=== PATIENT | male | born 1955 | race Caucasian/White ===

== ENCOUNTER 2018-06-27 21:48 | Inpatient (IN) | payer MEDICARE, OTHER ==
[~2018-06-27] VITALS: Ht 167.6 cm; Wt 92.9 kg
[2018-06-27] VITALS (8 sets, daily range): BP systolic 63–84; BP diastolic 43–68; PULSE 59–91; RESP 32–33; BMI 26.4
[2018-06-27] MEDS ORDERED: NORepinephrine 8MG/250 ML (PMX 250 ML IV SCH (23:00)
[2018-06-27] MEDS ORDERED: SOD CHLORIDE 0.9% 250 ML IV ONE (23:00)
[2018-06-28] VITALS (88 sets, daily range): BP systolic 38–173; BP diastolic 17–128; PULSE 59–130; RESP 16–36
[2018-06-28] MEDS ORDERED: ACETAMINOPHEN 650MG/20.3ML CUP GTB PRN
[2018-06-28] MEDS ORDERED: DEXTROSE 5%-0.9% NACL 1,000 ML IV SCH
[2018-06-28] MEDS ORDERED: VANCOMYCIN 750 MG (PMX) 250 ML IVPB SCH
[2018-06-28] MEDS: INSULIN ASPART [NOVOLOG] 3 ML PEN SC SCH ×6 (00:45→21:00)
[2018-06-28] MEDS: METOCLOPRAMIDE 10 MG INJ IV SCH ×5 (00:55→23:19)
[2018-06-28] MEDS: GENTAMICIN 0.3% 5 ML OPH BOTH EYES SCH ×7 (00:56→23:19)
[2018-06-28] MEDS ORDERED: GLUCAGON 1 MG INJ IM PRN ×2 (01:00)
[2018-06-28] MEDS ORDERED: GLUCOSE GEL 15 GRAM TUBE BUCCAL PRN (01:00)
[2018-06-28] MEDS ORDERED: DEXTROSE 50% 50 ML SYRINGE IV PRN (01:00)
[2018-06-28] MEDS ORDERED: GLUCOSE GEL 15 GRAM TUBE PO PRN ×2 (01:00)
[2018-06-28] MEDS ORDERED: MAGNESIUM SULFATE 2 GM/50 ML 50 ML IVPB ONE ×2 (01:00→11:30)
--- NOTE | 2018-06-28 01:12 | HP ---
Date/Time of Note Date/Time of Note DATE: 06/28/18 TIME: 00:55 Assessment/Plan VTE Prophylaxis SCD applied (from Ns): Yes Pharmacological prophylaxis: NA/contraindicated Pharm contraindication: other (Severe anemia) Assessment/Plan Assessment/Plan 1. Shock, likely septic(patient with severe unstageable sacral coccyx decubitus ulcer, pulmonary cocci), hypovolemic shock is also a possibility -Continue pressor support as needed. Will give IV fluid. -Urine culture, blood culture, sacrococcyx and respiratory culture -Patient has been anemic while he was in [place]. Will check hemoglobin and transfuse as needed -Continue his meropenem 2. Trach/vent dependent respiratory failure -Pulmonary to manage 3. Pulmonary cocci: Per bronchoscopy from [facility] on 05/12 -Per records, it seems like he is status post treatment with amphotericin B and Diflucan -Infectious disease to manage 4. Right middle cerebral artery CVA -Supportive care 5. Unstageable sacral coccyx decubitus ulcer -IV antibiotic, wound care consult 6. Diabetes: -Insulin 7. Reported history of seizure: On Keppra 8. Dysphagia with G-tube in place -Tube feeding CODE STATUS: Full. Patient with a poor prognosis. Will place a palliative care consult. Need to discuss goals of care with family Result Diagram: 06/28/18 0012 06/28/18 0012 Results 24hrs Laboratory Tests Test 06/28/18 00:12 06/28/18 00:35 White Blood Count 10.7 Red Blood Count 2.53 L Hemoglobin 7.4 L Hematocrit 22.8 L Mean Corpuscular Volume 90.1 Mean Corpuscular Hemoglobin 29.2 Mean Corpuscular Hemoglobin Concent 32.5 Red Cell Distribution Width 14.8 H Platelet Count 205 Mean Platelet Volume 8.7 Immature Granulocytes % 0.500 H Neutrophils % 78.7 H Lymphocytes % 10.9 L Monocytes % 5.6 Eosinophils % 4.1 Basophils % 0.2 Nucleated Red Blood Cells % 0.0 Immature Granulocytes # 0.050 H Neutrophils # 8.4 H Lymphocytes # 1.2 Monocytes # 0.6 Eosinophils # 0.4 Basophils # 0.0 Nucleated Red Blood Cells # 0.0 Sodium Level 135 Potassium Level 3.5 Chloride Level 104 Carbon Dioxide Level 20 L Anion Gap 11 Blood Urea Nitrogen 47 H Creatinine 1.02 Est Glomerular Filtrat Rate mL/min > 60 Glucose Level 76 # Lactic Acid Level 1.5 Calcium Level 9.3 Magnesium Level 1.6 L Bedside Glucose 83 HPI/ROS Admit Date/Time Admit Date/Time Jun 27, 2018 at 22:49 Hx of Present Illness This is a 62-year-old male who is trach/vent dependent, with a history of COPD, recent diagnosis of pulmonary cocci, right middle cerebral artery CVA, encephalopathy, seizure, diabetes, unstageable sacral coccyx decubitus ulcer, right ear pressure sore, G-tube. Patient was transferred from [place] for hypotension. He has been admitted to [place] after he was transferred from [facility]. He was admitted at [facility] on 05/08/2018 for respiratory failure and septic shock. Chest CT shows large cavitary mass. He underwent bronchoscopy on 05/12/18 with results showing pulmonary cocci. No malignancy. Patient was trached on 05/23/18. Patient is almost in a vegetative state and as such information is gathered from chart review. I am not fully convinced, but he seemed to attempt to close your eyes with verbal command. Patient currently has been started on pressor. PMH/Family/Social Past Medical History Medical History: other (See HPI) Medications Current Medications Norepinephrine 16 mg/Dextrose 500 ml @ 1.88 mls/hr TITRATE IV Last administered on 06/27/18at 23:42; Admin Dose 1.88 MLS/HR; Start 06/27/18 at 23:00 Acetaminophen (Tylenol Liquid) 650 mg Q6H PRN GTB FEVER; Start 06/28/18 at 00:00 Aspirin (Aspirin) 81 mg DAILY GTB ; Start 06/28/18 at 09:00 Atenolol (Tenormin) 12.5 mg BID GTB ; Start 06/28/18 at 09:00 Atorvastatin Calcium (Lipitor) 20 mg HS GTB ; Start 06/28/18 at 21:00 Dextrose/Sodium Chloride 1,000 ml @ 80 mls/hr [id number] IV ; Start 06/28/18 at 00:00 Fluconazole (Diflucan) 800 mg DAILY GTB ; Start 06/28/18 at 09:00 Gentamicin Sulfate (Gentamicin 0.3% Oph Drop) 2 drop Q4H BOTH EYES ; Start 06/28/18 at 00:00 Glucagon (Glucagen) 1 mg PRN PRN IM HYPOGLYCEMIA (BS<70); Start 06/28/18 at 00:00 Insulin Glargine (Lantus) 10 units DAILY SC ; Start 06/28/18 at 08:00 Lansoprazole (Prevacid) 30 mg BID@06,18 GTB ; Start 06/28/18 at 06:00 Levetiracetam (Keppra Liquid) 1,000 mg BID GTB ; Start 06/28/18 at 09:00 Memantine (Namenda) 10 mg DAILY GTB ; Start 06/28/18 at 09:00 Meropenem/Sodium Chloride 50 ml @ 100 mls/hr Q8 IVPB ; Start 06/28/18 at 06:00 Metoclopramide HCl (Reglan) 10 mg Q6 IV ; Start 06/28/18 at 00:00 Midodrine (Proamatine) 5 mg Q8 GTB ; Start 06/28/18 at 06:00 Nystatin (Nystatin Powder) 1 applic BID TOP ; Start 06/28/18 at 09:00 Scopolamine (Transderm-Scop) 1 patch Q72H TRANSDERM ; Start 06/28/18 at 09:00 Silver Sulfadiazine (Thermazene 1% 25 Gm) 1 applic BID TOP ; Start 06/28/18 at 09:00 Vancomycin/Sodium Chloride 250 ml @ 125 mls/hr Q12H IVPB ; Start 06/28/18 at 00: 00 Insulin Aspart (Novolog Insulin Pen) NOVOLOG *MILD* ALGORI... Q4 SC ; Start 06/28/18 at 01:00 Miscellaneous Information 1 ea NOTE XX ; Start 06/28/18 at 01:00 Glucose (Glutose) 15 gm Q15M PRN PO DECREASED GLUCOSE; Start 06/28/18 at 01:00 Glucose (Glutose) 22.5 gm Q15M PRN PO DECREASED GLUCOSE; Start 06/28/18 at 01:00 Dextrose (D50w Syringe) 25 ml Q15M PRN IV DECREASED GLUCOSE; Start 06/28/18 at 0 1:00 Dextrose (D50w Syringe) 50 ml Q15M PRN IV DECREASED GLUCOSE; Start 06/28/18 at 01:00 Glucagon (Glucagen) 1 mg Q15M PRN IM DECREASED GLUCOSE; Start 06/28/18 at 01:00 Glucose (Glutose) 15 gm Q15M PRN BUCCAL DECREASED GLUCOSE; Start 06/28/18 at 01:00 Magnesium Sulfate 50 ml @ 25 mls/hr ONCE ONCE IVPB ; Start 06/28/18 at 01:00; Stop 06/28/18 at 02:59 Coded Allergies: No Known Allergy (Unverified , 06/08/18) Past Surgical History Past Surgical Hx: other (See HPI) Family History Significant Family History: other (Unknown) Social History Alcohol Use: other (Unknown) Smoking Status: Former smoker Drug Use: other (Unknown) Exam/Review of Systems Vital Signs Vitals Vital Signs Date Temp Pulse Resp B/P (MAP) Pulse Ox O2 O2 Flow FiO2 Time Delivery Rate 06/28/18 61 00:00 06/27/18 32 100 30 20:22 Exam Constitutional: other (Trach to vent. And almost vegetative state. No acute distress noted) Head: other (Temporal wasting noted) Eyes: other (Pupils reactive to light) Neck: other (Trach to vent) Respiratory: diminished breath sounds Cardiovascular: regular rate and rhythm Gastrointestinal: soft, other (G-tube in place) Extremities: normal pulses RAFI SCRUGGS MD Jun 28, 2018 01:09
[2018-06-28] MEDS ORDERED: LIDOCAINE 1% (MPF) 5 ML VIAL SC ONE (01:30)
[2018-06-28] MEDS: POTASSIUM CHLORIDE 30 MEQ in DEXTROSE 5%-0.9% NACL 1,000 ML IV SCH ×3 (01:35→21:25)
[2018-06-28] MEDS ORDERED: ACCU-CHEK XX SCH (02:00)
[2018-06-28] MEDS: LANSOPRAZOLE 30 MG CAP GTB SCH ×2 (05:08→17:28)
[2018-06-28] MEDS: MIDODRINE 5 MG TAB GTB SCH ×3 (05:08→21:23)
[2018-06-28] MEDS: MEROPENEM 500MG/50 ML (PMX) 50 ML IVPB SCH ×3 (05:09→21:45)
[2018-06-28] MEDS: PHENYLephrine 20MG IN 250 ML 250 ML IV SCH ×4 (08:32→15:35)
[2018-06-28] MEDS: ATENOLOL 25 MG TAB GTB SCH ×2 (09:00→21:00)
[2018-06-28] MEDS: ASPIRIN 325 MG TAB GTB SCH (09:00)
[2018-06-28] MEDS ORDERED: SCOPOLAMINE 1.5 MG PATCH TRANSDERM SCH (09:00)
[2018-06-28] MEDS: FLUCONAZOLE 200 MG TAB GTB SCH (09:20)
[2018-06-28] MEDS: LEVETIRACETAM (100 MG/ML) 5ML CUP GTB SCH ×2 (09:21→21:23)
[2018-06-28] MEDS: MEMANTINE 10 MG TAB GTB SCH (09:21)
[2018-06-28] MEDS: NYSTATIN 30 GM POWDER BTL TOP SCH ×2 (09:21→21:25)
[2018-06-28] MEDS: SILVER SULFADIAZINE 1% 25 GM CR TOP SCH ×2 (09:22→21:25)
--- NOTE | 2018-06-28 09:26 | CONS ---
Date/Time of Note Date/Time of Note DATE: 06/28/18 TIME: 09:22 Assessment/Plan Assessment/Plan Assessment/Plan Chest x-ray is pending. Patient is currently on Levophed 29 mics per minute, phenylephrine drip 100 mics per minute. Ventilator setting; AC of 16, tidal volume 500, PEEP of 5, 30% FiO2. Assessment recommendations; 1. Patient with history of VD RF and chronic encephalopathy and history of coccidiomycosis pneumonia admitted for sepsis and hypotension requiring high- dose pressor support. Status post adequate fluid resuscitation. Sources are possible pneumonia versus sacral ulcer. 2. Advanced encephalopathy. 3. Stable seizure disorder. 4. Chronic anemia. 5. History of diabetes. Continue current supportive care. Wean down pressor support as tolerated. Prognosis remains poor. 40 minutes of critical care time was spent evaluating the patient. Result Diagram: 06/28/18 0012 06/28/18 0012 Results 24hrs Laboratory Tests Test 06/28/18 00:12 06/28/18 00:35 06/28/18 04:44 06/28/18 07:00 White Blood Count 10.7 Red Blood Count 2.53 L Hemoglobin 7.4 L Hematocrit 22.8 L Mean Corpuscular 90.1 Volume Mean Corpuscular 29.2 Hemoglobin Mean Corpuscular 32.5 Hemoglobin Concent Red Cell 14.8 H Distribution Width Platelet Count 205 Mean Platelet 8.7 Volume Immature 0.500 H Granulocytes % Neutrophils % 78.7 H Lymphocytes % 10.9 L Monocytes % 5.6 Eosinophils % 4.1 Basophils % 0.2 Nucleated Red 0.0 Blood Cells % Immature 0.050 H Granulocytes # Neutrophils # 8.4 H Lymphocytes # 1.2 Monocytes # 0.6 Eosinophils # 0.4 Basophils # 0.0 Nucleated Red 0.0 Blood Cells # Sodium Level 135 Potassium Level 3.5 Chloride Level 104 Carbon Dioxide 20 L Level Anion Gap 11 Blood Urea 47 H Nitrogen Creatinine 1.02 Est Glomerular > 60 Filtrat Rate mL/min Glucose Level 76 # Lactic Acid Level 1.5 Calcium Level 9.3 Magnesium Level 1.6 L Bedside Glucose 83 90 Blood Gas Specimen Blood arterial Source Arterial Blood 06/28/2018 7:29:00 Date Drawn AM Arterial Blood pH 7.306 L (Temp corrected) Arterial Blood 36.0 pCO2 (Temp correct) Arterial Blood pO2 76.4 L (Temp corrected) Arterial Blood 17.6 L HCO3 Arterial Blood -8.0 L Base Excess Arterial Blood 94.4 L Oxygen Saturation Mathieu Test ACCEPTAB Arterial Blood Gas Right Radial Puncture Site Arterial 0.4 Blood Carboxyhemog lobin Arterial Blood 0.3 Methemoglobin Blood Gas A-a O2 95.2 H Differential Oxyhemoglobin 93.7 Percent Blood Gas 37.0 Temperature Blood Gas 16.0 Respiration Rate Blood Gas Actual 25 Respiration Rate Blood Gas Modality VENT - AC FiO2 30.0 Blood Gas Tidal 500.0 Volume Blood Gas Low PEEP 5.0 Setting Blood Gas Notified TM Whom Blood Gas Notified 06/28/2018 7:51:49 Time AM Consultation Date/Type/Reason Admit Date/Time Jun 27, 2018 at 22:49 Date of Consultation: Jun 28, 2018 Type of Consult Pulmonary/critical care History of presenting illness; Patient is a 62-year-old male who was transferred over from [facility] because of hypotension. Patient has history of advanced encephalopathy and was unable to give any history by himself whatsoever. History has been obtained from medical records. Patient currently is requiring high-dose pressor support. Past medical history; 1. History of chronic encephalopathy. 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 4. History of tracheostomy and G-tube placement. 5. History of seizure disorder. 6. Sacral ulcer. 7. Diabetes. 8. Chronic anemia. Medications; reviewed. Allergies; none. Family history, social history, occupational history is or not available. Review of system; unable to be obtained. General exam; elderly male, on ventilator via tracheostomy, opens eyes on name calling but remains noncommunicative. Currently in no distress. Past Medical History Medical History: other (See HPI) Medications Current Medications Norepinephrine 16 mg/Dextrose 500 ml @ 1.88 mls/hr TITRATE IV Last administered on 06/27/18at 23:42; Admin Dose 1.88 MLS/HR; Start 06/27/18 at 23:00 Acetaminophen (Tylenol Liquid) 650 mg Q6H PRN GTB FEVER; Start 06/28/18 at 00:00 Aspirin (Aspirin) 81 mg DAILY GTB ; Start 06/28/18 at 09:00 Atenolol (Tenormin) 12.5 mg BID GTB ; Start 06/28/18 at 09:00 Atorvastatin Calcium (Lipitor) 20 mg HS GTB ; Start 06/28/18 at 21:00 Fluconazole (Diflucan) 800 mg DAILY GTB ; Start 06/28/18 at 09:00 Gentamicin Sulfate (Gentamicin 0.3% Oph Drop) 2 drop Q4H BOTH EYES Last administered on 06/28/18at 03:30; Admin Dose 2 DROP; Start 06/28/18 at 00:00 Glucagon (Glucagen) 1 mg PRN PRN IM HYPOGLYCEMIA (BS<70); Start 06/28/18 at 00:00 Insulin Glargine (Lantus) 10 units DAILY SC ; Start 06/28/18 at 08:00 Lansoprazole (Prevacid) 30 mg BID@06,18 GTB Last administered on 06/28/18at 05:08; Admin Dose 30 MG; Start 06/28/18 at 06:00 Levetiracetam (Keppra Liquid) 1,000 mg BID GTB ; Start 06/28/18 at 09:00 Memantine (Namenda) 10 mg DAILY GTB ; Start 06/28/18 at 09:00 Meropenem/Sodium Chloride 50 ml @ 100 mls/hr Q8 IVPB Last administered on 06/28/18at 05:09; Admin Dose 100 MLS/HR; Start 06/28/18 at 06:00 Metoclopramide HCl (Reglan) 10 mg Q6 IV Last administered on 06/28/18at 05:08; Admin Dose 10 MG; Start 06/28/18 at 00:00 Midodrine (Proamatine) 5 mg Q8 GTB ; Start 06/28/18 at 06:00 Nystatin (Nystatin Powder) 1 applic BID TOP ; Start 06/28/18 at 09:00 Scopolamine (Transderm-Scop) 1 patch Q72H TRANSDERM ; Start 06/28/18 at 09:00 Silver Sulfadiazine (Thermazene 1% 25 Gm) 1 applic BID TOP ; Start 06/28/18 at 09:00 Vancomycin/Sodium Chloride 250 ml @ 125 mls/hr Q12H IVPB Last administered on 06/28/18at 00:55; Admin Dose 125 MLS/HR; Start 06/28/18 at 00:00 Insulin Aspart (Novolog Insulin Pen) NOVOLOG *MILD* ALGORI... Q4 SC ; Start 06/28/18 at 01:00 Miscellaneous Information 1 ea NOTE XX ; Start 06/28/18 at 01:00 Glucose (Glutose) 15 gm Q15M PRN PO DECREASED GLUCOSE; Start 06/28/18 at 01:00 Glucose (Glutose) 22.5 gm Q15M PRN PO DECREASED GLUCOSE; Start 06/28/18 at 01:00 Dextrose (D50w Syringe) 25 ml Q15M PRN IV DECREASED GLUCOSE; Start 06/28/18 at 0 1:00 Dextrose (D50w Syringe) 50 ml Q15M PRN IV DECREASED GLUCOSE; Start 06/28/18 at 01:00 Glucagon (Glucagen) 1 mg Q15M PRN IM DECREASED GLUCOSE; Start 06/28/18 at 01:00 Glucose (Glutose) 15 gm Q15M PRN BUCCAL DECREASED GLUCOSE; Start 06/28/18 at 01:00 Potassium Chloride 30 meq/ Dextrose/Sodium Chloride 1,015 ml @ 80 mls/hr [id number] IV Last administered on 06/28/18at 01:35; Admin Dose 80 MLS/HR; Start 06/28/18 at 01:30 Phenylephrine HCl 250 ml @ 75 mls/hr TITRATE IV Last administered on 06/28/18at 08:32; Admin Dose 75 MLS/HR; Start 06/28/18 at 08:00 Allergies: Coded Allergies: No Known Allergy (Unverified , 06/08/18) Past Surgical History Past Surgical Hx: other (See HPI) Social History Alcohol Use: other (Unknown) Smoking Status: Former smoker Drug Use: other (Unknown) Exam/Review of Systems Vital Signs Vitals Vital Signs Date Temp Pulse Resp B/P (MAP) Pulse Ox O2 O2 Flow FiO2 Time Delivery Rate 06/28/18 75 30 92/53 (66) 100 06:15 06/28/18 31 05:52 06/28/18 96.8 Mechanical 00:00 Ventilator Intake and Output 06/27/18 06/27/18 06/28/18 1515:00 23:00 07:00 IntakeIntake Total 1658.77 ml OutputOutput Total 40 ml 310 ml BalanceBalance -40 ml 1348.77 ml Exam H EENT exam; supple neck, no JVD. No lymphadenopathy. Midline trachea. No thyromegaly. Tracheostomy in place. Insertion site is clean. Patient is e dentulous. No neck masses. Chest exam; diminished breath sounds bilaterally. S1-S2 audible, no murmurs. Regular rhythm. Abdomen exam; soft, no organomegaly. G-tube in place. Bowel sounds audible. Back examination; dressing applied over sacrum. Extremity exam; no peripheral edema. [employer] exam; she opens eyes on sternal rubbing but remains noncommunicative. Medications Medications Current Medications Norepinephrine 16 mg/Dextrose 500 ml @ 1.88 mls/hr TITRATE IV Last administered on 06/27/18at 23:42; Admin Dose 1.88 MLS/HR; Start 06/27/18 at 23:00 Acetaminophen (Tylenol Liquid) 650 mg Q6H PRN GTB FEVER; Start 06/28/18 at 00:00 Aspirin (Aspirin) 81 mg DAILY GTB ; Start 06/28/18 at 09:00 Atenolol (Tenormin) 12.5 mg BID GTB ; Start 06/28/18 at 09:00 Atorvastatin Calcium (Lipitor) 20 mg HS GTB ; Start 06/28/18 at 21:00 Fluconazole (Diflucan) 800 mg DAILY GTB ; Start 06/28/18 at 09:00 Gentamicin Sulfate (Gentamicin 0.3% Oph Drop) 2 drop Q4H BOTH EYES Last administered on 06/28/18at 03:30; Admin Dose 2 DROP; Start 06/28/18 at 00:00 Glucagon (Glucagen) 1 mg PRN PRN IM HYPOGLYCEMIA (BS<70); Start 06/28/18 at 00:00 Insulin Glargine (Lantus) 10 units DAILY SC ; Start 06/28/18 at 08:00 Lansoprazole (Prevacid) 30 mg BID@06,18 GTB Last administered on 06/28/18at 05:08; Admin Dose 30 MG; Start 06/28/18 at 06:00 Levetiracetam (Keppra Liquid) 1,000 mg BID GTB ; Start 06/28/18 at 09:00 Memantine (Namenda) 10 mg DAILY GTB ; Start 06/28/18 at 09:00 Meropenem/Sodium Chloride 50 ml @ 100 mls/hr Q8 IVPB Last administered on 06/28/18at 05:09; Admin Dose 100 MLS/HR; Start 06/28/18 at 06:00 Metoclopramide HCl (Reglan) 10 mg Q6 IV Last administered on 06/28/18at 05:08; Admin Dose 10 MG; Start 06/28/18 at 00:00 Midodrine (Proamatine) 5 mg Q8 GTB ; Start 06/28/18 at 06:00 Nystatin (Nystatin Powder) 1 applic BID TOP ; Start 06/28/18 at 09:00 Scopolamine (Transderm-Scop) 1 patch Q72H TRANSDERM ; Start 06/28/18 at 09:00 Silver Sulfadiazine (Thermazene 1% 25 Gm) 1 applic BID TOP ; Start 06/28/18 at 09:00 Vancomycin/Sodium Chloride 250 ml @ 125 mls/hr Q12H IVPB Last administered on 06/28/18at 00:55; Admin Dose 125 MLS/HR; Start 06/28/18 at 00:00 Insulin Aspart (Novolog Insulin Pen) NOVOLOG *MILD* ALGORI... Q4 SC ; Start 06/28/18 at 01:00 Miscellaneous Information 1 ea NOTE XX ; Start 06/28/18 at 01:00 Glucose (Glutose) 15 gm Q15M PRN PO DECREASED GLUCOSE; Start 06/28/18 at 01:00 Glucose (Glutose) 22.5 gm Q15M PRN PO DECREASED GLUCOSE; Start 06/28/18 at 01:00 Dextrose (D50w Syringe) 25 ml Q15M PRN IV DECREASED GLUCOSE; Start 06/28/18 at 01:00 Dextrose (D50w Syringe) 50 ml Q15M PRN IV DECREASED GLUCOSE; Start 06/28/18 at 01:00 Glucagon (Glucagen) 1 mg Q15M PRN IM DECREASED GLUCOSE; Start 06/28/18 at 01:00 Glucose (Glutose) 15 gm Q15M PRN BUCCAL DECREASED GLUCOSE; Start 06/28/18 at 01:00 Potassium Chloride 30 meq/ Dextrose/Sodium Chloride 1,015 ml @ 80 mls/hr [id number] IV Last administered on 06/28/18at 01:35; Admin Dose 80 MLS/HR; Start 06/28/18 at 01:30 Phenylephrine HCl 250 ml @ 75 mls/hr TITRATE IV Last administered on 06/28/18at 08:32; Admin Dose 75 MLS/HR; Start 06/28/18 at 08:00 RDONEY MASCORRO Jun 28, 2018 09:26
[2018-06-28] MEDS: INSULIN GLARGINE [LANTus] (100 UNITS/ML) SYG SC SCH (09:33)
[2018-06-28] MEDS ORDERED: DOPamine-D5W 1.6 MG/ML 250 ML IV SCH (12:30)
[2018-06-28] MEDS ORDERED: DOPamine 800 MG in DEXTROSE 5% 230 ML IV SCH (13:30)
[2018-06-28] MEDS: POTASSIUM CHLORIDE 50 ML IVPB SCH ×2 (13:41→15:34)
[2018-06-28] MEDS: VANCOMYCIN 750 MG (PMX) 250 ML IVPB SCH (15:06)
[2018-06-28] MEDS ORDERED: PHENYLephrine 20MG IN 250 ML 250 ML ONE (17:04)
[2018-06-28] MEDS ORDERED: PHENYLephrine 20MG IN 250 ML 250 ML IV STA (17:04)
--- NOTE | 2018-06-28 17:37 | PN ---
Date/Time of Note Date/Time of Note DATE: 06/28/18 TIME: 17:34 Assessment/Plan VTE Prophylaxis Risk score (from [facility] [place])>0 risk: 7 SCD applied (from [facility] [place]): Yes Pharmacological prophylaxis: NA/contraindicated Pharm contraindication: surgical contra Assessment/Plan Hospital Course 1. Shock, likely septic from severe unstageable sacral coccyx decubitus ulcer and pulmonary cocci -Patient now on 2 pressors -Urine culture, blood culture, sacrococcyx and respiratory culture -Continue meropenem and vancomycin 2. Trach/vent dependent respiratory failure -Pulmonary to manage 3. Pulmonary cocci: Per bronchoscopy from [facility] on 05/12 -Per records, it seems like he is status post treatment with amphotericin B and Diflucan -Infectious disease to manage 4. Right middle cerebral artery CVA -Supportive care 5. Unstageable sacral coccyx decubitus ulcer -IV antibiotic, wound care consult 6. Diabetes: -Insulin 7. Reported history of seizure: On Keppra 8. Dysphagia with G-tube in place -Tube feeding Prophylaxis: SCDs DC planning: Spoke to patient's daughter today and they would like to continue aggressive care continue CODE STATUS of full code Result Diagram: 06/28/18 0012 06/28/18 0012 Results 24hrs Laboratory Tests Test 06/28/18 00:12 06/28/18 00:35 06/28/18 03:00 06/28/18 04:44 White Blood 10.7 Count Red Blood Count 2.53 L Hemoglobin 7.4 L Hematocrit 22.8 L Mean Corpuscular 90.1 Volume Mean Corpuscular 29.2 Hemoglobin Mean Corpuscular 32.5 Hemoglobin [place] nt Red Cell 14.8 H Distribution Width Platelet Count 205 Mean Platelet 8.7 Volume Immature 0.500 H Granulocytes % Neutrophils % 78.7 H Lymphocytes % 10.9 L Monocytes % 5.6 Eosinophils % 4.1 Basophils % 0.2 Nucleated Red 0.0 Blood Cells % Immature 0.050 H Granulocytes # Neutrophils # 8.4 H Lymphocytes # 1.2 Monocytes # 0.6 Eosinophils # 0.4 Basophils # 0.0 Nucleated Red 0.0 Blood Cells # Sodium Level 135 Potassium Level 3.5 Chloride Level 104 Carbon Dioxide 20 L Level Anion Gap 11 Blood Urea 47 H Nitrogen Creatinine 1.02 Est Glomerular > 60 Filtrat Rate mL/min Glucose Level 76 # Lactic Acid 1.5 Level Calcium Level 9.3 Magnesium Level 1.6 L Bedside Glucose 83 90 Urine Color YELLOW Urine Clarity SLIGHTLY CLOUDY A Urine pH 5.0 Urine Specific 1.010 [place] Urine Ketones NEGATIVE Urine Nitrite NEGATIVE Urine Bilirubin NEGATIVE Urine NEGATIVE Urobilinogen Urine Leukocyte NEGATIVE Esterase Urine 1 Microscopic RBC Urine 2 Microscopic WBC Urine Bacteria FEW A Urine Hemoglobin NEGATIVE Urine Glucose NEGATIVE Urine Total 1+ H Protein Test 06/28/18 07:00 06/28/18 09:31 06/28/18 11:54 06/28/18 14:21 Blood Gas Blood arterial Specimen Source Arterial Blood 06/28/2018 7:29:00 Date Drawn AM Arterial Blood 7.306 L pH (Temp corrected) Arterial Blood 36.0 pCO2 (Temp correct) Arterial Blood 76.4 L pO2 (Temp corrected) Arterial Blood 17.6 L HCO3 Arterial Blood -8.0 L Base Excess Arterial Blood 94.4 L Oxygen Saturatio n Mathieu Test ACCEPTAB Arterial Blood Right Radial Gas Puncture Site Arterial 0.4 Blood Carboxyhem oglobin Arterial Blood 0.3 Methemoglobin Blood Gas A-a O2 95.2 H Differential Oxyhemoglobin 93.7 Percent Blood Gas 37.0 Temperature Blood Gas 16.0 Respiration Rate Blood Gas Actual 25 Respiration Rate Blood Gas VENT - AC Modality FiO2 30.0 Blood Gas Tidal 500.0 Volume Blood Gas Low 5.0 PEEP Setting Blood Gas TM Notified Whom Blood Gas 06/28/2018 7:51:49 Notified Time AM Bedside Glucose 103 110 Creatine Kinase < 20 L Creatine Kinase Index Creatinine 1.20 Kinase MB (Mass) Troponin I < 0.012 Test 06/28/18 17:27 Bedside Glucose 81 Subjective 24 Hr Interval Summary Subjective hx not possible: pt non-verbal Exam/Review of Systems Vital Signs Vitals Vital Signs Date Temp Pulse Resp B/P (MAP) Pulse Ox O2 O2 Flow FiO2 Time Delivery Rate 06/28/18 91 12:00 06/28/18 27 114/55 97 Mechanical 11:45 (74) Ventilator 06/28/18 30 11:40 06/28/18 97.5 09:45 Intake and Output 06/27/18 06/27/18 06/28/18 1515:00 23:00 07:00 IntakeIntake Total 1658.77 ml OutputOutput Total 40 ml 310 ml BalanceBalance -40 ml 1348.77 ml Exam Constitutional: non-verbal Respiratory: clear to auscultation Cardiovascular: regular rate and rhythm Gastrointestinal: soft; No distended Musculoskeletal: nl extremities to inspection Medications Medications Current Medications Norepinephrine 16 mg/Dextrose 500 ml @ 1.88 mls/hr TITRATE IV Last administered on 06/28/18 13:57; Admin Dose 56.25 MLS/HR; Start 06/27/18 at 23:00 Acetaminophen (Tylenol Liquid) 650 mg Q6H PRN GTB FEVER; Start 06/28/18 at 00:00 Aspirin (Aspirin) 81 mg DAILY GTB ; Start 06/28/18 at 09:00 Atenolol (Tenormin) 12.5 mg BID GTB ; Start 06/28/18 at 09:00 Atorvastatin Calcium (Lipitor) 20 mg HS GTB ; Start 06/28/18 at 21:00 Fluconazole (Diflucan) 800 mg DAILY GTB Last administered on 06/28/18 09:20; Admin Dose 800 MG; Start 06/28/18 at 09:00 Gentamicin Sulfate (Gentamicin 0.3% Oph Drop) 2 drop Q4H BOTH EYES Last administered on 06/28/18 17:20; Admin Dose 2 DROP; Start 06/28/18 at 00:00 Glucagon (Glucagen) 1 mg PRN PRN IM HYPOGLYCEMIA (BS<70); Start 06/28/18 at 00:00 Insulin Glargine (Lantus) 10 units DAILY SC Last administered on 06/28/18 09:33; Admin Dose 10 UNITS; Start 06/28/18 at 08:00 Lansoprazole (Prevacid) 30 mg BID@06,18 GTB Last administered on 06/28/18 17:28; Admin Dose 30 MG; Start 06/28/18 at 06:00 Levetiracetam (Keppra Liquid) 1,000 mg BID GTB Last administered on 06/28/18 09:21; Admin Dose 1,000 MG; Start 06/28/18 at 09:00 Memantine (Namenda) 10 mg DAILY GTB Last administered on 06/28/18 09:21; Admin Dose 10 MG; Start 06/28/18 at 09:00 Meropenem/Sodium Chloride 50 ml @ 100 mls/hr Q8 IVPB Last administered on 1/3/19at 14:17; Admin Dose 100 MLS/HR; Start 06/28/18 at 06:00 Metoclopramide HCl (Reglan) 10 mg Q6 IV Last administered on 06/28/18at 17:28; Admin Dose 10 MG; Start 06/28/18 at 00:00 Midodrine (Proamatine) 5 mg Q8 GTB Last administered on 06/28/18at 14:11; Admin Dose 5 MG; Start 06/28/18 at 06:00 Nystatin (Nystatin Powder) 1 applic BID TOP Last administered on 06/28/18at 09:21; Admin Dose 1 APPLIC; Start 06/28/18 at 09:00 Scopolamine (Transderm-Scop) 1 patch Q72H TRANSDERM Last administered on 06/28/18 09:22; Admin Dose 1 PATCH; Start 06/28/18 at 09:00 Silver Sulfadiazine (Thermazene 1% 25 Gm) 1 applic BID TOP Last administered on 06/28/18 09:22; Admin Dose 1 APPLIC; Start 06/28/18 at 09:00 Insulin Aspart (Novolog Insulin Pen) NOVOLOG *MILD* ALGORI... Q4 SC ; Start 06/28/18 at 01:00 Miscellaneous Information 1 ea NOTE XX ; Start 06/28/18 at 01:00 Glucose (Glutose) 15 gm Q15M PRN PO DECREASED GLUCOSE; Start 06/28/18 at 01:00 Glucose (Glutose) 22.5 gm Q15M PRN PO DECREASED GLUCOSE; Start 06/28/18 at 01:00 Dextrose (D50w Syringe) 25 ml Q15M PRN IV DECREASED GLUCOSE; Start 06/28/18 at 01:00 Dextrose (D50w Syringe) 50 ml Q15M PRN IV DECREASED GLUCOSE; Start 06/28/18 at 01:00 Glucagon (Glucagen) 1 mg Q15M PRN IM DECREASED GLUCOSE; Start 06/28/18 at 01:00 Glucose (Glutose) 15 gm Q15M PRN BUCCAL DECREASED GLUCOSE; Start 06/28/18 at 01:00 Potassium Chloride 30 meq/ Dextrose/Sodium Chloride 1,015 ml @ 80 mls/hr [id number] IV Last administered on 06/28/18at 01:35; Admin Dose 80 MLS/HR; Start 06/28/18 at 01:30 IV Flush (NS 10 ml) 10 ml PRN PRN IV IV PROTOCOL; Start 06/28/18 at 12:00 Dopamine HCl/ Dextrose 250 ml @ 5.565 mls/ hr TITRATE IV ; Start 06/28/18 at 12:30 Miscellaneous Information (*Rx Drug Level Order Reminder*) VANCO TROUGH 06/28 @ 2,300 ONCE ONCE XX ; Start 06/29/18 at 01:00; Stop 06/29/18 at 01:01 Vancomycin/Sodium Chloride 250 ml @ 125 mls/hr Q12H IVPB Last administered on 06/28/18at 15:06; Admin Dose 125 MLS/HR; Start 06/28/18 at 14:00 Phenylephrine HCl 80 mg/Dextrose 250 ml @ 18.75 mls/ hr TITRATE IV ; Start 06/28/18 at 17:00 ENID SINGH Jun 28, 2018 17:37
[2018-06-28] MEDS: PHENYLephrine 80 MG in DEXTROSE 5% 242 ML IV SCH ×2 (18:44→23:59)
--- NOTE | 2018-06-28 18:53 | CONS ---
DATE OF ADMISSION: 06/27/2018 DATE OF CONSULTATION: 06/28/2018 REASON FOR CONSULTATION: Hypotension. REQUESTING PHYSICIAN: Dr. Patel from the hospitalist service. HISTORY OF PRESENT ILLNESS: Mr. Ponce is a 62-year-old male who has chronic respiratory failure, vent dependent, COPD, pulmonary cocci infection, right middle cerebral artery CVA, encephalopathy, seizure, diabetes mellitus, decubitus ulcers, dysphagia status G-tube who was transferred from [facility] at the onset of hypotension requiring initiation of pressor support. The patient since that time has been admitted to the ICU and remains on Levophed and Owen-Synephrine at this time with Levophed being maximized. The patient does not clearly respond to questioning pertaining to chest pain or shortness of breath at this time. PAST MEDICAL HISTORY: As above in HPI. MEDICATIONS CURRENTLY IN HOSPITAL: 1. Lipitor 20 mg at bedtime. 2. Aspirin 81 mg daily. 3. Atenolol 12.5 mg p.o. b.i.d. 4. Fluconazole 80 mg daily. 5. Keppra 1000 mg b.i.d. 6. Namenda 10 mg daily. 7. Nystatin. 8. Scopolamine patch. 9. Silver sulfadiazine. 10. Prevacid. 11. Midodrine 5 mg p.o. q.8 hours. 12. Insulin sliding scale. 13. Reglan. 14. Vancomycin. 15. Levophed. 16. Tylenol. ALLERGIES: NO KNOWN DRUG ALLERGIES. SOCIAL HISTORY: No current tobacco, ETOH, or illicit drug use. FAMILY HISTORY: No sudden cardiac or early CAD. REVIEW OF SYSTEMS: As above in HPI. CONSTITUTIONAL: No fevers, chills. PULMONARY: Respiratory failure status post trach. GASTROINTESTINAL: Dysphagia status post G-tube. GENITOURINARY: No hematuria. MUSCULOSKELETAL: Degenerative joint disease, status post left lower extremity amputation. PSYCHIATRIC: No documented psych history. NEUROLOGIC: Encephalopathy. PHYSICAL EXAMINATION: VITAL SIGNS: Temperature of 96.8, blood pressure most recently 92/53, pulse 75, respiratory rate 30, satting 100%. GENERAL: The patient is sleeping trach on the vent. NECK: Tracheostomy in place. CHEST: Upper extremities are rhonchorous sounds. HEART: Regular rate and rhythm. Normal S1, S2, I/ systolic murmur. Nondisplaced PMI. ABDOMEN: Positive bowel sounds, soft. EXTREMITIES: Left lower extremity, status amputation. Right lower extremity, no significant pitting edema. Difficult to palpate distal pulses posterior tibial. LABORATORY DATA: Most recent from today, sodium 135, potassium 3.5, creatinine 1.0, BUN of 47. Magnesium 1.6. White blood cell count 10.7, hemoglobin 7.4, platelet count 205. UA negative. IMAGING STUDIES: As above in HPI. No further imaging studies for my review at this time. ELECTROCARDIOGRAM: Reveals from today sinus bradycardia at 57, normal axis and intervals, nonspecific ST abnormalities, frequent PVCs, anterior T-wave inversion. IMPRESSION: 1. Hypotension/shock state, likely septic. 2. Premature ventricular contractions in a pattern of bigeminy. Assess for coronary ischemia, acute coronary syndrome. 3. Dyslipidemia. 4. Peripheral arterial disease, status post lower extremity amputation. 5. Seizure disorder. 6. Anemia. 7. Encephalopathy. 8. History of pulmonary coccidioidomycosis. 9. Chronic respiratory failure, status post tracheostomy. 10. Dysphagia, status post G-tube. RECOMMENDATIONS: 1. At this time, would maintain patient in ICU on close monitoring. 2. The patient receiving a PICC line at this time. He will continue to receive pressor support. 3. Will complete a rule out for myocardial infarction to be sure the patient's symptoms are not the result of an acute coronary syndrome such as acute myocardial infarction. 4. Replete the patient's magnesium and potassium in the setting of PVCs greater than 2 and 4 respectively. 5. Patient is status post echo 06/11/2018, at that time revealing an EF of 50% to 55%. Could consider reassessment as necessary. 6. Additionally, would continue the patient's antibiotics and follow up all culture data. Thank you for allowing me to take part in the care of this patient. I will continue to follow along very closely with you, with recommendations to be made as the patient progresses through his inpatient hospital clinical course. Dictated By: ALINE ORONA/RAYNA Conf#: [id number] DID#: [id number] CC: RAFIQ LEGGETT MD; YUNIER PATEL MD;*EndCC* MTDD
--- NOTE | 2018-06-28 19:38 | RADRPT ---
Vent Rate: 57 bpm RR Interval: 0 msec [place] Interval: 188 msec QRS Duration: 94 msec QT Interval: 488 msec QTC Interval: 474 msec P-R-T [place]: 30 - 46 - 68 degrees Sinus bradycardia with frequent premature ventricular complexes T wave abnormality, consider anterior ischemia Prolonged QT Abnormal ECG Electronically Signed By: Rodriguez Clark [id number]
[2018-06-28] MEDS ORDERED: ATORVASTATIN 20 MG TAB ONE (19:57)
--- NOTE | 2018-06-28 20:27 | CONS ---
DATE OF ADMISSION: 06/27/2018 DATE OF CONSULTATION: 06/28/2018 INFECTIOUS DISEASE CONSULTATION REASON FOR CONSULTATION: Antibiotic management. HISTORY OF PRESENT ILLNESS: Rajeev Ponce is a 62-year-old male who was transferred from [place] to [facility] ICU with what appears to be septic shock. The patient has a history of pulmonary c occi per bronchoscopy from [facility] on 05/12. He is status post treatment with ampho tericin B and currently is on fluconazole. The patient also had history of right middle cerebral art quang CVA, unstageable sacral coccyx decubitus ulcer which he is on IV antibiotics and wound care, has a history of diabetes and history of seizures, on Keppra. He has dysphagia with G-tube in place. On admission, his white count is 10.7, H and H of 7.4 and 22.8, platelet count 205,000. BUN and creati nine 47/1.02. Random glucose of 76. The patient was seen in consultation by pulmonary, Dr. Curtis. Of note, he is ventilator dependent respiratory failure, chronic encephalopathy and history of cocci pneumonia, admitted for sepsis and hypotension requiring high dose pressor support. He has advanced encephalopathy, stable; seizure disorder, anemia as noted and diabetes. PAST MEDICAL HISTORY: Operations as outlined. FAMILY HISTORY: Noncontributory. SOCIAL HISTORY: He does not smoke, drink or abuse drugs. ALLERGIES: NONE TO PENICILLIN, SULFA OR FOODS. MEDICATIONS: Per chart. REVIEW OF SYSTEMS: As per HPI. PHYSICAL EXAMINATION: GENERAL: He is a chronically ill-appearing male, was hypotensive, on a respirator. He has a tracheo stomy and a G-tube. SKIN: Without generalized rash. HEENT: Within normal limits. NECK: Supple. LYMPH NODES: None palpable. CHEST: Decreased breath sounds at the bases. HEART: Without murmur or gallop. ABDOMEN: Soft, nontender, without organosplenomegaly or masses. EXTREMITIES: Without cyanosis, clubbing, or edema. RECTAL AND GENITAL: Deferred. NEUROLOGIC: No focal neurological abnormality. The patient was placed on fluconazole ____ mg a day. He is also on meropenem 1 gram q.8 and on vanco mycin. I concur with this regimen. He was also on norepinephrine to maintain his blood pressure and also phenylephrine. I will dictate my findings to the hospitalist and to Dr. Curtis. Dictated By: BUNNY OJEDA MD, JD/RAYNA Conf#: [id number] DID#: [id number] CC: RAFIQ LEGGETT MD;*EndCC*
[2018-06-28] MEDS: ATORVASTATIN 20 MG TAB GTB SCH (21:23)
[2018-06-28] MEDS ORDERED: LORAZEPAM 4 MG/ML VIAL IV ONE (23:00)
[2018-06-29] VITALS (99 sets, daily range): BP systolic 97–133; BP diastolic 33–58; PULSE 73–105; RESP 14–34
[2018-06-29] MEDS: INSULIN ASPART [NOVOLOG] 3 ML PEN SC SCH ×6 (00:39→20:19)
[2018-06-29] MEDS ORDERED: HYDROmorphONE 1 MG/ML SYG IV ONE (01:00)
[2018-06-29] MEDS ORDERED: SOD CHLORIDE 0.9% 250 ML IV ONE (01:00)
[2018-06-29] MEDS: VANCOMYCIN 750 MG (PMX) 250 ML IVPB SCH (02:58)
[2018-06-29] MEDS: GENTAMICIN 0.3% 5 ML OPH BOTH EYES SCH ×5 (04:57→20:13)
[2018-06-29] MEDS: MIDODRINE 5 MG TAB GTB SCH ×3 (05:35→21:55)
[2018-06-29] MEDS: LANSOPRAZOLE 30 MG CAP GTB SCH ×2 (05:35→18:07)
[2018-06-29] MEDS: METOCLOPRAMIDE 10 MG INJ IV SCH ×3 (05:35→18:07)
[2018-06-29] MEDS: PHENYLephrine 80 MG in DEXTROSE 5% 242 ML IV SCH ×3 (05:41→18:11)
[2018-06-29] MEDS: MEROPENEM 500MG/50 ML (PMX) 50 ML IVPB SCH ×3 (05:58→21:55)
[2018-06-29] MEDS: FLUCONAZOLE 200 MG TAB GTB SCH (08:25)
[2018-06-29] MEDS: LEVETIRACETAM (100 MG/ML) 5ML CUP GTB SCH ×2 (08:25→20:14)
[2018-06-29] MEDS: ATENOLOL 25 MG TAB GTB SCH ×2 (08:26→21:00)
[2018-06-29] MEDS: SILVER SULFADIAZINE 1% 25 GM CR TOP SCH ×2 (08:27→20:14)
[2018-06-29] MEDS: NYSTATIN 30 GM POWDER BTL TOP SCH ×2 (08:27→20:14)
[2018-06-29] MEDS: INSULIN GLARGINE [LANTus] (100 UNITS/ML) SYG SC SCH ×2 (09:00→09:21)
[2018-06-29] MEDS: POTASSIUM CHLORIDE 30 MEQ in DEXTROSE 5%-0.9% NACL 1,000 ML IV SCH (11:07)
--- NOTE | 2018-06-29 12:28 | CONS ---
Date/Time of Note Date/Time of Note DATE: 06/29/18 TIME: 12:25 Consult Date/Type/Reason Admit Date/Time Jun 27, 2018 at 22:49 Initial Consult Date 06/28/18 Type of Consultation: Pulm Subjective Continues multiple pressors. Remains somnolent on vent. Objective Vital Signs Date Temp Pulse Resp B/P (MAP) Pulse Ox O2 O2 Flow FiO2 Time Delivery Rate 06/29/18 98.8 85 26 107/47 98 Mechanical 11:30 (67) Ventilator 06/29/18 40 09:58 Intake and Output 06/28/18 06/28/18 06/29/18 1515:00 23:00 07:00 IntakeIntake Total 1661.23 ml 1980.00 ml 1750.008 ml OutputOutput Total 350 ml 245 ml 300 ml BalanceBalance 1311.23 ml 1735.00 ml 1450.008 ml Exam GENERAL: Remains somnolent on mechanical ventilation. Chronically ill-appearing gentleman VITAL SIGNS: per chart NECK: Supple. No JVD or lymphadenopathy. CARDIAC EXAM: S1, S2. No added sounds or murmurs. CHEST: Diminished air entry bilaterally ABDOMEN: Soft, nontender. No guarding or rebound. EXTREMITIES: No cyanosis, clubbing or edema. NEUROLOGIC: Generalized weakness. Results/Medications Result Diagram: 06/29/18 0449 06/29/18 0453 Results 24 hrs Laboratory Tests Test 06/28/18 14:21 06/28/18 17:27 06/28/18 18:01 06/28/18 21:48 Bedside Glucose 110 81 92 Hemoglobin 9.8 #L Hematocrit 29.8 #L Creatine Kinase < 20 L Creatine Kinase Index Creatinine Kinase 0.77 MB (Mass) Troponin I 0.013 Test 06/29/18 00:29 06/29/18 00:30 06/29/18 03:00 06/29/18 04:49 Creatine Kinase < 20 L Creatine Kinase Index Creatinine Kinase 0.92 MB (Mass) Troponin I 0.047 Vancomycin Level 14.6 Trough Bedside Glucose 119 Stool Occult Blood POSITIVE White Blood Count 18.2 #H Red Blood Count 3.23 #L Hemoglobin 9.5 L Hematocrit 29.2 L Mean Corpuscular 90.4 Volume Mean Corpuscular 29.4 Hemoglobin Mean Corpuscular 32.5 Hemoglobin Concent Red Cell 15.0 H Distribution Width Platelet Count 186 Mean Platelet 8.7 Volume Immature 0.900 H Granulocytes % Neutrophils % 81.9 H Lymphocytes % 8.8 L Monocytes % 6.7 Eosinophils % 1.4 Basophils % 0.3 Nucleated Red Blood 0.0 Cells % Immature 0.160 H Granulocytes # Neutrophils # 14.9 H Lymphocytes # 1.6 Monocytes # 1.2 H Eosinophils # 0.3 Basophils # 0.1 Nucleated Red Blood 0.0 Cells # Test 06/29/18 04:53 06/29/18 05:19 06/29/18 05:33 06/29/18 08:30 Sodium Level 133 L Potassium Level 4.8 Chloride Level 107 Carbon Dioxide 15 L Level Anion Gap 11 Blood Urea Nitrogen 44 H Creatinine 1.38 H Est Glomerular 52 L Filtrat Rate mL/min Glucose Level 136 # Calcium Level 9.6 Total Bilirubin 0.7 Direct Bilirubin 0.70 H Indirect Bilirubin 0.0 Aspartate Amino 28 Transf (AST/SGOT) Alanine < 6 L Aminotransferase (A LT/SGPT) Alkaline 328 H Phosphatase Total Protein 6.8 Albumin 2.0 L Globulin 4.80 H Albumin/Globulin 0.41 Ratio Lab Scanned Report BLOOD TRANSFUSION Bedside Glucose 145 201 Medications Current Medications Norepinephrine 16 mg/Dextrose 500 ml @ 1.88 mls/hr TITRATE IV Last administered on 06/29/18at 06:47; Admin Dose 56.25 MLS/HR; Start 06/27/18 at 23:00 Acetaminophen (Tylenol Liquid) 650 mg Q6H PRN GTB FEVER; Start 06/28/18 at 00:00 Aspirin (Aspirin) 81 mg DAILY GTB ; Start 06/28/18 at 09:00 Atenolol (Tenormin) 12.5 mg BID GTB ; Start 06/28/18 at 09:00 Atorvastatin Calcium (Lipitor) 20 mg HS GTB Last administered on 06/28/18at 21:23; Admin Dose 20 MG; Start 06/28/18 at 21:00 Fluconazole (Diflucan) 800 mg DAILY GTB Last administered on 06/29/18at 08:25; Admin Dose 800 MG; Start 06/28/18 at 09:00 Gentamicin Sulfate (Gentamicin 0.3% Oph Drop) 2 drop Q4H BOTH EYES Last administered on 06/29/18at 11:37; Admin Dose 2 DROP; Start 06/28/18 at 00:00 Glucagon (Glucagen) 1 mg PRN PRN IM HYPOGLYCEMIA (BS<70); Start 06/28/18 at 00:00 Insulin Glargine (Lantus) 10 units DAILY SC Last administered on 06/29/18 09:21; Admin Dose 10 UNITS; Start 06/28/18 at 08:00 Lansoprazole (Prevacid) 30 mg BID@06,18 GTB Last administered on 06/29/18 05:35; Admin Dose 30 MG; Start 06/28/18 at 06:00 Levetiracetam (Keppra Liquid) 1,000 mg BID GTB Last administered on 06/29/18 08:25; Admin Dose 1,000 MG; Start 06/28/18 at 09:00 Memantine (Namenda) 10 mg DAILY GTB Last administered on 06/28/18 09:21; Admin Dose 10 MG; Start 06/28/18 at 09:00 Meropenem/Sodium Chloride 50 ml @ 100 mls/hr Q8 IVPB Last administered on 06/29/18 05:58; Admin Dose 100 MLS/HR; Start 06/28/18 at 06:00 Metoclopramide HCl (Reglan) 10 mg Q6 IV Last administered on 06/29/18 05:35; Admin Dose 10 MG; Start 06/28/18 at 00:00 Midodrine (Proamatine) 5 mg Q8 GTB Last administered on 06/29/18 05:35; Admin Dose 5 MG; Start 06/28/18 at 06:00 Nystatin (Nystatin Powder) 1 applic BID TOP Last administered on 06/29/18 08:27; Admin Dose 1 APPLIC; Start 06/28/18 at 09:00 Scopolamine (Transderm-Scop) 1 patch Q72H TRANSDERM Last administered on 06/28 09:22; Admin Dose 1 PATCH; Start 06/28/18 at 09:00 Silver Sulfadiazine (Thermazene 1% 25 Gm) 1 applic BID TOP Last administered on 06/29/18 08:27; Admin Dose 1 APPLIC; Start 06/28/18 at 09:00 Insulin Aspart (Novolog Insulin Pen) NOVOLOG *MILD* ALGORI... Q4 SC Last administered on 1/4/19at 08:37; Admin Dose 2 UNIT; Start 06/28/18 at 01:00 Miscellaneous Information 1 ea NOTE XX ; Start 06/28/18 at 01:00 Glucose (Glutose) 15 gm Q15M PRN PO DECREASED GLUCOSE; Start 06/28/18 at 01:00 Glucose (Glutose) 22.5 gm Q15M PRN PO DECREASED GLUCOSE; Start 06/28/18 at 01:00 Dextrose (D50w Syringe) 25 ml Q15M PRN IV DECREASED GLUCOSE; Start 06/28/18 at 01:00 Dextrose (D50w Syringe) 50 ml Q15M PRN IV DECREASED GLUCOSE; Start 06/28/18 at 01:00 Glucagon (Glucagen) 1 mg Q15M PRN IM DECREASED GLUCOSE; Start 06/28/18 at 01:00 Glucose (Glutose) 15 gm Q15M PRN BUCCAL DECREASED GLUCOSE; Start 06/28/18 at 01:00 Potassium Chloride 30 meq/ Dextrose/Sodium Chloride 1,015 ml @ 80 mls/hr [id number] IV Last administered on 06/29/18at 11:07; Admin Dose 80 MLS/HR; Start 06/28/18 at 01:30 IV Flush (NS 10 ml) 10 ml PRN PRN IV IV PROTOCOL; Start 06/28/18 at 12:00 Dopamine HCl/ Dextrose 250 ml @ 5.565 mls/ hr TITRATE IV ; Start 06/28/18 at 12:30 Vancomycin/Sodium Chloride 250 ml @ 125 mls/hr Q12H IVPB Last administered on 06/29/18at 02:58; Admin Dose 125 MLS/HR; Start 06/28/18 at 14:00 Phenylephrine HCl 80 mg/Dextrose 250 ml @ 18.75 mls/ hr TITRATE IV Last administered on 06/29/18at 11:39; Admin Dose 41.25 MLS/HR; Start 06/28/18 at 17:00 Assessment/Plan Chief Complaint/Hosp Course Assessment 1. Refractory septic shock 2. Chronic encephalopathy 3. Vent dependent respiratory failure 4. Dysphagia with G-tube 5. Renal insufficiency Plan 1. Continue mechanical ventilation 2. Continue vasopressor support 3. Continue broad-spectrum antibiotics 4. Consider palliative care consult Family declined comfort care wish to continue all aggressive measures including CPR cc40 mins RAFIQ LEGGETT MD, [facility] Jun 29, 2018 12:28
[2018-06-29] MEDS: ASPIRIN 325 MG TAB GTB SCH (12:40)
[2018-06-29] MEDS: MEMANTINE 10 MG TAB GTB SCH (12:41)
--- NOTE | 2018-06-29 12:44 | CONS ---
Date/Time of Note Date/Time of Note DATE: 06/29/18 TIME: 12:43 Assessment/Plan Assessment/Plan Hospital Course No acute changes overnight patient is noncommunicative on multiple pressors in no distress. Temperature 98.8 pulse 85 respirations 26 blood pressure 107/47 saturation 98 on vent WBC 18.2 H&H 9.5 and 29.2 platelets 186 neutrophils 81.9 BUN 44 creatinine 1.38 Microbiology: Blood culture negative urine culture negative, sacral wound culture and endotracheal aspirate growing gram-negative rods Indwelling: Trach, PEG, left upper extremity PICC line, right upper extremity midline, right upper abdomen pigtail Antimicrobials: Vancomycin, fluconazole, meropenem Physical examination: This is a chronically ill-appearing elderly - [place] man who is noncommunicative in no distress. Head atraumatic n ormocephalic, sclera nonicteric. Neck is supple, tracheostomy present. Lungs: Breath sounds diminished at bases. Heart S1-S2. Abdomen soft bowel sounds present. Extremities without cyanosis, trace edema Assessment: 1. Severe sepsis with shock 2. Necrotizing pneumonia 3. 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 History of left upper back abscess with repeat CT on June 22 revealed large subcutaneous fluid collection and edema in the lower posterior left neck/upper chest with questionable osteomyelitis of the scapula. 5. History of acute cholecystitis status post cholecystostomy tube 6. Chronic encephalopathy with a history of CVA 7. Diabetes 8. History of hypertension 9. Acute renal insufficiency Plan: Patient remains hemodynamically unstable and overall doing poorly, he is on broad-spectrum antibiotics, blood and urine cultures that were sent on June 27 are negative. Continue present care. Prognosis guarded. Patient is full code Result Diagram: 06/29/18 0449 06/29/18 0453 Results 24hrs Laboratory Tests Test 06/28/18 14:21 06/28/18 17:27 06/28/18 18:01 06/28/18 21:48 Bedside Glucose 110 81 92 Hemoglobin 9.8 #L Hematocrit 29.8 #L Creatine Kinase < 20 L Creatine Kinase Index Creatinine Kinase 0.77 MB (Mass) Troponin I 0.013 Test 06/29/18 00:29 06/29/18 00:30 06/29/18 03:00 06/29/18 04:49 Creatine Kinase < 20 L Creatine Kinase Index Creatinine Kinase 0.92 MB (Mass) Troponin I 0.047 Vancomycin Level 14.6 Trough Bedside Glucose 119 Stool Occult Blood POSITIVE White Blood Count 18.2 #H Red Blood Count 3.23 #L Hemoglobin 9.5 L Hematocrit 29.2 L Mean Corpuscular 90.4 Volume Mean Corpuscular 29.4 Hemoglobin Mean Corpuscular 32.5 Hemoglobin Concent Red Cell 15.0 H Distribution Width Platelet Count 186 Mean Platelet 8.7 Volume Immature 0.900 H Granulocytes % Neutrophils % 81.9 H Lymphocytes % 8.8 L Monocytes % 6.7 Eosinophils % 1.4 Basophils % 0.3 Nucleated Red Blood 0.0 Cells % Immature 0.160 H Granulocytes # Neutrophils # 14.9 H Lymphocytes # 1.6 Monocytes # 1.2 H Eosinophils # 0.3 Basophils # 0.1 Nucleated Red Blood 0.0 Cells # Test 06/29/18 04:53 06/29/18 05:19 06/29/18 05:33 06/29/18 08:30 Sodium Level 133 L Potassium Level 4.8 Chloride Level 107 Carbon Dioxide 15 L Level Anion Gap 11 Blood Urea Nitrogen 44 H Creatinine 1.38 H Est Glomerular 52 L Filtrat Rate mL/min Glucose Level 136 # Calcium Level 9.6 Total Bilirubin 0.7 Direct Bilirubin 0.70 H Indirect Bilirubin 0.0 Aspartate Amino 28 Transf (AST/SGOT) Alanine < 6 L Aminotransferase (A LT/SGPT) Alkaline 328 H Phosphatase Total Protein 6.8 Albumin 2.0 L Globulin 4.80 H Albumin/Globulin 0.41 Ratio Lab Scanned Report BLOOD TRANSFUSION Bedside Glucose 145 201 Consultation Date/Type/Reason Admit Date/Time Jun 27, 2018 at 22:49 Initial Consult Date 06/28/18 Type of Consult id Exam/Review of Systems Vital Signs Vitals Vital Signs Date Temp Pulse Resp B/P (MAP) Pulse Ox O2 O2 Flow FiO2 Time Delivery Rate 06/29/18 98.8 85 26 107/47 98 Mechanical 11:30 (67) Ventilator 06/29/18 40 09:58 Intake and Output 06/28/18 06/28/18 06/29/18 1515:00 23:00 07:00 IntakeIntake Total 1661.23 ml 1980.00 ml 1750.008 ml OutputOutput Total 350 ml 245 ml 300 ml BalanceBalance 1311.23 ml 1735.00 ml 1450.008 ml Medications Medications Current Medications Norepinephrine 16 mg/Dextrose 500 ml @ 1.88 mls/hr TITRATE IV Last administered on 06/29/18 06:47; Admin Dose 56.25 MLS/HR; Start 06/27/18 at 23:00 Acetaminophen (Tylenol Liquid) 650 mg Q6H PRN GTB FEVER; Start 06/28/18 at 00:00 Aspirin (Aspirin) 81 mg DAILY GTB Last administered on 06/29/18 12:40; Admin Dose 81 MG; Start 06/28/18 at 09:00 Atenolol (Tenormin) 12.5 mg BID GTB ; Start 06/28/18 at 09:00 Atorvastatin Calcium (Lipitor) 20 mg HS GTB Last administered on 06/28/18 21:23; Admin Dose 20 MG; Start 06/28/18 at 21:00 Fluconazole (Diflucan) 800 mg DAILY GTB Last administered on 06/29/18 08:25; Admin Dose 800 MG; Start 06/28/18 at 09:00 Gentamicin Sulfate (Gentamicin 0.3% Oph Drop) 2 drop Q4H BOTH EYES Last administered on 06/29/18 11:37; Admin Dose 2 DROP; Start 06/28/18 at 00:00 Glucagon (Glucagen) 1 mg PRN PRN IM HYPOGLYCEMIA (BS<70); Start 06/28/18 at 00:00 Insulin Glargine (Lantus) 10 units DAILY SC Last administered on 06/29/18 09:21; Admin Dose 10 UNITS; Start 06/28/18 at 08:00 Lansoprazole (Prevacid) 30 mg BID@06,18 GTB Last administered on 06/29/18 05:35; Admin Dose 30 MG; Start 06/28/18 at 06:00 Levetiracetam (Keppra Liquid) 1,000 mg BID GTB Last administered on 06/29/18 08:25; Admin Dose 1,000 MG; Start 06/28/18 at 09:00 Memantine (Namenda) 10 mg DAILY GTB Last administered on 06/29/18 12:41; Admin Dose 10 MG; Start 06/28/18 at 09:00 Meropenem/Sodium Chloride 50 ml @ 100 mls/hr Q8 IVPB Last administered on 06/29/18 05:58; Admin Dose 100 MLS/HR; Start 06/28/18 at 06:00 Metoclopramide HCl (Reglan) 10 mg Q6 IV Last administered on 06/29/18 12:40; Admin Dose 10 MG; Start 06/28/18 at 00:00 Midodrine (Proamatine) 5 mg Q8 GTB Last administered on 06/29/18 05:35; Admin Dose 5 MG; Start 06/28/18 at 06:00 Nystatin (Nystatin Powder) 1 applic BID TOP Last administered on 06/29/18 08:27; Admin Dose 1 APPLIC; Start 06/28/18 at 09:00 Scopolamine (Transderm-Scop) 1 patch Q72H TRANSDERM Last administered on 09:22; Admin Dose 1 PATCH; Start 06/28/18 at 09:00 Silver Sulfadiazine (Thermazene 1% 25 Gm) 1 applic BID TOP Last administered on 06/29/18 08:27; Admin Dose 1 APPLIC; Start 06/28/18 at 09:00 Insulin Aspart (Novolog Insulin Pen) NOVOLOG *MILD* ALGORI... Q4 SC Last administered on 06/29/18 08:37; Admin Dose 2 UNIT; Start 06/28/18 at 01:00 Miscellaneous Information 1 ea NOTE XX ; Start 06/28/18 at 01:00 Glucose (Glutose) 15 gm Q15M PRN PO DECREASED GLUCOSE; Start 06/28/18 at 01:00 Glucose (Glutose) 22.5 gm Q15M PRN PO DECREASED GLUCOSE; Start 06/28/18 at 01:00 Dextrose (D50w Syringe) 25 ml Q15M PRN IV DECREASED GLUCOSE; Start 06/28/18 at 01:00 Dextrose (D50w Syringe) 50 ml Q15M PRN IV DECREASED GLUCOSE; Start 06/28/18 at 01:00 Glucagon (Glucagen) 1 mg Q15M PRN IM DECREASED GLUCOSE; Start 06/28/18 at 01:00 Glucose (Glutose) 15 gm Q15M PRN BUCCAL DECREASED GLUCOSE; Start 06/28/18 at 01: 00 Potassium Chloride 30 meq/ Dextrose/Sodium Chloride 1,015 ml @ 80 mls/hr [id number] IV Last administered on 1/4/19at 11:07; Admin Dose 80 MLS/HR; Start 06/28/18 at 01:30 IV Flush (NS 10 ml) 10 ml PRN PRN IV IV PROTOCOL; Start 06/28/18 at 12:00 Dopamine HCl/ Dextrose 250 ml @ 5.565 mls/ hr TITRATE IV ; Start 06/28/18 at 12:30 Vancomycin/Sodium Chloride 250 ml @ 125 mls/hr Q12H IVPB Last administered on 06/29/18at 02:58; Admin Dose 125 MLS/HR; Start 06/28/18 at 14:00 Phenylephrine HCl 80 mg/Dextrose 250 ml @ 18.75 mls/ hr TITRATE IV Last administered on 06/29/18at 11:39; Admin Dose 41.25 MLS/HR; Start 06/28/18 at 17:00 SUSY WOLFE NP Jun 29, 2018 12:44
--- NOTE | 2018-06-29 14:13 | CONS ---
Date/Time of Note Date/Time of Note DATE: 06/29/18 TIME: 14:09 Assessment/Plan Assessment/Plan Hospital Course IMPRESSION: 1. Hypotension/shock state, likely septic on 2 pressors 2. Premature ventricular contractions in a pattern of bigeminy. Assess for coronary ischemia, acute coronary syndrome. 3. Dyslipidemia. 4. Peripheral arterial disease, status post lower extremity amputation. 5. Seizure disorder. 6. Anemia. 7. Encephalopathy. 8. History of pulmonary coccidioidomycosis. 9. Chronic respiratory failure, status post tracheostomy. 10. Dysphagia, status post G-tube. REcc: -ICU -WEan pressors as tolerated -Continue abx's and f/u cx data -Continue statin -Continue asa -Hold antihypertensives -ongoing family discussion Result Diagram: 06/29/18 0449 06/29/18 0453 Results 24hrs Laboratory Tests Test 06/28/18 14:21 06/28/18 17:27 06/28/18 18:01 06/28/18 21:48 Bedside Glucose 110 81 92 Hemoglobin 9.8 #L Hematocrit 29.8 #L Creatine Kinase < 20 L Creatine Kinase Index Creatinine Kinase 0.77 MB (Mass) Troponin I 0.013 Test 06/29/18 00:29 06/29/18 00:30 06/29/18 03:00 06/29/18 04:49 Creatine Kinase < 20 L Creatine Kinase Index Creatinine Kinase 0.92 MB (Mass) Troponin I 0.047 Vancomycin Level 14.6 Trough Bedside Glucose 119 Stool Occult Blood POSITIVE White Blood Count 18.2 #H Red Blood Count 3.23 #L Hemoglobin 9.5 L Hematocrit 29.2 L Mean Corpuscular 90.4 Volume Mean Corpuscular 29.4 Hemoglobin Mean Corpuscular 32.5 Hemoglobin Concent Red Cell 15.0 H Distribution Width Platelet Count 186 Mean Platelet 8.7 Volume Immature 0.900 H Granulocytes % Neutrophils % 81.9 H Lymphocytes % 8.8 L Monocytes % 6.7 Eosinophils % 1.4 Basophils % 0.3 Nucleated Red Blood 0.0 Cells % Immature 0.160 H Granulocytes # Neutrophils # 14.9 H Lymphocytes # 1.6 Monocytes # 1.2 H Eosinophils # 0.3 Basophils # 0.1 Nucleated Red Blood 0.0 Cells # Test 06/29/18 04:53 06/29/18 05:19 06/29/18 05:33 1/4/19 08:30 Sodium Level 133 L Potassium Level 4.8 Chloride Level 107 Carbon Dioxide 15 L Level Anion Gap 11 Blood Urea Nitrogen 44 H Creatinine 1.38 H Est Glomerular 52 L Filtrat Rate mL/min Glucose Level 136 # Calcium Level 9.6 Total Bilirubin 0.7 Direct Bilirubin 0.70 H Indirect Bilirubin 0.0 Aspartate Amino 28 Transf (AST/SGOT) Alanine < 6 L Aminotransferase (A LT/SGPT) Alkaline 328 H Phosphatase Total Protein 6.8 Albumin 2.0 L Globulin 4.80 H Albumin/Globulin 0.41 Ratio Lab Scanned Report BLOOD TRANSFUSION Bedside Glucose 145 201 Test 06/29/18 12:42 Bedside Glucose 169 Consultation Date/Type/Reason Admit Date/Time Jun 27, 2018 at 22:49 Initial Consult Date 06/28/18 Type of Consult cardiology Reason for Consultation hypotension Requesting Provider: ENID SINGH Exam/Review of Systems Vital Signs Vitals Vital Signs Date Temp Pulse Resp B/P (MAP) Pulse Ox O2 O2 Flow FiO2 Time Delivery Rate 06/29/18 85 29 99 40 12:52 06/29/18 98.8 107/47 Mechanical 11:30 (67) Ventilator Intake and Output 06/28/18 06/28/18 06/29/18 1515:00 23:00 07:00 IntakeIntake Total 1661.23 ml 1980.00 ml 1750.008 ml OutputOutput Total 350 ml 245 ml 300 ml BalanceBalance 1311.23 ml 1735.00 ml 1450.008 ml Exam Review of Systems: CONSTITUTIONAL: No fevers, chills. PULMONARY: No sob CARDIOVASCULAR: No chest pain/palpitations GASTROINTESTINAL: No nausea/vomiting. GENITOURINARY: No hematuria/dysuria. MUSCULOSKELETAL: No myagias/arthalgias. PSYCHIATRIC: The patient denies depression. NEUROLOGIC:encephalopathic Constitutional: other (encephlaopthic) Head: normocephalic ENMT: mucosa pink and moist Neck: supple, jvd (9 cm water) Respiratory: diminished breath sounds (at basdes/B) Cardiovascular: regular rate and rhythm Gastrointestinal: soft, non-tender Musculoskeletal: muscle weakness (generalized) Extremities: other (LE amputation) Neurological: other (Nofocal deficits) Medications Medications Current Medications Norepinephrine 16 mg/Dextrose 500 ml @ 1.88 mls/hr TITRATE IV Last administered on 06/29/18 06:47; Admin Dose 56.25 MLS/HR; Start 06/27/18 at 23:00 Acetaminophen (Tylenol Liquid) 650 mg Q6H PRN GTB FEVER; Start 06/28/18 at 00:00 Aspirin (Aspirin) 81 mg DAILY GTB Last administered on 06/29/18 12:40; Admin Dose 81 MG; Start 06/28/18 at 09:00 Atenolol (Tenormin) 12.5 mg BID GTB ; Start 06/28/18 at 09:00 Atorvastatin Calcium (Lipitor) 20 mg HS GTB Last administered on 06/28/18 21:23; Admin Dose 20 MG; Start 06/28/18 at 21:00 Fluconazole (Diflucan) 800 mg DAILY GTB Last administered on 06/29/18 08:25; Admin Dose 800 MG; Start 06/28/18 at 09:00 Gentamicin Sulfate (Gentamicin 0.3% Oph Drop) 2 drop Q4H BOTH EYES Last admini stered on 06/29/18 11:37; Admin Dose 2 DROP; Start 06/28/18 at 00:00 Glucagon (Glucagen) 1 mg PRN PRN IM HYPOGLYCEMIA (BS<70); Start 06/28/18 at 00:00 Insulin Glargine (Lantus) 10 units DAILY SC Last administered on 06/29/18 09:21; Admin Dose 10 UNITS; Start 06/28/18 at 08:00 Lansoprazole (Prevacid) 30 mg BID@06,18 GTB Last administered on 06/29/18 05:35; Admin Dose 30 MG; Start 06/28/18 at 06:00 Levetiracetam (Keppra Liquid) 1,000 mg BID GTB Last administered on 06/29/18 08:25; Admin Dose 1,000 MG; Start 06/28/18 at 09:00 Memantine (Namenda) 10 mg DAILY GTB Last administered on 06/29/18 12:41; Admin Dose 10 MG; Start 06/28/18 at 09:00 Meropenem/Sodium Chloride 50 ml @ 100 mls/hr Q8 IVPB Last administered on 06/29/18 05:58; Admin Dose 100 MLS/HR; Start 06/28/18 at 06:00 Metoclopramide HCl (Reglan) 10 mg Q6 IV Last administered on 06/29/18 12:40; Admin Dose 10 MG; Start 06/28/18 at 00:00 Midodrine (Proamatine) 5 mg Q8 GTB Last administered on 06/29/18 05:35; Admin Dose 5 MG; Start 06/28/18 at 06:00 Nystatin (Nystatin Powder) 1 applic BID TOP Last administered on 06/29/18 08:27; Admin Dose 1 APPLIC; Start 06/28/18 at 09:00 Scopolamine (Transderm-Scop) 1 patch Q72H TRANSDERM Last administered on 06/28/18 09:22; Admin Dose 1 PATCH; Start 06/28/18 at 09:00 Silver Sulfadiazine (Thermazene 1% 25 Gm) 1 applic BID TOP Last administered on 06/29/18 08:27; Admin Dose 1 APPLIC; Start 06/28/18 at 09:00 Insulin Aspart (Novolog Insulin Pen) NOVOLOG *MILD* ALGORI... Q4 SC Last administered on 06/29/18at 12:57; Admin Dose 1 UNIT; Start 06/28/18 at 01:00 Miscellaneous Information 1 ea NOTE XX ; Start 06/28/18 at 01:00 Glucose (Glutose) 15 gm Q15M PRN PO DECREASED GLUCOSE; Start 06/28/18 at 01:00 Glucose (Glutose) 22.5 gm Q15M PRN PO DECREASED GLUCOSE; Start 06/28/18 at 01:00 Dextrose (D50w Syringe) 25 ml Q15M PRN IV DECREASED GLUCOSE; Start 06/28/18 at 01:00 Dextrose (D50w Syringe) 50 ml Q15M PRN IV DECREASED GLUCOSE; Start 06/28/18 at 01:00 Glucagon (Glucagen) 1 mg Q15M PRN IM DECREASED GLUCOSE; Start 06/28/18 at 01:00 Glucose (Glutose) 15 gm Q15M PRN BUCCAL DECREASED GLUCOSE; Start 06/28/18 at 01:00 Potassium Chloride 30 meq/ Dextrose/Sodium Chloride 1,015 ml @ 80 mls/hr [id number] IV Last administered on 06/29/18at 11:07; Admin Dose 80 MLS/HR; Start 06/28/18 at 01:30 IV Flush (NS 10 ml) 10 ml PRN PRN IV IV PROTOCOL; Start 06/28/18 at 12:00 Dopamine HCl/ Dextrose 250 ml @ 5.565 mls/ hr TITRATE IV ; Start 06/28/18 at 12:30 Vancomycin/Sodium Chloride 250 ml @ 125 mls/hr Q12H IVPB Last administered on 06/29/18at 02:58; Admin Dose 125 MLS/HR; Start 06/28/18 at 14:00 Phenylephrine HCl 80 mg/Dextrose 250 ml @ 18.75 mls/ hr TITRATE IV Last administered on 06/29/18at 11:39; Admin Dose 41.25 MLS/HR; Start 06/28/18 at 17:00 ALINE VIDAL Jun 29, 2018 14:13
--- NOTE | 2018-06-29 15:13 | PN ---
Date/Time of Note Date/Time of Note DATE: 06/29/18 TIME: 15:12 Assessment/Plan VTE Prophylaxis Risk score [place]from [facility] [place] risk: 11 SCD applied (from [facility] [place] Yes Pharmacological prophylaxis: NA/contraindicated Pharm contraindication: other Assessment/Plan Hospital Course 1. Shock, likely septic from severe unstageable sacral coccyx decubitus ulcer and pulmonary cocci -Patient now on 2 pressors -Urine culture, blood culture, sacrococcyx and respiratory culture -Continue meropenem and vancomycin 2. Trach/vent dependent respiratory failure -Pulmonary to manage 3. Pulmonary cocci: Per bronchoscopy from [facility] on 05/12 -Per records, it seems like he is status post treatment with amphotericin B and Diflucan -Infectious disease to manage 4. Right middle cerebral artery CVA -Supportive care 5. Unstageable sacral coccyx decubitus ulcer -IV antibiotic, wound care consult 6. Diabetes: -Insulin 7. Reported history of seizure: On Keppra 8. Dysphagia with G-tube in place -Tube feeding Prophylaxis: SCDs DC planning: Spoke to patient's daughter and they would like to continue aggressive care continue CODE STATUS of full code Result Diagram: 06/29/18 0449 06/29/18 0453 Results 24hrs Laboratory Tests Test 06/28/18 17:27 06/28/18 18:01 06/28/18 21:48 06/29/18 00:29 Bedside Glucose 81 92 Hemoglobin 9.8 #L Hematocrit 29.8 #L Creatine Kinase < 20 L < 20 L Creatine Kinase Index Creatinine Kinase 0.77 0.92 MB (Mass) Troponin I 0.013 0.047 Vancomycin Level 14.6 Trough Test 06/29/18 00:30 06/29/18 03:00 06/29/18 04:49 06/29/18 04:53 Bedside Glucose 119 Stool Occult Blood POSITIVE White Blood Count 18.2 #H Red Blood Count 3.23 #L Hemoglobin 9.5 L Hematocrit 29.2 L Mean Corpuscular 90.4 Volume Mean Corpuscular 29.4 Hemoglobin Mean Corpuscular 32.5 Hemoglobin Concent Red Cell 15.0 H Distribution Width Platelet Count 186 Mean Platelet 8.7 Volume Immature 0.900 H Granulocytes % Neutrophils % 81.9 H Lymphocytes % 8.8 L Monocytes % 6.7 Eosinophils % 1.4 Basophils % 0.3 Nucleated Red Blood 0.0 Cells % Immature 0.160 H Granulocytes # Neutrophils # 14.9 H Lymphocytes # 1.6 Monocytes # 1.2 H Eosinophils # 0.3 Basophils # 0.1 Nucleated Red Blood 0.0 Cells # Sodium Level 133 L Potassium Level 4.8 Chloride Level 107 Carbon Dioxide 15 L Level Anion Gap 11 Blood Urea Nitrogen 44 H Creatinine 1.38 H Est Glomerular 52 L Filtrat Rate mL/min Glucose Level 136 # Calcium Level 9.6 Total Bilirubin 0.7 Direct Bilirubin 0.70 H Indirect Bilirubin 0.0 Aspartate Amino 28 Transf (AST/SGOT) Alanine < 6 L Aminotransferase (A LT/SGPT) Alkaline 328 H Phosphatase Total Protein 6.8 Albumin 2.0 L Globulin 4.80 H Albumin/Globulin 0.41 Ratio Test 06/29/18 05:19 06/29/18 05:33 06/29/18 08:30 06/29/18 12:42 Lab Scanned Report BLOOD TRANSFUSION Bedside Glucose 145 201 169 Subjective 24 Hr Interval Summary Subjective hx not possible: pt non-verbal Exam/Review of Systems Vital Signs Vitals Vital Signs Date Temp Pulse Resp B/P (MAP) Pulse Ox O2 O2 Flow FiO2 Time Delivery Rate 06/29/18 100 26 100 40 14:13 06/29/18 98.8 107/47 Mechanical 11:30 (67) Ventilator Intake and Output 06/28/18 06/28/18 06/29/18 1515:00 23:00 07:00 IntakeIntake Total 1661.23 ml 1980.00 ml 1750.008 ml OutputOutput Total 350 ml 245 ml 300 ml BalanceBalance 1311.23 ml 1735.00 ml 1450.008 ml Exam Constitutional: non-verbal Respiratory: clear to auscultation Cardiovascular: regular rate and rhythm Gastrointestinal: soft; No distended Musculoskeletal: nl extremities to inspection Medications Medications Current Medications Norepinephrine 16 mg/Dextrose 500 ml @ 1.88 mls/hr TITRATE IV Last administered on 06/29/18at 06:47; Admin Dose 56.25 MLS/HR; Start 06/27/18 at 23:00 Acetaminophen (Tylenol Liquid) 650 mg Q6H PRN GTB FEVER; Start 06/28/18 at 00:00 Aspirin (Aspirin) 81 mg DAILY GTB Last administered on 06/29/18at 12:40; Admin Dose 81 MG; Start 06/28/18 at 09:00 Atenolol (Tenormin) 12.5 mg BID GTB ; Start 06/28/18 at 09:00 Atorvastatin Calcium (Lipitor) 20 mg HS GTB Last administered on 06/28/18 21:23; Admin Dose 20 MG; Start 06/28/18 at 21:00 Fluconazole (Diflucan) 800 mg DAILY GTB Last administered on 06/29/18 08:25; Admin Dose 800 MG; Start 06/28/18 at 09:00 Gentamicin Sulfate (Gentamicin 0.3% Oph Drop) 2 drop Q4H BOTH EYES Last administered on 06/29/18 11:37; Admin Dose 2 DROP; Start 06/28/18 at 00:00 Glucagon (Glucagen) 1 mg PRN PRN IM HYPOGLYCEMIA (BS<70); Start 06/28/18 at 00:00 Insulin Glargine (Lantus) 10 units DAILY SC Last administered on 06/29/18 09:21; Admin Dose 10 UNITS; Start 06/28/18 at 08:00 Lansoprazole (Prevacid) 30 mg BID@06,18 GTB Last administered on 06/29/18 05:35; Admin Dose 30 MG; Start 06/28/18 at 06:00 Levetiracetam (Keppra Liquid) 1,000 mg BID GTB Last administered on 06/29/18 08:25; Admin Dose 1,000 MG; Start 06/28/18 at 09:00 Memantine (Namenda) 10 mg DAILY GTB Last administered on 06/29/18 12:41; Admin Dose 10 MG; Start 06/28/18 at 09:00 Meropenem/Sodium Chloride 50 ml @ 100 mls/hr Q8 IVPB Last administered on 06/29/18 05:58; Admin Dose 100 MLS/HR; Start 06/28/18 at 06:00 Metoclopramide HCl (Reglan) 10 mg Q6 IV Last administered on 06/29/18 12:40; Admin Dose 10 MG; Start 06/28/18 at 00:00 Midodrine (Proamatine) 5 mg Q8 GTB Last administered on 06/29/18 05:35; Admin Dose 5 MG; Start 06/28/18 at 06:00 Nystatin (Nystatin Powder) 1 applic BID TOP Last administered on 06/29/18at 08:27; Admin Dose 1 APPLIC; Start 06/28/18 at 09:00 Scopolamine (Transderm-Scop) 1 patch Q72H TRANSDERM Last administered on 06/28/18at 09:22; Admin Dose 1 PATCH; Start 06/28/18 at 09:00 Silver Sulfadiazine (Thermazene 1% 25 Gm) 1 applic BID TOP Last administered on 06/29/18at 08:27; Admin Dose 1 APPLIC; Start 06/28/18 at 09:00 Insulin Aspart (Novolog Insulin Pen) NOVOLOG *MILD* ALGORI... Q4 SC Last administered on 06/29/18at 12:57; Admin Dose 1 UNIT; Start 06/28/18 at 01:00 Miscellaneous Information 1 ea NOTE XX ; Start 06/28/18 at 01:00 Glucose (Glutose) 15 gm Q15M PRN PO DECREASED GLUCOSE; Start 06/28/18 at 01:00 Glucose (Glutose) 22.5 gm Q15M PRN PO DECREASED GLUCOSE; Start 06/28/18 at 01:00 Dextrose (D50w Syringe) 25 ml Q15M PRN IV DECREASED GLUCOSE; Start 06/28/18 at 01:00 Dextrose (D50w Syringe) 50 ml Q15M PRN IV DECREASED GLUCOSE; Start 06/28/18 at 01:00 Glucagon (Glucagen) 1 mg Q15M PRN IM DECREASED GLUCOSE; Start 06/28/18 at 01:00 Glucose (Glutose) 15 gm Q15M PRN BUCCAL DECREASED GLUCOSE; Start 06/28/18 at 01:00 Potassium Chloride 30 meq/ Dextrose/Sodium Chloride 1,015 ml @ 80 mls/hr [id number] IV Last administered on 06/29/18at 11:07; Admin Dose 80 MLS/HR; Start 06/28/18 at 01:30 IV Flush (NS 10 ml) 10 ml PRN PRN IV IV PROTOCOL; Start 06/28/18 at 12:00 Dopamine HCl/ Dextrose 250 ml @ 5.565 mls/ hr TITRATE IV ; Start 06/28/18 at 12:30 Vancomycin/Sodium Chloride 250 ml @ 125 mls/hr Q12H IVPB Last administered on 06/29/18at 02:58; Admin Dose 125 MLS/HR; Start 06/28/18 at 14:00 Phenylephrine HCl 80 mg/Dextrose 250 ml @ 18.75 mls/ hr TITRATE IV Last administered on 06/29/18at 11:39; Admin Dose 41.25 MLS/HR; Start 06/28/18 at 17:00 ENID SINGH Jun 29, 2018 15:13
[2018-06-29] MEDS: ATORVASTATIN 20 MG TAB GTB SCH (20:14)
[2018-06-29] MEDS ORDERED: SOD CHLORIDE 0.9% 100 ML ONE (21:09)
[2018-06-29] MEDS ORDERED: IODIXANOL LOCM 100 ML BTL ONE (21:09)
[2018-06-30] VITALS (100 sets, daily range): BP systolic 90–128; BP diastolic 41–77; PULSE 66–88; RESP 14–42
[2018-06-30] MEDS: METOCLOPRAMIDE 10 MG INJ IV SCH ×4 (00:30→17:28)
[2018-06-30] MEDS: GENTAMICIN 0.3% 5 ML OPH BOTH EYES SCH ×6 (00:31→20:48)
[2018-06-30] MEDS: INSULIN ASPART [NOVOLOG] 3 ML PEN SC SCH ×6 (00:34→20:50)
[2018-06-30] MEDS: VANCOMYCIN 750 MG (PMX) 250 ML IVPB SCH ×2 (01:19→13:36)
[2018-06-30] MEDS: PHENYLephrine 80 MG in DEXTROSE 5% 242 ML IV SCH (01:35)
[2018-06-30] MEDS: MIDODRINE 5 MG TAB GTB SCH ×3 (05:38→21:49)
[2018-06-30] MEDS: LANSOPRAZOLE 30 MG CAP GTB SCH ×2 (05:38→17:28)
[2018-06-30] MEDS: MEROPENEM 500MG/50 ML (PMX) 50 ML IVPB SCH ×3 (05:38→21:49)
[2018-06-30] MEDS: ATENOLOL 25 MG TAB GTB SCH ×2 (09:00→20:49)
[2018-06-30] MEDS: SILVER SULFADIAZINE 1% 25 GM CR TOP SCH (09:02)
[2018-06-30] MEDS: NYSTATIN 30 GM POWDER BTL TOP SCH ×2 (09:02→20:51)
[2018-06-30] MEDS: FLUCONAZOLE 200 MG TAB GTB SCH (09:03)
[2018-06-30] MEDS: MEMANTINE 10 MG TAB GTB SCH (09:03)
[2018-06-30] MEDS: ASPIRIN 325 MG TAB GTB SCH (09:03)
[2018-06-30] MEDS: LEVETIRACETAM (100 MG/ML) 5ML CUP GTB SCH ×2 (09:03→20:49)
[2018-06-30] MEDS: INSULIN GLARGINE [LANTus] (100 UNITS/ML) SYG SC SCH (09:09)
[2018-06-30] MEDS ORDERED: NORepinephrine 8MG/250 ML (PMX 250 ML ONE (10:51)
--- NOTE | 2018-06-30 11:26 | PN ---
Date/Time of Note Date/Time of Note DATE: 06/30/18 TIME: 11:22 Assessment/Plan VTE Prophylaxis Risk score (from [facility] [place])>0 risk: 10 SCD applied (from [facility] [place]): Yes Pharmacological prophylaxis: NA/contraindicated Pharm contraindication: renal impairment Assessment/Plan Hospital Course 1. Shock, likely septic from severe unstageable sacral coccyx decubitus ulcer and pulmonary cocci -Patient still on 2 pressors -Tracheal aspirate culture growing Pseudomonas, sacral wound culture shows gram- negative rods -Continue meropenem and vancomycin -ID following 2. Trach/vent dependent respiratory failure -Pulmonary to manage 3. Pulmonary cocci: Per bronchoscopy from [facility] on 05/12 -Per records, it seems like he is status post treatment with amphotericin B and Diflucan -Infectious disease to manage -Tracheal aspirate culture growing Pseudomonas 4. Right middle cerebral artery CVA -Supportive care 5. Unstageable sacral coccyx decubitus ulcer -IV antibiotic, wound care consult 6. Diabetes: -Insulin 7. Acute kidney injury likely secondary to sepsis -IV fluids -Monitor 8. Dysphagia with G-tube in place -Tube feeding 9. Reported history of seizure: On Keppra Prophylaxis: SCDs DC planning: Spoke to patient's daughter and they would like to continue aggressive care continue CODE STATUS of full code Result Diagram: 06/30/18 0435 06/30/18 0435 Results 24hrs Laboratory Tests Test 06/29/18 12:42 06/29/18 18:13 06/29/18 20:11 06/30/18 00:34 Bedside Glucose 169 207 159 116 Test 06/30/18 04:32 06/30/18 04:35 06/30/18 07:00 06/30/18 09:06 Bedside Glucose 105 112 White Blood Count 13.2 #H Red Blood Count 3.08 L Hemoglobin 8.9 L Hematocrit 27.3 L Mean Corpuscular 88.6 Volume Mean Corpuscular 28.9 L Hemoglobin Mean Corpuscular 32.6 Hemoglobin Concent Red Cell 15.1 H Distribution Width Platelet Count 104 #L Mean Platelet 8.2 Volume Immature 0.700 H Granulocytes % Neutrophils % 83.8 H Lymphocytes % 7.3 L Monocytes % 5.5 Eosinophils % 2.5 Basophils % 0.2 Nucleated Red 0.0 Blood Cells % Immature 0.090 H Granulocytes # Neutrophils # 11.1 H Lymphocytes # 1.0 Monocytes # 0.7 Eosinophils # 0.3 Basophils # 0.0 Nucleated Red 0.0 Blood Cells # Sodium Level 132 L Potassium Level 4.8 Chloride Level 105 Carbon Dioxide 13 L Level Anion Gap 14 H Blood Urea 43 H Nitrogen Creatinine 1.44 H Est Glomerular 49 L Filtrat Rate mL/min Glucose Level 105 Calcium Level 10.0 Phosphorus Level 9.4 H Magnesium Level 2.1 Blood Gas Specimen Blood arterial Source Arterial Blood 06/30/2018 8:10:41 Date Drawn AM Arterial Blood pH 7.292 *L (Temp corrected) Arterial Blood 27.5 L pCO2 (Temp correct) Arterial Blood pO2 74.9 L (Temp corrected) Arterial Blood 13.0 L HCO3 Arterial Blood -12.0 L Base Excess Arterial Blood 93.7 L Oxygen Saturation Mathieu Test ACCEPTAB Arterial Blood Gas Right Radial Puncture Site Arterial 0.9 Blood Carboxyhemog lobin Arterial Blood 0.4 Methemoglobin Blood Gas A-a O2 106.7 H Differential Oxyhemoglobin 92.5 L Percent Blood Gas 37.0 Temperature Blood Gas 16.0 Respiration Rate Blood Gas Actual 30 Respiration Rate Blood Gas Modality VENT - AC FiO2 30.0 Blood Gas Tidal 500.0 Volume Blood Gas Low PEEP 5.0 Setting Blood Gas Critical FLAVIO VILLASENOR Value Read Back Blood Gas Notified AT Whom Blood Gas Notified 06/30/2018 8:30:47 Time AM Subjective 24 Hr Interval Summary Subjective hx not possible: pt non-verbal Exam/Review of Systems Vital Signs Vitals Vital Signs Date Temp Pulse Resp B/P (MAP) Pulse Ox O2 O2 Flow FiO2 Time Delivery Rate 06/30/18 72 30 106/52 100 Mechanical 10:00 (70) Ventilator 06/30/18 98.8 08:00 06/30/18 30 08:00 Intake and Output 06/29/18 06/29/18 06/30/18 1515:00 23:00 07:00 IntakeIntake Total 1736.286 ml 880.03 ml 899.40 ml OutputOutput Total 900 ml 300 ml 360 ml BalanceBalance 836.286 ml 580.03 ml 539.40 ml Exam Constitutional: non-verbal Respiratory: clear to auscultation Cardiovascular: regular rate and rhythm Gastrointestinal: soft; No distended Musculoskeletal: nl extremities to inspection Medications Medications Current Medications Norepinephrine 16 mg/Dextrose 500 ml @ 1.88 mls/hr TITRATE IV Last administered on 06/29/18 15:46; Admin Dose 37.5 MLS/HR; Start 06/27/18 at 23:00 Acetaminophen (Tylenol Liquid) 650 mg Q6H PRN GTB FEVER; Start 06/28/18 at 00:00 Aspirin (Aspirin) 81 mg DAILY GTB Last administered on 06/30/18 09:03; Admin Dose 81 MG; Start 06/28/18 at 09:00 Atenolol (Tenormin) 12.5 mg BID GTB ; Start 06/28/18 at 09:00 Atorvastatin Calcium (Lipitor) 20 mg HS GTB Last administered on 06/29/18 20:14; Admin Dose 20 MG; Start 06/28/18 at 21:00 Fluconazole (Diflucan) 800 mg DAILY GTB Last administered on 06/30/18 09:03; Admin Dose 800 MG; Start 06/28/18 at 09:00 Gentamicin Sulfate (Gentamicin 0.3% Oph Drop) 2 drop Q4H BOTH EYES Last administered on 06/30/18 08:53; Admin Dose 2 DROP; Start 06/28/18 at 00:00 Glucagon (Glucagen) 1 mg PRN PRN IM HYPOGLYCEMIA (BS<70); Start 06/28/18 at 00:00 Insulin Glargine (Lantus) 10 units DAILY SC Last administered on 06/30/18 09:09; Admin Dose 10 UNITS; Start 06/28/18 at 08:00 Lansoprazole (Prevacid) 30 mg BID@06,18 GTB Last administered on 06/30/18 05:38; Admin Dose 30 MG; Start 06/28/18 at 06:00 Levetiracetam (Keppra Liquid) 1,000 mg BID GTB Last administered on 06/30/18 09:03; Admin Dose 1,000 MG; Start 06/28/18 at 09:00 Memantine (Namenda) 10 mg DAILY GTB Last administered on 06/30/18 09:03; Admin Dose 10 MG; Start 06/28/18 at 09:00 Meropenem/Sodium Chloride 50 ml @ 100 mls/hr Q8 IVPB Last administered on 06/30/18 05:38; Admin Dose 100 MLS/HR; Start 06/28/18 at 06:00 Metoclopramide HCl (Reglan) 10 mg Q6 IV Last administered on 06/30/18at 05:38; Admin Dose 10 MG; Start 06/28/18 at 00:00 Midodrine (Proamatine) 5 mg Q8 GTB Last administered on 06/30/18at 05:38; Admin Dose 5 MG; Start 06/28/18 at 06:00 Nystatin (Nystatin Powder) 1 applic BID TOP Last administered on 06/30/18at 09:02; Admin Dose 1 APPLIC; Start 06/28/18 at 09:00 Silver Sulfadiazine (Thermazene 1% 25 Gm) 1 applic BID TOP Last administered on 06/30/18at 09:02; Admin Dose 1 APPLIC; Start 06/28/18 at 09:00 Insulin Aspart (Novolog Insulin Pen) NOVOLOG *MILD* ALGORI... Q4 SC Last administered on 06/29/18at 20:19; Admin Dose 1 UNIT; Start 06/28/18 at 01:00 Miscellaneous Information 1 ea NOTE XX ; Start 06/28/18 at 01:00 Glucose (Glutose) 15 gm Q15M PRN PO DECREASED GLUCOSE; Start 06/28/18 at 01:00 Glucose (Glutose) 22.5 gm Q15M PRN PO DECREASED GLUCOSE; Start 06/28/18 at 01:00 Dextrose (D50w Syringe) 25 ml Q15M PRN IV DECREASED GLUCOSE; Start 06/28/18 at 01:00 Dextrose (D50w Syringe) 50 ml Q15M PRN IV DECREASED GLUCOSE; Start 06/28/18 at 01:00 Glucagon (Glucagen) 1 mg Q15M PRN IM DECREASED GLUCOSE; Start 06/28/18 at 01:00 Glucose (Glutose) 15 gm Q15M PRN BUCCAL DECREASED GLUCOSE; Start 06/28/18 at 01:00 IV Flush (NS 10 ml) 10 ml PRN PRN IV IV PROTOCOL; Start 06/28/18 at 12:00 Dopamine HCl/ Dextrose 250 ml @ 5.565 mls/ hr TITRATE IV ; Start 06/28/18 at 12:30 Vancomycin/Sodium Chloride 250 ml @ 125 mls/hr Q12H IVPB Last administered on 06/30/18at 01:19; Admin Dose 125 MLS/HR; Start 06/28/18 at 14:00 Phenylephrine HCl 80 mg/Dextrose 250 ml @ 18.75 mls/ hr TITRATE IV Last administered on 06/30/18at 01:35; Admin Dose 31.88 MLS/HR; Start 06/28/18 at 17:00 ENID SINGH Jun 30, 2018 11:26
[2018-06-30] MEDS ORDERED: SOD CHLORIDE 0.9% 1,000 ML IV SCH (11:30)
[2018-06-30] MEDS ORDERED: NORepinephrine 8MG/250 ML (PMX 250 ML IV ONE (12:00)
--- NOTE | 2018-06-30 12:38 | CONS ---
Date/Time of Note Date/Time of Note DATE: 06/30/18 TIME: 12:36 Assessment/Plan Assessment/Plan Assessment/Plan 1. Hypotension/shock state, likely septic on 2 pressors - till with high support requirement - con't anti-botics. 2. Premature ventricular contractions in a pattern of bigeminy. Assess for coronary ischemia, acute coronary syndrome. NO obvious cardiac dysfunction now. 3. Dyslipidemia. 4. Peripheral arterial disease, status post lower extremity amputation- con't wound care. 5. Seizure disorder. 6. Anemia. 7. Encephalopathy- chronic. 8. History of pulmonary coccidioidomycosis. 9. Chronic respiratory failure, status post tracheostomy- con't resp care. 10. Dysphagia, status post G-tube. Result Diagram: 06/30/18 0435 06/30/18 0435 Results 24hrs Laboratory Tests Test 06/29/18 12:42 06/29/18 18:13 06/29/18 20:11 06/30/18 00:34 Bedside Glucose 169 207 159 116 Test 06/30/18 04:32 06/30/18 04:35 06/30/18 07:00 06/30/18 09:06 Bedside Glucose 105 112 White Blood Count 13.2 #H Red Blood Count 3.08 L Hemoglobin 8.9 L Hematocrit 27.3 L Mean Corpuscular 88.6 Volume Mean Corpuscular 28.9 L Hemoglobin Mean Corpuscular 32.6 Hemoglobin Concent Red Cell 15.1 H Distribution Width Platelet Count 104 #L Mean Platelet 8.2 Volume Immature 0.700 H Granulocytes % Neutrophils % 83.8 H Lymphocytes % 7.3 L Monocytes % 5.5 Eosinophils % 2.5 Basophils % 0.2 Nucleated Red 0.0 Blood Cells % Immature 0.090 H Granulocytes # Neutrophils # 11.1 H Lymphocytes # 1.0 Monocytes # 0.7 Eosinophils # 0.3 Basophils # 0.0 Nucleated Red 0.0 Blood Cells # Sodium Level 132 L Potassium Level 4.8 Chloride Level 105 Carbon Dioxide 13 L Level Anion Gap 14 H Blood Urea 43 H Nitrogen Creatinine 1.44 H Est Glomerular 49 L Filtrat Rate mL/min Glucose Level 105 Calcium Level 10.0 Phosphorus Level 9.4 H Magnesium Level 2.1 Blood Gas Specimen Blood arterial Source Arterial Blood 06/30/2018 8:10:41 Date Drawn AM Arterial Blood pH 7.292 *L (Temp corrected) Arterial Blood 27.5 L pCO2 (Temp correct) Arterial Blood pO2 74.9 L (Temp corrected) Arterial Blood 13.0 L HCO3 Arterial Blood -12.0 L Base Excess Arterial Blood 93.7 L Oxygen Saturation Mathieu Test ACCEPTAB Arterial Blood Gas Right Radial Puncture Site Arterial 0.9 Blood Carboxyhemog lobin Arterial Blood 0.4 Methemoglobin Blood Gas A-a O2 106.7 H Differential Oxyhemoglobin 92.5 L Percent Blood Gas 37.0 Temperature Blood Gas 16.0 Respiration Rate Blood Gas Actual 30 Respiration Rate Blood Gas Modality VENT - AC FiO2 30.0 Blood Gas Tidal 500.0 Volume Blood Gas Low PEEP 5.0 Setting Blood Gas Critical RN Macy VILLASENOR Value Read Back Blood Gas Notified AT Whom Blood Gas Notified 06/30/2018 8:30:47 Time AM Consultation Date/Type/Reason Admit Date/Time Jun 27, 2018 at 22:49 Initial Consult Date 06/28/18 Requesting Provider: ENID SINGH 24 HR Interval Summary Free Text/Dictation NO acute events - con't sepsis RX. Per nurse: no Fevers, + SOB, no obvious SOB Exam/Review of Systems Vital Signs Vitals Vital Signs Date Temp Pulse Resp B/P (MAP) Pulse Ox O2 O2 Flow FiO2 Time Delivery Rate 06/30/18 68 28 97/54 (68) 100 12:15 06/30/18 98.7 Mechanical 12:00 Ventilator 06/30/18 30 11:15 Intake and Output 06/29/18 06/29/18 06/30/18 1515:00 23:00 07:00 IntakeIntake Total 1736.286 ml 880.03 ml 899.40 ml OutputOutput Total 900 ml 300 ml 360 ml BalanceBalance 836.286 ml 580.03 ml 539.40 ml Exam General: WN/WD/NAD, AOx 0 HEENT: Unicetric/atraumatic/EOMI (does not follow commands) NECK: trach Lymph: no lymphadenopathy HEART: regular with no S3, II/ systolic murmur at apex LUNGS: Coarse sounds ABD: soft, NT, ND, +BS : Intact Neuro: non focal SKIN: chronic changes - wounds EXT: trace edema Medications Medications Current Medications Norepinephrine 16 mg/Dextrose 500 ml @ 1.88 mls/hr TITRATE IV Last administered on 06/29/18 15:46; Admin Dose 37.5 MLS/HR; Start 06/27/18 at 23:00; Status Hold Acetaminophen (Tylenol Liquid) 650 mg Q6H PRN GTB FEVER; Start 06/28/18 at 00:00 Aspirin (Aspirin) 81 mg DAILY GTB Last administered on 06/30/18 09:03; Admin Dose 81 MG; Start 06/28/18 at 09:00 Atenolol (Tenormin) 12.5 mg BID GTB ; Start 06/28/18 at 09:00 Atorvastatin Calcium (Lipitor) 20 mg HS GTB Last administered on 06/29/18 20:14; Admin Dose 20 MG; Start 06/28/18 at 21:00 Fluconazole (Diflucan) 800 mg DAILY GTB Last administered on 06/30/18 09:03; Admin Dose 800 MG; Start 06/28/18 at 09:00 Gentamicin Sulfate (Gentamicin 0.3% Oph Drop) 2 drop Q4H BOTH EYES Last administered on 06/30/18 11:51; Admin Dose 2 DROP; Start 06/28/18 at 00:00 Glucagon (Glucagen) 1 mg PRN PRN IM HYPOGLYCEMIA (BS<70); Start 06/28/18 at 00:00 Insulin Glargine (Lantus) 10 units DAILY SC Last administered on 06/30/18 09:09; Admin Dose 10 UNITS; Start 06/28/18 at 08:00 Lansoprazole (Prevacid) 30 mg BID@,18 GTB Last administered on 06/30/18 05:38; Admin Dose 30 MG; Start 06/28/18 at 06:00 Levetiracetam (Keppra Liquid) 1,000 mg BID GTB Last administered on 06/30/18 09:03; Admin Dose 1,000 MG; Start 06/28/18 at 09:00 Memantine (Namenda) 10 mg DAILY GTB Last administered on 06/30/18 09:03; Admin Dose 10 MG; Start 06/28/18 at 09:00 Meropenem/Sodium Chloride 50 ml @ 100 mls/hr Q8 IVPB Last administered on 06/30/18 05:38; Admin Dose 100 MLS/HR; Start 06/28/18 at 06:00 Metoclopramide HCl (Reglan) 10 mg Q6 IV Last administered on 06/30/18at 11:48; Admin Dose 10 MG; Start 06/28/18 at 00:00 Midodrine (Proamatine) 5 mg Q8 GTB Last administered on 06/30/18at 05:38; Admin Dose 5 MG; Start 06/28/18 at 06:00 Nystatin (Nystatin Powder) 1 applic BID TOP Last administered on 06/30/18at 09:02; Admin Dose 1 APPLIC; Start 06/28/18 at 09:00 Silver Sulfadiazine (Thermazene 1% 25 Gm) 1 applic BID TOP Last administered on 06/30/18at 09:02; Admin Dose 1 APPLIC; Start 06/28/18 at 09:00 Insulin Aspart (Novolog Insulin Pen) NOVOLOG *MILD* ALGORI... Q4 SC Last administered on 06/29/18at 20:19; Admin Dose 1 UNIT; Start 06/28/18 at 01:00 Miscellaneous Information 1 ea NOTE XX ; Start 06/28/18 at 01:00 Glucose (Glutose) 15 gm Q15M PRN PO DECREASED GLUCOSE; Start 06/28/18 at 01:00 Glucose (Glutose) 22.5 gm Q15M PRN PO DECREASED GLUCOSE; Start 06/28/18 at 01:00 Dextrose (D50w Syringe) 25 ml Q15M PRN IV DECREASED GLUCOSE; Start 06/28/18 at 01:00 Dextrose (D50w Syringe) 50 ml Q15M PRN IV DECREASED GLUCOSE; Start 06/28/18 at 01:00 Glucagon (Glucagen) 1 mg Q15M PRN IM DECREASED GLUCOSE; Start 06/28/18 at 01:00 Glucose (Glutose) 15 gm Q15M PRN BUCCAL DECREASED GLUCOSE; Start 06/28/18 at 01:00 IV Flush (NS 10 ml) 10 ml PRN PRN IV IV PROTOCOL; Start 06/28/18 at 12:00 Dopamine HCl/ Dextrose 250 ml @ 5.565 mls/ hr TITRATE IV ; Start 06/28/18 at 12:30 Vancomycin/Sodium Chloride 250 ml @ 125 mls/hr Q12H IVPB Last administered on 06/30/18at 01:19; Admin Dose 125 MLS/HR; Start 06/28/18 at 14:00 Phenylephrine HCl 80 mg/Dextrose 250 ml @ 18.75 mls/ hr TITRATE IV Last administered on 06/30/18at 01:35; Admin Dose 31.88 MLS/HR; Start 06/28/18 at 17:00 Sodium Chloride 1,000 ml @ 75 mls/hr [id number] IV Last administered on 06/30/18at 11:50; Admin Dose 75 MLS/HR; Start 06/30/18 at 11:30 Norepinephrine 250 ml @ 1.875 mls/ hr TITRATE ONCE IV Last administered on 06/30/18at 12:02; Admin Dose 26.25 MLS/HR; Start 06/30/18 at 12:00; Stop 07/06/18 at 01:19 GABINO CEDENO MD Jun 30, 2018 12:38
--- NOTE | 2018-06-30 13:08 | CONS ---
Date/Time of Note Date/Time of Note DATE: 06/30/18 TIME: 13:06 Assessment/Plan Assessment/Plan Hospital Course Patient remains unchanged overnight still on Levophed drip noncommunicative in no distress and afebrile WBC 13.2 H&H 8.9 and 27.3 platelets 104 neutrophils 83.8 BUN 43 creatinine 1.44 Microbiology: Sacral wound culture grew Pseudomonas and enterococcus species endotracheal aspirate growing pseudomonas aeruginosa susceptible to gentamicin tobramycin amikacin, blood cultures and urine culture negative Chest x-ray this morning revealed stable prominent bilateral perihilar and diffuse interstitial opacities. CT of the brain done yesterday revealed right mastoiditis no intracranial mass enhancing lesions or hemorrhages old right MCA infarct Indwelling: Trach, PEG, left upper extremity PICC line, right upper extremity midline, right upper abdomen pigtail Antimicrobials: Vancomycin, fluconazole, meropenem Physical examination: This is a chronically ill-appearing elderly - [place] man who is noncommunicative in no distress. Head atraumatic normocephalic, sclera nonicteric. Neck is supple, tracheostomy present. Lungs: Breath sounds diminished at bases. Heart S1-S2. Abdomen soft bowel sounds present. Extremities without cyanosis, trace edema Assessment: 1. Severe sepsis with shock 2. Necrotizing pneumonia, with radiographic improvement 3. 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 History of left upper back abscess with repeat CT on June 22 revealed large subcutaneous fluid collection and edema in the lower posterior left neck/upper chest with questionable osteomyelitis of the scapula. 5. History of acute cholecystitis status post cholecystostomy tube 6. Chronic encephalopathy with a history of CVA 7. Diabetes 8. History of hypertension 9. Acute renal insufficiency 10. Right mastoiditis Plan: Patient remains hemodynamically unstable however only on one pressor. We will add tobramycin inhalation to cover Pseudomonas in his sputum, await for wound cultures, continue present care per primary team and consultants. Consider interventional radiology guided drainage of left subcutaneous fluid collection in the neck Result Diagram: 06/30/18 0435 06/30/18 0435 Results 24hrs Laboratory Tests Test 06/29/18 18:13 06/29/18 20:11 06/30/18 00:34 06/30/18 04:32 Bedside Glucose 207 159 116 105 Test 06/30/18 04:35 06/30/18 07:00 1/5/19 09:06 White Blood Count 13.2 #H Red Blood Count 3.08 L Hemoglobin 8.9 L Hematocrit 27.3 L Mean Corpuscular 88.6 Volume Mean Corpuscular 28.9 L Hemoglobin Mean Corpuscular 32.6 Hemoglobin Concent Red Cell 15.1 H Distribution Width Platelet Count 104 #L Mean Platelet 8.2 Volume Immature 0.700 H Granulocytes % Neutrophils % 83.8 H Lymphocytes % 7.3 L Monocytes % 5.5 Eosinophils % 2.5 Basophils % 0.2 Nucleated Red 0.0 Blood Cells % Immature 0.090 H Granulocytes # Neutrophils # 11.1 H Lymphocytes # 1.0 Monocytes # 0.7 Eosinophils # 0.3 Basophils # 0.0 Nucleated Red 0.0 Blood Cells # Sodium Level 132 L Potassium Level 4.8 Chloride Level 105 Carbon Dioxide 13 L Level Anion Gap 14 H Blood Urea 43 H Nitrogen Creatinine 1.44 H Est Glomerular 49 L Filtrat Rate mL/min Glucose Level 105 Calcium Level 10.0 Phosphorus Level 9.4 H Magnesium Level 2.1 Blood Gas Specimen Blood arterial Source Arterial Blood 06/30/2018 8:10:41 Date Drawn AM Arterial Blood pH 7.292 *L (Temp corrected) Arterial Blood 27.5 L pCO2 (Temp correct) Arterial Blood pO2 74.9 L (Temp corrected) Arterial Blood 13.0 L HCO3 Arterial Blood -12.0 L Base Excess Arterial Blood 93.7 L Oxygen Saturation Mathieu Test ACCEPTAB Arterial Blood Gas Right Radial Puncture Site Arterial 0.9 Blood Carboxyhemog lobin Arterial Blood 0.4 Methemoglobin Blood Gas A-a O2 106.7 H Differential Oxyhemoglobin 92.5 L Percent Blood Gas 37.0 Temperature Blood Gas 16.0 Respiration Rate Blood Gas Actual 30 Respiration Rate Blood Gas Modality VENT - AC FiO2 30.0 Blood Gas Tidal 500.0 Volume Blood Gas Low PEEP 5.0 Setting Blood Gas Critical FLAVIO VILLASENOR Value Read Back Blood Gas Notified AT [facility]om Blood Gas Notified 06/30/2018 8:30:47 Time AM Bedside Glucose 112 Consultation Date/Type/Reason Admit Date/Time Jun 27, 2018 at 22:49 Initial Consult Date 06/28/18 Type of Consult id Requesting Provider: ENID SINGH Exam/Review of Systems Vital Signs Vitals Vital Signs Date Temp Pulse Resp B/P (MAP) Pulse Ox O2 O2 Flow FiO2 Time Delivery Rate 06/30/18 68 28 97/54 (68) 100 12:15 06/30/18 98.7 Mechanical 12:00 Ventilator 06/30/18 30 11:15 Intake and Output 06/29/18 06/29/18 06/30/18 1515:00 23:00 07:00 IntakeIntake Total 1736.286 ml 880.03 ml 899.40 ml OutputOutput Total 900 ml 300 ml 360 ml BalanceBalance 836.286 ml 580.03 ml 539.40 ml Medications Medications Current Medications Norepinephrine 16 mg/Dextrose 500 ml @ 1.88 mls/hr TITRATE IV Last administered on 06/29/18 15:46; Admin Dose 37.5 MLS/HR; Start 06/27/18 at 23:00; Status Hold Acetaminophen (Tylenol Liquid) 650 mg Q6H PRN GTB FEVER; Start 06/28/18 at 00:00 Aspirin (Aspirin) 81 mg DAILY GTB Last administered on 06/30/18 09:03; Admin Dose 81 MG; Start 06/28/18 at 09:00 Atenolol (Tenormin) 12.5 mg BID GTB ; Start 06/28/18 at 09:00 Atorvastatin Calcium (Lipitor) 20 mg HS GTB Last administered on 06/29/18at 20:14; Admin Dose 20 MG; Start 06/28/18 at 21:00 Fluconazole (Diflucan) 800 mg DAILY GTB Last administered on 06/30/18 09:03; Admin Dose 800 MG; Start 06/28/18 at 09:00 Gentamicin Sulfate (Gentamicin 0.3% Oph Drop) 2 drop Q4H BOTH EYES Last administered on 06/30/18 11:51; Admin Dose 2 DROP; Start 06/28/18 at 00:00 Glucagon (Glucagen) 1 mg PRN PRN IM HYPOGLYCEMIA (BS<70); Start 06/28/18 at 00:00 Insulin Glargine (Lantus) 10 units DAILY SC Last administered on 06/30/18 09:09; Admin Dose 10 UNITS; Start 06/28/18 at 08:00 Lansoprazole (Prevacid) 30 mg BID@06,18 GTB Last administered on 06/30/18 05:38; Admin Dose 30 MG; Start 06/28/18 at 06:00 Levetiracetam (Keppra Liquid) 1,000 mg BID GTB Last administered on 06/30/18 09:03; Admin Dose 1,000 MG; Start 06/28/18 at 09:00 Memantine (Namenda) 10 mg DAILY GTB Last administered on 06/30/18 09:03; Admin Dose 10 MG; Start 06/28/18 at 09:00 Meropenem/Sodium Chloride 50 ml @ 100 mls/hr Q8 IVPB Last administered on 06/30/18 05:38; Admin Dose 100 MLS/HR; Start 06/28/18 at 06:00 Metoclopramide HCl (Reglan) 10 mg Q6 IV Last administered on 06/30/18 11:48; Admin Dose 10 MG; Start 06/28/18 at 00:00 Midodrine (Proamatine) 5 mg Q8 GTB Last administered on 06/30/18 05:38; Admin Dose 5 MG; Start 06/28/18 at 06:00 Nystatin (Nystatin Powder) 1 applic BID TOP Last administered on 06/30/18 09:02; Admin Dose 1 APPLIC; Start 06/28/18 at 09:00 Silver Sulfadiazine (Thermazene 1% 25 Gm) 1 applic BID TOP Last administered on 06/30/18 09:02; Admin Dose 1 APPLIC; Start 06/28/18 at 09:00 Insulin Aspart (Novolog Insulin Pen) NOVOLOG *MILD* ALGORI... Q4 SC Last administered on 06/29/18 20:19; Admin Dose 1 UNIT; Start 06/28/18 at 01:00 Miscellaneous Information 1 ea NOTE XX ; Start 06/28/18 at 01:00 Glucose (Glutose) 15 gm Q15M PRN PO DECREASED GLUCOSE; Start 06/28/18 at 01:00 Glucose (Glutose) 22.5 gm Q15M PRN PO DECREASED GLUCOSE; Start 06/28/18 at 01:00 Dextrose (D50w Syringe) 25 ml Q15M PRN IV DECREASED GLUCOSE; Start 06/28/18 at 01:00 Dextrose (D50w Syringe) 50 ml Q15M PRN IV DECREASED GLUCOSE; Start 06/28/18 at 01:00 Glucagon (Glucagen) 1 mg Q15M PRN IM DECREASED GLUCOSE; Start 06/28/18 at 01:00 Glucose (Glutose) 15 gm Q15M PRN BUCCAL DECREASED GLUCOSE; Start 06/28/18 at 01:00 IV Flush (NS 10 ml) 10 ml PRN PRN IV IV PROTOCOL; Start 06/28/18 at 12:00 Dopamine HCl/ Dextrose 250 ml @ 5.565 mls/ hr TITRATE IV ; Start 06/28/18 at 12:30 Vancomycin/Sodium Chloride 250 ml @ 125 mls/hr Q12H IVPB Last administered on 06/30/18at 01:19; Admin Dose 125 MLS/HR; Start 06/28/18 at 14:00 Phenylephrine HCl 80 mg/Dextrose 250 ml @ 18.75 mls/ hr TITRATE IV Last administered on 06/30/18at 01:35; Admin Dose 31.88 MLS/HR; Start 06/28/18 at 17:00 Sodium Chloride 1,000 ml @ 75 mls/hr [id number] IV Last administered on 06/30/18at 11:50; Admin Dose 75 MLS/HR; Start 06/30/18 at 11:30 Norepinephrine 250 ml @ 1.875 mls/ hr TITRATE ONCE IV Last administered on 06/30/18at 12:02; Admin Dose 26.25 MLS/HR; Start 06/30/18 at 12:00; Stop 07/06/18 at 01:19 SUSY WOLFE NP Jun 30, 2018 13:08
--- NOTE | 2018-06-30 13:55 | CONS ---
Date/Time of Note Date/Time of Note DATE: 06/30/18 TIME: 13:52 Consult Date/Type/Reason Admit Date/Time Jun 27, 2018 at 22:49 Initial Consult Date 06/28/18 Type of Consultation: Pulm/CCM Requesting Provider: ENID SINGH Subjective Unresponsive on the vent. On levophed gtt. Objective Vital Signs Date Temp Pulse Resp B/P (MAP) Pulse Ox O2 O2 Flow FiO2 Time Delivery Rate 06/30/18 68 28 97/54 (68) 100 12:15 06/30/18 98.7 Mechanical 12:00 Ventilator 06/30/18 30 11:15 Intake and Output 06/29/18 06/29/18 06/30/18 1414:59 22:59 06:59 IntakeIntake Total 1750.664 ml 942.53 ml 966.28 ml OutputOutput Total 975 ml 325 ml 410 ml BalanceBalance 775.664 ml 617.53 ml 556.28 ml Exam HEENT: Neck supple; no JVD; no LAD: +trach CVS: RRR, S1 and S2 CHEST: ++ rales b/l ABD: Distended, NT, + BS EXT: No c/c: + edema Results/Medications Result Diagram: 06/30/18 0435 06/30/18 0435 Results 24 hrs Laboratory Tests Test 06/29/18 18:13 06/29/18 20:11 06/30/18 00:34 06/30/18 04:32 Bedside Glucose 207 159 116 105 Test 06/30/18 04:35 06/30/18 07:00 06/30/18 09:06 06/30/18 13:01 White Blood Count 13.2 #H Red Blood Count 3.08 L Hemoglobin 8.9 L Hematocrit 27.3 L Mean Corpuscular 88.6 Volume Mean Corpuscular 28.9 L Hemoglobin Mean Corpuscular 32.6 Hemoglobin Concent Red Cell 15.1 H Distribution Width Platelet Count 104 #L Mean Platelet 8.2 Volume Immature 0.700 H Granulocytes % Neutrophils % 83.8 H Lymphocytes % 7.3 L Monocytes % 5.5 Eosinophils % 2.5 Basophils % 0.2 Nucleated Red 0.0 Blood Cells % Immature 0.090 H Granulocytes # Neutrophils # 11.1 H Lymphocytes # 1.0 Monocytes # 0.7 Eosinophils # 0.3 Basophils # 0.0 Nucleated Red 0.0 Blood Cells # Sodium Level 132 L Potassium Level 4.8 Chloride Level 105 Carbon Dioxide 13 L Level Anion Gap 14 H Blood Urea 43 H Nitrogen Creatinine 1.44 H Est Glomerular 49 L Filtrat Rate mL/min Glucose Level 105 Calcium Level 10.0 Phosphorus Level 9.4 H Magnesium Level 2.1 Blood Gas Specimen Blood arterial Source Arterial Blood 06/30/2018 8:10:41 Date Drawn AM Arterial Blood pH 7.292 *L (Temp corrected) Arterial Blood 27.5 L pCO2 (Temp correct) Arterial Blood pO2 74.9 L (Temp corrected) Arterial Blood 13.0 L HCO3 Arterial Blood -12.0 L Base Excess Arterial Blood 93.7 L Oxygen Saturation Mathieu Test ACCEPTAB Arterial Blood Gas Right Radial Puncture Site Arterial 0.9 Blood Carboxyhemog lobin Arterial Blood 0.4 Methemoglobin Blood Gas A-a O2 106.7 H Differential Oxyhemoglobin 92.5 L Percent Blood Gas 37.0 Temperature Blood Gas 16.0 Respiration Rate Blood Gas Actual 30 Respiration Rate Blood Gas Modality VENT - AC FiO2 30.0 Blood Gas Tidal 500.0 Volume Blood Gas Low PEEP 5.0 Setting Blood Gas Critical FLAVIO VILLASENOR Value Read Back Blood Gas Notified AT Whom Blood Gas Notified 06/30/2018 8:30:47 Time AM Bedside Glucose 112 106 Medications Current Medications Norepinephrine 16 mg/Dextrose 500 ml @ 1.88 mls/hr TITRATE IV Last administered on 06/29/18at 15:46; Admin Dose 37.5 MLS/HR; Start 06/27/18 at 23:00; Status Hold Acetaminophen (Tylenol Liquid) 650 mg Q6H PRN GTB FEVER; Start 06/28/18 at 00:00 Aspirin (Aspirin) 81 mg DAILY GTB Last administered on 06/30/18at 09:03; Admin Dose 81 MG; Start 06/28/18 at 09:00 Atenolol (Tenormin) 12.5 mg BID GTB ; Start 06/28/18 at 09:00 Atorvastatin Calcium (Lipitor) 20 mg HS GTB Last administered on 06/29/18at 20:14 ; Admin Dose 20 MG; Start 06/28/18 at 21:00 Fluconazole (Diflucan) 800 mg DAILY GTB Last administered on 06/30/18at 09:03; Admin Dose 800 MG; Start 06/28/18 at 09:00 Gentamicin Sulfate (Gentamicin 0.3% Oph Drop) 2 drop Q4H BOTH EYES Last administered on 06/30/18 11:51; Admin Dose 2 DROP; Start 06/28/18 at 00:00 Glucagon (Glucagen) 1 mg PRN PRN IM HYPOGLYCEMIA (BS<70); Start 06/28/18 at 00:00 Insulin Glargine (Lantus) 10 units DAILY SC Last administered on 06/30/18 09:09; Admin Dose 10 UNITS; Start 06/28/18 at 08:00 Lansoprazole (Prevacid) 30 mg BID@06,18 GTB Last administered on 06/30/18 05:38; Admin Dose 30 MG; Start 06/28/18 at 06:00 Levetiracetam (Keppra Liquid) 1,000 mg BID GTB Last administered on 06/30/18 09:03; Admin Dose 1,000 MG; Start 06/28/18 at 09:00 Memantine (Namenda) 10 mg DAILY GTB Last administered on 06/30/18 09:03; Admin Dose 10 MG; Start 06/28/18 at 09:00 Meropenem/Sodium Chloride 50 ml @ 100 mls/hr Q8 IVPB Last administered on 06/30/18 13:36; Admin Dose 100 MLS/HR; Start 06/28/18 at 06:00 Metoclopramide HCl (Reglan) 10 mg Q6 IV Last administered on 06/30/18 11:48; Admin Dose 10 MG; Start 06/28/18 at 00:00 Midodrine (Proamatine) 5 mg Q8 GTB Last administered on 06/30/18 13:35; Admin Dose 5 MG; Start 06/28/18 at 06:00 Nystatin (Nystatin Powder) 1 applic BID TOP Last administered on 06/30/18 09:02; Admin Dose 1 APPLIC; Start 06/28/18 at 09:00 Silver Sulfadiazine (Thermazene 1% 25 Gm) 1 applic BID TOP Last administered on 06/30/18 09:02; Admin Dose 1 APPLIC; Start 06/28/18 at 09:00 Insulin Aspart (Novolog Insulin Pen) NOVOLOG *MILD* ALGORI... Q4 SC Last admi nistered on 06/29/18at 20:19; Admin Dose 1 UNIT; Start 06/28/18 at 01:00 Miscellaneous Information 1 ea NOTE XX ; Start 06/28/18 at 01:00 Glucose (Glutose) 15 gm Q15M PRN PO DECREASED GLUCOSE; Start 06/28/18 at 01:00 Glucose (Glutose) 22.5 gm Q15M PRN PO DECREASED GLUCOSE; Start 06/28/18 at 01:00 Dextrose (D50w Syringe) 25 ml Q15M PRN IV DECREASED GLUCOSE; Start 06/28/18 at 01:00 Dextrose (D50w Syringe) 50 ml Q15M PRN IV DECREASED GLUCOSE; Start 06/28/18 at 01:00 Glucagon (Glucagen) 1 mg Q15M PRN IM DECREASED GLUCOSE; Start 06/28/18 at 01:00 Glucose (Glutose) 15 gm Q15M PRN BUCCAL DECREASED GLUCOSE; Start 06/28/18 at 01:00 IV Flush (NS 10 ml) 10 ml PRN PRN IV IV PROTOCOL; Start 06/28/18 at 12:00 Dopamine HCl/ Dextrose 250 ml @ 5.565 mls/ hr TITRATE IV ; Start 06/28/18 at 12:30 Vancomycin/Sodium Chloride 250 ml @ 125 mls/hr Q12H IVPB Last administered on 06/30/18at 13:36; Admin Dose 125 MLS/HR; Start 06/28/18 at 14:00 Phenylephrine HCl 80 mg/Dextrose 250 ml @ 18.75 mls/ hr TITRATE IV Last administered on 06/30/18at 01:35; Admin Dose 31.88 MLS/HR; Start 06/28/18 at 17:00 Norepinephrine 250 ml @ 1.875 mls/ hr TITRATE ONCE IV Last administered on 06/30/18at 12:02; Admin Dose 26.25 MLS/HR; Start 06/30/18 at 12:00; Stop 07/06/18 at 01:19 Tobramycin Sulfate/Sodium Chloride (Kristopher Inhal) 300 mg BID RESP THERAPY NEB ; Start 06/30/18 at 20:00 Assessment/Plan Additional Assessment/Plan IMP: 1. Septic Shock 2. Multifocal Pneumonia 3. 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 Encephalopathy 7. MICHELLE 8. Metabolic Acidosis 9. HypoNa+ RECS: 1. Vent support 2. Abx per ID 3. Change IVFs to D5W with 3 amps NaHCO3 4. Urine lytes 5. Follow renal function 6. Prognosis poor 35 min cc time CHARLOTTE REY MD Jun 30, 2018 13:55
[2018-06-30] MEDS ORDERED: DEXTROSE 5% 1,000 ML IV SCH (14:00)
[2018-06-30] MEDS: COLLAGENASE 5 GM (UD JAR) TOP SCH ×2 (15:28→22:53)
[2018-06-30] MEDS: SODIUM BICARBONATE (IV ADD) 150 MEQ in DEXTROSE 5% 1,000 ML IV SCH (16:05)
[2018-06-30] MEDS: TOBRAMYCIN/0.25NS 300 MG/5 ML INHAL NEB SCH (20:00)
[2018-06-30] MEDS: ATORVASTATIN 20 MG TAB GTB SCH (20:49)
[2018-07-01] VITALS (106 sets, daily range): BP systolic 88–132; BP diastolic 41–74; PULSE 71–99; RESP 15–36
[2018-07-01] MEDS: GENTAMICIN 0.3% 5 ML OPH BOTH EYES SCH ×6 (00:30→21:52)
[2018-07-01] MEDS: METOCLOPRAMIDE 10 MG INJ IV SCH ×3 (00:30→11:45)
[2018-07-01] MEDS: INSULIN ASPART [NOVOLOG] 3 ML PEN SC SCH ×4 (00:34→11:45)
[2018-07-01] MEDS: VANCOMYCIN 750 MG (PMX) 250 ML IVPB SCH ×2 (02:01→13:46)
[2018-07-01] MEDS: MIDODRINE 5 MG TAB GTB SCH ×3 (05:44→21:39)
[2018-07-01] MEDS: LANSOPRAZOLE 30 MG CAP GTB SCH ×2 (05:44→18:06)
[2018-07-01] MEDS: MEROPENEM 500MG/50 ML (PMX) 50 ML IVPB SCH ×2 (05:44→13:46)
[2018-07-01] MEDS: ASPIRIN 325 MG TAB GTB SCH (08:21)
[2018-07-01] MEDS: FLUCONAZOLE 200 MG TAB GTB SCH (08:21)
[2018-07-01] MEDS: COLLAGENASE 5 GM (UD JAR) TOP SCH ×2 (08:21→21:40)
[2018-07-01] MEDS: MEMANTINE 10 MG TAB GTB SCH (08:21)
[2018-07-01] MEDS: LEVETIRACETAM (100 MG/ML) 5ML CUP GTB SCH ×2 (08:21→21:45)
[2018-07-01] MEDS: ATENOLOL 25 MG TAB GTB SCH ×2 (08:21→21:00)
[2018-07-01] MEDS: NYSTATIN 30 GM POWDER BTL TOP SCH ×2 (08:22→21:52)
[2018-07-01] MEDS: INSULIN GLARGINE [LANTus] (100 UNITS/ML) SYG SC SCH (08:30)
[2018-07-01] MEDS: TOBRAMYCIN/0.25NS 300 MG/5 ML INHAL NEB SCH (10:09)
[2018-07-01] MEDS ORDERED: VANCOMYCIN IV PER PHARMACY XX SCH (10:30)
[2018-07-01] MEDS: SODIUM BICARBONATE (IV ADD) 150 MEQ in DEXTROSE 5% 1,000 ML IV SCH (11:44)
--- NOTE | 2018-07-01 11:57 | CONS ---
Date/Time of Note Date/Time of Note DATE: 07/01/18 TIME: 11:55 Consult Date/Type/Reason Admit Date/Time Jun 27, 2018 at 22:49 Initial Consult Date 06/28/18 Type of Consultation: Pulm/CCM Requesting Provider: ENID SINGH Subjective No events. UO improved now. Remains on NaHCO3 gtt. Unresponsive on the vent. Objective Vital Signs Date Temp Pulse Resp B/P (MAP) Pulse Ox O2 O2 Flow FiO2 Time Delivery Rate 07/01/18 82 34 97 30 11:04 07/01/18 105/41 10:30 (62) 07/01/18 Mechanical 10:00 Ventilator 07/01/18 97.9 04:00 Intake and Output 06/30/18 06/30/18 07/01/18 1515:00 23:00 07:00 IntakeIntake Total 691.25 ml 1277.50 ml 1513.75 ml OutputOutput Total 730 ml 740 ml 560 ml BalanceBalance -38.75 ml 537.50 ml 953.75 ml Exam HEENT: Neck supple; no JVD; no LAD: +trach CVS: RRR, S1 and S2 CHEST: ++ rales b/l ABD: Distended, NT, + BS EXT: No c/c: + edema Results/Medications Result Diagram: 07/01/18 0320 07/01/18 0320 Results 24 hrs Laboratory Tests Test 06/30/18 13:01 06/30/18 17:24 06/30/18 20:42 07/01/18 00:33 Bedside Glucose 106 87 99 110 Test 07/01/18 03:20 07/01/18 04:31 07/01/18 05:00 07/01/18 08:19 White Blood Count 13.9 H Red Blood Count 3.05 L Hemoglobin 9.0 L Hematocrit 27.2 L Mean Corpuscular 89.2 Volume Mean Corpuscular 29.5 Hemoglobin Mean Corpuscular 33.1 Hemoglobin Concent Red Cell 15.1 H Distribution Width Platelet Count 85 L Mean Platelet 9.3 Volume Immature 0.900 H Granulocytes % Neutrophils % 86.0 H Lymphocytes % 6.2 L Monocytes % 3.8 Eosinophils % 2.9 Basophils % 0.2 Nucleated Red 0.0 Blood Cells % Immature 0.130 H Granulocytes # Neutrophils # 11.9 H Lymphocytes # 0.9 Monocytes # 0.5 Eosinophils # 0.4 Basophils # 0.0 Nucleated Red 0.0 Blood Cells # Sodium Level 132 L Potassium Level 4.2 Chloride Level 107 Carbon Dioxide 15 L Level Anion Gap 10 Blood Urea 45 H Nitrogen Creatinine 1.46 H Est Glomerular 49 L Filtrat Rate mL/min Glucose Level 100 Lactic Acid Level 2.4 *H Calcium Level 9.9 Bedside Glucose 108 129 Blood Gas Specimen Blood arterial Source Arterial Blood 07/01/2018 4:42:09 Date Drawn AM Arterial Blood pH 7.296 *L (Temp corrected) Arterial Blood 32.2 L pCO2 (Temp correct) Arterial Blood pO2 78.5 L (Temp corrected) Arterial Blood 15.3 L HCO3 Arterial Blood -10.0 L Base Excess Arterial Blood 94.4 L Oxygen Saturation Mathieu Test ACCEPTAB Arterial Blood Gas Right Radial Puncture Site Arterial 0.8 Blood Carboxyhemog lobin Arterial Blood 0.3 Methemoglobin Blood Gas A-a O2 97.6 H Differential Oxyhemoglobin 93.4 Percent Blood Gas 37.0 Temperature Blood Gas 16.0 Respiration Rate Blood Gas Actual 29 Respiration Rate Blood Gas Modality VENT - AC FiO2 30.0 Blood Gas Tidal 500.0 Volume Blood Gas Low PEEP 5.0 Setting Blood Gas 32.0 Inspiratory Pressure Blood Gas Critical Ayesha BLANKENSHIP RN Value Read Back Blood Gas Notified KM Whom Blood Gas Notified 07/01/2018 4:56:45 Time AM Test 07/01/18 11:37 07/01/18 11:41 07/01/18 11:43 Bedside Glucose 158 156 139 Medications Current Medications Acetaminophen (Tylenol Liquid) 650 mg Q6H PRN GTB FEVER; Start 06/28/18 at 00:00 Aspirin (Aspirin) 81 mg DAILY GTB Last administered on 07/01/18at 08:21; Admin Dose 81 MG; Start 06/28/18 at 09:00 Atenolol (Tenormin) 12.5 mg BID GTB ; Start 06/28/18 at 09:00 Atorvastatin Calcium (Lipitor) 20 mg HS GTB Last administered on 06/30/18at 20:49; Admin Dose 20 MG; Start 06/28/18 at 21:00 Fluconazole (Diflucan) 800 mg DAILY GTB Last administered on 07/01/18at 08:21; Admin Dose 800 MG; Start 06/28/18 at 09:00 Gentamicin Sulfate (Gentamicin 0.3% Oph Drop) 2 drop Q4H BOTH EYES Last administered on 07/01/18 11:44; Admin Dose 2 DROP; Start 06/28/18 at 00:00 Glucagon (Glucagen) 1 mg PRN PRN IM HYPOGLYCEMIA (BS<70); Start 06/28/18 at 00:00 Insulin Glargine (Lantus) 10 units DAILY SC Last administered on 07/01/18 08:30; Admin Dose 10 UNITS; Start 06/28/18 at 08:00 Lansoprazole (Prevacid) 30 mg BID@06,18 GTB Last administered on 07/01/18 05:44; Admin Dose 30 MG; Start 06/28/18 at 06:00 Levetiracetam (Keppra Liquid) 1,000 mg BID GTB Last administered on 07/01/18 08:21; Admin Dose 1,000 MG; Start 06/28/18 at 09:00 Memantine (Namenda) 10 mg DAILY GTB Last administered on 07/01/18 08:21; Admin Dose 10 MG; Start 06/28/18 at 09:00 Meropenem/Sodium Chloride 50 ml @ 100 mls/hr Q8 IVPB Last administered on 07/01/18 05:44; Admin Dose 100 MLS/HR; Start 06/28/18 at 06:00 Metoclopramide HCl (Reglan) 10 mg Q6 IV Last administered on 07/01/18 11:45; Admin Dose 10 MG; Start 06/28/18 at 00:00 Midodrine (Proamatine) 5 mg Q8 GTB Last administered on 07/01/18 05:44; Admin Dose 5 MG; Start 06/28/18 at 06:00 Nystatin (Nystatin Powder) 1 applic BID TOP Last administered on 07/01/18 08:22; Admin Dose 1 APPLIC; Start 06/28/18 at 09:00 Insulin Aspart (Novolog Insulin Pen) NOVOLOG *MILD* ALGORI... Q4 SC Last administered on 06/29/18 20:19; Admin Dose 1 UNIT; Start 06/28/18 at 01:00 Miscellaneous Information 1 ea NOTE XX ; Start 06/28/18 at 01:00 Glucose (Glutose) 15 gm Q15M PRN PO DECREASED GLUCOSE; Start 06/28/18 at 01:00 Glucose (Glutose) 22.5 gm Q15M PRN PO DECREASED GLUCOSE; Start 06/28/18 at 01:00 Dextrose (D50w Syringe) 25 ml Q15M PRN IV DECREASED GLUCOSE; Start 06/28/18 at 01:00 Dextrose (D50w Syringe) 50 ml Q15M PRN IV DECREASED GLUCOSE; Start 06/28/18 at 01:00 Glucagon (Glucagen) 1 mg Q15M PRN IM DECREASED GLUCOSE; Start 06/28/18 at 01:00 Glucose (Glutose) 15 gm Q15M PRN BUCCAL DECREASED GLUCOSE; Start 06/28/18 at 01:00 IV Flush (NS 10 ml) 10 ml PRN PRN IV IV PROTOCOL; Start 06/28/18 at 12:00 Dopamine HCl/ Dextrose 250 ml @ 5.565 mls/ hr TITRATE IV ; Start 06/28/18 at 12:30 Vancomycin/Sodium Chloride 250 ml @ 125 mls/hr Q12H IVPB Last administered on 07/01/18at 02:01; Admin Dose 125 MLS/HR; Start 06/28/18 at 14:00 Phenylephrine HCl 80 mg/Dextrose 250 ml @ 18.75 mls/ hr TITRATE IV Last administered on 06/30/18at 01:35; Admin Dose 31.88 MLS/HR; Start 06/28/18 at 17:00 Tobramycin Sulfate/Sodium Chloride (Kristopher Inhal) 300 mg BID RESP THERAPY NEB Last administered on 07/01/18at 10:09; Admin Dose 300 MG; Start 06/30/18 at 20:00 Norepinephrine 16 mg/Dextrose 500 ml @ 1.88 mls/hr TITRATE IV Last administered on 06/30/18at 21:51; Admin Dose 26.25 MLS/HR; Start 06/30/18 at 14:00 Sodium Bicarbonate 150 meq/Dextrose 1,000 ml @ 50 mls/hr Q20H IV Last administered on 07/01/18at 11:44; Admin Dose 50 MLS/HR; Start 06/30/18 at 15:30 Collagenase (Santyl) 1 applic BID TOP Last administered on 07/01/18at 08:21; Admin Dose 1 APPLIC; Start 06/30/18 at 15:00 Miscellaneous Information (*Rx Drug Level Order Reminder*) VANC TR 07/02 AT 1300 ONCE ONCE XX ; Start 07/02/18 at 13:00; Stop 07/02/18 at 13:01 Vancomycin HCl (Vanco Iv Per Pharmacy) PER PHARMACY DOSING NOTE XX ; Start 07/01/18 at 10:30 Assessment/Plan Additional Assessment/Plan IMP: 1. Septic Shock 2. Multifocal Pneumonia 3. 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 Encephalopathy 7. MICHELLE 8. Metabolic Acidosis 9. HypoNa+ RECS: 1. Vent support 2. Abx per ID 3. D5W with 3 amps NaHCO3 4. F/U Urine lytes 5. Follow renal function 6. Am labs/CXR 35 min cc time CHARLOTTE REY MD Jul 01, 2018 11:57
--- NOTE | 2018-07-01 13:07 | CONS ---
Date/Time of Note Date/Time of Note DATE: 07/01/18 TIME: 13:02 Assessment/Plan Assessment/Plan Assessment/Plan 1. Hypotension/shock state, likely septic on 2 pressors - till with high support requirement - con't anti-botics - still acidotic - con't levo gtt Rx 2. Premature ventricular contractions in a pattern of bigeminy. Assess for coronary ischemia, acute coronary syndrome. NO obvious cardiac dysfunction now. 3. Dyslipidemia. 4. Peripheral arterial disease, status post lower extremity amputation- con't wound care - con't wound care. 5. Seizure disorder. 6. Anemia. 7. Encephalopathy- chronic. 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 9. Chronic respiratory failure, status post tracheostomy- con't resp care. Con't resp Care - still acidotic. 10. Dysphagia, status post G-tube. Result Diagram: 07/01/18 0320 07/01/18 0320 Results 24hrs Laboratory Tests Test 06/30/18 17:24 06/30/18 20:42 07/01/18 00:33 07/01/18 03:20 Bedside Glucose 87 99 110 White Blood Count 13.9 H Red Blood Count 3.05 L Hemoglobin 9.0 L Hematocrit 27.2 L Mean Corpuscular 89.2 Volume Mean Corpuscular 29.5 Hemoglobin Mean Corpuscular 33.1 Hemoglobin Concent Red Cell 15.1 H Distribution Width Platelet Count 85 L Mean Platelet 9.3 Volume Immature 0.900 H Granulocytes % Neutrophils % 86.0 H Lymphocytes % 6.2 L Monocytes % 3.8 Eosinophils % 2.9 Basophils % 0.2 Nucleated Red 0.0 Blood Cells % Immature 0.130 H Granulocytes # Neutrophils # 11.9 H Lymphocytes # 0.9 Monocytes # 0.5 Eosinophils # 0.4 Basophils # 0.0 Nucleated Red 0.0 Blood Cells # Sodium Level 132 L Potassium Level 4.2 Chloride Level 107 Carbon Dioxide 15 L Level Anion Gap 10 Blood Urea 45 H Nitrogen Creatinine 1.46 H Est Glomerular 49 L Filtrat Rate mL/min Glucose Level 100 Lactic Acid Level 2.4 *H Calcium Level 9.9 Test 07/01/18 04:31 07/01/18 05:00 07/01/18 08:19 07/01/18 11:37 Bedside Glucose 108 129 158 Blood Gas Specimen Blood arterial Source Arterial Blood 07/01/2018 4:42:09 Date Drawn AM Arterial Blood pH 7.296 *L (Temp corrected) Arterial Blood 32.2 L pCO2 (Temp correct) Arterial Blood pO2 78.5 L (Temp corrected) Arterial Blood 15.3 L HCO3 Arterial Blood -10.0 L Base Excess Arterial Blood 94.4 L Oxygen Saturation Mathieu Test ACCEPTAB Arterial Blood Gas Right Radial Puncture Site Arterial 0.8 Blood Carboxyhemog lobin Arterial Blood 0.3 Methemoglobin Blood Gas A-a O2 97.6 H Differential Oxyhemoglobin 93.4 Percent Blood Gas 37.0 Temperature Blood Gas 16.0 Respiration Rate Blood Gas Actual 29 Respiration Rate Blood Gas Modality VENT - AC FiO2 30.0 Blood Gas Tidal 500.0 Volume Blood Gas Low PEEP 5.0 Setting Blood Gas 32.0 Inspiratory Pressure Blood Gas Critical Ayesha BLANKENSHIP RN Value Read Back Blood Gas Notified KM Whom Blood Gas Notified 07/01/2018 4:56:45 Time AM Test 07/01/18 11:41 07/01/18 11:43 Bedside Glucose 156 139 Consultation Date/Type/Reason Admit Date/Time Jun 27, 2018 at 22:49 Initial Consult Date 06/28/18 Requesting Provider: ENID SINGH 24 HR Interval Summary Free Text/Dictation NO acute events - con't supportive care - chronically ill patient. Per nurse: No F/C/N/ V + SOB No obvious CP Exam/Review of Systems Vital Signs Vitals Vital Signs Date Temp Pulse Resp B/P (MAP) Pulse Ox O2 O2 Flow FiO2 Time Delivery Rate 07/01/18 82 34 97 30 11:04 07/01/18 105/41 10:30 (62) 07/01/18 Mechanical 10:00 Ventilator 07/01/18 97.9 04:00 Intake and Output 06/30/18 06/30/18 07/01/18 1515:00 23:00 07:00 IntakeIntake Total 691.25 ml 1277.50 ml 1513.75 ml OutputOutput Total 730 ml 740 ml 560 ml BalanceBalance -38.75 ml 537.50 ml 953.75 ml Exam General: WN/WD/NAD, AOx 0 HEENT: Unicetric/atraumatic/EOMI (does not follow commands) NECK: JVD elevated, no thyromegaly - intubated Lymph: no lymphadenopathy HEART: regular with no S3, II/ systolic murmur at apex LUNGS: Coarse sounds ABD: soft, NT, ND, +BS : Intact Neuro: non focal SKIN: chronic changes EXT: trace edema Medications Medications Current Medications Acetaminophen (Tylenol Liquid) 650 mg Q6H PRN GTB FEVER; Start 06/28/18 at 00:00 Aspirin (Aspirin) 81 mg DAILY GTB Last administered on 07/01/18 08:21; Admin Dose 81 MG; Start 06/28/18 at 09:00 Atenolol (Tenormin) 12.5 mg BID GTB ; Start 06/28/18 at 09:00 Atorvastatin Calcium (Lipitor) 20 mg HS GTB Last administered on 06/30/18 20:49; Admin Dose 20 MG; Start 06/28/18 at 21:00 Fluconazole (Diflucan) 800 mg DAILY GTB Last administered on 07/01/18 08:21; Admin Dose 800 MG; Start 06/28/18 at 09:00 Gentamicin Sulfate (Gentamicin 0.3% Oph Drop) 2 drop Q4H BOTH EYES Last administered on 07/01/18 11:44; Admin Dose 2 DROP; Start 06/28/18 at 00:00 Glucagon (Glucagen) 1 mg PRN PRN IM HYPOGLYCEMIA (BS<70); Start 06/28/18 at 00:00 Insulin Glargine (Lantus) 10 units DAILY SC Last administered on 07/01/18 08:30; Admin Dose 10 UNITS; Start 06/28/18 at 08:00 Lansoprazole (Prevacid) 30 mg BID@06,18 GTB Last administered on 07/01/18 05:44; Admin Dose 30 MG; Start 06/28/18 at 06:00 Levetiracetam (Keppra Liquid) 1,000 mg BID GTB Last administered on 07/01/18 08:21; Admin Dose 1,000 MG; Start 06/28/18 at 09:00 Memantine (Namenda) 10 mg DAILY GTB Last administered on 07/01/18 08:21; Admin Dose 10 MG; Start 06/28/18 at 09:00 Meropenem/Sodium Chloride 50 ml @ 100 mls/hr Q8 IVPB Last administered on 07/01/18at 05:44; Admin Dose 100 MLS/HR; Start 06/28/18 at 06:00 Midodrine (Proamatine) 5 mg Q8 GTB Last administered on 07/01/18at 05:44; Admin Dose 5 MG; Start 06/28/18 at 06:00 Nystatin (Nystatin Powder) 1 applic BID TOP Last administered on 07/01/18at 08:22; Admin Dose 1 APPLIC; Start 06/28/18 at 09:00 Miscellaneous Information 1 ea NOTE XX ; Start 06/28/18 at 01:00 Glucose (Glutose) 15 gm Q15M PRN PO DECREASED GLUCOSE; Start 06/28/18 at 01:00 Glucose (Glutose) 22.5 gm Q15M PRN PO DECREASED GLUCOSE; Start 06/28/18 at 01:00 Dextrose (D50w Syringe) 25 ml Q15M PRN IV DECREASED GLUCOSE; Start 06/28/18 at 01:00 Dextrose (D50w Syringe) 50 ml Q15M PRN IV DECREASED GLUCOSE; Start 06/28/18 at 01:00 Glucagon (Glucagen) 1 mg Q15M PRN IM DECREASED GLUCOSE; Start 06/28/18 at 01:00 Glucose (Glutose) 15 gm Q15M PRN BUCCAL DECREASED GLUCOSE; Start 06/28/18 at 01:00 IV Flush (NS 10 ml) 10 ml PRN PRN IV IV PROTOCOL; Start 06/28/18 at 12:00 Vancomycin/Sodium Chloride 250 ml @ 125 mls/hr Q12H IVPB Last administered on 07/01/18at 02:01; Admin Dose 125 MLS/HR; Start 06/28/18 at 14:00 Tobramycin Sulfate/Sodium Chloride (Kristopher Inhal) 300 mg BID RESP THERAPY NEB Last administered on 07/01/18at 10:09; Admin Dose 300 MG; Start 06/30/18 at 20:00 Norepinephrine 16 mg/Dextrose 500 ml @ 1.88 mls/hr TITRATE IV Last administered on 06/30/18at 21:51; Admin Dose 26.25 MLS/HR; Start 06/30/18 at 14:00 Sodium Bicarbonate 150 meq/Dextrose 1,000 ml @ 50 mls/hr Q20H IV Last administered on 07/01/18at 11:44; Admin Dose 50 MLS/HR; Start 06/30/18 at 15:30 Collagenase (Santyl) 1 applic BID TOP Last administered on 07/01/18at 08:21; Admin Dose 1 APPLIC; Start 06/30/18 at 15:00 Miscellaneous Information (*Rx Drug Level Order Reminder*) VANC TR 07/02 AT 1300 ONCE ONCE XX ; Start 07/02/18 at 13:00; Stop 07/02/18 at 13:01 Vancomycin HCl (Vanco Iv Per Pharmacy) PER PHARMACY DOSING NOTE XX ; Start 07/01/18 at 10:30 GABINO CEDENO MD Jul 01, 2018 13:07
--- NOTE | 2018-07-01 14:28 | CONS ---
Date/Time of Note Date/Time of Note DATE: 07/01/18 TIME: 14:23 Assessment/Plan Assessment/Plan Hospital Course Patient remains unchanged he is on levo fed drip noncommunicative and in no distress afebrile pulse 82 respirations 24 blood pressure 112/58 saturation 100 on vent WBC 13.9 H&H 9 and 27.2 platelets 85 neutrophils 86 BUN 45 creatinine 1.46 lactic acid 2.4 Microbiology: Blood and urine culture remain negative sacral wound culture growing pseudomonas aeruginosa and enterococcus species sputum culture also grew pseudomonas aeruginosa Diagnostics chest x-ray this morning revealed diffuse bilateral nodular i nfiltrates question bronchopneumonia Indwelling: Trach, PEG, left upper extremity PICC line, right upper extremity midline, right upper abdomen pigtail Antimicrobials: Vancomycin, fluconazole, meropenem, Tobramycin INH Physical examination: This is a chronically ill-appearing elderly -Amer ican man who is noncommunicative in no distress. Head atraumatic normocephalic, sclera nonicteric. Neck is supple, tracheostomy present. Lungs: Breath sounds diminished at bases. Heart S1-S2. Abdomen soft bowel sounds present. Extremities without cyanosis, trace edema Assessment: 1. Severe sepsis with shock 2. Bilateral multifocal pneumonia 3. 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 History of left upper back abscess with repeat CT on June 22 revealed large subcutaneous fluid collection and edema in the lower posterior left neck/upper chest with questionable osteomyelitis of the scapula. 5. History of acute cholecystitis status post cholecystostomy tube 6. Chronic encephalopathy with a history of CVA 7. Diabetes 8. History of hypertension 9. Acute renal insufficiency 10. Right mastoiditis Plan: Patient remains hemodynamically unstable, he is growing multidrug- resistant pseudomonas aeruginosa from his sputum and his wounds susceptible only to aminoglycosides, he is also thrombocytopenic and in acute renal failure likely secondary to acute tubular necrosis. We will will start him on amikacin and Zyvox, continue fluconazole, discontinue other antibiotics, monitor renal function closely, monitor platelet count, consider nephrology evaluation to monitor his kidney function. Patient needs drainage of left subcutaneous fluid collection in the neck when he is more stable. Overall prognosis guarded as patient is developing multisystem organ failure Result Diagram: 07/01/18 0320 07/01/18 0320 Results 24hrs Laboratory Tests Test 06/30/18 17:24 06/30/18 20:42 07/01/18 00:33 07/01/18 03:20 Bedside Glucose 87 99 110 White Blood Count 13.9 H Red Blood Count 3.05 L Hemoglobin 9.0 L Hematocrit 27.2 L Mean Corpuscular 89.2 Volume Mean Corpuscular 29.5 Hemoglobin Mean Corpuscular 33.1 Hemoglobin Concent Red Cell 15.1 H Distribution Width Platelet Count 85 L Mean Platelet 9.3 Volume Immature 0.900 H Granulocytes % Neutrophils % 86.0 H Lymphocytes % 6.2 L Monocytes % 3.8 Eosinophils % 2.9 Basophils % 0.2 Nucleated Red 0.0 Blood Cells % Immature 0.130 H Granulocytes # Neutrophils # 11.9 H Lymphocytes # 0.9 Monocytes # 0.5 Eosinophils # 0.4 Basophils # 0.0 Nucleated Red 0.0 Blood Cells # Sodium Level 132 L Potassium Level 4.2 Chloride Level 107 Carbon Dioxide 15 L Level Anion Gap 10 Blood Urea 45 H Nitrogen Creatinine 1.46 H Est Glomerular 49 L Filtrat Rate mL/min Glucose Level 100 Lactic Acid Level 2.4 *H Calcium Level 9.9 Test 07/01/18 04:31 07/01/18 05:00 07/01/18 08:19 07/01/18 11:37 Bedside Glucose 108 129 158 Blood Gas Specimen Blood arterial Source Arterial Blood 07/01/2018 4:42:09 Date Drawn AM Arterial Blood pH 7.296 *L (Temp corrected) Arterial Blood 32.2 L pCO2 (Temp correct) Arterial Blood pO2 78.5 L (Temp corrected) Arterial Blood 15.3 L HCO3 Arterial Blood -10.0 L Base Excess Arterial Blood 94.4 L Oxygen Saturation Mathieu Test ACCEPTAB Arterial Blood Gas Right Radial Puncture Site Arterial 0.8 Blood Carboxyhemog lobin Arterial Blood 0.3 Methemoglobin Blood Gas A-a O2 97.6 H Differential Oxyhemoglobin 93.4 Percent Blood Gas 37.0 Temperature Blood Gas 16.0 Respiration Rate Blood Gas Actual 29 Respiration Rate Blood Gas Modality VENT - AC FiO2 30.0 Blood Gas Tidal 500.0 Volume Blood Gas Low PEEP 5.0 Setting Blood Gas 32.0 Inspiratory Pressure Blood Gas Critical Ayesha BLANKENSHIP RN Value Read Back Blood Gas Notified KM Whom Blood Gas Notified 07/01/2018 4:56:45 Time AM Test 07/01/18 11:41 07/01/18 11:43 Bedside Glucose 156 139 Consultation Date/Type/Reason Admit Date/Time Jun 27, 2018 at 22:49 Initial Consult Date 06/28/18 Type of Consult id Requesting Provider: ENID SINGH Exam/Review of Systems Vital Signs Vitals Vital Signs Date Temp Pulse Resp B/P (MAP) Pulse Ox O2 O2 Flow FiO2 Time Delivery Rate 07/01/18 81 12:00 07/01/18 34 97 30 11:04 07/01/18 105/41 10:30 (62) 07/01/18 Mechanical 10:00 Ventilator 07/01/18 97.9 04:00 Intake and Output 06/30/18 06/30/18 07/01/18 1515:00 23:00 07:00 IntakeIntake Total 691.25 ml 1277.50 ml 1513.75 ml OutputOutput Total 730 ml 740 ml 560 ml BalanceBalance -38.75 ml 537.50 ml 953.75 ml Medications Medications Current Medications Acetaminophen (Tylenol Liquid) 650 mg Q6H PRN GTB FEVER; Start 06/28/18 at 00:00 Aspirin (Aspirin) 81 mg DAILY GTB Last administered on 07/01/18at 08:21; Admin Dose 81 MG; Start 06/28/18 at 09:00 Atenolol (Tenormin) 12.5 mg BID GTB ; Start 06/28/18 at 09:00 Atorvastatin Calcium (Lipitor) 20 mg HS GTB Last administered on 06/30/18at 20:49; Admin Dose 20 MG; Start 06/28/18 at 21:00 Fluconazole (Diflucan) 800 mg DAILY GTB Last administered on 07/01/18at 08:21; Admin Dose 800 MG; Start 06/28/18 at 09:00 Gentamicin Sulfate (Gentamicin 0.3% Oph Drop) 2 drop Q4H BOTH EYES Last administered on 07/01/18at 11:44; Admin Dose 2 DROP; Start 06/28/18 at 00:00 Glucagon (Glucagen) 1 mg PRN PRN IM HYPOGLYCEMIA (BS<70); Start 06/28/18 at 00:00 Insulin Glargine (Lantus) 10 units DAILY SC Last administered on 07/01/18at 08:30; Admin Dose 10 UNITS; Start 06/28/18 at 08:00 Lansoprazole (Prevacid) 30 mg BID@06,18 GTB Last administered on 07/01/18at 05:44; Admin Dose 30 MG; Start 06/28/18 at 06:00 Levetiracetam (Keppra Liquid) 1,000 mg BID GTB Last administered on 07/01/18at 08:21; Admin Dose 1,000 MG; Start 06/28/18 at 09:00 Memantine (Namenda) 10 mg DAILY GTB Last administered on 07/01/18at 08:21; Admin Dose 10 MG; Start 06/28/18 at 09:00 Meropenem/Sodium Chloride 50 ml @ 100 mls/hr Q8 IVPB Last administered on 07/01/18at 13:46; Admin Dose 100 MLS/HR; Start 06/28/18 at 06:00 Midodrine (Proamatine) 5 mg Q8 GTB Last administered on 07/01/18at 13:46; Admin Dose 5 MG; Start 06/28/18 at 06:00 Nystatin (Nystatin Powder) 1 applic BID TOP Last administered on 07/01/18at 08:22; Admin Dose 1 APPLIC; Start 06/28/18 at 09:00 Miscellaneous Information 1 ea NOTE XX ; Start 06/28/18 at 01:00 Glucose (Glutose) 15 gm Q15M PRN PO DECREASED GLUCOSE; Start 06/28/18 at 01:00 Glucose (Glutose) 22.5 gm Q15M PRN PO DECREASED GLUCOSE; Start 06/28/18 at 01:00 Dextrose (D50w Syringe) 25 ml Q15M PRN IV DECREASED GLUCOSE; Start 06/28/18 at 01:00 Dextrose (D50w Syringe) 50 ml Q15M PRN IV DECREASED GLUCOSE; Start 06/28/18 at 01:00 Glucagon (Glucagen) 1 mg Q15M PRN IM DECREASED GLUCOSE; Start 06/28/18 at 01:00 Glucose (Glutose) 15 gm Q15M PRN BUCCAL DECREASED GLUCOSE; Start 06/28/18 at 01:00 IV Flush (NS 10 ml) 10 ml PRN PRN IV IV PROTOCOL; Start 06/28/18 at 12:00 Vancomycin/Sodium Chloride 250 ml @ 125 mls/hr Q12H IVPB Last administered on 07/01/18at 13:46; Admin Dose 125 MLS/HR; Start 06/28/18 at 14:00 Tobramycin Sulfate/Sodium Chloride (Kristopher Inhal) 300 mg BID RESP THERAPY NEB Last administered on 07/01/18at 10:09; Admin Dose 300 MG; Start 06/30/18 at 20:00 Norepinephrine 16 mg/Dextrose 500 ml @ 1.88 mls/hr TITRATE IV Last administered on 07/01/18 13:37; Admin Dose 26.25 MLS/HR; Start 06/30/18 at 14:00 Sodium Bicarbonate 150 meq/Dextrose 1,000 ml @ 50 mls/hr Q20H IV Last administered on 07/01/18 11:44; Admin Dose 50 MLS/HR; Start 06/30/18 at 15:30 Collagenase (Santyl) 1 applic BID TOP Last administered on 07/01/18at 08:21; Admin Dose 1 APPLIC; Start 06/30/18 at 15:00 Miscellaneous Information (*Rx Drug Level Order Reminder*) VANC TR 07/02 AT 1300 ONCE ONCE XX ; Start 07/02/18 at 13:00; Stop 07/02/18 at 13:01 Vancomycin HCl (Vanco Iv Per Pharmacy) PER PHARMACY DOSING NOTE XX ; Start 07/01/18 at 10:30 SUSY WOLFE NP Jul 01, 2018 14:28
[2018-07-01] MEDS ORDERED: AMIKACIN IV PER PHARMACY XX SCH (14:30)
[2018-07-01] MEDS ORDERED: AMIKACIN 950 MG in SOD CHLORIDE 0.9% 100 ML IVPB SCH (16:00)
[2018-07-01] MEDS ORDERED: SOD CHLORIDE 0.9% IVPB SCH (16:00)
[2018-07-01] MEDS ORDERED: AMIKACIN IVPB SCH (16:00)
--- NOTE | 2018-07-01 17:22 | PN ---
Date/Time of Note Date/Time of Note DATE: 07/01/18 TIME: 16:46 Assessment/Plan VTE Prophylaxis Risk score (from [facility])>0 risk: 9 SCD applied (from [facility]): Yes Pharmacological prophylaxis: NA/contraindicated Pharm contraindication: renal impairment Assessment/Plan Hospital Course 1. Shock, likely septic from severe unstageable sacral coccyx decubitus ulcer and pulmonary cocci -Continue to wean off pressors, patient now only on 1 pressor -Tracheal aspirate culture growing Pseudomonas, sacral wound culture shows gram-negative rods -Continue meropenem and vancomycin -ID following 2. Trach/vent dependent respiratory failure -Pulmonary to manage 3. Pulmonary cocci: Per bronchoscopy from [facility] on 05/12 -Per records, it seems like he is status post treatment with amphotericin B and Diflucan -Infectious disease to manage -Tracheal aspirate culture growing Pseudomonas 4. Right middle cerebral artery CVA -Supportive care 5. Unstageable sacral coccyx decubitus ulcer -IV antibiotic, wound care consult 6. Diabetes: -Insulin 7. Acute kidney injury likely secondary to sepsis -IV fluids -Monitor 8. Dysphagia with G-tube in place -Tube feeding 9. Reported history of seizure: On Keppra Prophylaxis: SCDs DC planning: Spoke to patient's daughter and they would like to continue aggressive care continue CODE STATUS of full code Result Diagram: 07/01/18 0320 07/01/18 0320 Results 24hrs Laboratory Tests Test 06/30/18 17:24 06/30/18 20:42 07/01/18 00:33 07/01/18 03:20 Bedside Glucose 87 99 110 White Blood Count 13.9 H Red Blood Count 3.05 L Hemoglobin 9.0 L Hematocrit 27.2 L Mean Corpuscular 89.2 Volume Mean Corpuscular 29.5 Hemoglobin Mean Corpuscular 33.1 Hemoglobin Concent Red Cell 15.1 H Distribution Width Platelet Count 85 L Mean Platelet 9.3 Volume Immature 0.900 H Granulocytes % Neutrophils % 86.0 H Lymphocytes % 6.2 L Monocytes % 3.8 Eosinophils % 2.9 Basophils % 0.2 Nucleated Red 0.0 Blood Cells % Immature 0.130 H Granulocytes # Neutrophils # 11.9 H Lymphocytes # 0.9 Monocytes # 0.5 Eosinophils # 0.4 Basophils # 0.0 Nucleated Red 0.0 Blood Cells # Sodium Level 132 L Potassium Level 4.2 Chloride Level 107 Carbon Dioxide 15 L Level Anion Gap 10 Blood Urea 45 H Nitrogen Creatinine 1.46 H Est Glomerular 49 L Filtrat Rate mL/min Glucose Level 100 Lactic Acid Level 2.4 *H Calcium Level 9.9 Test 07/01/18 04:31 07/01/18 05:00 07/01/18 08:19 07/01/18 11:37 Bedside Glucose 108 129 158 Blood Gas Specimen Blood arterial Source Arterial Blood 07/01/2018 4:42:09 Date Drawn AM Arterial Blood pH 7.296 *L (Temp corrected) Arterial Blood 32.2 L pCO2 (Temp correct) Arterial Blood pO2 78.5 L (Temp corrected) Arterial Blood 15.3 L HCO3 Arterial Blood -10.0 L Base Excess Arterial Blood 94.4 L Oxygen Saturation Mathieu Test ACCEPTAB Arterial Blood Gas Right Radial Puncture Site Arterial 0.8 Blood Carboxyhemog lobin Arterial Blood 0.3 Methemoglobin Blood Gas A-a O2 97.6 H Differential Oxyhemoglobin 93.4 Percent Blood Gas 37.0 Temperature Blood Gas 16.0 Respiration Rate Blood Gas Actual 29 Respiration Rate Blood Gas Modality VENT - AC FiO2 30.0 Blood Gas Tidal 500.0 Volume Blood Gas Low PEEP 5.0 Setting Blood Gas 32.0 Inspiratory Pressure Blood Gas Critical Ayesha BLANKENSHIP RN Value Read Back Blood Gas Notified KM Whom Blood Gas Notified 07/01/2018 4:56:45 Time AM Test 07/01/18 11:41 07/01/18 11:43 Bedside Glucose 156 139 Subjective 24 Hr Interval Summary Subjective hx not possible: pt non-verbal Exam/Review of Systems Vital Signs Vitals Vital Signs Date Temp Pulse Resp B/P (MAP) Pulse Ox O2 O2 Flow FiO2 Time Delivery Rate 07/01/18 86 25 119/59 100 Mechanical 15:00 (79) Ventilator 07/01/18 98.7 12:00 07/01/18 30 11:04 Intake and Output 06/30/18 06/30/18 07/01/18 1515:00 23:00 07:00 IntakeIntake Total 691.25 ml 1277.50 ml 1513.75 ml OutputOutput Total 730 ml 740 ml 560 ml BalanceBalance -38.75 ml 537.50 ml 953.75 ml Exam Constitutional: non-verbal Respiratory: clear to auscultation Cardiovascular: regular rate and rhythm Gastrointestinal: soft; No distended Musculoskeletal: nl extremities to inspection Medications Medications Current Medications Acetaminophen (Tylenol Liquid) 650 mg Q6H PRN GTB FEVER; Start 06/28/18 at 00:00 Aspirin (Aspirin) 81 mg DAILY GTB Last administered on 07/01/18 08:21; Admin Dose 81 MG; Start 06/28/18 at 09:00 Atenolol (Tenormin) 12.5 mg BID GTB ; Start 06/28/18 at 09:00 Atorvastatin Calcium (Lipitor) 20 mg HS GTB Last administered on 06/30/18 20:49; Admin Dose 20 MG; Start 06/28/18 at 21:00 Fluconazole (Diflucan) 800 mg DAILY GTB Last administered on 07/01/18 08:21; Admin Dose 800 MG; Start 06/28/18 at 09:00 Gentamicin Sulfate (Gentamicin 0.3% Oph Drop) 2 drop Q4H BOTH EYES Last administered on 07/01/18 16:10; Admin Dose 2 DROP; Start 06/28/18 at 00:00 Glucagon (Glucagen) 1 mg PRN PRN IM HYPOGLYCEMIA (BS<70); Start 06/28/18 at 00:00 Insulin Glargine (Lantus) 10 units DAILY SC Last administered on 07/01/18 08:30; Admin Dose 10 UNITS; Start 06/28/18 at 08:00 Lansoprazole (Prevacid) 30 mg BID@06,18 GTB Last administered on 07/01/18 05:44; Admin Dose 30 MG; Start 06/28/18 at 06:00 Levetiracetam (Keppra Liquid) 1,000 mg BID GTB Last administered on 07/01/18 08:21; Admin Dose 1,000 MG; Start 06/28/18 at 09:00 Memantine (Namenda) 10 mg DAILY GTB Last administered on 07/01/18 08:21; Admin Dose 10 MG; Start 06/28/18 at 09:00 Midodrine (Proamatine) 5 mg Q8 GTB Last administered on 07/01/18 13:46; Admin Dose 5 MG; Start 06/28/18 at 06:00 Nystatin (Nystatin Powder) 1 applic BID TOP Last administered on 07/01/18at 08:22; Admin Dose 1 APPLIC; Start 06/28/18 at 09:00 Miscellaneous Information 1 ea NOTE XX ; Start 06/28/18 at 01:00 Glucose (Glutose) 15 gm Q15M PRN PO DECREASED GLUCOSE; Start 06/28/18 at 01:00 Glucose (Glutose) 22.5 gm Q15M PRN PO DECREASED GLUCOSE; Start 06/28/18 at 01:00 Dextrose (D50w Syringe) 25 ml Q15M PRN IV DECREASED GLUCOSE; Start 06/28/18 at 01:00 Dextrose (D50w Syringe) 50 ml Q15M PRN IV DECREASED GLUCOSE; Start 06/28/18 at 01:00 Glucagon (Glucagen) 1 mg Q15M PRN IM DECREASED GLUCOSE; Start 06/28/18 at 01:00 Glucose (Glutose) 15 gm Q15M PRN BUCCAL DECREASED GLUCOSE; Start 06/28/18 at 01:00 IV Flush (NS 10 ml) 10 ml PRN PRN IV IV PROTOCOL; Start 06/28/18 at 12:00 Norepinephrine 16 mg/Dextrose 500 ml @ 1.88 mls/hr TITRATE IV Last administered on 07/01/18at 13:37; Admin Dose 26.25 MLS/HR; Start 06/30/18 at 14:00 Sodium Bicarbonate 150 meq/Dextrose 1,000 ml @ 50 mls/hr Q20H IV Last administered on 07/01/18at 11:44; Admin Dose 50 MLS/HR; Start 06/30/18 at 15:30 Collagenase (Santyl) 1 applic BID TOP Last administered on 07/01/18at 08:21; Admin Dose 1 APPLIC; Start 06/30/18 at 15:00 Amikacin Sulfate (Amikacin Iv Per Pharmacy) AMIKACIN PER PHARMACY NOTE XX ; Start 07/01/18 at 14:30 Linezolid 300 ml @ 300 mls/hr Q12 IVPB ; Start 07/01/18 at 21:00 Amikacin Sulfate 950 mg/Sodium Chloride 253.8 ml @ 103.8 mls/ hr Q48H IVPB ; Start 07/01/18 at 16:00 Miscellaneous Information (*Rx Drug Level Order Reminder*) RANDOM AMIKACIN LEVEL ... ONCE ONCE XX ; Start 07/02/18 at 02:00; Stop 07/02/18 at 02:01 ENID SINGH Jul 01, 2018 16:58
--- NOTE | 2018-07-01 21:19 | RADRPT ---
Vent Rate: 89 bpm RR Interval: 0 msec PA Interval: 124 msec QRS Duration: 86 msec QT Interval: 360 msec QTC Interval: 438 msec P-R-T [place]: 13 - 5 - 51 degrees Normal sinus rhythm T wave abnormality, consider anterior ischemia Abnormal ECG Electronically Signed By: Rodriguez Clark [id number]
[2018-07-01] MEDS: ATORVASTATIN 20 MG TAB GTB SCH (21:39)
[2018-07-01] MEDS: LINEZOLID 600 MG/D5W (PMX) 300 ML IVPB SCH (21:40)
[2018-07-02] VITALS (102 sets, daily range): BP systolic 82–122; BP diastolic 42–77; PULSE 67–92; RESP 16–35
[2018-07-02] MEDS: GENTAMICIN 0.3% 5 ML OPH BOTH EYES SCH ×6 (00:01→20:16)
[2018-07-02] MEDS: MIDODRINE 5 MG TAB GTB SCH ×3 (05:00→21:32)
[2018-07-02] MEDS: LANSOPRAZOLE 30 MG CAP GTB SCH ×2 (05:00→18:43)
[2018-07-02] MEDS ORDERED: SOD CHLORIDE 0.9% 250 ML IV ONE (06:00)
[2018-07-02] MEDS: SODIUM BICARBONATE (IV ADD) 150 MEQ in DEXTROSE 5% 1,000 ML IV SCH (06:13)
[2018-07-02] MEDS ORDERED: PENDING SANTYL ORDER FOR WOUND CARE XX PRN (07:00)
[2018-07-02] MEDS: NYSTATIN 30 GM POWDER BTL TOP SCH ×2 (08:00→20:17)
[2018-07-02] MEDS: COLLAGENASE 5 GM (UD JAR) TOP SCH ×2 (08:00→20:16)
[2018-07-02] MEDS: FLUCONAZOLE 200 MG TAB GTB SCH (08:31)
[2018-07-02] MEDS: MEMANTINE 10 MG TAB GTB SCH (08:31)
[2018-07-02] MEDS: ASPIRIN 325 MG TAB GTB SCH (08:31)
[2018-07-02] MEDS: LEVETIRACETAM (100 MG/ML) 5ML CUP GTB SCH ×2 (08:31→20:16)
[2018-07-02] MEDS: ATENOLOL 25 MG TAB GTB SCH ×2 (08:32→20:19)
[2018-07-02] MEDS: LINEZOLID 600 MG/D5W (PMX) 300 ML IVPB SCH (08:34)
[2018-07-02] MEDS: INSULIN GLARGINE [LANTus] (100 UNITS/ML) SYG SC SCH (08:45)
--- NOTE | 2018-07-02 10:47 | CONS ---
Date/Time of Note Date/Time of Note DATE: 07/02/18 TIME: 10:02 Consult Date/Type/Reason Admit Date/Time Jun 27, 2018 at 22:49 Initial Consult Date 06/28/18 Type of Consultation: Pulm/CCM Requesting Provider: ENID SINGH Subjective No events Remains on pressors Objective Vital Signs Date Temp Pulse Resp B/P (MAP) Pulse Ox O2 O2 Flow FiO2 Time Delivery Rate 07/02/18 75 22 94/52 (66) 98 Mechanical 09:00 Ventilator 07/02/18 97.5 08:00 07/02/18 30 08:00 Intake and Output 07/01/18 07/01/18 07/02/18 1515:00 23:00 07:00 IntakeIntake Total 1490.00 ml 1602.55 ml 1235.00 ml OutputOutput Total 735 ml 675 ml 460 ml BalanceBalance 755.00 ml 927.55 ml 775.00 ml Exam GENERAL: Critically ill-appearing gentleman on mechanical ventilation via trac heostomy VITAL SIGNS: per chart NECK: Supple. No JVD or lymphadenopathy. CARDIAC EXAM: S1, S2. No added sounds or murmurs. CHEST: clear bilaterally, No added sounds, rales or wheezes ABDOMEN: Soft, nontender. No guarding or rebound. EXTREMITIES: No cyanosis, clubbing or edema. NEUROLOGIC: Generalized weakness. No focal deficits. Results/Medications Result Diagram: 07/02/18 0422 07/02/18 0422 Results 24 hrs Laboratory Tests Test 07/01/18 11:37 07/01/18 11:41 07/01/18 11:43 07/02/18 02:01 Bedside Glucose 158 156 139 Random Amikacin Level Test 07/02/18 04:22 07/02/18 04:45 07/02/18 05:00 07/02/18 05:44 White Blood Count 12.4 H Red Blood Count 3.05 L Hemoglobin 8.9 L Hematocrit 26.9 L Mean Corpuscular 88.2 Volume Mean Corpuscular 29.2 Hemoglobin Mean Corpuscular 33.1 Hemoglobin Concen t Red Cell 15.1 H Distribution Width Platelet Count 62 #L Mean Platelet 9.1 Volume Immature 0.700 H Granulocytes % Neutrophils % 84.8 H Lymphocytes % 6.7 L Monocytes % 3.8 Eosinophils % 3.8 Basophils % 0.2 Nucleated Red 0.0 Blood Cells % Immature 0.090 H Granulocytes # Neutrophils # 10.5 H Lymphocytes # 0.8 Monocytes # 0.5 Eosinophils # 0.5 Basophils # 0.0 Nucleated Red 0.0 Blood Cells # Sodium Level 131 L Potassium Level 3.7 Chloride Level 104 Carbon Dioxide 16 L Level Anion Gap 11 Blood Urea 47 H Nitrogen Creatinine 1.25 H Est Glomerular 58 L Filtrat Rate mL/min Glucose Level 171 Calcium Level 9.2 Lactic Acid Level 3.3 *H Blood Gas Blood arterial Specimen Source Arterial Blood 07/02/2018 4:55:55 Date Drawn AM Arterial Blood pH 7.338 L (Temp corrected) Arterial Blood 31.4 L pCO2 (Temp correct) Arterial Blood 72.0 L pO2 (Temp corrected) Arterial Blood 16.5 L HCO3 Arterial Blood -8.2 L Base Excess Arterial Blood 93.8 L Oxygen Saturation Mathieu Test N/A Arterial Blood Right Radial Gas Puncture Site Arterial 1.0 Blood Carboxyhemo globin Arterial Blood 0.3 Methemoglobin Blood Gas A-a O2 105.0 H Differential Oxyhemoglobin 92.6 L Percent Blood Gas 37.0 Temperature Blood Gas 16.0 Respiration Rate Blood Gas Actual 16 Respiration Rate Blood Gas VENT - AC Modality FiO2 30.0 Blood Gas Tidal 500.0 Volume Blood Gas Low 5.0 PEEP Setting Blood Gas 31.0 Inspiratory Pressure Blood Gas S.H. Notified Whom Blood Gas 07/02/2018 5:15:25 Notified Time AM Bedside Glucose 165 Test 07/02/18 07:28 07/02/18 08:38 Lab Scanned REFERENCE LAB Report Bedside Glucose 182 Medications Current Medications Acetaminophen (Tylenol Liquid) 650 mg Q6H PRN GTB FEVER; Start 06/28/18 at 00:00 Aspirin (Aspirin) 81 mg DAILY GTB Last administered on 07/02/18at 08:31; Admin Dose 81 MG; Start 06/28/18 at 09:00 Atenolol (Tenormin) 12.5 mg BID GTB ; Start 06/28/18 at 09:00 Atorvastatin Calcium (Lipitor) 20 mg HS GTB Last administered on 07/01/18at 21:39; Admin Dose 20 MG; Start 06/28/18 at 21:00 Fluconazole (Diflucan) 800 mg DAILY GTB Last administered on 1/7/19at 08:31; Admin Dose 800 MG; Start 06/28/18 at 09:00 Gentamicin Sulfate (Gentamicin 0.3% Oph Drop) 2 drop Q4H BOTH EYES Last administered on 07/02/18at 07:57; Admin Dose 2 DROP; Start 06/28/18 at 00:00 Glucagon (Glucagen) 1 mg PRN PRN IM HYPOGLYCEMIA (BS<70); Start 06/28/18 at 00:00 Insulin Glargine (Lantus) 10 units DAILY SC Last administered on 07/02/18at 08:45; Admin Dose 10 UNITS; Start 06/28/18 at 08:00 Lansoprazole (Prevacid) 30 mg BID@,18 GTB Last administered on 07/02/18 05:00; Admin Dose 30 MG; Start 06/28/18 at 06:00 Levetiracetam (Keppra Liquid) 1,000 mg BID GTB Last administered on 07/02/18 08:31; Admin Dose 1,000 MG; Start 06/28/18 at 09:00 Memantine (Namenda) 10 mg DAILY GTB Last administered on 07/02/18 08:31; Admin Dose 10 MG; Start 06/28/18 at 09:00 Midodrine (Proamatine) 5 mg Q8 GTB Last administered on 07/02/18at 05:00; Admin Dose 5 MG; Start 06/28/18 at 06:00 Nystatin (Nystatin Powder) 1 applic BID TOP Last administered on 07/02/18at 08:00; Admin Dose 1 APPLIC; Start 06/28/18 at 09:00 Miscellaneous Information 1 ea NOTE XX ; Start 06/28/18 at 01:00 Glucose (Glutose) 15 gm Q15M PRN PO DECREASED GLUCOSE; Start 06/28/18 at 01:00 Glucose (Glutose) 22.5 gm Q15M PRN PO DECREASED GLUCOSE; Start 06/28/18 at 01:00 Dextrose (D50w Syringe) 25 ml Q15M PRN IV DECREASED GLUCOSE; Start 06/28/18 at 01:00 Dextrose (D50w Syringe) 50 ml Q15M PRN IV DECREASED GLUCOSE; Start 06/28/18 at 0 1:00 Glucagon (Glucagen) 1 mg Q15M PRN IM DECREASED GLUCOSE; Start 06/28/18 at 01:00 Glucose (Glutose) 15 gm Q15M PRN BUCCAL DECREASED GLUCOSE; Start 06/28/18 at 01:00 IV Flush (NS 10 ml) 10 ml PRN PRN IV IV PROTOCOL; Start 06/28/18 at 12:00 Norepinephrine 16 mg/Dextrose 500 ml @ 1.88 mls/hr TITRATE IV Last administered on 07/02/18at 06:13; Admin Dose 15 MLS/HR; Start 06/30/18 at 14:00 Sodium Bicarbonate 150 meq/Dextrose 1,000 ml @ 50 mls/hr Q20H IV Last administered on 07/02/18at 06:13; Admin Dose 50 MLS/HR; Start 06/30/18 at 15:30 Collagenase (Santyl) 1 applic BID TOP Last administered on 07/02/18at 08:00; Admin Dose 1 APPLIC; Start 06/30/18 at 15:00 Amikacin Sulfate (Amikacin Iv Per Pharmacy) AMIKACIN PER PHARMACY NOTE XX ; Start 07/01/18 at 14:30 Linezolid 300 ml @ 300 mls/hr Q12 IVPB Last administered on 07/02/18at 08:34; Admin Dose 300 MLS/HR; Start 07/01/18 at 21:00 Amikacin Sulfate 950 mg/Sodium Chloride 253.8 ml @ 103.8 mls/ hr Q48H IVPB Last administered on 07/01/18at 18:06; Admin Dose 103.8 MLS/HR; Start 07/01/18 at 16:00 Miscellaneous Information (Pending Santyl Order For Wound Care) This patient mccloud... PRN PRN XX unstageable sacrococcyx; Start 07/02/18 at 07:00 Assessment/Plan Chief Complaint/Hosp Course IMP: 1. Septic Shock 2. Multifocal Pneumonia 3. 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 Encephalopathy 7. MICHELLE 8. Metabolic Acidosis 9. HypoNa+ RECS: 1. Vent support 2. Abx per ID 3. D5W with 3 amps NaHCO3 4. F/U Urine lytes 5. Follow renal function 6. Am labs/CXR 35 min cc time Overall prognosis very poor. RAFIQ LEGGETT MD, [facility] Jul 02, 2018 10:12
--- NOTE | 2018-07-02 11:09 | CONS ---
Date/Time of Note Date/Time of Note DATE: 07/02/18 TIME: 11:03 Assessment/Plan Assessment/Plan Hospital Course IMPRESSION: 1. Hypotension/shock state, likely septic on 2 pressors 2. Premature ventricular contractions in a pattern of bigeminy. Assess for coronary ischemia, acute coronary syndrome. 3. Dyslipidemia. 4. Peripheral arterial disease, status post lower extremity amputation. 5. Seizure disorder. 6. Anemia. 7. Encephalopathy. 8. History of pulmonary coccidioidomycosis. 9. Chronic respiratory failure, status post tracheostomy. 10. Dysphagia, status post G-tube. REcc: -ICU -WEan pressors as tolerated and will increase midodrine -Continue abx's and f/u cx data -Continue statin -Continue asa -Hold antihypertensives while on pressors -ongoing family discussion Result Diagram: 07/02/182 07/02/182 Results 24hrs Laboratory Tests Test 07/01/18 11:37 07/01/18 11:41 07/01/18 11:43 07/02/18 02:01 Bedside Glucose 158 156 139 Random Amikacin Level Test 07/02/18 04:22 07/02/18 04:45 07/02/18 05:00 07/02/18 05:44 White Blood Count 12.4 H Red Blood Count 3.05 L Hemoglobin 8.9 L Hematocrit 26.9 L Mean Corpuscular 88.2 Volume Mean Corpuscular 29.2 Hemoglobin Mean Corpuscular 33.1 Hemoglobin Concen t Red Cell 15.1 H Distribution Width Platelet Count 62 #L Mean Platelet 9.1 Volume Immature 0.700 H Granulocytes % Neutrophils % 84.8 H Lymphocytes % 6.7 L Monocytes % 3.8 Eosinophils % 3.8 Basophils % 0.2 Nucleated Red 0.0 Blood Cells % Immature 0.090 H Granulocytes # Neutrophils # 10.5 H Lymphocytes # 0.8 Monocytes # 0.5 Eosinophils # 0.5 Basophils # 0.0 Nucleated Red 0.0 Blood Cells # Sodium Level 131 L Potassium Level 3.7 Chloride Level 104 Carbon Dioxide 16 L Level Anion Gap 11 Blood Urea 47 H Nitrogen Creatinine 1.25 H Est Glomerular 58 L Filtrat Rate mL/min Glucose Level 171 Calcium Level 9.2 Lactic Acid Level 3.3 *H Blood Gas Blood arterial Specimen Source Arterial Blood 07/02/2018 4:55:55 Date Drawn AM Arterial Blood pH 7.338 L (Temp corrected) Arterial Blood 31.4 L pCO2 (Temp correct) Arterial Blood 72.0 L pO2 (Temp corrected) Arterial Blood 16.5 L HCO3 Arterial Blood -8.2 L Base Excess Arterial Blood 93.8 L Oxygen Saturation Mathieu Test N/A Arterial Blood Right Radial Gas Puncture Site Arterial 1.0 Blood Carboxyhemo globin Arterial Blood 0.3 Methemoglobin Blood Gas A-a O2 105.0 H Differential Oxyhemoglobin 92.6 L Percent Blood Gas 37.0 Temperature Blood Gas 16.0 Respiration Rate Blood Gas Actual 16 Respiration Rate Blood Gas VENT - AC Modality FiO2 30.0 Blood Gas Tidal 500.0 Volume Blood Gas Low 5.0 PEEP Setting Blood Gas 31.0 Inspiratory Pressure Blood Gas S.H. Notified Whom Blood Gas 07/02/2018 5:15:25 Notified Time AM Bedside Glucose 165 Test 07/02/18 07:28 07/02/18 08:38 07/02/18 09:48 Lab Scanned REFERENCE LAB Report Bedside Glucose 182 Lactic Acid Level 2.9 *H Consultation Date/Type/Reason Admit Date/Time Jun 27, 2018 at 22:49 Initial Consult Date 06/28/18 Type of Consult cardiology Reason for Consultation hypotension Requesting Provider: ENID SINGH Exam/Review of Systems Vital Signs Vitals Vital Signs Date Temp Pulse Resp B/P (MAP) Pulse Ox O2 O2 Flow FiO2 Time Delivery Rate 07/02/18 72 20 102/56 98 Mechanical 10:00 (71) Ventilator 07/02/18 97.5 08:00 07/02/18 30 08:00 Intake and Output 07/01/18 07/01/18 07/02/18 1515:00 23:00 07:00 IntakeIntake Total 1490.00 ml 1602.55 ml 1235.00 ml OutputOutput Total 735 ml 675 ml 460 ml BalanceBalance 755.00 ml 927.55 ml 775.00 ml Exam Review of Systems: CONSTITUTIONAL: No fevers, chills. PULMONARY: trached CARDIOVASCULAR: No chest pain/palpitations GASTROINTESTINAL: No nausea/vomiting. GENITOURINARY: No hematuria/dysuria. MUSCULOSKELETAL: No myagias/arthalgias. PSYCHIATRIC: The patient denies depression. NEUROLOGIC: No weakness Constitutional: other (encephalopathic) Psych: no complaints Head: normocephalic ENMT: mucosa pink and moist Neck: supple, jvd (9 cm water) Respiratory: diminished breath sounds (at bases/B) Cardiovascular: regular rate and rhythm Gastrointestinal: soft, non-tender Musculoskeletal: other (LE amputation) Extremities: edema (trace/B) Neurological: confused, other Medications Medications Current Medications Acetaminophen (Tylenol Liquid) 650 mg Q6H PRN GTB FEVER; Start 06/28/18 at 00:00 Aspirin (Aspirin) 81 mg DAILY GTB Last administered on 07/02/18 08:31; Admin Dose 81 MG; Start 06/28/18 at 09:00 Atenolol (Tenormin) 12.5 mg BID GTB ; Start 06/28/18 at 09:00 Atorvastatin Calcium (Lipitor) 20 mg HS GTB Last administered on 07/01/18 21:39; Admin Dose 20 MG; Start 06/28/18 at 21:00 Fluconazole (Diflucan) 800 mg DAILY GTB Last administered on 07/02/18 08:31; Admin Dose 800 MG; Start 06/28/18 at 09:00 Gentamicin Sulfate (Gentamicin 0.3% Oph Drop) 2 drop Q4H BOTH EYES Last administered on 07/02/18 07:57; Admin Dose 2 DROP; Start 06/28/18 at 00:00 Glucagon (Glucagen) 1 mg PRN PRN IM HYPOGLYCEMIA (BS<70); Start 06/28/18 at 00:00 Insulin Glargine (Lantus) 10 units DAILY SC Last administered on 07/02/18 08:45; Admin Dose 10 UNITS; Start 06/28/18 at 08:00 Lansoprazole (Prevacid) 30 mg BID@,18 GTB Last administered on 07/02/18 05:00; Admin Dose 30 MG; Start 06/28/18 at 06:00 Levetiracetam (Keppra Liquid) 1,000 mg BID GTB Last administered on 07/02/18 08:31; Admin Dose 1,000 MG; Start 06/28/18 at 09:00 Memantine (Namenda) 10 mg DAILY GTB Last administered on 07/02/18 08:31; Admin Dose 10 MG; Start 06/28/18 at 09:00 Midodrine (Proamatine) 5 mg Q8 GTB Last administered on 07/02/18at 05:00; Admin Dose 5 MG; Start 06/28/18 at 06:00 Nystatin (Nystatin Powder) 1 applic BID TOP Last administered on 07/02/18at 08:00; Admin Dose 1 APPLIC; Start 06/28/18 at 09:00 Miscellaneous Information 1 ea NOTE XX ; Start 06/28/18 at 01:00 Glucose (Glutose) 15 gm Q15M PRN PO DECREASED GLUCOSE; Start 06/28/18 at 01:00 Glucose (Glutose) 22.5 gm Q15M PRN PO DECREASED GLUCOSE; Start 06/28/18 at 01:00 Dextrose (D50w Syringe) 25 ml Q15M PRN IV DECREASED GLUCOSE; Start 06/28/18 at 01:00 Dextrose (D50w Syringe) 50 ml Q15M PRN IV DECREASED GLUCOSE; Start 06/28/18 at 01:00 Glucagon (Glucagen) 1 mg Q15M PRN IM DECREASED GLUCOSE; Start 06/28/18 at 01:00 Glucose (Glutose) 15 gm Q15M PRN BUCCAL DECREASED GLUCOSE; Start 06/28/18 at 01:00 IV Flush (NS 10 ml) 10 ml PRN PRN IV IV PROTOCOL; Start 06/28/18 at 12:00 Norepinephrine 16 mg/Dextrose 500 ml @ 1.88 mls/hr TITRATE IV Last administered on 07/02/18at 06:13; Admin Dose 15 MLS/HR; Start 06/30/18 at 14:00 Sodium Bicarbonate 150 meq/Dextrose 1,000 ml @ 50 mls/hr Q20H IV Last administered on 07/02/18at 06:13; Admin Dose 50 MLS/HR; Start 06/30/18 at 15:30 Collagenase (Santyl) 1 applic BID TOP Last administered on 07/02/18at 08:00; Admin Dose 1 APPLIC; Start 06/30/18 at 15:00 Amikacin Sulfate (Amikacin Iv Per Pharmacy) AMIKACIN PER PHARMACY NOTE XX ; Start 07/01/18 at 14:30 Linezolid 300 ml @ 300 mls/hr Q12 IVPB Last administered on 07/02/18at 08:34; Admin Dose 300 MLS/HR; Start 1/6/19 at 21:00 Amikacin Sulfate 950 mg/Sodium Chloride 253.8 ml @ 103.8 mls/ hr Q48H IVPB Last administered on 07/01/18at 18:06; Admin Dose 103.8 MLS/HR; Start 07/01/18 at 16:00 Miscellaneous Information (Pending Santyl Order For Wound Care) This patient mccloud... PRN PRN XX unstageable sacrococcyx; Start 07/02/18 at 07:00 ALINE VIDAL Jul 02, 2018 11:09
--- NOTE | 2018-07-02 13:59 | PN ---
Date/Time of Note Date/Time of Note DATE: 07/02/18 TIME: 13:57 Assessment/Plan VTE Prophylaxis Risk score (from Ns)>0 risk: 8 SCD applied (from Ns): Yes Pharmacological prophylaxis: heparin Lines/Catheters IV [facility] PICC Line Central line still needed: Yes Urinary Cath still in place: Yes Reason Cath still needed: urinary retention Assessment/Plan Hospital Course 62 yo male with chornic encephelopahty and chorinc respiratory failure with septic shock - Abx per ID - Wean vasopressors as able - MV per pulm Dismal prognosis, continue discussions with family Result Diagram: 07/02/18 0422 07/02/18 0422 Results 24hrs Laboratory Tests Test 07/02/18 02:01 07/02/18 04:22 07/02/18 04:45 07/02/18 05:00 Random Amikacin Level White Blood Count 12.4 H Red Blood Count 3.05 L Hemoglobin 8.9 L Hematocrit 26.9 L Mean Corpuscular 88.2 Volume Mean Corpuscular 29.2 Hemoglobin Mean Corpuscular 33.1 Hemoglobin Concen t Red Cell 15.1 H Distribution Width Platelet Count 62 #L Mean Platelet 9.1 Volume Immature 0.700 H Granulocytes % Neutrophils % 84.8 H Lymphocytes % 6.7 L Monocytes % 3.8 Eosinophils % 3.8 Basophils % 0.2 Nucleated Red 0.0 Blood Cells % Immature 0.090 H Granulocytes # Neutrophils # 10.5 H Lymphocytes # 0.8 Monocytes # 0.5 Eosinophils # 0.5 Basophils # 0.0 Nucleated Red 0.0 Blood Cells # Sodium Level 131 L Potassium Level 3.7 Chloride Level 104 Carbon Dioxide 16 L Level Anion Gap 11 Blood Urea 47 H Nitrogen Creatinine 1.25 H Est Glomerular 58 L Filtrat Rate mL/min Glucose Level 171 Calcium Level 9.2 Lactic Acid Level 3.3 *H Blood Gas Blood arterial Specimen Source Arterial Blood 07/02/2018 4:55:55 Date Drawn AM Arterial Blood pH 7.338 L (Temp corrected) Arterial Blood 31.4 L pCO2 (Temp correct) Arterial Blood 72.0 L pO2 (Temp corrected) Arterial Blood 16.5 L HCO3 Arterial Blood -8.2 L Base Excess Arterial Blood 93.8 L Oxygen Saturation Mathieu Test N/A Arterial Blood Right Radial Gas Puncture Site Arterial 1.0 Blood Carboxyhemo globin Arterial Blood 0.3 Methemoglobin Blood Gas A-a O2 105.0 H Differential Oxyhemoglobin 92.6 L Percent Blood Gas 37.0 Temperature Blood Gas 16.0 Respiration Rate Blood Gas Actual 16 Respiration Rate Blood Gas VENT - AC Modality FiO2 30.0 Blood Gas Tidal 500.0 Volume Blood Gas Low 5.0 PEEP Setting Blood Gas 31.0 Inspiratory Pressure Blood Gas S.H. Notified Whom Blood Gas 07/02/2018 5:15:25 Notified Time AM Test 07/02/18 05:44 07/02/18 07:28 07/02/18 08:38 07/02/18 09:48 Bedside Glucose 165 182 Lab Scanned REFERENCE LAB Report Lactic Acid Level 2.9 *H Subjective 24 Hr Interval Summary Free Text/Dictation Remains on vasopressors Nonresponsive Exam/Review of Systems Vital Signs Vitals Vital Signs Date Temp Pulse Resp B/P (MAP) Pulse Ox O2 O2 Flow FiO2 Time Delivery Rate 07/02/18 83 26 101/61 100 Mechanical 13:00 (74) Ventilator 07/02/18 98.5 12:00 07/02/18 30 08:00 Intake and Output 07/01/18 07/01/18 07/02/18 1515:00 23:00 07:00 IntakeIntake Total 1490.00 ml 1602.55 ml 1235.00 ml OutputOutput Total 735 ml 675 ml 460 ml BalanceBalance 755.00 ml 927.55 ml 775.00 ml Exam Nonresponsive MV via trach Anasarcic Medications Medications Current Medications Acetaminophen (Tylenol Liquid) 650 mg Q6H PRN GTB FEVER; Start 06/28/18 at 00:00 Aspirin (Aspirin) 81 mg DAILY GTB Last administered on 07/02/18at 08:31; Admin Dose 81 MG; Start 06/28/18 at 09:00 Atenolol (Tenormin) 12.5 mg BID GTB ; Start 06/28/18 at 09:00 Atorvastatin Calcium (Lipitor) 20 mg HS GTB Last administered on 07/01/18at 21:39; Admin Dose 20 MG; Start 06/28/18 at 21:00 Fluconazole (Diflucan) 800 mg DAILY GTB Last administered on 07/02/18at 08:31; Admin Dose 800 MG; Start 06/28/18 at 09:00 Gentamicin Sulfate (Gentamicin 0.3% Oph Drop) 2 drop Q4H BOTH EYES Last administered on 07/02/18at 12:35; Admin Dose 2 DROP; Start 06/28/18 at 00:00 Glucagon (Glucagen) 1 mg PRN PRN IM HYPOGLYCEMIA (BS<70); Start 06/28/18 at 00:00 Insulin Glargine (Lantus) 10 units DAILY SC Last administered on 07/02/18at 08:45; Admin Dose 10 UNITS; Start 06/28/18 at 08:00 Lansoprazole (Prevacid) 30 mg BID@,18 GTB Last administered on 07/02/18at 05:00; Admin Dose 30 MG; Start 06/28/18 at 06:00 Levetiracetam (Keppra Liquid) 1,000 mg BID GTB Last administered on 07/02/18at 08:31; Admin Dose 1,000 MG; Start 06/28/18 at 09:00 Memantine (Namenda) 10 mg DAILY GTB Last administered on 07/02/18at 08:31; Admin Dose 10 MG; Start 06/28/18 at 09:00 Nystatin (Nystatin Powder) 1 applic BID TOP Last administered on 07/02/18at 08:00; Admin Dose 1 APPLIC; Start 06/28/18 at 09:00 Miscellaneous Information 1 ea NOTE XX ; Start 06/28/18 at 01:00 Glucose (Glutose) 15 gm Q15M PRN PO DECREASED GLUCOSE; Start 06/28/18 at 01:00 Glucose (Glutose) 22.5 gm Q15M PRN PO DECREASED GLUCOSE; Start 06/28/18 at 01:00 Dextrose (D50w Syringe) 25 ml Q15M PRN IV DECREASED GLUCOSE; Start 06/28/18 at 01:00 Dextrose (D50w Syringe) 50 ml Q15M PRN IV DECREASED GLUCOSE; Start 06/28/18 at 01:00 Glucagon (Glucagen) 1 mg Q15M PRN IM DECREASED GLUCOSE; Start 06/28/18 at 01:00 Glucose (Glutose) 15 gm Q15M PRN BUCCAL DECREASED GLUCOSE; Start 06/28/18 at 01:00 IV Flush (NS 10 ml) 10 ml PRN PRN IV IV PROTOCOL; Start 06/28/18 at 12:00 Norepinephrine 16 mg/Dextrose 500 ml @ 1.88 mls/hr TITRATE IV Last administered on 07/02/18at 06:13; Admin Dose 15 MLS/HR; Start 06/30/18 at 14:00 Sodium Bicarbonate 150 meq/Dextrose 1,000 ml @ 50 mls/hr Q20H IV Last administered on 07/02/18at 06:13; Admin Dose 50 MLS/HR; Start 06/30/18 at 15:30 Collagenase (Santyl) 1 applic BID TOP Last administered on 07/02/18at 08:00; Admin Dose 1 APPLIC; Start 06/30/18 at 15:00 Amikacin Sulfate (Amikacin Iv Per Pharmacy) AMIKACIN PER PHARMACY NOTE XX ; Start 07/01/18 at 14:30 Linezolid 300 ml @ 300 mls/hr Q12 IVPB Last administered on 07/02/18at 08:34; Admin Dose 300 MLS/HR; Start 07/01/18 at 21:00 Amikacin Sulfate 950 mg/Sodium Chloride 253.8 ml @ 103.8 mls/ hr Q48H IVPB Last administered on 07/01/18at 18:06; Admin Dose 103.8 MLS/HR; Start 07/01/18 at 16:00 Miscellaneous Information (Pending Santyl Order For Wound Care) This patient mccloud... PRN PRN XX unstageable sacrococcyx; Start 07/02/18 at 07:00 Midodrine (Proamatine) 7.5 mg Q8 GTB ; Start 07/02/18 at 14:00 WESLEY ARAYA MD Jul 02, 2018 13:59
--- NOTE | 2018-07-02 15:42 | CONS ---
Date/Time of Note Date/Time of Note DATE: 07/02/18 TIME: 15:40 Assessment/Plan Assessment/Plan Hospital Course No acute changes overnight patient remains on Levophed drip he is afebrile in no distress Microbiology: Blood and urine culture remain negative sacral wound culture growing pseudomonas aeruginosa and enterococcus species sputum culture also grew pseudomonas aeruginosa Diagnostics chest x-ray this morning revealed diffuse bilateral nodular infiltrates question bronchopneumonia Indwelling: Trach, PEG, left upper extremity PICC line, right upper extremity midline, right upper abdomen pigtail Antimicrobials: Zyvox, fluconazole, amikacin Physical examination: This is a chronically ill-appearing elderly - [place] man who is noncommunicative in no distress. Head atraumatic normocephalic, sclera nonicteric. Neck is supple, tracheostomy present. Lungs: Breath sounds diminished at bases. Heart S1-S2. Abdomen soft bowel sounds present. Extremities without cyanosis, trace edema Assessment: 1. Severe sepsis with shock 2. Bilateral multifocal pneumonia 3. 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 History of left upper back abscess with repeat CT on June 22 revealed large subcutaneous fluid collection and edema in the lower posterior left neck/upper chest with questionable osteomyelitis of the scapula. 5. History of acute cholecystitis status post cholecystostomy tube 6. Chronic encephalopathy with a history of CVA 7. Diabetes 8. History of hypertension 9. Acute renal insufficiency 10. Right mastoiditis Plan: Patient remains hemodynamically unstable, will change Zyvox to ampicillin 2 to progressive thrombocytopenia and add Flagyl for anaerobic coverage. Patient needs IR guided drainage of left upper back abscess, prognosis poor Result Diagram: 07/02/18 0422 07/02/18 0422 Results 24hrs Laboratory Tests Test 07/02/18 02:01 07/02/18 04:22 07/02/18 04:45 07/02/18 05:00 Random Amikacin Level White Blood Count 12.4 H Red Blood Count 3.05 L Hemoglobin 8.9 L Hematocrit 26.9 L Mean Corpuscular 88.2 Volume Mean Corpuscular 29.2 Hemoglobin Mean Corpuscular 33.1 Hemoglobin Concen t Red Cell 15.1 H Distribution Width Platelet Count 62 #L Mean Platelet 9.1 Volume Immature 0.700 H Granulocytes % Neutrophils % 84.8 H Lymphocytes % 6.7 L Monocytes % 3.8 Eosinophils % 3.8 Basophils % 0.2 Nucleated Red 0.0 Blood Cells % Immature 0.090 H Granulocytes # Neutrophils # 10.5 H Lymphocytes # 0.8 Monocytes # 0.5 Eosinophils # 0.5 Basophils # 0.0 Nucleated Red 0.0 Blood Cells # Sodium Level 131 L Potassium Level 3.7 Chloride Level 104 Carbon Dioxide 16 L Level Anion Gap 11 Blood Urea 47 H Nitrogen Creatinine 1.25 H Est Glomerular 58 L Filtrat Rate mL/min Glucose Level 171 Calcium Level 9.2 Lactic Acid Level 3.3 *H Blood Gas Blood arterial Specimen Source Arterial Blood 07/02/2018 4:55:55 Date Drawn AM Arterial Blood pH 7.338 L (Temp corrected) Arterial Blood 31.4 L pCO2 (Temp correct) Arterial Blood 72.0 L pO2 (Temp corrected) Arterial Blood 16.5 L HCO3 Arterial Blood -8.2 L Base Excess Arterial Blood 93.8 L Oxygen Saturation Mathieu Test N/A Arterial Blood Right Radial Gas Puncture Site Arterial 1.0 Blood Carboxyhemo globin Arterial Blood 0.3 Methemoglobin Blood Gas A-a O2 105.0 H Differential Oxyhemoglobin 92.6 L Percent Blood Gas 37.0 Temperature Blood Gas 16.0 Respiration Rate Blood Gas Actual 16 Respiration Rate Blood Gas VENT - AC Modality FiO2 30.0 Blood Gas Tidal 500.0 Volume Blood Gas Low 5.0 PEEP Setting Blood Gas 31.0 Inspiratory Pressure Blood Gas S.H. Notified Whom Blood Gas 07/02/2018 5:15:25 Notified Time AM Test 07/02/18 05:44 07/02/18 07:28 07/02/18 08:38 07/02/18 09:48 Bedside Glucose 165 182 Lab Scanned REFERENCE LAB Report Lactic Acid Level 2.9 *H Consultation Date/Type/Reason Admit Date/Time Jun 27, 2018 at 22:49 Initial Consult Date 06/28/18 Type of Consult id Requesting Provider: ENID SINGH Exam/Review of Systems Vital Signs Vitals Vital Signs Date Temp Pulse Resp B/P (MAP) Pulse Ox O2 O2 Flow FiO2 Time Delivery Rate 07/02/18 73 28 94/51 (65) 98 14:45 07/02/18 Mechanical 14:00 Ventilator 07/02/18 98.5 12:00 07/02/18 30 08:00 Intake and Output 1/12/1207/01/18 07/02/18 1515:00 23:00 07:00 IntakeIntake Total 1490.00 ml 1602.55 ml 1235.00 ml OutputOutput Total 735 ml 675 ml 460 ml BalanceBalance 755.00 ml 927.55 ml 775.00 ml Medications Medications Current Medications Acetaminophen (Tylenol Liquid) 650 mg Q6H PRN GTB FEVER; Start 06/28/18 at 00:00 Aspirin (Aspirin) 81 mg DAILY GTB Last administered on 07/02/18 08:31; Admin D ose 81 MG; Start 06/28/18 at 09:00 Atenolol (Tenormin) 12.5 mg BID GTB ; Start 06/28/18 at 09:00 Atorvastatin Calcium (Lipitor) 20 mg HS GTB Last administered on 07/01/18 21:39; Admin Dose 20 MG; Start 06/28/18 at 21:00 Fluconazole (Diflucan) 800 mg DAILY GTB Last administered on 07/02/18 08:31; Admin Dose 800 MG; Start 06/28/18 at 09:00 Gentamicin Sulfate (Gentamicin 0.3% Oph Drop) 2 drop Q4H BOTH EYES Last administered on 07/02/18 12:35; Admin Dose 2 DROP; Start 06/28/18 at 00:00 Glucagon (Glucagen) 1 mg PRN PRN IM HYPOGLYCEMIA (BS<70); Start 06/28/18 at 00:00 Insulin Glargine (Lantus) 10 units DAILY SC Last administered on 07/02/18at 08:45; Admin Dose 10 UNITS; Start 06/28/18 at 08:00 Lansoprazole (Prevacid) 30 mg BID@,18 GTB Last administered on 07/02/18 05:00; Admin Dose 30 MG; Start 06/28/18 at 06:00 Levetiracetam (Keppra Liquid) 1,000 mg BID GTB Last administered on 07/02/18 08:31; Admin Dose 1,000 MG; Start 06/28/18 at 09:00 Memantine (Namenda) 10 mg DAILY GTB Last administered on 07/02/18 08:31; Admin Dose 10 MG; Start 06/28/18 at 09:00 Nystatin (Nystatin Powder) 1 applic BID TOP Last administered on 07/02/18at 08:00; Admin Dose 1 APPLIC; Start 06/28/18 at 09:00 Miscellaneous Information 1 ea NOTE XX ; Start 06/28/18 at 01:00 Glucose (Glutose) 15 gm Q15M PRN PO DECREASED GLUCOSE; Start 06/28/18 at 01:00 Glucose (Glutose) 22.5 gm Q15M PRN PO DECREASED GLUCOSE; Start 06/28/18 at 01:00 Dextrose (D50w Syringe) 25 ml Q15M PRN IV DECREASED GLUCOSE; Start 06/28/18 at 01:00 Dextrose (D50w Syringe) 50 ml Q15M PRN IV DECREASED GLUCOSE; Start 06/28/18 at 01:00 Glucagon (Glucagen) 1 mg Q15M PRN IM DECREASED GLUCOSE; Start 06/28/18 at 01:00 Glucose (Glutose) 15 gm Q15M PRN BUCCAL DECREASED GLUCOSE; Start 06/28/18 at 01:00 IV Flush (NS 10 ml) 10 ml PRN PRN IV IV PROTOCOL; Start 06/28/18 at 12:00 Norepinephrine 16 mg/Dextrose 500 ml @ 1.88 mls/hr TITRATE IV Last administered on 07/02/18at 06:13; Admin Dose 15 MLS/HR; Start 06/30/18 at 14:00 Sodium Bicarbonate 150 meq/Dextrose 1,000 ml @ 50 mls/hr Q20H IV Last administered on 07/02/18at 06:13; Admin Dose 50 MLS/HR; Start 06/30/18 at 15:30 Collagenase (Santyl) 1 applic BID TOP Last administered on 07/02/18at 08:00; Admin Dose 1 APPLIC; Start 06/30/18 at 15:00 Amikacin Sulfate (Amikacin Iv Per Pharmacy) AMIKACIN PER PHARMACY NOTE XX ; Start 07/01/18 at 14:30 Amikacin Sulfate 950 mg/Sodium Chloride 253.8 ml @ 103.8 mls/ hr Q48H IVPB Last administered on 07/01/18at 18:06; Admin Dose 103.8 MLS/HR; Start 07/01/18 at 16:00 Miscellaneous Information (Pending Santyl Order For Wound Care) This patient mccloud... PRN PRN XX unstageable sacrococcyx; Start 07/02/18 at 07:00 Midodrine (Proamatine) 7.5 mg Q8 GTB Last administered on 07/02/18at 14:05; Admin Dose 7.5 MG; Start 07/02/18 at 14:00 Ampicillin 50 ml @ 100 mls/hr Q8 IVPB ; Start 07/02/18 at 22:00; Status UNV Metronidazole 100 ml @ 100 mls/hr Q8 IVPB ; Start 07/02/18 at 22:00; Status UNV SUSY [employer]PER Jul 02, 2018 15:42
[2018-07-02] MEDS: AMPICILLIN 1 GM/NS (PMX) 50 ML IVPB SCH ×2 (17:43→23:13)
[2018-07-02] MEDS: metroNIDAZOLE 500 MG/NS (PMX) 100 ML IVPB SCH ×2 (18:43→21:31)
[2018-07-02] MEDS: ATORVASTATIN 20 MG TAB GTB SCH (20:16)
[2018-07-03] VITALS (101 sets, daily range): BP systolic 86–121; BP diastolic 45–71; PULSE 73–97; RESP 16–33
[2018-07-03] MEDS: GENTAMICIN 0.3% 5 ML OPH BOTH EYES SCH ×6 (00:45→19:58)
[2018-07-03] MEDS: SODIUM BICARBONATE (IV ADD) 150 MEQ in DEXTROSE 5% 1,000 ML IV SCH (04:09)
[2018-07-03] MEDS: MIDODRINE 5 MG TAB GTB SCH ×3 (06:00→22:10)
[2018-07-03] MEDS: AMIKACIN IVPB SCH (06:16)
[2018-07-03] MEDS: SOD CHLORIDE 0.9% IVPB SCH (06:16)
[2018-07-03] MEDS: LANSOPRAZOLE 30 MG CAP GTB SCH ×2 (06:24→18:19)
[2018-07-03] MEDS: metroNIDAZOLE 500 MG/NS (PMX) 100 ML IVPB SCH ×3 (06:24→22:10)
[2018-07-03] MEDS: AMPICILLIN 1 GM/NS (PMX) 50 ML IVPB SCH ×3 (06:25→22:10)
--- NOTE | 2018-07-03 06:43 | CONS ---
Date/Time of Note Date/Time of Note DATE: 07/03/18 TIME: 06:42 Assessment/Plan Assessment/Plan Assessment/Plan Vent dependent respiratory failure intubated and trached. Shock Currently on 1 pressor broad-spectrum IV antibiotic coverage Pulmonary coccidiomycosis Review medical records workup being done by pulmonary medicine Right MCA CVA Will review medical records but assuming patient has been noncommunicative for p rolonged period of time will speak to family members in more detail Unstageable sacral coccyx decubiti This is an unfortunate 62-year-old male who is in a vegetative condition and shock respiratory failure. Patient is also full code my understanding is a family members want to continue with this level of care. Further continue with a full code. I will last case management set up a family conference if at all possible today. If not I will contact family members by phone. Result Diagram: 07/02/18 0422 07/02/18 0422 Results 24hrs Laboratory Tests Test 07/02/18 07:28 07/02/18 08:38 07/02/18 09:48 07/03/18 02:54 Lab Scanned Report REFERENCE LAB Bedside Glucose 182 168 Lactic Acid Level 2.9 *H Consultation Date/Type/Reason Admit Date/Time Jun 27, 2018 at 22:49 Hx of Present Illness This is a 62-year-old male who was transferred from [facility] secondary to septic shock. 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 Patient was hypotensive when transferred. Patient also has a history of pulmonary coccidiomycosis. Information obtained from medical records patient is considered to be vegetative this is to be determined for sure. No family members at the bedside however in reviewing medical records my understanding is that family wants patient to remain a full code. Past Medical History Medical History: diabetes, other (See HPI) Medications Current Medications Acetaminophen (Tylenol Liquid) 650 mg Q6H PRN GTB FEVER; Start 06/28/18 at 00:00 Aspirin (Aspirin) 81 mg DAILY GTB Last administered on 07/02/18at 08:31; Admin Dose 81 MG; Start 06/28/18 at 09:00 Atenolol (Tenormin) 12.5 mg BID GTB ; Start 06/28/18 at 09:00 Atorvastatin Calcium (Lipitor) 20 mg HS GTB Last administered on 07/02/18 20:16; Admin Dose 20 MG; Start 06/28/18 at 21:00 Fluconazole (Diflucan) 800 mg DAILY GTB Last administered on 07/02/18 08:31; Admin Dose 800 MG; Start 06/28/18 at 09:00 Gentamicin Sulfate (Gentamicin 0.3% Oph Drop) 2 drop Q4H BOTH EYES Last administered on 07/03/18at 04:00; Admin Dose 2 DROP; Start 06/28/18 at 00:00 Glucagon (Glucagen) 1 mg PRN PRN IM HYPOGLYCEMIA (BS<70); Start 06/28/18 at 00:00 Insulin Glargine (Lantus) 10 units DAILY SC Last administered on 07/02/18 08:45; Admin Dose 10 UNITS; Start 06/28/18 at 08:00 Lansoprazole (Prevacid) 30 mg BID@,18 GTB Last administered on 07/03/18 06:24; Admin Dose 30 MG; Start 06/28/18 at 06:00 Levetiracetam (Keppra Liquid) 1,000 mg BID GTB Last administered on 07/02/18 20:16; Admin Dose 1,000 MG; Start 06/28/18 at 09:00 Memantine (Namenda) 10 mg DAILY GTB Last administered on 07/02/18 08:31; Admin Dose 10 MG; Start 06/28/18 at 09:00 Nystatin (Nystatin Powder) 1 applic BID TOP Last administered on 07/02/18 20:17; Admin Dose 1 APPLIC; Start 06/28/18 at 09:00 Miscellaneous Information 1 ea NOTE XX ; Start 06/28/18 at 01:00 Glucose (Glutose) 15 gm Q15M PRN PO DECREASED GLUCOSE; Start 06/28/18 at 01:00 Glucose (Glutose) 22.5 gm Q15M PRN PO DECREASED GLUCOSE; Start 06/28/18 at 01:00 Dextrose (D50w Syringe) 25 ml Q15M PRN IV DECREASED GLUCOSE; Start 06/28/18 at 01:00 Dextrose (D50w Syringe) 50 ml Q15M PRN IV DECREASED GLUCOSE; Start 06/28/18 at 01:00 Glucagon (Glucagen) 1 mg Q15M PRN IM DECREASED GLUCOSE; Start 06/28/18 at 01:00 Glucose (Glutose) 15 gm Q15M PRN BUCCAL DECREASED GLUCOSE; Start 06/28/18 at 01:00 IV Flush (NS 10 ml) 10 ml PRN PRN IV IV PROTOCOL; Start 06/28/18 at 12:00 Norepinephrine 16 mg/Dextrose 500 ml @ 1.88 mls/hr TITRATE IV Last administered on 07/02/18at 06:13; Admin Dose 15 MLS/HR; Start 06/30/18 at 14:00 Sodium Bicarbonate 150 meq/Dextrose 1,000 ml @ 50 mls/hr Q20H IV Last administered on 07/03/18 04:09; Admin Dose 50 MLS/HR; Start 06/30/18 at 15:30 Collagenase (Santyl) 1 applic BID TOP Last administered on 07/02/18at 20:16; Admin Dose 1 APPLIC; Start 06/30/18 at 15:00 Amikacin Sulfate (Amikacin Iv Per Pharmacy) AMIKACIN PER PHARMACY NOTE XX ; Start 07/01/18 at 14:30 Miscellaneous Information (Pending Santyl Order For Wound Care) This patient mccloud... PRN PRN XX unstageable sacrococcyx; Start 07/02/18 at 07:00 Midodrine (Proamatine) 7.5 mg Q8 GTB Last administered on 07/02/18at 21:32; Admin Dose 7.5 MG; Start 07/02/18 at 14:00 Ampicillin 50 ml @ 100 mls/hr Q8 IVPB Last administered on 07/03/18 06:25; Admin Dose 100 MLS/HR; Start 07/02/18 at 16:00 Metronidazole 100 ml @ 100 mls/hr Q8 IVPB Last administered on 07/03/18 06:24; Admin Dose 100 MLS/HR; Start 07/02/18 at 16:00 Amikacin Sulfate 950 mg/Sodium Chloride 253.8 ml @ 103.8 mls/ hr Q36H IVPB Last administered on 07/03/18 06:16; Admin Dose 103.8 MLS/HR; Start 07/03/18 at 06:00 Allergies: Coded Allergies: No Known Allergy (Unverified , 06/08/18) Past Surgical History Past Surgical Hx: other (See HPI) Family History Significant Family History: COPD, lung disease, seizures Social History Alcohol Use: other (Unknown) Smoking Status: Former smoker Drug Use: other (Unknown) Exam/Review of Systems Vital Signs Vitals Vital Signs Date Temp Pulse Resp B/P (MAP) Pulse Ox O2 O2 Flow FiO2 Time Delivery Rate 07/03/18 88 16 98 30 03:05 07/02/18 101/57 21:45 (72) 07/02/18 97.1 Mechanical 19:00 Ventilator Intake and Output 07/02/18 07/02/18 07/03/18 1515:00 23:00 07:00 IntakeIntake Total 1365 ml 1055 ml 935 ml OutputOutput Total 535 ml 485 ml 945 ml BalanceBalance 830 ml 570 ml -10 ml Exam Constitutional: non-verbal, frail Psych: other (Unable to assess) Head: normocephalic, atraumatic; No lacerations, No hematomas, No other Eyes: No nl conjunctiva, No EOMI, No nl lids, No nl sclera, No PERRL, No icteric, No fundi, disc, No other ENMT: No nl external ears & nose, No nl lips & teeth, No nl nasal mucosa & septum, No mucosa pink and moist, No intubated, No tympanic membranes, No other Neck: No supple, No non-tender, No jvd, No bruits, No masses, No thyromegaly, No nuchal rigidity, No other Respiratory: congested cough, crackles/rales, diminished breath sounds, labored breathing Cardiovascular: regular rate and rhythm, nl pulses; No bruits, No diastolic murmur, No edema, No gallop, No irregular rhythm, No jugular venous distention (JVD), No murmurs/extra sounds, No rub, No systolic murmur, No S3, No S4, No other Neurological: other (Unresponsive to any verbal or tactile stimulation eyes left upper gaze, no spontaneous movements cannot assess cranial nerves patient is overbreathing the ventilator) Medications Medications Current Medications Acetaminophen (Tylenol Liquid) 650 mg Q6H PRN GTB FEVER; Start 06/28/18 at 00:00 Aspirin (Aspirin) 81 mg DAILY GTB Last administered on 07/02/18at 08:31; Admin Dose 81 MG; Start 06/28/18 at 09:00 Atenolol (Tenormin) 12.5 mg BID GTB ; Start 06/28/18 at 09:00 Atorvastatin Calcium (Lipitor) 20 mg HS GTB Last administered on 07/02/18 20:16; Admin Dose 20 MG; Start 06/28/18 at 21:00 Fluconazole (Diflucan) 800 mg DAILY GTB Last administered on 07/02/18 08:31; Admin Dose 800 MG; Start 06/28/18 at 09:00 Gentamicin Sulfate (Gentamicin 0.3% Oph Drop) 2 drop Q4H BOTH EYES Last administered on 07/03/18 04:00; Admin Dose 2 DROP; Start 06/28/18 at 00:00 Glucagon (Glucagen) 1 mg PRN PRN IM HYPOGLYCEMIA (BS<70); Start 06/28/18 at 00:00 Insulin Glargine (Lantus) 10 units DAILY SC Last administered on 07/02/18 08:45; Admin Dose 10 UNITS; Start 06/28/18 at 08:00 Lansoprazole (Prevacid) 30 mg BID@06,18 GTB Last administered on 07/03/18 06:24; Admin Dose 30 MG; Start 06/28/18 at 06:00 Levetiracetam (Keppra Liquid) 1,000 mg BID GTB Last administered on 07/02/18 20:16; Admin Dose 1,000 MG; Start 06/28/18 at 09:00 Memantine (Namenda) 10 mg DAILY GTB Last administered on 07/02/18 08:31; Admin Dose 10 MG; Start 06/28/18 at 09:00 Nystatin (Nystatin Powder) 1 applic BID TOP Last administered on 07/02/18 20 :17; Admin Dose 1 APPLIC; Start 06/28/18 at 09:00 Miscellaneous Information 1 ea NOTE XX ; Start 06/28/18 at 01:00 Glucose (Glutose) 15 gm Q15M PRN PO DECREASED GLUCOSE; Start 06/28/18 at 01:00 Glucose (Glutose) 22.5 gm Q15M PRN PO DECREASED GLUCOSE; Start 06/28/18 at 01:00 Dextrose (D50w Syringe) 25 ml Q15M PRN IV DECREASED GLUCOSE; Start 06/28/18 at 01:00 Dextrose (D50w Syringe) 50 ml Q15M PRN IV DECREASED GLUCOSE; Start 06/28/18 at 01:00 Glucagon (Glucagen) 1 mg Q15M PRN IM DECREASED GLUCOSE; Start 06/28/18 at 01:00 Glucose (Glutose) 15 gm Q15M PRN BUCCAL DECREASED GLUCOSE; Start 06/28/18 at 01:00 IV Flush (NS 10 ml) 10 ml PRN PRN IV IV PROTOCOL; Start 06/28/18 at 12:00 Norepinephrine 16 mg/Dextrose 500 ml @ 1.88 mls/hr TITRATE IV Last administered on 07/02/18at 06:13; Admin Dose 15 MLS/HR; Start 06/30/18 at 14:00 Sodium Bicarbonate 150 meq/Dextrose 1,000 ml @ 50 mls/hr Q20H IV Last ad ministered on 07/03/18at 04:09; Admin Dose 50 MLS/HR; Start 06/30/18 at 15:30 Collagenase (Santyl) 1 applic BID TOP Last administered on 07/02/18at 20:16; Admin Dose 1 APPLIC; Start 06/30/18 at 15:00 Amikacin Sulfate (Amikacin Iv Per Pharmacy) AMIKACIN PER PHARMACY NOTE XX ; Start 07/01/18 at 14:30 Miscellaneous Information (Pending Santyl Order For Wound Care) This patient mccloud... PRN PRN XX unstageable sacrococcyx; Start 07/02/18 at 07:00 Midodrine (Proamatine) 7.5 mg Q8 GTB Last administered on 07/02/18at 21:32; Admin Dose 7.5 MG; Start 07/02/18 at 14:00 Ampicillin 50 ml @ 100 mls/hr Q8 IVPB Last administered on 07/03/18at 06:25; Admin Dose 100 MLS/HR; Start 07/02/18 at 16:00 Metronidazole 100 ml @ 100 mls/hr Q8 IVPB Last administered on 07/03/18at 06:24; Admin Dose 100 MLS/HR; Start 07/02/18 at 16:00 Amikacin Sulfate 950 mg/Sodium Chloride 253.8 ml @ 103.8 mls/ hr Q36H IVPB Last administered on 07/03/18at 06:16; Admin Dose 103.8 MLS/HR; Start 07/03/18 at 06:00 SARANYA BENNETT Jul 03, 2018 06:43
--- NOTE | 2018-07-03 08:50 | CONS ---
Date/Time of Note Date/Time of Note DATE: 07/03/18 TIME: 08:48 Assessment/Plan Assessment/Plan Assessment/Plan 1. Hypotension/shock state, likely septic on 2 pressors - till with high support requirement - con't anti-botics - still acidotic - con't levo gtt Rx - still acidotic 2. Premature ventricular contractions in a pattern of bigeminy. Assess for coronary ischemia, acute coronary syndrome. NO obvious cardiac dysfunction now. 3. Dyslipidemia. 4. Peripheral arterial disease, status post lower extremity amputation- con't wound care - con't wound care. 5. Seizure disorder- no new episodes. 6. Anemia- Rx as needed. 7. Encephalopathy- chronic. 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 9. Chronic respiratory failure, status post tracheostomy- con't resp care. Con't resp Care - still acidotic. 10. Dysphagia, status post G-tube. POOR overall prognosis Result Diagram: 07/02/18 0422 07/02/18 0422 Results 24hrs Laboratory Tests Test 07/02/18 09:48 07/03/18 02:54 Lactic Acid Level 2.9 *H Bedside Glucose 168 Consultation Date/Type/Reason Admit Date/Time Jun 27, 2018 at 22:49 Initial Consult Date 06/28/18 Requesting Provider: ENID SINGH 24 HR Interval Summary Free Text/Dictation NO acute change - minimally response - acidotic - con't Levo gtt - VERY POOR OVERALL PROGNOSIS ROS: per nurse - NO obvious CP, NO F/C/ N/V/D Exam/Review of Systems Vital Signs Vitals Vital Signs Date Temp Pulse Resp B/P (MAP) Pulse Ox O2 O2 Flow FiO2 Time Delivery Rate 07/03/18 88 27 100/55 97 06:45 (70) 07/03/18 98.5 Mechanical 06:00 Ventilator 07/03/18 30 03:05 Intake and Output 07/02/18 07/02/18 07/03/18 1515:00 23:00 07:00 IntakeIntake Total 1365 ml 1055 ml 935 ml OutputOutput Total 535 ml 485 ml 945 ml BalanceBalance 830 ml 570 ml -10 ml Exam General: WN/WD/NAD, AOx 0 HEENT: Unicetric/atraumatic/EOMI (does not follow commands) NECK: JVD elevated, no thyromegaly - intubated Lymph: no lymphadenopathy HEART: regular with no S3, II/ systolic murmur at apex LUNGS: Coarse sounds ABD: soft, NT, ND, +BS : Intact Neuro: non focal SKIN: chronic changes EXT: trace edema, wounds Medications Medications Current Medications Acetaminophen (Tylenol Liquid) 650 mg Q6H PRN GTB FEVER; Start 06/28/18 at 00:00 Aspirin (Aspirin) 81 mg DAILY GTB Last administered on 07/02/18 08:31; Admin Dose 81 MG; Start 06/28/18 at 09:00 Atenolol (Tenormin) 12.5 mg BID GTB ; Start 06/28/18 at 09:00 Atorvastatin Calcium (Lipitor) 20 mg HS GTB Last administered on 07/02/18 20:16; Admin Dose 20 MG; Start 06/28/18 at 21:00 Fluconazole (Diflucan) 800 mg DAILY GTB Last administered on 07/02/18 08:31; Admin Dose 800 MG; Start 06/28/18 at 09:00 Gentamicin Sulfate (Gentamicin 0.3% Oph Drop) 2 drop Q4H BOTH EYES Last administered on 07/03/18 04:00; Admin Dose 2 DROP; Start 06/28/18 at 00:00 Glucagon (Glucagen) 1 mg PRN PRN IM HYPOGLYCEMIA (BS<70); Start 06/28/18 at 00:00 Insulin Glargine (Lantus) 10 units DAILY SC Last administered on 07/02/18 08:45; Admin Dose 10 UNITS; Start 06/28/18 at 08:00 Lansoprazole (Prevacid) 30 mg BID@06,18 GTB Last administered on 07/03/18 06:24; Admin Dose 30 MG; Start 06/28/18 at 06:00 Levetiracetam (Keppra Liquid) 1,000 mg BID GTB Last administered on 07/02/18 20:16; Admin Dose 1,000 MG; Start 06/28/18 at 09:00 Memantine (Namenda) 10 mg DAILY GTB Last administered on 07/02/18 08:31; Admin Dose 10 MG; Start 06/28/18 at 09:00 Nystatin (Nystatin Powder) 1 applic BID TOP Last administered on 07/02/18at 20:17; Admin Dose 1 APPLIC; Start 06/28/18 at 09:00 Miscellaneous Information 1 ea NOTE XX ; Start 06/28/18 at 01:00 Glucose (Glutose) 15 gm Q15M PRN PO DECREASED GLUCOSE; Start 06/28/18 at 01:00 Glucose (Glutose) 22.5 gm Q15M PRN PO DECREASED GLUCOSE; Start 06/28/18 at 01:00 Dextrose (D50w Syringe) 25 ml Q15M PRN IV DECREASED GLUCOSE; Start 06/28/18 at 01:00 Dextrose (D50w Syringe) 50 ml Q15M PRN IV DECREASED GLUCOSE; Start 06/28/18 at 01:00 Glucagon (Glucagen) 1 mg Q15M PRN IM DECREASED GLUCOSE; Start 06/28/18 at 01:00 Glucose (Glutose) 15 gm Q15M PRN BUCCAL DECREASED GLUCOSE; Start 06/28/18 at 01:00 IV Flush (NS 10 ml) 10 ml PRN PRN IV IV PROTOCOL; Start 06/28/18 at 12:00 Norepinephrine 16 mg/Dextrose 500 ml @ 1.88 mls/hr TITRATE IV Last administered on 07/02/18at 06:13; Admin Dose 15 MLS/HR; Start 06/30/18 at 14:00 Sodium Bicarbonate 150 meq/Dextrose 1,000 ml @ 50 mls/hr Q20H IV Last administered on 07/03/18at 04:09; Admin Dose 50 MLS/HR; Start 06/30/18 at 15:30 Collagenase (Santyl) 1 applic BID TOP Last administered on 07/02/18at 20:16; Admin Dose 1 APPLIC; Start 06/30/18 at 15:00 Amikacin Sulfate (Amikacin Iv Per Pharmacy) AMIKACIN PER PHARMACY NOTE XX ; Start 07/01/18 at 14:30 Miscellaneous Information (Pending Santyl Order For Wound Care) This patient mccloud... PRN PRN XX unstageable sacrococcyx; Start 07/02/18 at 07:00 Midodrine (Proamatine) 7.5 mg Q8 GTB Last administered on 07/02/18at 21:32; Admin Dose 7.5 MG; Start 07/02/18 at 14:00 Ampicillin 50 ml @ 100 mls/hr Q8 IVPB Last administered on 07/03/18at 06:25; Admin Dose 100 MLS/HR; Start 07/02/18 at 16:00 Metronidazole 100 ml @ 100 mls/hr Q8 IVPB Last administered on 07/03/18at 06:24; Admin Dose 100 MLS/HR; Start 07/02/18 at 16:00 Amikacin Sulfate 950 mg/Sodium Chloride 253.8 ml @ 103.8 mls/ hr Q36H IVPB Last administered on 07/03/18at 06:16; Admin Dose 103.8 MLS/HR; Start 07/03/18 at 06:00 GABINO CEDENO MD Jul 03, 2018 08:50
[2018-07-03] MEDS: ATENOLOL 25 MG TAB GTB SCH ×2 (09:00→20:46)
[2018-07-03] MEDS: LEVETIRACETAM (100 MG/ML) 5ML CUP GTB SCH ×2 (09:08→20:41)
[2018-07-03] MEDS: ASPIRIN 325 MG TAB GTB SCH (09:08)
[2018-07-03] MEDS: FLUCONAZOLE 200 MG TAB GTB SCH (09:08)
[2018-07-03] MEDS: NYSTATIN 30 GM POWDER BTL TOP SCH ×2 (09:09→20:00)
[2018-07-03] MEDS: MEMANTINE 10 MG TAB GTB SCH (09:09)
[2018-07-03] MEDS: COLLAGENASE 5 GM (UD JAR) TOP SCH ×2 (09:09→20:00)
[2018-07-03] MEDS: INSULIN GLARGINE [LANTus] (100 UNITS/ML) SYG SC SCH (09:20)
--- NOTE | 2018-07-03 10:15 | CONS ---
Date/Time of Note Date/Time of Note DATE: 07/03/18 TIME: 10:06 Consult Date/Type/Reason Admit Date/Time Jun 27, 2018 at 22:49 Initial Consult Date 06/28/18 Type of Consultation: Pulm/CCM Requesting Provider: ENID SINGH Subjective Remains unresponsive on pressors. Objective Vital Signs Date Temp Pulse Resp B/P (MAP) Pulse Ox O2 O2 Flow FiO2 Time Delivery Rate 07/03/18 87 08:00 07/03/18 27 100/55 97 06:45 (70) 07/03/18 98.5 Mechanical 06:00 Ventilator 07/03/18 30 03:05 Intake and Output 07/02/18 07/02/18 07/03/18 1515:00 23:00 07:00 IntakeIntake Total 1365 ml 1055 ml 935 ml OutputOutput Total 535 ml 485 ml 945 ml BalanceBalance 830 ml 570 ml -10 ml Exam GENERAL: Critically ill-appearing gentleman on mechanical ventilation via tracheostomy VITAL SIGNS: per chart NECK: Supple. No JVD or lymphadenopathy. CARDIAC EXAM: S1, S2. No added sounds or murmurs. CHEST: clear bilaterally, No added sounds, rales or wheezes ABDOMEN: Soft, nontender. No guarding or rebound. EXTREMITIES: No cyanosis, clubbing or edema. NEUROLOGIC: Generalized weakness. No focal deficits. Results/Medications Result Diagram: 07/02/18 0422 07/02/18 0422 Results 24 hrs Laboratory Tests Test 07/03/18 02:54 07/03/18 09:13 Bedside Glucose 168 195 Medications Current Medications Acetaminophen (Tylenol Liquid) 650 mg Q6H PRN GTB FEVER; Start 06/28/18 at 00:00 Aspirin (Aspirin) 81 mg DAILY GTB Last administered on 07/03/18at 09:08; Admin Dose 81 MG; Start 06/28/18 at 09:00 Atenolol (Tenormin) 12.5 mg BID GTB ; Start 06/28/18 at 09:00 Atorvastatin Calcium (Lipitor) 20 mg HS GTB Last administered on 07/02/18at 20:16; Admin Dose 20 MG; Start 06/28/18 at 21:00 Fluconazole (Diflucan) 800 mg DAILY GTB Last administered on 07/03/18at 09:08; Admin Dose 800 MG; Start 06/28/18 at 09:00 Gentamicin Sulfate (Gentamicin 0.3% Oph Drop) 2 drop Q4H BOTH EYES Last administered on 07/03/18at 09:07; Admin Dose 2 DROP; Start 06/28/18 at 00:00 Glucagon (Glucagen) 1 mg PRN PRN IM HYPOGLYCEMIA (BS<70); Start 06/28/18 at 00:00 Insulin Glargine (Lantus) 10 units DAILY SC Last administered on 07/03/18at 09:20; Admin Dose 10 UNITS; Start 06/28/18 at 08:00 Lansoprazole (Prevacid) 30 mg BID@,18 GTB Last administered on 07/03/18at 06:24; Admin Dose 30 MG; Start 06/28/18 at 06:00 Levetiracetam (Keppra Liquid) 1,000 mg BID GTB Last administered on 07/03/18 09:08; Admin Dose 1,000 MG; Start 06/28/18 at 09:00 Memantine (Namenda) 10 mg DAILY GTB Last administered on 07/03/18at 09:09; Admin Dose 10 MG; Start 06/28/18 at 09:00 Nystatin (Nystatin Powder) 1 applic BID TOP Last administered on 07/03/18at 09:09; Admin Dose 1 APPLIC; Start 06/28/18 at 09:00 Miscellaneous Information 1 ea NOTE XX ; Start 06/28/18 at 01:00 Glucose (Glutose) 15 gm Q15M PRN PO DECREASED GLUCOSE; Start 06/28/18 at 01:00 Glucose (Glutose) 22.5 gm Q15M PRN PO DECREASED GLUCOSE; Start 06/28/18 at 01:00 Dextrose (D50w Syringe) 25 ml Q15M PRN IV DECREASED GLUCOSE; Start 06/28/18 at 01:00 Dextrose (D50w Syringe) 50 ml Q15M PRN IV DECREASED GLUCOSE; Start 06/28/18 at 01:00 Glucagon (Glucagen) 1 mg Q15M PRN IM DECREASED GLUCOSE; Start 06/28/18 at 01:00 Glucose (Glutose) 15 gm Q15M PRN BUCCAL DECREASED GLUCOSE; Start 06/28/18 at 01:00 IV Flush (NS 10 ml) 10 ml PRN PRN IV IV PROTOCOL; Start 06/28/18 at 12:00 Norepinephrine 16 mg/Dextrose 500 ml @ 1.88 mls/hr TITRATE IV Last administered on 07/02/18at 06:13; Admin Dose 15 MLS/HR; Start 06/30/18 at 14:00 Sodium Bicarbonate 150 meq/Dextrose 1,000 ml @ 50 mls/hr Q20H IV Last administered on 07/03/18at 04:09; Admin Dose 50 MLS/HR; Start 06/30/18 at 15:30 Collagenase (Santyl) 1 applic BID TOP Last administered on 07/03/18at 09:09; Admin Dose 1 APPLIC; Start 06/30/18 at 15:00 Amikacin Sulfate (Amikacin Iv Per Pharmacy) AMIKACIN PER PHARMACY NOTE XX ; Start 07/01/18 at 14:30 Miscellaneous Information (Pending Santyl Order For Wound Care) This patient mccloud... PRN PRN XX unstageable sacrococcyx; Start 07/02/18 at 07:00 Midodrine (Proamatine) 7.5 mg Q8 GTB Last administered on 07/02/18at 21:32; Admin Dose 7.5 MG; Start 07/02/18 at 14:00 Ampicillin 50 ml @ 100 mls/hr Q8 IVPB Last administered on 07/03/18at 06:25; Admin Dose 100 MLS/HR; Start 07/02/18 at 16:00 Metronidazole 100 ml @ 100 mls/hr Q8 IVPB Last administered on 07/03/18at 06:24; Admin Dose 100 MLS/HR; Start 07/02/18 at 16:00 Amikacin Sulfate 950 mg/Sodium Chloride 253.8 ml @ 103.8 mls/ hr Q36H IVPB Last administered on 07/03/18 06:16; Admin Dose 103.8 MLS/HR; Start 07/03/18 at 06:00 Assessment/Plan Chief Complaint/Hosp Course IMP: 1. Septic Shock 2. Multifocal Pneumonia 3. 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 Encephalopathy 7. MICHELLE 8. Metabolic Acidosis 9. HypoNa+ improved. RECS: 1. Vent support 2. Abx per ID 3. IV fluids 4. TF as tolerated. 6. Am labs 35 min cc time Overall prognosis very poor. RAFIQ LEGGETT MD, [facility] Jul 03, 2018 10:15
--- NOTE | 2018-07-03 12:15 | CONS ---
Date/Time of Note Date/Time of Note DATE: 07/03/18 TIME: 12:14 Assessment/Plan Assessment/Plan Hospital Course No acute changes overnight patient remains on Levophed drip is noncommunicative in no distress. Temperature 98.5 pulse 90 respirations 20 blood pressure 116/60 saturation 98% on vent WBC 13.2 H&H 8.9 and 26.8 platelets 64 neutrophils 84.6 BUN 47 creatinine 1.25 Antimicrobials: Amikacin, ampicillin IV, Flagyl, fluconazole Indwelling: Trach, PEG, left upper extremity PICC line, right upper extremity midline, right upper abdomen pigtail Physical examination: This is a chronically ill-appearing elderly - [place] man who is noncommunicative in no distress. Head atraumatic normocephalic, sclera nonicteric. Neck is supple, tracheostomy present. Lungs: Breath sounds diminished at bases. Heart S1-S2. Abdomen soft bowel sounds present. Extremities without cyanosis, trace edema Assessment: 1. Severe sepsis with shock 2. Bilateral multifocal pneumonia 3. 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 History of left upper back abscess with repeat CT on June 22 revealed large subcutaneous fluid collection and edema in the lower posterior left neck/upper chest with questionable osteomyelitis of the scapula. 5. History of acute cholecystitis status post cholecystostomy tube 6. Chronic encephalopathy with a history of CVA 7. Diabetes 8. History of hypertension 9. Acute renal insufficiency 10. Right mastoiditis Plan: Patient remains hemodynamically unstable, prognosis poor, continue antibiotics, patient needs IR guided drainage of left upper back abscess Result Diagram: 07/03/18 1155 07/02/18 0422 Results 24hrs Laboratory Tests Test 07/03/18 02:54 07/03/18 09:13 07/03/18 11:55 Bedside Glucose 168 195 White Blood Count 13.2 H Red Blood Count 3.06 L Hemoglobin 8.9 L Hematocrit 26.8 L Mean Corpuscular Volume 87.6 Mean Corpuscular Hemoglobin 29.1 Mean Corpuscular Hemoglobin Concent 33.2 Red Cell Distribution Width 15.3 H Platelet Count 64 L Mean Platelet Volume 9.8 Immature Granulocytes % 0.700 H Neutrophils % 84.6 H Lymphocytes % 7.0 L Monocytes % 3.5 Eosinophils % 4.0 Basophils % 0.2 Nucleated Red Blood Cells % 0.0 Immature Granulocytes # 0.090 H Neutrophils # 11.2 H Lymphocytes # 0.9 Monocytes # 0.5 Eosinophils # 0.5 Basophils # 0.0 Nucleated Red Blood Cells # 0.0 Consultation Date/Type/Reason Admit Date/Time Jun 27, 2018 at 22:49 Initial Consult Date 06/28/18 Type of Consult id Requesting Provider: ENID SINGH Exam/Review of Systems Vital Signs Vitals Vital Signs Date Temp Pulse Resp B/P (MAP) Pulse Ox O2 O2 Flow FiO2 Time Delivery Rate 07/03/18 87 08:00 07/03/18 27 100/55 97 06:45 (70) 07/03/18 98.5 Mechanical 06:00 Ventilator 07/03/18 30 03:05 Intake and Output 07/02/18 07/02/18 07/03/18 1515:00 23:00 07:00 IntakeIntake Total 1365 ml 1055 ml 935 ml OutputOutput Total 535 ml 485 ml 945 ml BalanceBalance 830 ml 570 ml -10 ml Medications Medications Current Medications Acetaminophen (Tylenol Liquid) 650 mg Q6H PRN GTB FEVER; Start 06/28/18 at 00:00 Aspirin (Aspirin) 81 mg DAILY GTB Last administered on 07/03/18at 09:08; Admin Dose 81 MG; Start 06/28/18 at 09:00 Atenolol (Tenormin) 12.5 mg BID GTB ; Start 06/28/18 at 09:00 Atorvastatin Calcium (Lipitor) 20 mg HS GTB Last administered on 07/02/18at 20:16; Admin Dose 20 MG; Start 06/28/18 at 21:00 Fluconazole (Diflucan) 800 mg DAILY GTB Last administered on 07/03/18at 09:08; Admin Dose 800 MG; Start 06/28/18 at 09:00 Gentamicin Sulfate (Gentamicin 0.3% Oph Drop) 2 drop Q4H BOTH EYES Last administered on 07/03/18at 09:07; Admin Dose 2 DROP; Start 06/28/18 at 00:00 Glucagon (Glucagen) 1 mg PRN PRN IM HYPOGLYCEMIA (BS<70); Start 06/28/18 at 00:00 Insulin Glargine (Lantus) 10 units DAILY SC Last administered on 07/03/18at 09:20; Admin Dose 10 UNITS; Start 06/28/18 at 08:00 Lansoprazole (Prevacid) 30 mg BID@06,18 GTB Last administered on 07/03/18at 06:24; Admin Dose 30 MG; Start 06/28/18 at 06:00 Levetiracetam (Keppra Liquid) 1,000 mg BID GTB Last administered on 07/03/18at 09:08; Admin Dose 1,000 MG; Start 06/28/18 at 09:00 Memantine (Namenda) 10 mg DAILY GTB Last administered on 07/03/18at 09:09; Admin Dose 10 MG; Start 06/28/18 at 09:00 Nystatin (Nystatin Powder) 1 applic BID TOP Last administered on 07/03/18at 09:09; Admin Dose 1 APPLIC; Start 06/28/18 at 09:00 Miscellaneous Information 1 ea NOTE XX ; Start 06/28/18 at 01:00 Glucose (Glutose) 15 gm Q15M PRN PO DECREASED GLUCOSE; Start 06/28/18 at 01:00 Glucose (Glutose) 22.5 gm Q15M PRN PO DECREASED GLUCOSE; Start 06/28/18 at 01:00 Dextrose (D50w Syringe) 25 ml Q15M PRN IV DECREASED GLUCOSE; Start 06/28/18 at 01:00 Dextrose (D50w Syringe) 50 ml Q15M PRN IV DECREASED GLUCOSE; Start 06/28/18 at 01:00 Glucagon (Glucagen) 1 mg Q15M PRN IM DECREASED GLUCOSE; Start 06/28/18 at 01:00 Glucose (Glutose) 15 gm Q15M PRN BUCCAL DECREASED GLUCOSE; Start 06/28/18 at 01:00 IV Flush (NS 10 ml) 10 ml PRN PRN IV IV PROTOCOL; Start 06/28/18 at 12:00 Norepinephrine 16 mg/Dextrose 500 ml @ 1.88 mls/hr TITRATE IV Last administered on 07/02/18at 06:13; Admin Dose 15 MLS/HR; Start 06/30/18 at 14:00 Sodium Bicarbonate 150 meq/Dextrose 1,000 ml @ 50 mls/hr Q20H IV Last administered on 07/03/18at 04:09; Admin Dose 50 MLS/HR; Start 06/30/18 at 15:30 Collagenase (Santyl) 1 applic BID TOP Last administered on 07/03/18at 09:09; Admin Dose 1 APPLIC; Start 06/30/18 at 15:00 Amikacin Sulfate (Amikacin Iv Per Pharmacy) AMIKACIN PER PHARMACY NOTE XX ; Start 07/01/18 at 14:30 Miscellaneous Information (Pending Santyl Order For Wound Care) This patient mccloud... PRN PRN XX unstageable sacrococcyx; Start 07/02/18 at 07:00 Midodrine (Proamatine) 7.5 mg Q8 GTB Last administered on 07/02/18at 21:32; Admin Dose 7.5 MG; Start 07/02/18 at 14:00 Ampicillin 50 ml @ 100 mls/hr Q8 IVPB Last administered on 07/03/18at 06:25; Admin Dose 100 MLS/HR; Start 07/02/18 at 16:00 Metronidazole 100 ml @ 100 mls/hr Q8 IVPB Last administered on 07/03/18at 06:24; Admin Dose 100 MLS/HR; Start 07/02/18 at 16:00 Amikacin Sulfate 950 mg/Sodium Chloride 253.8 ml @ 103.8 mls/ hr Q36H IVPB Last administered on 07/03/18at 06:16; Admin Dose 103.8 MLS/HR; Start 07/03/18 at 06:00 SUSY WOLFE NP Jul 03, 2018 12:15
--- NOTE | 2018-07-03 14:30 | PN ---
Date/Time of Note Date/Time of Note DATE: 07/03/18 TIME: 14:28 Assessment/Plan VTE Prophylaxis Risk score (from Ns)>0 risk: 9 SCD applied (from Ns): Yes Pharmacological prophylaxis: heparin Lines/Catheters IV C[facility]ter Type [facility]from [facility] PICC Line Central line still needed: Yes Urinary Cath still in place: Yes Reason Cath still needed: urinary retention Assessment/Plan Hospital Course 62 yo male with chornic encephelopahty and chorinc respiratory failure with septic shock Pneumonia: - Abx per ID Septic shock: - Wean vasopressors as able Chronic respiratory failure: - MV per pulm Osteomyelitis of scapula: - Abx per ID Dismal prognosis, continue discussions with family Result Diagram: 07/03/18 1155 07/03/18 1155 Results 24hrs Laboratory Tests Test 07/03/18 02:54 07/03/18 09:13 07/03/18 11:55 Bedside Glucose 168 195 White Blood Count 13.2 H Red Blood Count 3.06 L Hemoglobin 8.9 L Hematocrit 26.8 L Mean Corpuscular Volume 87.6 Mean Corpuscular Hemoglobin 29.1 Mean Corpuscular Hemoglobin Concent 33.2 Red Cell Distribution Width 15.3 H Platelet Count 64 L Mean Platelet Volume 9.8 Immature Granulocytes % 0.700 H Neutrophils % 84.6 H Lymphocytes % 7.0 L Monocytes % 3.5 Eosinophils % 4.0 Basophils % 0.2 Nucleated Red Blood Cells % 0.0 Immature Granulocytes # 0.090 H Neutrophils # 11.2 H Lymphocytes # 0.9 Monocytes # 0.5 Eosinophils # 0.5 Basophils # 0.0 Nucleated Red Blood Cells # 0.0 Sodium Level 134 L Potassium Level 3.4 L Chloride Level 100 Carbon Dioxide Level 21 Anion Gap 13 Blood Urea Nitrogen 47 H Creatinine 1.26 H Est Glomerular Filtrat Rate mL/min 58 L Glucose Level 172 Lactic Acid Level 2.8 *H Calcium Level 8.8 Subjective 24 Hr Interval Summary Free Text/Dictation No change to clinical status I spoke to patient's daughter Lior by phone. Discussed dismal prognosis and terminal illness. Despite this wants full aggressive care Exam/Review of Systems Vital Signs Vitals Vital Signs Date Temp Pulse Resp B/P (MAP) Pulse Ox O2 O2 Flow FiO2 Time Delivery Rate 07/03/18 85 12:00 07/03/18 21 98 26 11:40 07/03/18 90/49 (63) 11:15 07/03/18 Mechanical 11:00 Ventilator 07/03/18 97.9 08:00 Intake and Output 07/02/18 07/02/18 07/03/18 1515:00 23:00 07:00 IntakeIntake Total 1365 ml 1055 ml 1088.8 ml OutputOutput Total 535 ml 485 ml 945 ml BalanceBalance 830 ml 570 ml 143.8 ml Medications Medications Current Medications Acetaminophen (Tylenol Liquid) 650 mg Q6H PRN GTB FEVER; Start 06/28/18 at 00:00 Aspirin (Aspirin) 81 mg DAILY GTB Last administered on 07/03/18 09:08; Admin Dose 81 MG; Start 06/28/18 at 09:00 Atenolol (Tenormin) 12.5 mg BID GTB ; Start 06/28/18 at 09:00 Atorvastatin Calcium (Lipitor) 20 mg HS GTB Last administered on 07/02/18 20:16; Admin Dose 20 MG; Start 06/28/18 at 21:00 Fluconazole (Diflucan) 800 mg DAILY GTB Last administered on 07/03/18 09:08; Admin Dose 800 MG; Start 06/28/18 at 09:00 Gentamicin Sulfate (Gentamicin 0.3% Oph Drop) 2 drop Q4H BOTH EYES Last administered on 07/03/18 09:07; Admin Dose 2 DROP; Start 06/28/18 at 00:00 Glucagon (Glucagen) 1 mg PRN PRN IM HYPOGLYCEMIA (BS<70); Start 06/28/18 at 00:00 Insulin Glargine (Lantus) 10 units DAILY SC Last administered on 07/03/18 09:20; Admin Dose 10 UNITS; Start 06/28/18 at 08:00 Lansoprazole (Prevacid) 30 mg BID@,18 GTB Last administered on 07/03/18 06:24; Admin Dose 30 MG; Start 06/28/18 at 06:00 Levetiracetam (Keppra Liquid) 1,000 mg BID GTB Last administered on 07/03/18 09:08; Admin Dose 1,000 MG; Start 06/28/18 at 09:00 Memantine (Namenda) 10 mg DAILY GTB Last administered on 07/03/18at 09:09; Admin Dose 10 MG; Start 06/28/18 at 09:00 Nystatin (Nystatin Powder) 1 applic BID TOP Last administered on 07/03/18at 09:09; Admin Dose 1 APPLIC; Start 06/28/18 at 09:00 Miscellaneous Information 1 ea NOTE XX ; Start 06/28/18 at 01:00 Glucose (Glutose) 15 gm Q15M PRN PO DECREASED GLUCOSE; Start 06/28/18 at 01:00 Glucose (Glutose) 22.5 gm Q15M PRN PO DECREASED GLUCOSE; Start 06/28/18 at 01:00 Dextrose (D50w Syringe) 25 ml Q15M PRN IV DECREASED GLUCOSE; Start 06/28/18 at 01:00 Dextrose (D50w Syringe) 50 ml Q15M PRN IV DECREASED GLUCOSE; Start 06/28/18 at 01:00 Glucagon (Glucagen) 1 mg Q15M PRN IM DECREASED GLUCOSE; Start 06/28/18 at 01:00 Glucose (Glutose) 15 gm Q15M PRN BUCCAL DECREASED GLUCOSE; Start 06/28/18 at 01:00 IV Flush (NS 10 ml) 10 ml PRN PRN IV IV PROTOCOL; Start 06/28/18 at 12:00 Norepinephrine 16 mg/Dextrose 500 ml @ 1.88 mls/hr TITRATE IV Last administered on 07/02/18at 06:13; Admin Dose 15 MLS/HR; Start 06/30/18 at 14:00 Sodium Bicarbonate 150 meq/Dextrose 1,000 ml @ 50 mls/hr Q20H IV Last administered on 07/03/18at 04:09; Admin Dose 50 MLS/HR; Start 06/30/18 at 15:30 Collagenase (Santyl) 1 applic BID TOP Last administered on 07/03/18at 09:09; Admin Dose 1 APPLIC; Start 06/30/18 at 15:00 Amikacin Sulfate (Amikacin Iv Per Pharmacy) AMIKACIN PER PHARMACY NOTE XX ; Start 07/01/18 at 14:30 Miscellaneous Information (Pending Santyl Order For Wound Care) This patient mccloud... PRN PRN XX unstageable sacrococcyx; Start 07/02/18 at 07:00 Midodrine (Proamatine) 7.5 mg Q8 GTB Last administered on 07/02/18at 21:32; Admin Dose 7.5 MG; Start 07/02/18 at 14:00 Ampicillin 50 ml @ 100 mls/hr Q8 IVPB Last administered on 07/03/18at 06:25; Admin Dose 100 MLS/HR; Start 07/02/18 at 16:00 Metronidazole 100 ml @ 100 mls/hr Q8 IVPB Last administered on 07/03/18at 06:24; Admin Dose 100 MLS/HR; Start 07/02/18 at 16:00 Amikacin Sulfate 950 mg/Sodium Chloride 253.8 ml @ 103.8 mls/ hr Q36H IVPB Last administered on 07/03/18at 06:16; Admin Dose 103.8 MLS/HR; Start 07/03/18 at 06:00 WESLEY ARAYA MD Jul 03, 2018 14:30
[2018-07-03] MEDS: ATORVASTATIN 20 MG TAB GTB SCH (20:41)
[2018-07-03] MEDS ORDERED: ACETYLCYSTEINE 20% 4 ML VIAL NEB PRN (21:00)
[2018-07-03] MEDS ORDERED: ALBUTEROL/IPRATROPIUM (NEB) 3 ML AMP HHN PRN (21:00)
[2018-07-03] MEDS ORDERED: SOD CHLORIDE 0.9% 1,000 ML IV ONE (23:30)
[2018-07-04] VITALS (89 sets, daily range): BP systolic 78–119; BP diastolic 40–68; PULSE 80–111; RESP 0–38
[2018-07-04] MEDS: GENTAMICIN 0.3% 5 ML OPH BOTH EYES SCH ×6 (00:25→20:37)
[2018-07-04] MEDS ORDERED: POTASSIUM CHLORIDE 20 MEQ POWDER FOR ORAL SOLN GTB ONE (06:00)
[2018-07-04] MEDS: LANSOPRAZOLE 30 MG CAP GTB SCH ×2 (06:12→17:57)
[2018-07-04] MEDS: AMPICILLIN 1 GM/NS (PMX) 50 ML IVPB SCH ×3 (06:12→22:52)
[2018-07-04] MEDS: MIDODRINE 5 MG TAB GTB SCH ×3 (06:12→21:16)
[2018-07-04] MEDS: metroNIDAZOLE 500 MG/NS (PMX) 100 ML IVPB SCH ×3 (06:13→21:16)
[2018-07-04] MEDS ORDERED: MAGNESIUM SULFATE 3 GM in DEXTROSE 5% 100 ML IVPB ONE (07:00)
--- NOTE | 2018-07-04 07:57 | CONS ---
Date/Time of Note Date/Time of Note DATE: 07/04/18 TIME: 07:53 Assessment/Plan Assessment/Plan Assessment/Plan Vent dependent respiratory failure intubated and trached. Shock Currently on 1 pressor broad-spectrum IV antibiotic coverage Pulmonary coccidiomycosis Review medical records workup being done by pulmonary medicine Right [facility] Will review medical records but assuming patient has been noncommunicative for p rolonged period of time will speak to family members in more detail Unstageable sacral coccyx decubiti Been no change in patient's overall clinical condition since last time seen him 07/03/2018. I have spoken to Dr. Martinez and have placed a phone call out to family members this morning at 0730. Left my cell phone number and hoping to have a [id number] conference with family. Patient on 1 pressor 40% FiO2. Result Diagram: 07/04/18 0430 07/04/18 0430 Results 24hrs Laboratory Tests Test 07/03/18 09:13 07/03/18 11:55 07/04/18 04:30 07/04/18 05:00 Bedside Glucose 195 White Blood 13.2 H 14.6 H Count Red Blood Count 3.06 L 3.17 L Hemoglobin 8.9 L 9.1 L Hematocrit 26.8 L 28.1 L Mean Corpuscular 87.6 88.6 Volume Mean Corpuscular 29.1 28.7 L Hemoglobin Mean Corpuscular 33.2 32.4 Hemoglobin [place] nt Red Cell 15.3 H 15.2 H Distribution Width Platelet Count 64 L 76 L Mean Platelet 9.8 10.6 H Volume Immature 0.700 H 0.800 H Granulocytes % Neutrophils % 84.6 H 82.7 H Lymphocytes % 7.0 L 9.1 L Monocytes % 3.5 3.4 Eosinophils % 4.0 3.9 Basophils % 0.2 0.1 Nucleated Red 0.0 0.0 Blood Cells % Immature 0.090 H 0.110 H Granulocytes # Neutrophils # 11.2 H 12.0 H Lymphocytes # 0.9 1.3 Monocytes # 0.5 0.5 Eosinophils # 0.5 0.6 H Basophils # 0.0 0.0 Nucleated Red 0.0 0.0 Blood Cells # Sodium Level 134 L 132 L Potassium Level 3.4 L 3.4 L Chloride Level 100 101 Carbon Dioxide 21 21 Level Anion Gap 13 10 Blood Urea 47 H 49 H Nitrogen Creatinine 1.26 H 1.30 H Est Glomerular 58 L 56 L Filtrat Rate mL/min Glucose Level 172 119 # Lactic Acid 2.8 *H 3.0 *H Level Calcium Level 8.8 8.8 Phosphorus Level 7.2 H Magnesium Level 1.5 L Total Bilirubin 0.8 Direct Bilirubin 0.80 H Indirect 0.0 Bilirubin Aspartate Amino 31 Transf (AST/SGOT ) Alanine 18 Aminotransferase (ALT/SGPT) Alkaline 357 H Phosphatase Total Protein 5.7 L Albumin 1.8 L Globulin 3.90 H Albumin/Globulin 0.46 Ratio Blood Gas Blood arterial Specimen Source Arterial Blood 07/04/2018 4:50:53 Date Drawn AM Arterial Blood 7.327 L pH (Temp corrected) Arterial Blood 39.9 pCO2 (Temp correct) Arterial Blood 53.6 *L pO2 (Temp corrected) Arterial Blood 20.4 L HCO3 Arterial Blood -5.1 L Base Excess Arterial Blood 88.3 L Oxygen Saturatio n Mathieu Test ACCEPTAB Arterial Blood Right Radial Gas Puncture Site Arterial 0.3 Blood Carboxyhem oglobin Arterial Blood 0.4 Methemoglobin Blood Gas A-a O2 113.4 H Differential Oxyhemoglobin 87.7 L Percent Blood Gas 37.0 Temperature Blood Gas 16.0 Respiration Rate Blood Gas Actual 23 Respiration Rate Blood Gas VENT - AC Modality FiO2 30.0 Blood Gas Tidal 500.0 Volume Blood Gas Low 5.0 PEEP Setting Blood Gas J PACOL RN Critical Value Read Back Blood Gas UP Notified Whom Blood Gas 07/04/2018 5:07:34 Notified Time AM Test 07/04/18 05:04 Lab Scanned BLOOD TRANSFUSIO Report N Consultation Date/Type/Reason Admit Date/Time Jun 27, 2018 at 22:49 Hx of Present Illness This is a 62-year-old male who was transferred from [facility] secondary to septic shock. 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 Patient was hypotensive when transferred. Patient also has a history of pulmonary coccidiomycosis. Information obtained from medical records patient is considered to be vegetative this is to be determined for sure. No family members at the bedside however in reviewing medical records my understanding is that family wants patient to remain a full code. Past Medical History Medical History: diabetes, other (See HPI) Medications Current Medications Acetaminophen (Tylenol Liquid) 650 mg Q6H PRN GTB FEVER; Start 06/28/18 at 00:00 Aspirin (Aspirin) 81 mg DAILY GTB Last administered on 07/03/18 09:08; Admin Dose 81 MG; Start 06/28/18 at 09:00 Atenolol (Tenormin) 12.5 mg BID GTB ; Start 06/28/18 at 09:00 Atorvastatin Calcium (Lipitor) 20 mg HS GTB Last administered on 07/03/18 20:41; Admin Dose 20 MG; Start 06/28/18 at 21:00 Fluconazole (Diflucan) 800 mg DAILY GTB Last administered on 07/03/18 09:08; Admin Dose 800 MG; Start 06/28/18 at 09:00 Gentamicin Sulfate (Gentamicin 0.3% Oph Drop) 2 drop Q4H BOTH EYES Last administered on 07/04/18 05:42; Admin Dose 2 DROP; Start 06/28/18 at 00:00 Glucagon (Glucagen) 1 mg PRN PRN IM HYPOGLYCEMIA (BS<70); Start 06/28/18 at 00:00 Insulin Glargine (Lantus) 10 units DAILY SC Last administered on 07/03/18 09:20; Admin Dose 10 UNITS; Start 06/28/18 at 08:00 Lansoprazole (Prevacid) 30 mg BID@06,18 GTB Last administered on 07/04/18 06:12; Admin Dose 30 MG; Start 06/28/18 at 06:00 Levetiracetam (Keppra Liquid) 1,000 mg BID GTB Last administered on 07/03/18 20:41; Admin Dose 1,000 MG; Start 06/28/18 at 09:00 Memantine (Namenda) 10 mg DAILY GTB Last administered on 07/03/18 09:09; Admin Dose 10 MG; Start 06/28/18 at 09:00 Nystatin (Nystatin Powder) 1 applic BID TOP Last administered on 07/03/18 20:00; Admin Dose 1 APPLIC; Start 06/28/18 at 09:00 Miscellaneous Information 1 ea NOTE XX ; Start 06/28/18 at 01:00 Glucose (Glutose) 15 gm Q15M PRN PO DECREASED GLUCOSE; Start 06/28/18 at 01:00 Glucose (Glutose) 22.5 gm Q15M PRN PO DECREASED GLUCOSE; Start 06/28/18 at 01:00 Dextrose (D50w Syringe) 25 ml Q15M PRN IV DECREASED GLUCOSE; Start 06/28/18 at 01:00 Dextrose (D50w Syringe) 50 ml Q15M PRN IV DECREASED GLUCOSE; Start 06/28/18 at 01:00 Glucagon (Glucagen) 1 mg Q15M PRN IM DECREASED GLUCOSE; Start 06/28/18 at 01:00 Glucose (Glutose) 15 gm Q15M PRN BUCCAL DECREASED GLUCOSE; Start 06/28/18 at 01:00 IV Flush (NS 10 ml) 10 ml PRN PRN IV IV PROTOCOL; Start 06/28/18 at 12:00 Norepinephrine 16 mg/Dextrose 500 ml @ 1.88 mls/hr TITRATE IV Last administered on 07/03/18at 16:15; Admin Dose 16.88 MLS/HR; Start 06/30/18 at 14:00 Collagenase (Santyl) 1 applic BID TOP Last administered on 07/03/18at 20:00; Admin Dose 1 APPLIC; Start 06/30/18 at 15:00 Amikacin Sulfate (Amikacin Iv Per Pharmacy) AMIKACIN PER PHARMACY NOTE XX ; Start 07/01/18 at 14:30 Miscellaneous Information (Pending Santyl Order For Wound Care) This patient mccloud... PRN PRN XX unstageable sacrococcyx; Start 07/02/18 at 07:00 Midodrine (Proamatine) 7.5 mg Q8 GTB Last administered on 07/04/18at 06:12; Admin Dose 7.5 MG; Start 07/02/18 at 14:00 Ampicillin 50 ml @ 100 mls/hr Q8 IVPB Last administered on 07/04/18at 06:12; Admin Dose 100 MLS/HR; Start 07/02/18 at 16:00 Metronidazole 100 ml @ 100 mls/hr Q8 IVPB Last administered on 07/04/18at 06:13; Admin Dose 100 MLS/HR; Start 07/02/18 at 16:00 Amikacin Sulfate 950 mg/Sodium Chloride 253.8 ml @ 103.8 mls/ hr Q36H IVPB Last administered on 07/03/18at 06:16; Admin Dose 103.8 MLS/HR; Start 07/03/18 at 06:00 Miscellaneous Information (*Rx Drug Level Order Reminder*) AMIKACIN TROUGH 07/04 @ 1,700 ONCE ONCE XX ; Start 07/04/18 at 17:00; Stop 07/04/18 at 17:01 Acetylcysteine (Mucomyst) 3 ml Q6H RESP THERAPY PRN NEB when pt has congestion Last administered on 07/04/18at 03:22; Admin Dose 3 ML; Start 07/03/18 at 21:00 Albuterol/ Ipratropium (Duoneb) 3 ml Q2H RESP THERAPY PRN HHN for congestion Last administered on 07/04/18at 03:22; Admin Dose 3 ML; Start 07/03/18 at 21:00 Magnesium Sulfate 3 gm/Dextrose 106 ml @ 35.333 mls/ hr ONCE ONCE IVPB Last administered on 07/04/18at 06:29; Admin Dose 35.333 MLS/HR; Start 07/04/18 at 07:00; Stop 07/04/18 at 09:59 Allergies: Coded Allergies: No Known Allergy (Unverified , 06/08/18) Past Surgical History Past Surgical Hx: other (See HPI) Social History Alcohol Use: other (Unknown) Smoking Status: Former smoker Drug Use: other (Unknown) Exam/Review of Systems Vital Signs Vitals Vital Signs Date Temp Pulse Resp B/P (MAP) Pulse Ox O2 O2 Flow FiO2 Time Delivery Rate 07/04/18 81 29 102/56 100 06:45 (71) 07/04/18 Mechanical 06:00 Ventilator Trach Collar 07/04/18 40 05:15 07/04/18 98.4 04:00 Intake and Output 07/03/18 07/03/18 07/04/18 1414:59 22:59 06:59 IntakeIntake Total 1158.8 ml 1096.52 ml 1802.53 ml OutputOutput Total 440 ml 500 ml 345 ml BalanceBalance 718.8 ml 596.52 ml 1457.53 ml Exam Constitutional: non-verbal Respiratory: crackles/rales (Unresponsive to any verbal or tactile stimulation sluggish bilateral oculocephalics left upper gaze preference, cannot assess cranial nerves, overbreathing the ventilator), diminished breath sounds Medications Medications Current Medications Acetaminophen (Tylenol Liquid) 650 mg Q6H PRN GTB FEVER; Start 06/28/18 at 00:00 Aspirin (Aspirin) 81 mg DAILY GTB Last administered on 07/03/18 09:08; Admin Dose 81 MG; Start 06/28/18 at 09:00 Atenolol (Tenormin) 12.5 mg BID GTB ; Start 06/28/18 at 09:00 Atorvastatin Calcium (Lipitor) 20 mg HS GTB Last administered on 07/03/18 20:41; Admin Dose 20 MG; Start 06/28/18 at 21:00 Fluconazole (Diflucan) 800 mg DAILY GTB Last administered on 07/03/18 09:08; Admin Dose 800 MG; Start 06/28/18 at 09:00 Gentamicin Sulfate (Gentamicin 0.3% Oph Drop) 2 drop Q4H BOTH EYES Last administered on 07/04/18 05:42; Admin Dose 2 DROP; Start 06/28/18 at 00:00 Glucagon (Glucagen) 1 mg PRN PRN IM HYPOGLYCEMIA (BS<70); Start 06/28/18 at 00:00 Insulin Glargine (Lantus) 10 units DAILY SC Last administered on 07/03/18 09:20; Admin Dose 10 UNITS; Start 06/28/18 at 08:00 Lansoprazole (Prevacid) 30 mg BID@06,18 GTB Last administered on 07/04/18 06:12; Admin Dose 30 MG; Start 06/28/18 at 06:00 Levetiracetam (Keppra Liquid) 1,000 mg BID GTB Last administered on 07/03/18 20:41; Admin Dose 1,000 MG; Start 06/28/18 at 09:00 Memantine (Namenda) 10 mg DAILY GTB Last administered on 07/03/18 09:09; Admin Dose 10 MG; Start 06/28/18 at 09:00 Nystatin (Nystatin Powder) 1 applic BID TOP Last administered on 07/03/18 20:00; Admin Dose 1 APPLIC; Start 06/28/18 at 09:00 Miscellaneous Information 1 ea NOTE XX ; Start 06/28/18 at 01:00 Glucose (Glutose) 15 gm Q15M PRN PO DECREASED GLUCOSE; Start 06/28/18 at 01:00 Glucose (Glutose) 22.5 gm Q15M PRN PO DECREASED GLUCOSE; Start 06/28/18 at 01:00 Dextrose (D50w Syringe) 25 ml Q15M PRN IV DECREASED GLUCOSE; Start 06/28/18 at 01:00 Dextrose (D50w Syringe) 50 ml Q15M PRN IV DECREASED GLUCOSE; Start 06/28/18 at 01:00 Glucagon (Glucagen) 1 mg Q15M PRN IM DECREASED GLUCOSE; Start 06/28/18 at 01:00 Glucose (Glutose) 15 gm Q15M PRN BUCCAL DECREASED GLUCOSE; Start 06/28/18 at 01:00 IV Flush (NS 10 ml) 10 ml PRN PRN IV IV PROTOCOL; Start 06/28/18 at 12:00 Norepinephrine 16 mg/Dextrose 500 ml @ 1.88 mls/hr TITRATE IV Last administered on 07/03/18at 16:15; Admin Dose 16.88 MLS/HR; Start 06/30/18 at 14:00 Collagenase (Santyl) 1 applic BID TOP Last administered on 07/03/18at 20:00; Admin Dose 1 APPLIC; Start 06/30/18 at 15:00 Amikacin Sulfate (Amikacin Iv Per Pharmacy) AMIKACIN PER PHARMACY NOTE XX ; Start 07/01/18 at 14:30 Miscellaneous Information (Pending Santyl Order For Wound Care) This patient mccloud... PRN PRN XX unstageable sacrococcyx; Start 07/02/18 at 07:00 Midodrine (Proamatine) 7.5 mg Q8 GTB Last administered on 07/04/18at 06:12; Admin Dose 7.5 MG; Start 07/02/18 at 14:00 Ampicillin 50 ml @ 100 mls/hr Q8 IVPB Last administered on 07/04/18at 06:12; Admin Dose 100 MLS/HR; Start 07/02/18 at 16:00 Metronidazole 100 ml @ 100 mls/hr Q8 IVPB Last administered on 07/04/18at 06:13; Admin Dose 100 MLS/HR; Start 07/02/18 at 16:00 Amikacin Sulfate 950 mg/Sodium Chloride 253.8 ml @ 103.8 mls/ hr Q36H IVPB Last administered on 07/03/18at 06:16; Admin Dose 103.8 MLS/HR; Start 07/03/18 at 06:00 Miscellaneous Information (*Rx Drug Level Order Reminder*) AMIKACIN TROUGH 07/04 @ 1,700 ONCE ONCE XX ; Start 07/04/18 at 17:00; Stop 07/04/18 at 17:01 Acetylcysteine (Mucomyst) 3 ml Q6H RESP THERAPY PRN NEB when pt has congestion Last administered on 07/04/18at 03:22; Admin Dose 3 ML; Start 07/03/18 at 21:00 Albuterol/ Ipratropium (Duoneb) 3 ml Q2H RESP THERAPY PRN HHN for congestion Last administered on 07/04/18at 03:22; Admin Dose 3 ML; Start 07/03/18 at 21:00 Magnesium Sulfate 3 gm/Dextrose 106 ml @ 35.333 mls/ hr ONCE ONCE IVPB Last administered on 07/04/18at 06:29; Admin Dose 35.333 MLS/HR; Start 07/04/18 at 07:00; Stop 07/04/18 at 09:59 SARANYA BENNETT Jul 04, 2018 07:57
[2018-07-04] MEDS: FLUCONAZOLE 200 MG TAB GTB SCH (08:47)
[2018-07-04] MEDS: ASPIRIN 325 MG TAB GTB SCH (08:47)
[2018-07-04] MEDS: ATENOLOL 25 MG TAB GTB SCH ×2 (08:48→20:38)
[2018-07-04] MEDS: NYSTATIN 30 GM POWDER BTL TOP SCH ×2 (08:48→20:38)
[2018-07-04] MEDS: COLLAGENASE 5 GM (UD JAR) TOP SCH ×2 (08:48→21:16)
[2018-07-04] MEDS: MEMANTINE 10 MG TAB GTB SCH (08:48)
[2018-07-04] MEDS: LEVETIRACETAM (100 MG/ML) 5ML CUP GTB SCH ×2 (08:48→20:37)
[2018-07-04] MEDS: INSULIN GLARGINE [LANTus] (100 UNITS/ML) SYG SC SCH (08:50)
--- NOTE | 2018-07-04 13:45 | CONS ---
Date/Time of Note Date/Time of Note DATE: 07/04/18 TIME: 13:43 Assessment/Plan Assessment/Plan Hospital Course IMPRESSION: 1. Hypotension/shock state, likely septic on 2 pressors 2. Premature ventricular contractions in a pattern of bigeminy. Assess for coronary ischemia, acute coronary syndrome. 3. Dyslipidemia. 4. Peripheral arterial disease, status post lower extremity amputation. 5. Seizure disorder. 6. Anemia. 7. Encephalopathy. 8. History of pulmonary coccidioidomycosis. 9. Chronic respiratory failure, status post tracheostomy. 10. Dysphagia, status post G-tube. REcc: -ICU -WEan pressors as tolerated and will increase midodrine further -Continue abx's and f/u cx data -Continue statin -Continue asa -Hold antihypertensives while on pressors -ongoing family discussion Result Diagram: 07/04/18 0430 07/04/18 0430 Results 24hrs Laboratory Tests Test 07/04/18 04:30 07/04/18 05:00 07/04/18 05:04 07/04/18 08:45 White Blood 14.6 H Count Red Blood Count 3.17 L Hemoglobin 9.1 L Hematocrit 28.1 L Mean Corpuscular 88.6 Volume Mean Corpuscular 28.7 L Hemoglobin Mean Corpuscular 32.4 Hemoglobin [place] nt Red Cell 15.2 H Distribution Width Platelet Count 76 L Mean Platelet 10.6 H Volume Immature 0.800 H Granulocytes % Neutrophils % 82.7 H Lymphocytes % 9.1 L Monocytes % 3.4 Eosinophils % 3.9 Basophils % 0.1 Nucleated Red 0.0 Blood Cells % Immature 0.110 H Granulocytes # Neutrophils # 12.0 H Lymphocytes # 1.3 Monocytes # 0.5 Eosinophils # 0.6 H Basophils # 0.0 Nucleated Red 0.0 Blood Cells # Sodium Level 132 L Potassium Level 3.4 L Chloride Level 101 Carbon Dioxide 21 Level Anion Gap 10 Blood Urea 49 H Nitrogen Creatinine 1.30 H Est Glomerular 56 L Filtrat Rate mL/min Glucose Level 119 # Lactic Acid 3.0 *H Level Calcium Level 8.8 Phosphorus Level 7.2 H Magnesium Level 1.5 L Total Bilirubin 0.8 Direct Bilirubin 0.80 H Indirect 0.0 Bilirubin Aspartate Amino 31 Transf (AST/SGOT ) Alanine 18 Aminotransferase (ALT/SGPT) Alkaline 357 H Phosphatase Total Protein 5.7 L Albumin 1.8 L Globulin 3.90 H Albumin/Globulin 0.46 Ratio Blood Gas Blood arterial Specimen Source Arterial Blood 07/04/2018 4:50:53 Date Drawn AM Arterial Blood 7.327 L pH (Temp corrected) Arterial Blood 39.9 pCO2 (Temp correct) Arterial Blood 53.6 *L pO2 (Temp corrected) Arterial Blood 20.4 L HCO3 Arterial Blood -5.1 L Base Excess Arterial Blood 88.3 L Oxygen Saturatio n Mathieu Test ACCEPTAB Arterial Blood Right Radial Gas Puncture Site Arterial 0.3 Blood Carboxyhem oglobin Arterial Blood 0.4 Methemoglobin Blood Gas A-a O2 113.4 H Differential Oxyhemoglobin 87.7 L Percent Blood Gas 37.0 Temperature Blood Gas 16.0 Respiration Rate Blood Gas Actual 23 Respiration Rate Blood Gas VENT - AC Modality FiO2 30.0 Blood Gas Tidal 500.0 Volume Blood Gas Low 5.0 PEEP Setting Blood Gas J PACOL RN Critical Value Read Back Blood Gas UP Notified Whom Blood Gas 07/04/2018 5:07:34 Notified Time AM Lab Scanned BLOOD TRANSFUSIO Report N Bedside Glucose 135 Consultation Date/Type/Reason Admit Date/Time Jun 27, 2018 at 22:49 Initial Consult Date 06/28/18 Type of Consult cardiology Reason for Consultation hypotension Requesting Provider: ENID SINGH Exam/Review of Systems Vital Signs Vitals Vital Signs Date Temp Pulse Resp B/P (MAP) Pulse Ox O2 O2 Flow FiO2 Time Delivery Rate 07/04/18 85 25 98 30 13:24 07/04/18 95/51 (66) 09:45 07/04/18 Mechanical 09:30 Ventilator 07/04/18 97.7 08:00 Intake and Output 07/03/18 07/03/18 07/04/18 1414:59 22:59 06:59 IntakeIntake Total 1158.8 ml 1096.52 ml 1802.53 ml OutputOutput Total 440 ml 500 ml 345 ml BalanceBalance 718.8 ml 596.52 ml 1457.53 ml Exam Review of Systems: CONSTITUTIONAL: No fevers, chills. PULMONARY: No sob CARDIOVASCULAR: No chest pain/palpitations GASTROINTESTINAL: No nausea/vomiting. GENITOURINARY: No hematuria/dysuria. MUSCULOSKELETAL: No myagias/arthalgias. PSYCHIATRIC: The patient denies depression. NEUROLOGIC: No weakness Constitutional: alert Psych: no complaints Head: normocephalic ENMT: mucosa pink and moist Neck: supple, jvd (9 cm water) Respiratory: diminished breath sounds Cardiovascular: regular rate and rhythm Gastrointestinal: soft, non-tender Musculoskeletal: muscle tone (noormal) Extremities: edema, other (s/p LE amputtaion) Medications Medications Current Medications Acetaminophen (Tylenol Liquid) 650 mg Q6H PRN GTB FEVER; Start 06/28/18 at 00:00 Aspirin (Aspirin) 81 mg DAILY GTB Last administered on 07/04/18 08:47; Admin Dose 81 MG; Start 06/28/18 at 09:00 Atenolol (Tenormin) 12.5 mg BID GTB ; Start 06/28/18 at 09:00 Atorvastatin Calcium (Lipitor) 20 mg HS GTB Last administered on 07/03/18 20:41; Admin Dose 20 MG; Start 06/28/18 at 21:00 Fluconazole (Diflucan) 800 mg DAILY GTB Last administered on 07/04/18 08:47; Admin Dose 800 MG; Start 06/28/18 at 09:00 Gentamicin Sulfate (Gentamicin 0.3% Oph Drop) 2 drop Q4H BOTH EYES Last administered on 07/04/18 12:44; Admin Dose 2 DROP; Start 06/28/18 at 00:00 Glucagon (Glucagen) 1 mg PRN PRN IM HYPOGLYCEMIA (BS<70); Start 06/28/18 at 00:00 Insulin Glargine (Lantus) 10 units DAILY SC Last administered on 07/04/18 08:50; Admin Dose 10 UNITS; Start 06/28/18 at 08:00 Lansoprazole (Prevacid) 30 mg BID@18 GTB Last administered on 07/04/18 06:12; Admin Dose 30 MG; Start 06/28/18 at 06:00 Levetiracetam (Keppra Liquid) 1,000 mg BID GTB Last administered on 07/04/18 08:48; Admin Dose 1,000 MG; Start 06/28/18 at 09:00 Memantine (Namenda) 10 mg DAILY GTB Last administered on 07/04/18 08:48; Admin Dose 10 MG; Start 06/28/18 at 09:00 Nystatin (Nystatin Powder) 1 applic BID TOP Last administered on 07/04/18at 08:48; Admin Dose 1 APPLIC; Start 06/28/18 at 09:00 Miscellaneous Information 1 ea NOTE XX ; Start 06/28/18 at 01:00 Glucose (Glutose) 15 gm Q15M PRN PO DECREASED GLUCOSE; Start 06/28/18 at 01:00 Glucose (Glutose) 22.5 gm Q15M PRN PO DECREASED GLUCOSE; Start 06/28/18 at 01:00 Dextrose (D50w Syringe) 25 ml Q15M PRN IV DECREASED GLUCOSE; Start 06/28/18 at 01:00 Dextrose (D50w Syringe) 50 ml Q15M PRN IV DECREASED GLUCOSE; Start 06/28/18 at 01:00 Glucagon (Glucagen) 1 mg Q15M PRN IM DECREASED GLUCOSE; Start 06/28/18 at 01:00 Glucose (Glutose) 15 gm Q15M PRN BUCCAL DECREASED GLUCOSE; Start 06/28/18 at 01:00 IV Flush (NS 10 ml) 10 ml PRN PRN IV IV PROTOCOL; Start 06/28/18 at 12:00 Norepinephrine 16 mg/Dextrose 500 ml @ 1.88 mls/hr TITRATE IV Last administered on 07/04/18at 13:22; Admin Dose 26.25 MLS/HR; Start 06/30/18 at 14:00 Collagenase (Santyl) 1 applic BID TOP Last administered on 07/04/18at 08:48; Admin Dose 1 APPLIC; Start 06/30/18 at 15:00 Amikacin Sulfate (Amikacin Iv Per Pharmacy) AMIKACIN PER PHARMACY NOTE XX ; Start 07/01/18 at 14:30 Miscellaneous Information (Pending Santyl Order For Wound Care) This patient mccloud... PRN PRN XX unstageable sacrococcyx; Start 07/02/18 at 07:00 Midodrine (Proamatine) 7.5 mg Q8 GTB Last administered on 07/04/18at 06:12; Admin Dose 7.5 MG; Start 07/02/18 at 14:00 Ampicillin 50 ml @ 100 mls/hr Q8 IVPB Last administered on 07/04/18at 06:12; Admin Dose 100 MLS/HR; Start 07/02/18 at 16:00 Metronidazole 100 ml @ 100 mls/hr Q8 IVPB Last administered on 07/04/18at 06:13; Admin Dose 100 MLS/HR; Start 07/02/18 at 16:00 Amikacin Sulfate 950 mg/Sodium Chloride 253.8 ml @ 103.8 mls/ hr Q36H IVPB Last administered on 07/03/18at 06:16; Admin Dose 103.8 MLS/HR; Start 07/03/18 at 06:00 Miscellaneous Information (*Rx Drug Level Order Reminder*) AMIKACIN TROUGH 07/04 @ 1,700 ONCE ONCE XX ; Start 07/04/18 at 17:00; Stop 07/04/18 at 17:01 Acetylcysteine (Mucomyst) 3 ml Q6H RESP THERAPY PRN NEB when pt has congestion Last administered on 07/04/18at 03:22; Admin Dose 3 ML; Start 07/03/18 at 21:00 Albuterol/ Ipratropium (Duoneb) 3 ml Q2H RESP THERAPY PRN HHN for congestion Last administered on 07/04/18at 03:22; Admin Dose 3 ML; Start 07/03/18 at 21:00 ALINE VIDAL Jul 04, 2018 13:45
--- NOTE | 2018-07-04 15:11 | CONS ---
Date/Time of Note Date/Time of Note DATE: 07/04/18 TIME: 15:11 Consult Date/Type/Reason Admit Date/Time Jun 27, 2018 at 22:49 Initial Consult Date 06/28/18 Type of Consultation: Pulm/CCM Requesting Provider: ENID SINGH Subjective Patient remains somnolent on mechanical ventilation still requiring vasopressor support. Objective Vital Signs Date Temp Pulse Resp B/P (MAP) Pulse Ox O2 O2 Flow FiO2 Time Delivery Rate 07/04/18 89 27 97/50 (66) 96 14:15 07/04/18 Mechanical 14:00 Ventilator 07/04/18 30 13:24 07/04/18 97.7 12:00 Intake and Output 07/03/18 07/03/18 07/04/18 1515:00 23:00 07:00 IntakeIntake Total 1055 ml 1123.40 ml 1788.65 ml OutputOutput Total 440 ml 470 ml 320 ml BalanceBalance 615 ml 653.40 ml 1468.65 ml Exam GENERAL: Critically ill-appearing gentleman on mechanical ventilation via tracheostomy VITAL SIGNS: per chart NECK: Supple. No JVD or lymphadenopathy. CARDIAC EXAM: S1, S2. No added sounds or murmurs. CHEST: clear bilaterally, No added sounds, rales or wheezes ABDOMEN: Soft, nontender. No guarding or rebound. EXTREMITIES: No cyanosis, clubbing or edema. NEUROLOGIC: Generalized weakness. No focal deficits. Results/Medications Result Diagram: 07/04/18 0430 07/04/18 1258 Results 24 hrs Laboratory Tests Test 07/04/18 04:30 07/04/18 05:00 07/04/18 05:04 07/04/18 08:45 White Blood 14.6 H Count Red Blood Count 3.17 L Hemoglobin 9.1 L Hematocrit 28.1 L Mean Corpuscular 88.6 Volume Mean Corpuscular 28.7 L Hemoglobin Mean Corpuscular 32.4 Hemoglobin [place] nt Red Cell 15.2 H Distribution Width Platelet Count 76 L Mean Platelet 10.6 H Volume Immature 0.800 H Granulocytes % Neutrophils % 82.7 H Lymphocytes % 9.1 L Monocytes % 3.4 Eosinophils % 3.9 Basophils % 0.1 Nucleated Red 0.0 Blood Cells % Immature 0.110 H Granulocytes # Neutrophils # 12.0 H Lymphocytes # 1.3 Monocytes # 0.5 Eosinophils # 0.6 H Basophils # 0.0 Nucleated Red 0.0 Blood Cells # Sodium Level 132 L Potassium Level 3.4 L Chloride Level 101 Carbon Dioxide 21 Level Anion Gap 10 Blood Urea 49 H Nitrogen Creatinine 1.30 H Est Glomerular 56 L Filtrat Rate mL/min Glucose Level 119 # Lactic Acid 3.0 *H Level Calcium Level 8.8 Phosphorus Level 7.2 H Magnesium Level 1.5 L Total Bilirubin 0.8 Direct Bilirubin 0.80 H Indirect 0.0 Bilirubin Aspartate Amino 31 Transf (AST/SGOT ) Alanine 18 Aminotransferase (ALT/SGPT) Alkaline 357 H Phosphatase Total Protein 5.7 L Albumin 1.8 L Globulin 3.90 H Albumin/Globulin 0.46 Ratio Blood Gas Blood arterial Specimen Source Arterial Blood 07/04/2018 4:50:53 Date Drawn AM Arterial Blood 7.327 L pH (Temp corrected) Arterial Blood 39.9 pCO2 (Temp correct) Arterial Blood 53.6 *L pO2 (Temp corrected) Arterial Blood 20.4 L HCO3 Arterial Blood -5.1 L Base Excess Arterial Blood 88.3 L Oxygen Saturatio n Mathieu Test ACCEPTAB Arterial Blood Right Radial Gas Puncture Site Arterial 0.3 Blood Carboxyhem oglobin Arterial Blood 0.4 Methemoglobin Blood Gas A-a O2 113.4 H Differential Oxyhemoglobin 87.7 L Percent Blood Gas 37.0 Temperature Blood Gas 16.0 Respiration Rate Blood Gas Actual 23 Respiration Rate Blood Gas VENT - AC Modality FiO2 30.0 Blood Gas Tidal 500.0 Volume Blood Gas Low 5.0 PEEP Setting Blood Gas J PACOL RN Critical Value Read Back Blood Gas UP Notified Whom Blood Gas 07/04/2018 5:07:34 Notified Time AM Lab Scanned BLOOD TRANSFUSIO Report N Bedside Glucose 135 Test 07/04/18 12:58 Sodium Level 130 L Potassium Level 4.0 Chloride Level 102 Carbon Dioxide 19 L Level Anion Gap 9 Blood Urea 51 H Nitrogen Creatinine 1.32 H Est Glomerular 55 L Filtrat Rate mL/min Glucose Level 133 Calcium Level 8.8 Magnesium Level 2.1 Medications Current Medications Acetaminophen (Tylenol Liquid) 650 mg Q6H PRN GTB FEVER; Start 06/28/18 at 00:00 Aspirin (Aspirin) 81 mg DAILY GTB Last administered on 07/04/18at 08:47; Admin Dose 81 MG; Start 06/28/18 at 09:00 Atenolol (Tenormin) 12.5 mg BID GTB ; Start 06/28/18 at 09:00 Atorvastatin Calcium (Lipitor) 20 mg HS GTB Last administered on 07/03/18at 20:41; Admin Dose 20 MG; Start 06/28/18 at 21:00 Fluconazole (Diflucan) 800 mg DAILY GTB Last administered on 07/04/18 08:47; Admin Dose 800 MG; Start 06/28/18 at 09:00 Gentamicin Sulfate (Gentamicin 0.3% Oph Drop) 2 drop Q4H BOTH EYES Last administered on 07/04/18at 12:44; Admin Dose 2 DROP; Start 06/28/18 at 00:00 Glucagon (Glucagen) 1 mg PRN PRN IM HYPOGLYCEMIA (BS<70); Start 06/28/18 at 00:00 Insulin Glargine (Lantus) 10 units DAILY SC Last administered on 07/04/18at 08:50; Admin Dose 10 UNITS; Start 06/28/18 at 08:00 Lansoprazole (Prevacid) 30 mg BID@06,18 GTB Last administered on 07/04/18at 06:12; Admin Dose 30 MG; Start 06/28/18 at 06:00 Levetiracetam (Keppra Liquid) 1,000 mg BID GTB Last administered on 07/04/18 08:48; Admin Dose 1,000 MG; Start 06/28/18 at 09:00 Memantine (Namenda) 10 mg DAILY GTB Last administered on 07/04/18 08:48; Admin Dose 10 MG; Start 06/28/18 at 09:00 Nystatin (Nystatin Powder) 1 applic BID TOP Last administered on 07/04/18at 08:48; Admin Dose 1 APPLIC; Start 06/28/18 at 09:00 Miscellaneous Information 1 ea NOTE XX ; Start 06/28/18 at 01:00 Glucose (Glutose) 15 gm Q15M PRN PO DECREASED GLUCOSE; Start 06/28/18 at 01:00 Glucose (Glutose) 22.5 gm Q15M PRN PO DECREASED GLUCOSE; Start 06/28/18 at 01:00 Dextrose (D50w Syringe) 25 ml Q15M PRN IV DECREASED GLUCOSE; Start 06/28/18 at 01:00 Dextrose (D50w Syringe) 50 ml Q15M PRN IV DECREASED GLUCOSE; Start 06/28/18 at 01:00 Glucagon (Glucagen) 1 mg Q15M PRN IM DECREASED GLUCOSE; Start 06/28/18 at 01:00 Glucose (Glutose) 15 gm Q15M PRN BUCCAL DECREASED GLUCOSE; Start 06/28/18 at 01:00 IV Flush (NS 10 ml) 10 ml PRN PRN IV IV PROTOCOL; Start 06/28/18 at 12:00 Norepinephrine 16 mg/Dextrose 500 ml @ 1.88 mls/hr TITRATE IV Last administered on 07/04/18at 13:22; Admin Dose 26.25 MLS/HR; Start 06/30/18 at 14:00 Collagenase (Santyl) 1 applic BID TOP Last administered on 07/04/18at 08:48; Admin Dose 1 APPLIC; Start 06/30/18 at 15:00 Amikacin Sulfate (Amikacin Iv Per Pharmacy) AMIKACIN PER PHARMACY NOTE XX ; Start 07/01/18 at 14:30 Miscellaneous Information (Pending Santyl Order For Wound Care) This patient mccloud... PRN PRN XX unstageable sacrococcyx; Start 07/02/18 at 07:00 Ampicillin 50 ml @ 100 mls/hr Q8 IVPB Last administered on 07/04/18at 14:56; Admin Dose 100 MLS/HR; Start 07/02/18 at 16:00 Metronidazole 100 ml @ 100 mls/hr Q8 IVPB Last administered on 07/04/18at 14:56; Admin Dose 100 MLS/HR; Start 07/02/18 at 16:00 Amikacin Sulfate 950 mg/Sodium Chloride 253.8 ml @ 103.8 mls/ hr Q36H IVPB Last administered on 07/03/18at 06:16; Admin Dose 103.8 MLS/HR; Start 07/03/18 at 06:00 Miscellaneous Information (*Rx Drug Level Order Reminder*) AMIKACIN TROUGH 07/04 @ 1,700 ONCE ONCE XX ; Start 07/04/18 at 17:00; Stop 07/04/18 at 17:01 Acetylcysteine (Mucomyst) 3 ml Q6H RESP THERAPY PRN NEB when pt has congestion Last administered on 07/04/18at 03:22; Admin Dose 3 ML; Start 07/03/18 at 21:00 Albuterol/ Ipratropium (Duoneb) 3 ml Q2H RESP THERAPY PRN HHN for congestion Last administered on 07/04/18at 03:22; Admin Dose 3 ML; Start 07/03/18 at 21:00 Midodrine (Proamatine) 10 mg Q8 GTB Last administered on 07/04/18at 14:56; Admin Dose 10 MG; Start 07/04/18 at 14:00 Assessment/Plan Chief Complaint/Hosp Course IMP: 1. Septic Shock 2. Multifocal Pneumonia 3. 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 Encephalopathy 7. MICHELLE 8. Metabolic Acidosis 9. HypoNa+ improved. RECS: 1. Vent support 2. Abx per ID 3. IV fluids 4. TF as tolerated. 6. Am labs 35 min cc time Overall prognosis very poor. RAFIQ LEGGETT MD, [facility] Jul 04, 2018 15:11
--- NOTE | 2018-07-04 15:22 | PN ---
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 I spoke to daughter yesterday and she is adamant about continuing all aggressive measures. Result Diagram: 07/04/18 0430 07/04/18 1258 Results 24hrs Laboratory Tests Test 07/04/18 04:30 07/04/18 05:00 07/04/18 05:04 07/04/18 08:45 White Blood 14.6 H Count Red Blood Count 3.17 L Hemoglobin 9.1 L Hematocrit 28.1 L Mean Corpuscular 88.6 Volume Mean Corpuscular 28.7 L Hemoglobin Mean Corpuscular 32.4 Hemoglobin [place] nt Red Cell 15.2 H Distribution Width Platelet Count 76 L Mean Platelet 10.6 H Volume Immature 0.800 H Granulocytes % Neutrophils % 82.7 H Lymphocytes % 9.1 L Monocytes % 3.4 Eosinophils % 3.9 Basophils % 0.1 Nucleated Red 0.0 Blood Cells % Immature 0.110 H Granulocytes # Neutrophils # 12.0 H Lymphocytes # 1.3 Monocytes # 0.5 Eosinophils # 0.6 H Basophils # 0.0 Nucleated Red 0.0 Blood Cells # Sodium Level 132 L Potassium Level 3.4 L Chloride Level 101 Carbon Dioxide 21 Level Anion Gap 10 Blood Urea 49 H Nitrogen Creatinine 1.30 H Est Glomerular 56 L Filtrat Rate mL/min Glucose Level 119 # Lactic Acid 3.0 *H Level Calcium Level 8.8 Phosphorus Level 7.2 H Magnesium Level 1.5 L Total Bilirubin 0.8 Direct Bilirubin 0.80 H Indirect 0.0 Bilirubin Aspartate Amino 31 Transf (AST/SGOT ) Alanine 18 Aminotransferase (ALT/SGPT) Alkaline 357 H Phosphatase Total Protein 5.7 L Albumin 1.8 L Globulin 3.90 H Albumin/Globulin 0.46 Ratio Blood Gas Blood arterial Specimen Source Arterial Blood 07/04/2018 4:50:53 Date Drawn AM Arterial Blood 7.327 L pH (Temp corrected) Arterial Blood 39.9 pCO2 (Temp correct) Arterial Blood 53.6 *L pO2 (Temp corrected) Arterial Blood 20.4 L HCO3 Arterial Blood -5.1 L Base Excess Arterial Blood 88.3 L Oxygen Saturatio n Mathieu Test ACCEPTAB Arterial Blood Right Radial Gas Puncture Site Arterial 0.3 Blood Carboxyhem oglobin Arterial Blood 0.4 Methemoglobin Blood Gas A-a O2 113.4 H Differential Oxyhemoglobin 87.7 L Percent Blood Gas 37.0 Temperature Blood Gas 16.0 Respiration Rate Blood Gas Actual 23 Respiration Rate Blood Gas VENT - AC Modality FiO2 30.0 Blood Gas Tidal 500.0 Volume Blood Gas Low 5.0 PEEP Setting Blood Gas J PACOL RN Critical Value Read Back Blood Gas UP Notified Whom Blood Gas 07/04/2018 5:07:34 Notified Time AM Lab Scanned BLOOD TRANSFUSIO Report N Bedside Glucose 135 Test 07/04/18 12:58 Sodium Level 130 L Potassium Level 4.0 Chloride Level 102 Carbon Dioxide 19 L Level Anion Gap 9 Blood Urea 51 H Nitrogen Creatinine 1.32 H Est Glomerular 55 L Filtrat Rate mL/min Glucose Level 133 Calcium Level 8.8 Magnesium Level 2.1 Subjective 24 Hr Interval Summary Free Text/Dictation Still requires high dose vasopressors Exam/Review of Systems Vital Signs Vitals Vital Signs Date Temp Pulse Resp B/P (MAP) Pulse Ox O2 O2 Flow FiO2 Time Delivery Rate 07/04/18 89 27 97/50 (66) 96 14:15 07/04/18 Mechanical 14:00 Ventilator 07/04/18 30 13:24 07/04/18 97.7 12:00 Intake and Output 07/03/18 07/03/18 07/04/18 1515:00 23:00 07:00 IntakeIntake Total 1055 ml 1123.40 ml 1788.65 ml OutputOutput Total 440 ml 470 ml 320 ml BalanceBalance 615 ml 653.40 ml 1468.65 ml Medications Medications Current Medications Acetaminophen (Tylenol Liquid) 650 mg Q6H PRN GTB FEVER; Start 06/28/18 at 00:00 Aspirin (Aspirin) 81 mg DAILY GTB Last administered on 07/04/18 08:47; Admin Dose 81 MG; Start 06/28/18 at 09:00 Atenolol (Tenormin) 12.5 mg BID GTB ; Start 06/28/18 at 09:00 Atorvastatin Calcium (Lipitor) 20 mg HS GTB Last administered on 07/03/18 20:41; Admin Dose 20 MG; Start 06/28/18 at 21:00 Fluconazole (Diflucan) 800 mg DAILY GTB Last administered on 07/04/18 08:47; Admin Dose 800 MG; Start 06/28/18 at 09:00 Gentamicin Sulfate (Gentamicin 0.3% Oph Drop) 2 drop Q4H BOTH EYES Last administered on 07/04/18 12:44; Admin Dose 2 DROP; Start 06/28/18 at 00:00 Glucagon (Glucagen) 1 mg PRN PRN IM HYPOGLYCEMIA (BS<70); Start 06/28/18 at 00: 00 Insulin Glargine (Lantus) 10 units DAILY SC Last administered on 07/04/18 08:50; Admin Dose 10 UNITS; Start 06/28/18 at 08:00 Lansoprazole (Prevacid) 30 mg BID@06,18 GTB Last administered on 07/04/18 06:12; Admin Dose 30 MG; Start 06/28/18 at 06:00 Levetiracetam (Keppra Liquid) 1,000 mg BID GTB Last administered on 07/04/18 08:48; Admin Dose 1,000 MG; Start 06/28/18 at 09:00 Memantine (Namenda) 10 mg DAILY GTB Last administered on 07/04/18 08:48; Admin Dose 10 MG; Start 06/28/18 at 09:00 Nystatin (Nystatin Powder) 1 applic BID TOP Last administered on 07/04/18 08:48; Admin Dose 1 APPLIC; Start 06/28/18 at 09:00 Miscellaneous Information 1 ea NOTE XX ; Start 06/28/18 at 01:00 Glucose (Glutose) 15 gm Q15M PRN PO DECREASED GLUCOSE; Start 06/28/18 at 01:00 Glucose (Glutose) 22.5 gm Q15M PRN PO DECREASED GLUCOSE; Start 06/28/18 at 01:00 Dextrose (D50w Syringe) 25 ml Q15M PRN IV DECREASED GLUCOSE; Start 06/28/18 at 01:00 Dextrose (D50w Syringe) 50 ml Q15M PRN IV DECREASED GLUCOSE; Start 06/28/18 at 01:00 Glucagon (Glucagen) 1 mg Q15M PRN IM DECREASED GLUCOSE; Start 06/28/18 at 01:00 Glucose (Glutose) 15 gm Q15M PRN BUCCAL DECREASED GLUCOSE; Start 06/28/18 at 01:00 IV Flush (NS 10 ml) 10 ml PRN PRN IV IV PROTOCOL; Start 06/28/18 at 12:00 Norepinephrine 16 mg/Dextrose 500 ml @ 1.88 mls/hr TITRATE IV Last administered on 07/04/18at 13:22; Admin Dose 26.25 MLS/HR; Start 06/30/18 at 14:00 Collagenase (Santyl) 1 applic BID TOP Last administered on 07/04/18at 08:48; Admin Dose 1 APPLIC; Start 06/30/18 at 15:00 Amikacin Sulfate (Amikacin Iv Per Pharmacy) AMIKACIN PER PHARMACY NOTE XX ; S tart 07/01/18 at 14:30 Miscellaneous Information (Pending Santyl Order For Wound Care) This patient mccloud ... PRN PRN XX unstageable sacrococcyx; Start 07/02/18 at 07:00 Ampicillin 50 ml @ 100 mls/hr Q8 IVPB Last administered on 07/04/18at 14:56; Admin Dose 100 MLS/HR; Start 07/02/18 at 16:00 Metronidazole 100 ml @ 100 mls/hr Q8 IVPB Last administered on 07/04/18at 14:56; Admin Dose 100 MLS/HR; Start 07/02/18 at 16:00 Amikacin Sulfate 950 mg/Sodium Chloride 253.8 ml @ 103.8 mls/ hr Q36H IVPB Last administered on 07/03/18at 06:16; Admin Dose 103.8 MLS/HR; Start 07/03/18 at 06:00 Miscellaneous Information (*Rx Drug Level Order Reminder*) AMIKACIN TROUGH 07/04 @ 1,700 ONCE ONCE XX ; Start 07/04/18 at 17:00; Stop 07/04/18 at 17:01 Acetylcysteine (Mucomyst) 3 ml Q6H RESP THERAPY PRN NEB when pt has congestion Last administered on 07/04/18 03:22; Admin Dose 3 ML; Start 07/03/18 at 21:00 Albuterol/ Ipratropium (Duoneb) 3 ml Q2H RESP THERAPY PRN HHN for congestion Last administered on 07/04/18 03:22; Admin Dose 3 ML; Start 07/03/18 at 21:00 Midodrine (Proamatine) 10 mg Q8 GTB Last administered on 07/04/18at 14:56; Admin Dose 10 MG; Start 07/04/18 at 14:00 WESLEY ARAYA MD Jul 04, 2018 15:22
--- NOTE | 2018-07-04 15:39 | CONS ---
Date/Time of Note Date/Time of Note DATE: 07/04/18 TIME: 15:38 Assessment/Plan Assessment/Plan Hospital Course No changes patient remains on pressors, unresponsive, in no distress, no fevers overnight WBC 14.6 H&H 9.1 and 28.1 platelets 76 neutrophils 82.7 BUN 51 creatinine 1.32 Antimicrobials: Amikacin, ampicillin IV, Flagyl, fluconazole Indwelling: Trach, PEG, left upper extremity PICC line, right upper extremity midline, right upper abdomen pigtail Physical examination: This is a chronically ill-appearing elderly - [place] man who is noncommunicative in no distress. Head atraumatic normocephalic, sclera nonicteric. Neck is supple, tracheostomy present. Lungs: Breath sounds diminished at bases. Heart S1-S2. Abdomen soft bowel sounds present. Extremities without cyanosis, trace edema Assessment: 1. Severe sepsis with shock 2. Bilateral multifocal pneumonia 3. 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 History of left upper back abscess with repeat CT on June 22 revealed large subcutaneous fluid collection and edema in the lower posterior left neck/u pper chest with questionable osteomyelitis of the scapula. 5. History of acute cholecystitis status post cholecystostomy tube 6. Chronic encephalopathy with a history of CVA 7. Diabetes 8. History of hypertension 9. Acute renal insufficiency 10. Right mastoiditis Plan: Patient remains hemodynamically unstable, prognosis poor, continue antibiotics, patient needs IR guided drainage of left upper back abscess, palliative care evaluation Result Diagram: 07/04/18 0430 07/04/18 1258 Results 24hrs Laboratory Tests Test 07/04/18 04:30 07/04/18 05:00 07/04/18 05:04 07/04/18 08:45 White Blood 14.6 H Count Red Blood Count 3.17 L Hemoglobin 9.1 L Hematocrit 28.1 L Mean Corpuscular 88.6 Volume Mean Corpuscular 28.7 L Hemoglobin Mean Corpuscular 32.4 Hemoglobin [place] nt Red Cell 15.2 H Distribution Width Platelet Count 76 L Mean Platelet 10.6 H Volume Immature 0.800 H Granulocytes % Neutrophils % 82.7 H Lymphocytes % 9.1 L Monocytes % 3.4 Eosinophils % 3.9 Basophils % 0.1 Nucleated Red 0.0 Blood Cells % Immature 0.110 H Granulocytes # Neutrophils # 12.0 H Lymphocytes # 1.3 Monocytes # 0.5 Eosinophils # 0.6 H Basophils # 0.0 Nucleated Red 0.0 Blood Cells # Sodium Level 132 L Potassium Level 3.4 L Chloride Level 101 Carbon Dioxide 21 Level Anion Gap 10 Blood Urea 49 H Nitrogen Creatinine 1.30 H Est Glomerular 56 L Filtrat Rate mL/min Glucose Level 119 # Lactic Acid 3.0 *H Level Calcium Level 8.8 Phosphorus Level 7.2 H Magnesium Level 1.5 L Total Bilirubin 0.8 Direct Bilirubin 0.80 H Indirect 0.0 Bilirubin Aspartate Amino 31 Transf (AST/SGOT ) Alanine 18 Aminotransferase (ALT/SGPT) Alkaline 357 H Phosphatase Total Protein 5.7 L Albumin 1.8 L Globulin 3.90 H Albumin/Globulin 0.46 Ratio Blood Gas Blood arterial Specimen Source Arterial Blood 07/04/2018 4:50:53 Date Drawn AM Arterial Blood 7.327 L pH (Temp corrected) Arterial Blood 39.9 pCO2 (Temp correct) Arterial Blood 53.6 *L pO2 (Temp corrected) Arterial Blood 20.4 L HCO3 Arterial Blood -5.1 L Base Excess Arterial Blood 88.3 L Oxygen Saturatio n Mathieu Test ACCEPTAB Arterial Blood Right Radial Gas Puncture Site Arterial 0.3 Blood Carboxyhem oglobin Arterial Blood 0.4 Methemoglobin Blood Gas A-a O2 113.4 H Differential Oxyhemoglobin 87.7 L Percent Blood Gas 37.0 Temperature Blood Gas 16.0 Respiration Rate Blood Gas Actual 23 Respiration Rate Blood Gas VENT - AC Modality FiO2 30.0 Blood Gas Tidal 500.0 Volume Blood Gas Low 5.0 PEEP Setting Blood Gas J PACOL RN Critical Value Read Back Blood Gas UP Notified Whom Blood Gas 07/04/2018 5:07:34 Notified Time AM Lab Scanned BLOOD TRANSFUSIO Report N Bedside Glucose 135 Test 07/04/18 12:58 Sodium Level 130 L Potassium Level 4.0 Chloride Level 102 Carbon Dioxide 19 L Level Anion Gap 9 Blood Urea 51 H Nitrogen Creatinine 1.32 H Est Glomerular 55 L Filtrat Rate mL/min Glucose Level 133 Calcium Level 8.8 Magnesium Level 2.1 Consultation Date/Type/Reason Admit Date/Time Jun 27, 2018 at 22:49 Initial Consult Date 06/28/18 Type of Consult id Requesting Provider: ENID SINGH Exam/Review of Systems Vital Signs Vitals Vital Signs Date Temp Pulse Resp B/P (MAP) Pulse Ox O2 O2 Flow FiO2 Time Delivery Rate 07/04/18 81 30 94 15:21 07/04/18 97/50 (66) 14:15 07/04/18 Mechanical 14:00 Ventilator 07/04/18 30 13:24 07/04/18 97.7 12:00 Intake and Output 07/03/18 07/03/18 07/04/18 1515:00 23:00 07:00 IntakeIntake Total 1055 ml 1123.40 ml 1788.65 ml OutputOutput Total 440 ml 470 ml 320 ml BalanceBalance 615 ml 653.40 ml 1468.65 ml Medications Medications Current Medications Acetaminophen (Tylenol Liquid) 650 mg Q6H PRN GTB FEVER; Start 06/28/18 at 00:00 Aspirin (Aspirin) 81 mg DAILY GTB Last administered on 07/04/18at 08:47; Admin Dose 81 MG; Start 06/28/18 at 09:00 Atenolol (Tenormin) 12.5 mg BID GTB ; Start 06/28/18 at 09:00 Atorvastatin Calcium (Lipitor) 20 mg HS GTB Last administered on 07/03/18at 20:41; Admin Dose 20 MG; Start 06/28/18 at 21:00 Fluconazole (Diflucan) 800 mg DAILY GTB Last administered on 07/04/18at 08:47; Admin Dose 800 MG; Start 06/28/18 at 09:00 Gentamicin Sulfate (Gentamicin 0.3% Oph Drop) 2 drop Q4H BOTH EYES Last admini stered on 07/04/18at 12:44; Admin Dose 2 DROP; Start 06/28/18 at 00:00 Glucagon (Glucagen) 1 mg PRN PRN IM HYPOGLYCEMIA (BS<70); Start 06/28/18 at 00:00 Insulin Glargine (Lantus) 10 units DAILY SC Last administered on 07/04/18at 08:50; Admin Dose 10 UNITS; Start 06/28/18 at 08:00 Lansoprazole (Prevacid) 30 mg BID@18 GTB Last administered on 07/04/18at 06:12; Admin Dose 30 MG; Start 06/28/18 at 06:00 Levetiracetam (Keppra Liquid) 1,000 mg BID GTB Last administered on 07/04/18at 08:48; Admin Dose 1,000 MG; Start 06/28/18 at 09:00 Memantine (Namenda) 10 mg DAILY GTB Last administered on 07/04/18at 08:48; Admin Dose 10 MG; Start 06/28/18 at 09:00 Nystatin (Nystatin Powder) 1 applic BID TOP Last administered on 07/04/18at 08:48; Admin Dose 1 APPLIC; Start 06/28/18 at 09:00 Miscellaneous Information 1 ea NOTE XX ; Start 06/28/18 at 01:00 Glucose (Glutose) 15 gm Q15M PRN PO DECREASED GLUCOSE; Start 06/28/18 at 01:00 Glucose (Glutose) 22.5 gm Q15M PRN PO DECREASED GLUCOSE; Start 06/28/18 at 01:00 Dextrose (D50w Syringe) 25 ml Q15M PRN IV DECREASED GLUCOSE; Start 06/28/18 at 01:00 Dextrose (D50w Syringe) 50 ml Q15M PRN IV DECREASED GLUCOSE; Start 06/28/18 at 01:00 Glucagon (Glucagen) 1 mg Q15M PRN IM DECREASED GLUCOSE; Start 06/28/18 at 01:00 Glucose (Glutose) 15 gm Q15M PRN BUCCAL DECREASED GLUCOSE; Start 06/28/18 at 01:00 IV Flush (NS 10 ml) 10 ml PRN PRN IV IV PROTOCOL; Start 06/28/18 at 12:00 Norepinephrine 16 mg/Dextrose 500 ml @ 1.88 mls/hr TITRATE IV Last administered on 07/04/18at 13:22; Admin Dose 26.25 MLS/HR; Start 06/30/18 at 14:00 Collagenase (Santyl) 1 applic BID TOP Last administered on 07/04/18at 08:48; Admin Dose 1 APPLIC; Start 06/30/18 at 15:00 Amikacin Sulfate (Amikacin Iv Per Pharmacy) AMIKACIN PER PHARMACY NOTE XX ; Start 07/01/18 at 14:30 Miscellaneous Information (Pending Santyl Order For Wound Care) This patient mccloud... PRN PRN XX unstageable sacrococcyx; Start 07/02/18 at 07:00 Ampicillin 50 ml @ 100 mls/hr Q8 IVPB Last administered on 07/04/18at 14:56; Admin Dose 100 MLS/HR; Start 07/02/18 at 16:00 Metronidazole 100 ml @ 100 mls/hr Q8 IVPB Last administered on 07/04/18 14:56; Admin Dose 100 MLS/HR; Start 07/02/18 at 16:00 Amikacin Sulfate 950 mg/Sodium Chloride 253.8 ml @ 103.8 mls/ hr Q36H IVPB Last administered on 07/03/18 06:16; Admin Dose 103.8 MLS/HR; Start 07/03/18 at 06:00 Miscellaneous Information (*Rx Drug Level Order Reminder*) AMIKACIN TROUGH 07/04 @ 1,700 ONCE ONCE XX ; Start 07/04/18 at 17:00; Stop 07/04/18 at 17:01 Acetylcysteine (Mucomyst) 3 ml Q6H RESP THERAPY PRN NEB when pt has congestion Last administered on 07/04/18 03:22; Admin Dose 3 ML; Start 07/03/18 at 21:00 Albuterol/ Ipratropium (Duoneb) 3 ml Q2H RESP THERAPY PRN HHN for congestion Last administered on 07/04/18 03:22; Admin Dose 3 ML; Start 07/03/18 at 21:00 Midodrine (Proamatine) 10 mg Q8 GTB Last administered on 07/04/18 14:56; Admin Dose 10 MG; Start 07/04/18 at 14:00 SUSY WOLFE NP Jul 04, 2018 15:39
[2018-07-04] MEDS: SOD CHLORIDE 0.9% IVPB SCH (17:58)
[2018-07-04] MEDS: AMIKACIN IVPB SCH (17:58)
[2018-07-04] MEDS: ATORVASTATIN 20 MG TAB GTB SCH (20:37)
[2018-07-05] VITALS (101 sets, daily range): BP systolic 85–122; BP diastolic 28–79; PULSE 65–91; RESP 0–34
[2018-07-05] MEDS: GENTAMICIN 0.3% 5 ML OPH BOTH EYES SCH ×7 (00:46→23:08)
[2018-07-05] MEDS: LANSOPRAZOLE 30 MG CAP GTB SCH ×2 (05:55→17:07)
[2018-07-05] MEDS: AMPICILLIN 1 GM/NS (PMX) 50 ML IVPB SCH ×3 (05:55→21:03)
[2018-07-05] MEDS: metroNIDAZOLE 500 MG/NS (PMX) 100 ML IVPB SCH ×3 (05:55→21:03)
[2018-07-05] MEDS: MIDODRINE 5 MG TAB GTB SCH ×3 (05:55→21:03)
[2018-07-05] MEDS: ATENOLOL 25 MG TAB GTB SCH ×2 (09:00→20:49)
[2018-07-05] MEDS: LEVETIRACETAM (100 MG/ML) 5ML CUP GTB SCH ×2 (09:47→20:48)
[2018-07-05] MEDS: ASPIRIN 325 MG TAB GTB SCH (09:47)
[2018-07-05] MEDS: FLUCONAZOLE 200 MG TAB GTB SCH (09:47)
[2018-07-05] MEDS: MEMANTINE 10 MG TAB GTB SCH (09:48)
[2018-07-05] MEDS: NYSTATIN 30 GM POWDER BTL TOP SCH ×2 (09:49→20:48)
[2018-07-05] MEDS: INSULIN GLARGINE [LANTus] (100 UNITS/ML) SYG SC SCH (10:01)
--- NOTE | 2018-07-05 10:37 | CONS ---
Date/Time of Note Date/Time of Note DATE: 07/05/18 TIME: 10:36 Consult Date/Type/Reason Admit Date/Time Jun 27, 2018 at 22:49 Initial Consult Date 06/28/18 Type of Consultation: Pulm/CCM Requesting Provider: ENID SINGH Subjective No changes Continues pressors. Objective Vital Signs Date Temp Pulse Resp B/P (MAP) Pulse Ox O2 O2 Flow FiO2 Time Delivery Rate 07/05/18 78 08:00 07/05/18 22 99 30 06:29 07/05/18 102/61 06:15 (75) 07/05/18 Mechanical 06:00 Ventilator Trach Collar 07/05/18 97.4 04:00 Intake and Output 07/04/18 07/04/18 07/05/18 1515:00 23:00 07:00 IntakeIntake Total 896.95 ml 1565.8 ml 627.5 ml OutputOutput Total 240 ml 520 ml 375 ml BalanceBalance 656.95 ml 1045.8 ml 252.5 ml Exam GENERAL: Critically ill-appearing gentleman on mechanical ventilation via tracheostomy VITAL SIGNS: per chart NECK: Supple. No JVD or lymphadenopathy. CARDIAC EXAM: S1, S2. No added sounds or murmurs. CHEST: clear bilaterally, No added sounds, rales or wheezes ABDOMEN: Soft, nontender. No guarding or rebound. EXTREMITIES: No cyanosis, clubbing or edema. NEUROLOGIC: Generalized weakness. No focal deficits. Results/Medications Result Diagram: 07/05/18 0430 07/05/18 0430 Results 24 hrs Laboratory Tests Test 07/04/18 12:58 07/04/18 16:53 07/05/18 04:30 Sodium Level 130 L 134 L Potassium Level 4.0 3.8 Chloride Level 102 101 Carbon Dioxide Level 19 L 20 L Anion Gap 9 13 Blood Urea Nitrogen 51 H 53 H Creatinine 1.32 H 1.37 H Est Glomerular Filtrat Rate mL/min 55 L 52 L Glucose Level 133 106 Calcium Level 8.8 9.0 Magnesium Level 2.1 2.0 Amikacin Level Trough 17.1 H White Blood Count 14.2 H Red Blood Count 3.05 L Hemoglobin 8.9 L Hematocrit 26.9 L Mean Corpuscular Volume 88.2 Mean Corpuscular Hemoglobin 29.2 Mean Corpuscular Hemoglobin Concent 33.1 Red Cell Distribution Width 15.4 H Platelet Count 73 L Mean Platelet Volume 10.3 Immature Granulocytes % 1.100 H Neutrophils % 81.4 H Lymphocytes % 8.4 L Monocytes % 4.2 Eosinophils % 4.7 Basophils % 0.2 Nucleated Red Blood Cells % 0.0 Immature Granulocytes # 0.160 H Neutrophils # 11.5 H Lymphocytes # 1.2 Monocytes # 0.6 Eosinophils # 0.7 H Basophils # 0.0 Nucleated Red Blood Cells # 0.0 Medications Current Medications Acetaminophen (Tylenol Liquid) 650 mg Q6H PRN GTB FEVER; Start 06/28/18 at 00:00 Aspirin (Aspirin) 81 mg DAILY GTB Last administered on 07/05/18 09:47; Admin Dose 81 MG; Start 06/28/18 at 09:00 Atenolol (Tenormin) 12.5 mg BID GTB ; Start 06/28/18 at 09:00 Atorvastatin Calcium (Lipitor) 20 mg HS GTB Last administered on 07/04/18 20:37; Admin Dose 20 MG; Start 06/28/18 at 21:00 Fluconazole (Diflucan) 800 mg DAILY GTB Last administered on 07/05/18 09:47; Admin Dose 800 MG; Start 06/28/18 at 09:00 Gentamicin Sulfate (Gentamicin 0.3% Oph Drop) 2 drop Q4H BOTH EYES Last administered on 07/05/18 09:48; Admin Dose 2 DROP; Start 06/28/18 at 00:00 Glucagon (Glucagen) 1 mg PRN PRN IM HYPOGLYCEMIA (BS<70); Start 06/28/18 at 00:00 Insulin Glargine (Lantus) 10 units DAILY SC Last administered on 07/05/18 10 :01; Admin Dose 10 UNITS; Start 06/28/18 at 08:00 Lansoprazole (Prevacid) 30 mg BID@,18 GTB Last administered on 07/05/18 05:55; Admin Dose 30 MG; Start 06/28/18 at 06:00 Levetiracetam (Keppra Liquid) 1,000 mg BID GTB Last administered on 07/05/18 09:47; Admin Dose 1,000 MG; Start 06/28/18 at 09:00 Memantine (Namenda) 10 mg DAILY GTB Last administered on 07/05/18at 09:48; Admin Dose 10 MG; Start 06/28/18 at 09:00 Nystatin (Nystatin Powder) 1 applic BID TOP Last administered on 07/05/18at 09:49; Admin Dose 1 APPLIC; Start 06/28/18 at 09:00 Miscellaneous Information 1 ea NOTE XX ; Start 06/28/18 at 01:00 Glucose (Glutose) 15 gm Q15M PRN PO DECREASED GLUCOSE; Start 06/28/18 at 01:00 Glucose (Glutose) 22.5 gm Q15M PRN PO DECREASED GLUCOSE; Start 06/28/18 at 01:00 Dextrose (D50w Syringe) 25 ml Q15M PRN IV DECREASED GLUCOSE; Start 06/28/18 at 01:00 Dextrose (D50w Syringe) 50 ml Q15M PRN IV DECREASED GLUCOSE; Start 06/28/18 at 01:00 Glucagon (Glucagen) 1 mg Q15M PRN IM DECREASED GLUCOSE; Start 06/28/18 at 01:00 Glucose (Glutose) 15 gm Q15M PRN BUCCAL DECREASED GLUCOSE; Start 06/28/18 at 01: 00 IV Flush (NS 10 ml) 10 ml PRN PRN IV IV PROTOCOL; Start 06/28/18 at 12:00 Norepinephrine 16 mg/Dextrose 500 ml @ 1.88 mls/hr TITRATE IV Last administered on 07/04/18at 13:22; Admin Dose 26.25 MLS/HR; Start 06/30/18 at 14:00 Collagenase (Santyl) 1 applic BID TOP Last administered on 07/04/18at 21:16; Admin Dose 1 APPLIC; Start 06/30/18 at 15:00 Amikacin Sulfate (Amikacin Iv Per Pharmacy) AMIKACIN PER PHARMACY NOTE XX ; Start 07/01/18 at 14:30 Miscellaneous Information (Pending Santyl Order For Wound Care) This patient mccloud... PRN PRN XX unstageable sacrococcyx; Start 07/02/18 at 07:00 Ampicillin 50 ml @ 100 mls/hr Q8 IVPB Last administered on 07/05/18at 05:55; Admin Dose 100 MLS/HR; Start 07/02/18 at 16:00 Metronidazole 100 ml @ 100 mls/hr Q8 IVPB Last administered on 07/05/18 05:55; Admin Dose 100 MLS/HR; Start 07/02/18 at 16:00 Amikacin Sulfate 950 mg/Sodium Chloride 253.8 ml @ 103.8 mls/ hr Q36H IVPB Last administered on 07/04/18 17:58; Admin Dose 103.8 MLS/HR; Start 07/03/18 at 06:00; Status Hold Acetylcysteine (Mucomyst) 3 ml Q6H RESP THERAPY PRN NEB when pt has congestion Last administered on 07/04/18 03:22; Admin Dose 3 ML; Start 07/03/18 at 21:00 Albuterol/ Ipratropium (Duoneb) 3 ml Q2H RESP THERAPY PRN HHN for congestion Last administered on 07/04/18 03:22; Admin Dose 3 ML; Start 07/03/18 at 21:00 Midodrine (Proamatine) 10 mg Q8 GTB Last administered on 07/05/18 05:55; Admin Dose 10 MG; Start 07/04/18 at 14:00 Assessment/Plan Chief Complaint/Hosp Course IMP: 1. Septic Shock 2. Multifocal Pneumonia 3. 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 Encephalopathy 7. MICHELLE 8. Metabolic Acidosis 9. HypoNa+ improved. RECS: 1. Vent support 2. Abx per ID 3. IV fluids 4. TF as tolerated. Family wish to continue all aggressive measures. 35 min cc time Overall prognosis very poor. RAFIQ LEGGETT MD, [facility] Jul 05, 2018 10:37
[2018-07-05] MEDS: COLLAGENASE 5 GM (UD JAR) TOP SCH ×2 (11:24→20:48)
--- NOTE | 2018-07-05 12:49 | CONS ---
Date/Time of Note Date/Time of Note DATE: 07/05/18 TIME: 12:47 Assessment/Plan Assessment/Plan Hospital Course IMPRESSION: 1. Hypotension/shock state, likely septic on 2 pressors 2. Premature ventricular contractions in a pattern of bigeminy. Assess for coronary ischemia, acute coronary syndrome. 3. Dyslipidemia. 4. Peripheral arterial disease, status post lower extremity amputation. 5. Seizure disorder. 6. Anemia. 7. Encephalopathy. 8. History of pulmonary coccidioidomycosis. 9. Chronic respiratory failure, status post tracheostomy. 10. Dysphagia, status post G-tube. REcc: -ICU -WEan pressors as tolerated and continue midodrine -Continue abx's and f/u cx data -Continue statin -Continue asa -Hold antihypertensives while on pressors -ongoing family discussion Result Diagram: 07/05/18 0430 07/05/18 043 Results 24hrs Laboratory Tests Test 07/04/18 12:58 07/04/18 16:53 07/05/18 04:30 07/05/18 12:19 Sodium Level 130 L 134 L Potassium Level 4.0 3.8 Chloride Level 102 101 Carbon Dioxide Level 19 L 20 L Anion Gap 9 13 Blood Urea Nitrogen 51 H 53 H Creatinine 1.32 H 1.37 H Est Glomerular 55 L 52 L Filtrat Rate mL/min Glucose Level 133 106 Calcium Level 8.8 9.0 Magnesium Level 2.1 2.0 Amikacin Level 17.1 H Trough White Blood Count 14.2 H Red Blood Count 3.05 L Hemoglobin 8.9 L Hematocrit 26.9 L Mean Corpuscular 88.2 Volume Mean Corpuscular 29.2 Hemoglobin Mean Corpuscular 33.1 Hemoglobin Concent Red Cell 15.4 H Distribution Width Platelet Count 73 L Mean Platelet Volume 10.3 Immature 1.100 H Granulocytes % Neutrophils % 81.4 H Lymphocytes % 8.4 L Monocytes % 4.2 Eosinophils % 4.7 Basophils % 0.2 Nucleated Red Blood 0.0 Cells % Immature 0.160 H Granulocytes # Neutrophils # 11.5 H Lymphocytes # 1.2 Monocytes # 0.6 Eosinophils # 0.7 H Basophils # 0.0 Nucleated Red Blood 0.0 Cells # Lab Scanned Report REFERENCE LAB Consultation Date/Type/Reason Admit Date/Time Jun 27, 2018 at 22:49 Initial Consult Date 06/28/18 Type of Consult cardiology Reason for Consultation hypotension Requesting Provider: ENID SINGH Exam/Review of Systems Vital Signs Vitals Vital Signs Date Temp Pulse Resp B/P (MAP) Pulse Ox O2 O2 Flow FiO2 Time Delivery Rate 07/05/18 30 08:00 07/05/18 78 08:00 07/05/18 22 99 06:29 07/05/18 102/61 06:15 (75) 07/05/18 Mechanical 06:00 Ventilator Trach Collar 07/05/18 97.4 04:00 Intake and Output 07/04/18 07/04/18 07/05/18 1515:00 23:00 07:00 IntakeIntake Total 896.95 ml 1565.8 ml 710.0 ml OutputOutput Total 240 ml 520 ml 375 ml BalanceBalance 656.95 ml 1045.8 ml 335.0 ml Exam Review of Systems: CONSTITUTIONAL: No fevers, chills. PULMONARY: No sob CARDIOVASCULAR: No chest pain/palpitations GASTROINTESTINAL: No nausea/vomiting. GENITOURINARY: No hematuria/dysuria. MUSCULOSKELETAL: No myagias/arthalgias. PSYCHIATRIC: The patient denies depression. NEUROLOGIC: No weakness Constitutional: other (encephalopathic) Psych: no complaints Head: normocephalic ENMT: mucosa pink and moist Neck: supple, jvd (9 cm water) Respiratory: diminished breath sounds Cardiovascular: regular rate and rhythm Gastrointestinal: soft, non-tender Musculoskeletal: muscle tone (normal) Extremities: pitting pedal edema (trace), other (LE amputtaion) Neurological: confused Medications Medications Current Medications Acetaminophen (Tylenol Liquid) 650 mg Q6H PRN GTB FEVER; Start 06/28/18 at 00:00 Aspirin (Aspirin) 81 mg DAILY GTB Last administered on 07/05/18at 09:47; Admin Dose 81 MG; Start 06/28/18 at 09:00 Atenolol (Tenormin) 12.5 mg BID GTB ; Start 06/28/18 at 09:00 Atorvastatin Calcium (Lipitor) 20 mg HS GTB Last administered on 07/04/18at 20:37; Admin Dose 20 MG; Start 06/28/18 at 21:00 Fluconazole (Diflucan) 800 mg DAILY GTB Last administered on 07/05/18at 09:47; Admin Dose 800 MG; Start 06/28/18 at 09:00 Gentamicin Sulfate (Gentamicin 0.3% Oph Drop) 2 drop Q4H BOTH EYES Last administered on 07/05/18at 11:24; Admin Dose 2 DROP; Start 06/28/18 at 00:00 Glucagon (Glucagen) 1 mg PRN PRN IM HYPOGLYCEMIA (BS<70); Start 06/28/18 at 00:00 Insulin Glargine (Lantus) 10 units DAILY SC Last administered on 07/05/18at 10:01; Admin Dose 10 UNITS; Start 06/28/18 at 08:00 Lansoprazole (Prevacid) 30 mg BID@06,18 GTB Last administered on 07/05/18at 05:55; Admin Dose 30 MG; Start 06/28/18 at 06:00 Levetiracetam (Keppra Liquid) 1,000 mg BID GTB Last administered on 07/05/18at 09:47; Admin Dose 1,000 MG; Start 06/28/18 at 09:00 Memantine (Namenda) 10 mg DAILY GTB Last administered on 07/05/18at 09:48; Admin Dose 10 MG; Start 06/28/18 at 09:00 Nystatin (Nystatin Powder) 1 applic BID TOP Last administered on 07/05/18at 09:49; Admin Dose 1 APPLIC; Start 06/28/18 at 09:00 Miscellaneous Information 1 ea NOTE XX ; Start 06/28/18 at 01:00 Glucose (Glutose) 15 gm Q15M PRN PO DECREASED GLUCOSE; Start 06/28/18 at 01:00 Glucose (Glutose) 22.5 gm Q15M PRN PO DECREASED GLUCOSE; Start 06/28/18 at 01:00 Dextrose (D50w Syringe) 25 ml Q15M PRN IV DECREASED GLUCOSE; Start 06/28/18 at 01:00 Dextrose (D50w Syringe) 50 ml Q15M PRN IV DECREASED GLUCOSE; Start 06/28/18 at 01:00 Glucagon (Glucagen) 1 mg Q15M PRN IM DECREASED GLUCOSE; Start 06/28/18 at 01:00 Glucose (Glutose) 15 gm Q15M PRN BUCCAL DECREASED GLUCOSE; Start 06/28/18 at 01:00 IV Flush (NS 10 ml) 10 ml PRN PRN IV IV PROTOCOL; Start 06/28/18 at 12:00 Norepinephrine 16 mg/Dextrose 500 ml @ 1.88 mls/hr TITRATE IV Last administered on 07/05/18 11:36; Admin Dose 22.5 MLS/HR; Start 06/30/18 at 14:00 Collagenase (Santyl) 1 applic BID TOP Last administered on 07/05/18 11:24; Admin Dose 1 APPLIC; Start 06/30/18 at 15:00 Amikacin Sulfate (Amikacin Iv Per Pharmacy) AMIKACIN PER PHARMACY NOTE XX ; Start 07/01/18 at 14:30 Miscellaneous Information (Pending Santyl Order For Wound Care) This patient mccloud... PRN PRN XX unstageable sacrococcyx; Start 07/02/18 at 07:00 Ampicillin 50 ml @ 100 mls/hr Q8 IVPB Last administered on 07/05/18 05:55; Admin Dose 100 MLS/HR; Start 07/02/18 at 16:00 Metronidazole 100 ml @ 100 mls/hr Q8 IVPB Last administered on 07/05/18 05:55; Admin Dose 100 MLS/HR; Start 07/02/18 at 16:00 Amikacin Sulfate 950 mg/Sodium Chloride 253.8 ml @ 103.8 mls/ hr Q36H IVPB Last administered on 07/04/18 17:58; Admin Dose 103.8 MLS/HR; Start 07/03/18 at 06:00; Status Hold Acetylcysteine (Mucomyst) 3 ml Q6H RESP THERAPY PRN NEB when pt has congestion Last administered on 07/04/18 03:22; Admin Dose 3 ML; Start 07/03/18 at 21:00 Albuterol/ Ipratropium (Duoneb) 3 ml Q2H RESP THERAPY PRN HHN for congestion Last administered on 07/04/18 03:22; Admin Dose 3 ML; Start 07/03/18 at 21:00 Midodrine (Proamatine) 10 mg Q8 GTB Last administered on 07/05/18 05:55; Admin Dose 10 MG; Start 07/04/18 at 14:00 ALINE VIDAL Jul 05, 2018 12:49
--- NOTE | 2018-07-05 14:52 | CONS ---
Date/Time of Note Date/Time of Note DATE: 07/05/18 TIME: 14:51 Assessment/Plan Assessment/Plan Hospital Course No changes, patient remains on pressors, unresponsive, in no distress, no fevers overnight Antimicrobials: Amikacin, ampicillin IV, Flagyl, fluconazole Indwelling: Trach, PEG, left upper extremity PICC line, right upper extremity midline, right upper abdomen pigtail Physical examination: This is a chronically ill-appearing elderly - [place] man who is noncommunicative in no distress. Head atraumatic normocephalic, sclera nonicteric. Neck is supple, tracheostomy present. Lungs: Breath sounds diminished at bases. Heart S1-S2. Abdomen soft bowel sounds present. Extremities without cyanosis, trace edema Assessment: 1. Severe sepsis with shock 2. Bilateral multifocal pneumonia 3. 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 History of left upper back abscess with repeat CT on June 22 revealed large subcutaneous fluid collection and edema in the lower posterior left neck/upper chest with questionable osteomyelitis of the scapula. 5. History of acute cholecystitis status post cholecystostomy tube 6. Chronic encephalopathy with a history of CVA 7. Diabetes 8. History of hypertension 9. Acute renal insufficiency 10. Right mastoiditis Plan: Patient remains unchanged, hemodynamically unstable, continue antibiotics, patient needs IR guided drainage of left upper back abscess, ongoing palliative care evaluation Result Diagram: 07/05/18 0430 07/05/18 0430 Results 24hrs Laboratory Tests Test 07/04/18 16:53 07/05/18 04:30 07/05/18 12:19 07/05/18 12:51 Amikacin Level 17.1 H Trough White Blood Count 14.2 H Red Blood Count 3.05 L Hemoglobin 8.9 L Hematocrit 26.9 L Mean Corpuscular 88.2 Volume Mean Corpuscular 29.2 Hemoglobin Mean Corpuscular 33.1 Hemoglobin Concen t Red Cell 15.4 H Distribution Width Platelet Count 73 L Mean Platelet 10.3 Volume Immature 1.100 H Granulocytes % Neutrophils % 81.4 H Lymphocytes % 8.4 L Monocytes % 4.2 Eosinophils % 4.7 Basophils % 0.2 Nucleated Red 0.0 Blood Cells % Immature 0.160 H Granulocytes # Neutrophils # 11.5 H Lymphocytes # 1.2 Monocytes # 0.6 Eosinophils # 0.7 H Basophils # 0.0 Nucleated Red 0.0 Blood Cells # Sodium Level 134 L Potassium Level 3.8 Chloride Level 101 Carbon Dioxide 20 L Level Anion Gap 13 Blood Urea 53 H Nitrogen Creatinine 1.37 H Est Glomerular 52 L Filtrat Rate mL/min Glucose Level 106 Calcium Level 9.0 Magnesium Level 2.0 Lab Scanned REFERENCE LAB REFERENCE LAB Report Consultation Date/Type/Reason Admit Date/Time Jun 27, 2018 at 22:49 Initial Consult Date 06/28/18 Type of Consult id Requesting Provider: ENID SINGH Exam/Review of Systems Vital Signs Vitals Vital Signs Date Temp Pulse Resp B/P (MAP) Pulse Ox O2 O2 Flow FiO2 Time Delivery Rate 07/05/18 68 22 97 30 12:20 07/05/18 102/61 06:15 (75) 07/05/18 Mechanical 06:00 Ventilator Trach Collar 07/05/18 97.4 04:00 Intake and Output 07/04/18 07/04/18 07/05/18 1414:59 22:59 06:59 IntakeIntake Total 985.95 ml 1567.3 ml 710.0 ml OutputOutput Total 240 ml 500 ml 425 ml BalanceBalance 745.95 ml 1067.3 ml 285.0 ml Medications Medications Current Medications Acetaminophen (Tylenol Liquid) 650 mg Q6H PRN GTB FEVER; Start 06/28/18 at 00:00 Aspirin (Aspirin) 81 mg DAILY GTB Last administered on 07/05/18at 09:47; Admin Dose 81 MG; Start 06/28/18 at 09:00 Atenolol (Tenormin) 12.5 mg BID GTB ; Start 06/28/18 at 09:00 Atorvastatin Calcium (Lipitor) 20 mg HS GTB Last administered on 07/04/18at 20:37; Admin Dose 20 MG; Start 06/28/18 at 21:00 Fluconazole (Diflucan) 800 mg DAILY GTB Last administered on 07/05/18at 09:47; Admin Dose 800 MG; Start 06/28/18 at 09:00 Gentamicin Sulfate (Gentamicin 0.3% Oph Drop) 2 drop Q4H BOTH EYES Last admi nistered on 07/05/18at 11:24; Admin Dose 2 DROP; Start 06/28/18 at 00:00 Glucagon (Glucagen) 1 mg PRN PRN IM HYPOGLYCEMIA (BS<70); Start 06/28/18 at 00:00 Insulin Glargine (Lantus) 10 units DAILY SC Last administered on 07/05/18at 10:01; Admin Dose 10 UNITS; Start 06/28/18 at 08:00 Lansoprazole (Prevacid) 30 mg BID@,18 GTB Last administered on 07/05/18at 05:55; Admin Dose 30 MG; Start 06/28/18 at 06:00 Levetiracetam (Keppra Liquid) 1,000 mg BID GTB Last administered on 07/05/18at 09:47; Admin Dose 1,000 MG; Start 06/28/18 at 09:00 Memantine (Namenda) 10 mg DAILY GTB Last administered on 07/05/18at 09:48; Admin Dose 10 MG; Start 06/28/18 at 09:00 Nystatin (Nystatin Powder) 1 applic BID TOP Last administered on 07/05/18at 09:49; Admin Dose 1 APPLIC; Start 06/28/18 at 09:00 Miscellaneous Information 1 ea NOTE XX ; Start 06/28/18 at 01:00 Glucose (Glutose) 15 gm Q15M PRN PO DECREASED GLUCOSE; Start 06/28/18 at 01:00 Glucose (Glutose) 22.5 gm Q15M PRN PO DECREASED GLUCOSE; Start 06/28/18 at 01:00 Dextrose (D50w Syringe) 25 ml Q15M PRN IV DECREASED GLUCOSE; Start 06/28/18 at 01:00 Dextrose (D50w Syringe) 50 ml Q15M PRN IV DECREASED GLUCOSE; Start 06/28/18 at 01:00 Glucagon (Glucagen) 1 mg Q15M PRN IM DECREASED GLUCOSE; Start 06/28/18 at 01:00 Glucose (Glutose) 15 gm Q15M PRN BUCCAL DECREASED GLUCOSE; Start 06/28/18 at 01:00 IV Flush (NS 10 ml) 10 ml PRN PRN IV IV PROTOCOL; Start 06/28/18 at 12:00 Norepinephrine 16 mg/Dextrose 500 ml @ 1.88 mls/hr TITRATE IV Last administered on 07/05/18at 11:36; Admin Dose 22.5 MLS/HR; Start 06/30/18 at 14:00 Collagenase (Santyl) 1 applic BID TOP Last administered on 07/05/18 11:24; Admin Dose 1 APPLIC; Start 06/30/18 at 15:00 Amikacin Sulfate (Amikacin Iv Per Pharmacy) AMIKACIN PER PHARMACY NOTE XX ; Start 07/01/18 at 14:30 Miscellaneous Information (Pending Santyl Order For Wound Care) This patient mccloud... PRN PRN XX unstageable sacrococcyx; Start 07/02/18 at 07:00 Ampicillin 50 ml @ 100 mls/hr Q8 IVPB Last administered on 07/05/18 05:55; Ad min Dose 100 MLS/HR; Start 07/02/18 at 16:00 Metronidazole 100 ml @ 100 mls/hr Q8 IVPB Last administered on 07/05/18 05:55; Admin Dose 100 MLS/HR; Start 07/02/18 at 16:00 Amikacin Sulfate 950 mg/Sodium Chloride 253.8 ml @ 103.8 mls/ hr Q36H IVPB Last administered on 07/04/18at 17:58; Admin Dose 103.8 MLS/HR; Start 07/03/18 at 06:00; Status Hold Acetylcysteine (Mucomyst) 3 ml Q6H RESP THERAPY PRN NEB when pt has congestion Last administered on 07/04/18 03:22; Admin Dose 3 ML; Start 07/03/18 at 21:00 Albuterol/ Ipratropium (Duoneb) 3 ml Q2H RESP THERAPY PRN HHN for congestion Last administered on 07/04/18 03:22; Admin Dose 3 ML; Start 07/03/18 at 21:00 Midodrine (Proamatine) 10 mg Q8 GTB Last administered on 07/05/18 05:55; Admin Dose 10 MG; Start 07/04/18 at 14:00 SUSY WOLFE NP Jul 05, 2018 14:52
--- NOTE | 2018-07-05 15:47 | PN ---
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 I spoke to daughter yesterday and she is adamant about continuing all aggressive measures. Result Diagram: 07/05/1842907/05/18429 Results 24hrs Laboratory Tests Test 07/04/18 16:53 07/05/18 04:30 07/05/18 12:19 07/05/18 12:51 Amikacin Level 17.1 H Trough White Blood Count 14.2 H Red Blood Count 3.05 L Hemoglobin 8.9 L Hematocrit 26.9 L Mean Corpuscular 88.2 Volume Mean Corpuscular 29.2 Hemoglobin Mean Corpuscular 33.1 Hemoglobin Concen t Red Cell 15.4 H Distribution Width Platelet Count 73 L Mean Platelet 10.3 Volume Immature 1.100 H Granulocytes % Neutrophils % 81.4 H Lymphocytes % 8.4 L Monocytes % 4.2 Eosinophils % 4.7 Basophils % 0.2 Nucleated Red 0.0 Blood Cells % Immature 0.160 H Granulocytes # Neutrophils # 11.5 H Lymphocytes # 1.2 Monocytes # 0.6 Eosinophils # 0.7 H Basophils # 0.0 Nucleated Red 0.0 Blood Cells # Sodium Level 134 L Potassium Level 3.8 Chloride Level 101 Carbon Dioxide 20 L Level Anion Gap 13 Blood Urea 53 H Nitrogen Creatinine 1.37 H Est Glomerular 52 L Filtrat Rate mL/min Glucose Level 106 Calcium Level 9.0 Magnesium Level 2.0 Lab Scanned REFERENCE LAB REFERENCE LAB Report Subjective 24 Hr Interval Summary Free Text/Dictation No change to clincal status Remains nonverbal. On vasopressors Exam/Review of Systems Vital Signs Vitals Vital Signs Date Temp Pulse Resp B/P (MAP) Pulse Ox O2 O2 Flow FiO2 Time Delivery Rate 1/10/19 68 22 97 30 12:20 07/05/18 102/61 06:15 (75) 07/05/18 Mechanical 06:00 Ventilator Trach Collar 07/05/18 97.4 04:00 Intake and Output 07/04/18 07/04/18 07/05/18 1515:00 23:00 07:00 IntakeIntake Total 896.95 ml 1565.8 ml 710.0 ml OutputOutput Total 240 ml 520 ml 375 ml BalanceBalance 656.95 ml 1045.8 ml 335.0 ml Medications Medications Current Medications Acetaminophen (Tylenol Liquid) 650 mg Q6H PRN GTB FEVER; Start 06/28/18 at 00:00 Aspirin (Aspirin) 81 mg DAILY GTB Last administered on 07/05/18 09:47; Admin Dose 81 MG; Start 06/28/18 at 09:00 Atenolol (Tenormin) 12.5 mg BID GTB ; Start 06/28/18 at 09:00 Atorvastatin Calcium (Lipitor) 20 mg HS GTB Last administered on 07/04/18at 20:37; Admin Dose 20 MG; Start 06/28/18 at 21:00 Fluconazole (Diflucan) 800 mg DAILY GTB Last administered on 07/05/18 09:47; Admin Dose 800 MG; Start 06/28/18 at 09:00 Gentamicin Sulfate (Gentamicin 0.3% Oph Drop) 2 drop Q4H BOTH EYES Last administered on 07/05/18 11:24; Admin Dose 2 DROP; Start 06/28/18 at 00:00 Glucagon (Glucagen) 1 mg PRN PRN IM HYPOGLYCEMIA (BS<70); Start 06/28/18 at 00:00 Insulin Glargine (Lantus) 10 units DAILY SC Last administered on 07/05/18 10:01; Admin Dose 10 UNITS; Start 06/28/18 at 08:00 Lansoprazole (Prevacid) 30 mg BID@,18 GTB Last administered on 07/05/18 05:55; Admin Dose 30 MG; Start 06/28/18 at 06:00 Levetiracetam (Keppra Liquid) 1,000 mg BID GTB Last administered on 07/05/18 09:47; Admin Dose 1,000 MG; Start 06/28/18 at 09:00 Memantine (Namenda) 10 mg DAILY GTB Last administered on 07/05/18at 09:48; Admin Dose 10 MG; Start 06/28/18 at 09:00 Nystatin (Nystatin Powder) 1 applic BID TOP Last administered on 07/05/18at 09:49; Admin Dose 1 APPLIC; Start 06/28/18 at 09:00 Miscellaneous Information 1 ea NOTE XX ; Start 06/28/18 at 01:00 Glucose (Glutose) 15 gm Q15M PRN PO DECREASED GLUCOSE; Start 06/28/18 at 01:00 Glucose (Glutose) 22.5 gm Q15M PRN PO DECREASED GLUCOSE; Start 06/28/18 at 01:00 Dextrose (D50w Syringe) 25 ml Q15M PRN IV DECREASED GLUCOSE; Start 06/28/18 at 01:00 Dextrose (D50w Syringe) 50 ml Q15M PRN IV DECREASED GLUCOSE; Start 06/28/18 at 01:00 Glucagon (Glucagen) 1 mg Q15M PRN IM DECREASED GLUCOSE; Start 06/28/18 at 01:00 Glucose (Glutose) 15 gm Q15M PRN BUCCAL DECREASED GLUCOSE; Start 06/28/18 at 01:00 IV Flush (NS 10 ml) 10 ml PRN PRN IV IV PROTOCOL; Start 06/28/18 at 12:00 Norepinephrine 16 mg/Dextrose 500 ml @ 1.88 mls/hr TITRATE IV Last administered on 07/05/18at 11:36; Admin Dose 22.5 MLS/HR; Start 06/30/18 at 14:00 Collagenase (Santyl) 1 applic BID TOP Last administered on 07/05/18at 11:24; Admin Dose 1 APPLIC; Start 06/30/18 at 15:00 Amikacin Sulfate (Amikacin Iv Per Pharmacy) AMIKACIN PER PHARMACY NOTE XX ; Start 07/01/18 at 14:30 Miscellaneous Information (Pending Santyl Order For Wound Care) This patient mccloud... PRN PRN XX unstageable sacrococcyx; Start 07/02/18 at 07:00 Ampicillin 50 ml @ 100 mls/hr Q8 IVPB Last administered on 07/05/18at 14:52; Admin Dose 100 MLS/HR; Start 07/02/18 at 16:00 Metronidazole 100 ml @ 100 mls/hr Q8 IVPB Last administered on 07/05/18 14: 52; Admin Dose 100 MLS/HR; Start 07/02/18 at 16:00 Amikacin Sulfate 950 mg/Sodium Chloride 253.8 ml @ 103.8 mls/ hr Q36H IVPB Last administered on 07/04/18 17:58; Admin Dose 103.8 MLS/HR; Start 07/03/18 at 06:00; Status Hold Acetylcysteine (Mucomyst) 3 ml Q6H RESP THERAPY PRN NEB when pt has congestion Last administered on 07/04/18 03:22; Admin Dose 3 ML; Start 07/03/18 at 21:00 Albuterol/ Ipratropium (Duoneb) 3 ml Q2H RESP THERAPY PRN HHN for congestion Last administered on 07/04/18 03:22; Admin Dose 3 ML; Start 07/03/18 at 21:00 Midodrine (Proamatine) 10 mg Q8 GTB Last administered on 07/05/18 14:52; Admin Dose 10 MG; Start 07/04/18 at 14:00 WESLEY ARAYA MD Jul 05, 2018 15:47
[2018-07-05] MEDS: ATORVASTATIN 20 MG TAB GTB SCH (21:03)
[2018-07-06] VITALS (101 sets, daily range): BP systolic 67–114; BP diastolic 31–65; PULSE 60–98; RESP 13–37
[2018-07-06] MEDS ORDERED: ALTEPLASE (CATHFLO) 2 MG INJ CATHETER PRN (01:00)
[2018-07-06] MEDS: GENTAMICIN 0.3% 5 ML OPH BOTH EYES SCH ×6 (03:56→23:10)
[2018-07-06] MEDS: LANSOPRAZOLE 30 MG CAP GTB SCH ×2 (05:05→18:55)
[2018-07-06] MEDS: MIDODRINE 5 MG TAB GTB SCH ×3 (05:05→21:19)
[2018-07-06] MEDS: AMPICILLIN 1 GM/NS (PMX) 50 ML IVPB SCH ×4 (05:05→23:09)
[2018-07-06] MEDS: metroNIDAZOLE 500 MG/NS (PMX) 100 ML IVPB SCH ×3 (05:06→21:19)
[2018-07-06] MEDS: COLLAGENASE 5 GM (UD JAR) TOP SCH ×2 (08:31→21:10)
[2018-07-06] MEDS: LEVETIRACETAM (100 MG/ML) 5ML CUP GTB SCH ×2 (08:31→21:15)
[2018-07-06] MEDS: ASPIRIN 325 MG TAB GTB SCH (08:32)
[2018-07-06] MEDS: FLUCONAZOLE 200 MG TAB GTB SCH (08:32)
[2018-07-06] MEDS: ATENOLOL 25 MG TAB GTB SCH ×2 (08:32→21:00)
[2018-07-06] MEDS: MEMANTINE 10 MG TAB GTB SCH (08:32)
[2018-07-06] MEDS: NYSTATIN 30 GM POWDER BTL TOP SCH ×2 (08:36→21:10)
[2018-07-06] MEDS: INSULIN GLARGINE [LANTus] (100 UNITS/ML) SYG SC SCH (08:53)
[2018-07-06] MEDS ORDERED: SOD CHLORIDE 0.9% 500 ML IV ONE (09:30)
[2018-07-06] MEDS ORDERED: MAGNESIUM SULFATE 2 GM/50 ML 50 ML IVPB ONE (09:30)
--- NOTE | 2018-07-06 09:35 | CONS ---
Date/Time of Note Date/Time of Note DATE: 07/06/18 TIME: 09:08 Consult Date/Type/Reason Admit Date/Time Jun 27, 2018 at 22:49 Initial Consult Date 06/28/18 Type of Consultation: Pulm/CCM Requesting Provider: ENID SINGH Subjective Patient remains somnolent on mechanical ventilation continues vasopressors, increasing vasopressor requirements. Abnormalities noted this morning. Objective Vital Signs Date Temp Pulse Resp B/P (MAP) Pulse Ox O2 O2 Flow FiO2 Time Delivery Rate 07/06/18 91 28 94/45 (61) 97 Mechanical 07:00 Ventilator 07/06/18 97.8 06:30 07/06/18 30 05:34 Intake and Output 07/05/18 07/05/18 07/06/18 1515:00 23:00 07:00 IntakeIntake Total 810.0 ml 922.53 ml 795.04 ml OutputOutput Total 280 ml 365 ml 265 ml BalanceBalance 530.0 ml 557.53 ml 530.04 ml Exam GENERAL: Critically ill-appearing gentleman on mechanical ventilation via tracheostomy VITAL SIGNS: per chart NECK: Supple. No JVD or lymphadenopathy. CARDIAC EXAM: S1, S2. No added sounds or murmurs. CHEST: clear bilaterally, No added sounds, rales or wheezes ABDOMEN: Soft, nontender. No guarding or rebound. EXTREMITIES: No cyanosis, clubbing or edema. NEUROLOGIC: Generalized weakness. No focal deficits. Results/Medications Result Diagram: 07/06/18 0400 07/06/18 0400 Results 24 hrs Laboratory Tests Test 07/05/18 12:19 07/05/18 12:51 07/06/18 04:00 Lab Scanned Report REFERENCE LAB REFERENCE LAB White Blood Count 12.7 H Red Blood Count 3.09 L Hemoglobin 8.8 L Hematocrit 27.5 L Mean Corpuscular Volume 89.0 Mean Corpuscular Hemoglobin 28.5 L Mean Corpuscular 32.0 Hemoglobin Concent Red Cell Distribution Width 15.9 H Platelet Count 65 L Mean Platelet Volume 10.6 H Immature Granulocytes % 0.600 H Neutrophils % 82.8 H Lymphocytes % 8.1 L Monocytes % 3.7 Eosinophils % 4.6 Basophils % 0.2 Nucleated Red Blood Cells % 0.0 Immature Granulocytes # 0.080 H Neutrophils # 10.5 H Lymphocytes # 1.0 Monocytes # 0.5 Eosinophils # 0.6 H Basophils # 0.0 Nucleated Red Blood Cells # 0.0 Sodium Level 133 L Potassium Level 3.9 Chloride Level 101 Carbon Dioxide Level 17 L Anion Gap 15 H Blood Urea Nitrogen 56 H Creatinine 1.28 H Est Glomerular Filtrat 57 L Rate mL/min Glucose Level 100 Calcium Level 8.8 Magnesium Level 1.8 Medications Current Medications Acetaminophen (Tylenol Liquid) 650 mg Q6H PRN GTB FEVER; Start 06/28/18 at 00:00 Aspirin (Aspirin) 81 mg DAILY GTB Last administered on 07/06/18 08:32; Admin Dose 81 MG; Start 06/28/18 at 09:00 Atenolol (Tenormin) 12.5 mg BID GTB Last administered on 07/06/18 08:32; Admin Dose 12.5 MG; Start 06/28/18 at 09:00 Atorvastatin Calcium (Lipitor) 20 mg HS GTB Last administered on 07/05/18 21: 03; Admin Dose 20 MG; Start 06/28/18 at 21:00 Fluconazole (Diflucan) 800 mg DAILY GTB Last administered on 07/06/18 08:32; Admin Dose 800 MG; Start 06/28/18 at 09:00 Gentamicin Sulfate (Gentamicin 0.3% Oph Drop) 2 drop Q4H BOTH EYES Last administered on 07/06/18 08:31; Admin Dose 2 DROP; Start 06/28/18 at 00:00 Glucagon (Glucagen) 1 mg PRN PRN IM HYPOGLYCEMIA (BS<70); Start 06/28/18 at 00:00 Insulin Glargine (Lantus) 10 units DAILY SC Last administered on 07/06/18 08:53; Admin Dose 10 UNITS; Start 06/28/18 at 08:00 Lansoprazole (Prevacid) 30 mg BID@,18 GTB Last administered on 07/06/18 0 5:05; Admin Dose 30 MG; Start 06/28/18 at 06:00 Levetiracetam (Keppra Liquid) 1,000 mg BID GTB Last administered on 07/06/18 08:31; Admin Dose 1,000 MG; Start 06/28/18 at 09:00 Memantine (Namenda) 10 mg DAILY GTB Last administered on 1/11/19at 08:32; Admin Dose 10 MG; Start 06/28/18 at 09:00 Nystatin (Nystatin Powder) 1 applic BID TOP Last administered on 07/06/18at 08:36; Admin Dose 1 APPLIC; Start 06/28/18 at 09:00 Miscellaneous Information 1 ea NOTE XX ; Start 06/28/18 at 01:00 Glucose (Glutose) 15 gm Q15M PRN PO DECREASED GLUCOSE; Start 06/28/18 at 01:00 Glucose (Glutose) 22.5 gm Q15M PRN PO DECREASED GLUCOSE; Start 06/28/18 at 01:00 Dextrose (D50w Syringe) 25 ml Q15M PRN IV DECREASED GLUCOSE; Start 06/28/18 at 01:00 Dextrose (D50w Syringe) 50 ml Q15M PRN IV DECREASED GLUCOSE; Start 06/28/18 at 01:00 Glucagon (Glucagen) 1 mg Q15M PRN IM DECREASED GLUCOSE; Start 06/28/18 at 01:00 Glucose (Glutose) 15 gm Q15M PRN BUCCAL DECREASED GLUCOSE; Start 06/28/18 at 01:00 IV Flush (NS 10 ml) 10 ml PRN PRN IV IV PROTOCOL; Start 06/28/18 at 12:00 Norepinephrine 16 mg/Dextrose 500 ml @ 1.88 mls/hr TITRATE IV Last administered on 07/06/18at 08:52; Admin Dose 20.63 MLS/HR; Start 06/30/18 at 14:00 Collagenase (Santyl) 1 applic BID TOP Last administered on 07/06/18at 08:31; Admin Dose 1 APPLIC; Start 06/30/18 at 15:00 Amikacin Sulfate (Amikacin Iv Per Pharmacy) AMIKACIN PER PHARMACY NOTE XX ; S tart 07/01/18 at 14:30 Miscellaneous Information (Pending Santyl Order For Wound Care) This patient mccloud ... PRN PRN XX unstageable sacrococcyx; Start 07/02/18 at 07:00 Ampicillin 50 ml @ 100 mls/hr Q8 IVPB Last administered on 07/06/18at 05:05; Admin Dose 100 MLS/HR; Start 07/02/18 at 16:00 Metronidazole 100 ml @ 100 mls/hr Q8 IVPB Last administered on 07/06/18at 05:06; Admin Dose 100 MLS/HR; Start 07/02/18 at 16:00 Amikacin Sulfate 950 mg/Sodium Chloride 253.8 ml @ 103.8 mls/ hr Q36H IVPB Last administered on 07/04/18at 17:58; Admin Dose 103.8 MLS/HR; Start 07/03/18 at 06:00; Status Hold Acetylcysteine (Mucomyst) 3 ml Q6H RESP THERAPY PRN NEB when pt has congestion Last administered on 07/04/18at 03:22; Admin Dose 3 ML; Start 07/03/18 at 21:00 Albuterol/ Ipratropium (Duoneb) 3 ml Q2H RESP THERAPY PRN HHN for congestion Last administered on 07/04/18at 03:22; Admin Dose 3 ML; Start 07/03/18 at 21:00 Midodrine (Proamatine) 10 mg Q8 GTB Last administered on 07/06/18at 05:05; Admin Dose 10 MG; Start 07/04/18 at 14:00 Alteplase, Recombinant (Cathflo (Activase)) 2 mg MAY REPEAT X1 PRN CATHETER IF C ATHETER REMAINS OCCULUDED Last administered on 07/06/18at 02:20; Admin Dose 2 MG; Start 07/06/18 at 01:00 Magnesium Sulfate 50 ml @ 25 mls/hr ONCE ONCE IVPB ; Start 07/06/18 at 09:30; Stop 07/06/18 at 11:29; Status UNV Potassium Chloride 50 ml @ 25 mls/hr Q2H IVPB ; Start 07/06/18 at 09:30; Stop at 13:29; Status UNV Sodium Chloride 500 ml @ 500 mls/hr Q1H ONCE IV ; Start 07/06/18 at 09:30; Stop 07/06/18 at 10:29; Status UNV Assessment/Plan Chief Complaint/Hosp Course IMP: 1. Septic Shock 2. Multifocal Pneumonia 3. 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 Encephalopathy 7. MICHELLE 8. Metabolic Acidosis RECS: 1. Vent support 2. Abx per ID 3. IV fluids 4. TF as tolerated. 35 min cc time Overall prognosis very poor. RAFIQ LEGGETT MD, [facility] Jul 06, 2018 09:35
[2018-07-06] MEDS: POTASSIUM CHLORIDE 50 ML IVPB SCH ×2 (10:33→16:13)
--- NOTE | 2018-07-06 13:42 | CONS ---
Date/Time of Note Date/Time of Note DATE: 07/06/18 TIME: 13:40 Assessment/Plan Assessment/Plan Assessment/Plan Spoke with social work service this morning and patient's conservator last evening. He is in agreement with bioethics consultation, after our conversation he called his corporate associate attorney who explained the necessary steps to change patient's CODE STATUS. Bioethics consultation is scheduled for July 09. Result Diagram: 07/06/18 0400 07/06/18 0400 Results 24hrs Laboratory Tests Test 07/06/18 04:00 White Blood Count 12.7 H Red Blood Count 3.09 L Hemoglobin 8.8 L Hematocrit 27.5 L Mean Corpuscular Volume 89.0 Mean Corpuscular Hemoglobin 28.5 L Mean Corpuscular Hemoglobin Concent 32.0 Red Cell Distribution Width 15.9 H Platelet Count 65 L Mean Platelet Volume 10.6 H Immature Granulocytes % 0.600 H Neutrophils % 82.8 H Lymphocytes % 8.1 L Monocytes % 3.7 Eosinophils % 4.6 Basophils % 0.2 Nucleated Red Blood Cells % 0.0 Immature Granulocytes # 0.080 H Neutrophils # 10.5 H Lymphocytes # 1.0 Monocytes # 0.5 Eosinophils # 0.6 H Basophils # 0.0 Nucleated Red Blood Cells # 0.0 Sodium Level 133 L Potassium Level 3.9 Chloride Level 101 Carbon Dioxide Level 17 L Anion Gap 15 H Blood Urea Nitrogen 56 H Creatinine 1.28 H Est Glomerular Filtrat Rate mL/min 57 L Glucose Level 100 Calcium Level 8.8 Magnesium Level 1.8 Consultation Date/Type/Reason Admit Date/Time Jun 27, 2018 at 22:49 Past Medical History Medical History: diabetes, other (See HPI) Medications Current Medications Acetaminophen (Tylenol Liquid) 650 mg Q6H PRN GTB FEVER; Start 06/28/18 at 00:00 Aspirin (Aspirin) 81 mg DAILY GTB Last administered on 07/06/18at 08:32; Admin Dose 81 MG; Start 06/28/18 at 09:00 Atenolol (Tenormin) 12.5 mg BID GTB Last administered on 07/06/18at 08:32; Admin Dose 12.5 MG; Start 06/28/18 at 09:00 Atorvastatin Calcium (Lipitor) 20 mg HS GTB Last administered on 07/05/18at 21:03; Admin Dose 20 MG; Start 06/28/18 at 21:00 Fluconazole (Diflucan) 800 mg DAILY GTB Last administered on 07/06/18at 08:32; Admin Dose 800 MG; Start 06/28/18 at 09:00 Gentamicin Sulfate (Gentamicin 0.3% Oph Drop) 2 drop Q4H BOTH EYES Last administered on 07/06/18at 08:31; Admin Dose 2 DROP; Start 06/28/18 at 00:00 Glucagon (Glucagen) 1 mg PRN PRN IM HYPOGLYCEMIA (BS<70); Start 06/28/18 at 00:00 Insulin Glargine (Lantus) 10 units DAILY SC Last administered on 07/06/18at 08:53; Admin Dose 10 UNITS; Start 06/28/18 at 08:00 Lansoprazole (Prevacid) 30 mg BID@06,18 GTB Last administered on 07/06/18at 05:05; Admin Dose 30 MG; Start 06/28/18 at 06:00 Levetiracetam (Keppra Liquid) 1,000 mg BID GTB Last administered on 07/06/18at 08:31; Admin Dose 1,000 MG; Start 06/28/18 at 09:00 Memantine (Namenda) 10 mg DAILY GTB Last administered on 07/06/18at 08:32; Admin Dose 10 MG; Start 06/28/18 at 09:00 Nystatin (Nystatin Powder) 1 applic BID TOP Last administered on 07/06/18at 08:36; Admin Dose 1 APPLIC; Start 06/28/18 at 09:00 Miscellaneous Information 1 ea NOTE XX ; Start 06/28/18 at 01:00 Glucose (Glutose) 15 gm Q15M PRN PO DECREASED GLUCOSE; Start 06/28/18 at 01:00 Glucose (Glutose) 22.5 gm Q15M PRN PO DECREASED GLUCOSE; Start 06/28/18 at 01:00 Dextrose (D50w Syringe) 25 ml Q15M PRN IV DECREASED GLUCOSE; Start 06/28/18 at 01:00 Dextrose (D50w Syringe) 50 ml Q15M PRN IV DECREASED GLUCOSE; Start 06/28/18 at 01:00 Glucagon (Glucagen) 1 mg Q15M PRN IM DECREASED GLUCOSE; Start 06/28/18 at 01:00 Glucose (Glutose) 15 gm Q15M PRN BUCCAL DECREASED GLUCOSE; Start 06/28/18 at 01:00 IV Flush (NS 10 ml) 10 ml PRN PRN IV IV PROTOCOL; Start 06/28/18 at 12:00 Norepinephrine 16 mg/Dextrose 500 ml @ 1.88 mls/hr TITRATE IV Last administered on 07/06/18at 08:52; Admin Dose 20.63 MLS/HR; Start 06/30/18 at 14:00 Collagenase (Santyl) 1 applic BID TOP Last administered on 07/06/18at 08:31; Admin Dose 1 APPLIC; Start 06/30/18 at 15:00 Amikacin Sulfate (Amikacin Iv Per Pharmacy) AMIKACIN PER PHARMACY NOTE XX ; Start 07/01/18 at 14:30 Miscellaneous Information (Pending Santyl Order For Wound Care) This patient mccloud... PRN PRN XX unstageable sacrococcyx; Start 07/02/18 at 07:00 Ampicillin 50 ml @ 100 mls/hr Q8 IVPB Last administered on 07/06/18at 05:05; Admin Dose 100 MLS/HR; Start 07/02/18 at 16:00 Metronidazole 100 ml @ 100 mls/hr Q8 IVPB Last administered on 07/06/18at 05:06; Admin Dose 100 MLS/HR; Start 07/02/18 at 16:00 Amikacin Sulfate 950 mg/Sodium Chloride 253.8 ml @ 103.8 mls/ hr Q36H IVPB Last administered on 07/04/18at 17:58; Admin Dose 103.8 MLS/HR; Start 07/03/18 at 06:00; Status Hold Acetylcysteine (Mucomyst) 3 ml Q6H RESP THERAPY PRN NEB when pt has congestion Last administered on 07/04/18 03:22; Admin Dose 3 ML; Start 07/03/18 at 21:00 Albuterol/ Ipratropium (Duoneb) 3 ml Q2H RESP THERAPY PRN HHN for congestion Last administered on 07/04/18at 03:22; Admin Dose 3 ML; Start 07/03/18 at 21:00 Midodrine (Proamatine) 10 mg Q8 GTB Last administered on 07/06/18at 05:05; Admin Dose 10 MG; Start 07/04/18 at 14:00 Alteplase, Recombinant (Cathflo (Activase)) 2 mg MAY REPEAT X1 PRN CATHETER IF CATHETER REMAINS OCCULUDED Last administered on 07/06/18at 02:20; Admin Dose 2 MG; Start 07/06/18 at 01:00 Allergies: Coded Allergies: No Known Allergy (Unverified , 06/08/18) Past Surgical History Past Surgical Hx: other (See HPI) Social History Alcohol Use: other (Unknown) Smoking Status: Former smoker Drug Use: other (Unknown) Exam/Review of Systems Vital Signs Vitals Vital Signs Date Temp Pulse Resp B/P (MAP) Pulse Ox O2 O2 Flow FiO2 Time Delivery Rate 07/06/18 95 08:00 07/06/18 28 94/45 (61) 97 Mechanical 07:00 Ventilator 07/06/18 97.8 06:30 07/06/18 30 05:34 Intake and Output 07/05/18 07/05/18 07/06/18 1414:59 22:59 06:59 IntakeIntake Total 810.0 ml 924.40 ml 795.04 ml OutputOutput Total 250 ml 365 ml 265 ml BalanceBalance 560.0 ml 559.40 ml 530.04 ml Medications Medications Current Medications Acetaminophen (Tylenol Liquid) 650 mg Q6H PRN GTB FEVER; Start 06/28/18 at 00:00 Aspirin (Aspirin) 81 mg DAILY GTB Last administered on 07/06/18 08:32; Admin Dose 81 MG; Start 06/28/18 at 09:00 Atenolol (Tenormin) 12.5 mg BID GTB Last administered on 07/06/18 08:32; Admin Dose 12.5 MG; Start 06/28/18 at 09:00 Atorvastatin Calcium (Lipitor) 20 mg HS GTB Last administered on 07/05/18 21:03; Admin Dose 20 MG; Start 06/28/18 at 21:00 Fluconazole (Diflucan) 800 mg DAILY GTB Last administered on 07/06/18 08:32; Admin Dose 800 MG; Start 06/28/18 at 09:00 Gentamicin Sulfate (Gentamicin 0.3% Oph Drop) 2 drop Q4H BOTH EYES Last administered on 07/06/18 08:31; Admin Dose 2 DROP; Start 06/28/18 at 00:00 Glucagon (Glucagen) 1 mg PRN PRN IM HYPOGLYCEMIA (BS<70); Start 06/28/18 at 00:00 Insulin Glargine (Lantus) 10 units DAILY SC Last administered on 07/06/18at 08:53; Admin Dose 10 UNITS; Start 06/28/18 at 08:00 Lansoprazole (Prevacid) 30 mg BID@06,18 GTB Last administered on 07/06/18at 05:05; Admin Dose 30 MG; Start 06/28/18 at 06:00 Levetiracetam (Keppra Liquid) 1,000 mg BID GTB Last administered on 07/06/18at 08:31; Admin Dose 1,000 MG; Start 06/28/18 at 09:00 Memantine (Namenda) 10 mg DAILY GTB Last administered on 07/06/18at 08:32; Admin Dose 10 MG; Start 06/28/18 at 09:00 Nystatin (Nystatin Powder) 1 applic BID TOP Last administered on 07/06/18at 08:36; Admin Dose 1 APPLIC; Start 06/28/18 at 09:00 Miscellaneous Information 1 ea NOTE XX ; Start 06/28/18 at 01:00 Glucose (Glutose) 15 gm Q15M PRN PO DECREASED GLUCOSE; Start 06/28/18 at 01:00 Glucose (Glutose) 22.5 gm Q15M PRN PO DECREASED GLUCOSE; Start 06/28/18 at 01:00 Dextrose (D50w Syringe) 25 ml Q15M PRN IV DECREASED GLUCOSE; Start 06/28/18 at 01:00 Dextrose (D50w Syringe) 50 ml Q15M PRN IV DECREASED GLUCOSE; Start 06/28/18 at 01:00 Glucagon (Glucagen) 1 mg Q15M PRN IM DECREASED GLUCOSE; Start 06/28/18 at 01:00 Glucose (Glutose) 15 gm Q15M PRN BUCCAL DECREASED GLUCOSE; Start 06/28/18 at 01:00 IV Flush (NS 10 ml) 10 ml PRN PRN IV IV PROTOCOL; Start 06/28/18 at 12:00 Norepinephrine 16 mg/Dextrose 500 ml @ 1.88 mls/hr TITRATE IV Last admini stered on 07/06/18at 08:52; Admin Dose 20.63 MLS/HR; Start 06/30/18 at 14:00 Collagenase (Santyl) 1 applic BID TOP Last administered on 07/06/18 08:31; Admin Dose 1 APPLIC; Start 06/30/18 at 15:00 Amikacin Sulfate (Amikacin Iv Per Pharmacy) AMIKACIN PER PHARMACY NOTE XX ; Start 07/01/18 at 14:30 Miscellaneous Information (Pending Santyl Order For Wound Care) This patient mccloud... PRN PRN XX unstageable sacrococcyx; Start 07/02/18 at 07:00 Ampicillin 50 ml @ 100 mls/hr Q8 IVPB Last administered on 07/06/18 05:05; Admin Dose 100 MLS/HR; Start 07/02/18 at 16:00 Metronidazole 100 ml @ 100 mls/hr Q8 IVPB Last administered on 07/06/18 05:06; Admin Dose 100 MLS/HR; Start 07/02/18 at 16:00 Amikacin Sulfate 950 mg/Sodium Chloride 253.8 ml @ 103.8 mls/ hr Q36H IVPB Last administered on 07/04/18at 17:58; Admin Dose 103.8 MLS/HR; Start 07/03/18 at 06:00; Status Hold Acetylcysteine (Mucomyst) 3 ml Q6H RESP THERAPY PRN NEB when pt has congestion Last administered on 07/04/18 03:22; Admin Dose 3 ML; Start 07/03/18 at 21:00 Albuterol/ Ipratropium (Duoneb) 3 ml Q2H RESP THERAPY PRN HHN for congestion Last administered on 07/04/18 03:22; Admin Dose 3 ML; Start 07/03/18 at 21:00 Midodrine (Proamatine) 10 mg Q8 GTB Last administered on 07/06/18 05:05; Admin Dose 10 MG; Start 07/04/18 at 14:00 Alteplase, Recombinant (Cathflo (Activase)) 2 mg MAY REPEAT X1 PRN CATHETER IF CATHETER REMAINS OCCULUDED Last administered on 07/06/18 02:20; Admin Dose 2 MG; Start 07/06/18 at 01:00 SARANYA BENNETT Jul 06, 2018 13:41
--- NOTE | 2018-07-06 14:39 | CONS ---
Date/Time of Note Date/Time of Note DATE: 07/06/18 TIME: 14:38 Assessment/Plan Assessment/Plan Hospital Course No acute changes patient is hypotensive on Levophed drip nonresponsive in no distress WBC 12.7 H&H 8.8 and 27.5 platelets 65 neutrophils 82.8 BUN 56 creatinine 1.28 Antimicrobials: Amikacin, ampicillin IV, Flagyl, fluconazole Indwelling: Trach, PEG, left upper extremity PICC line, right upper extremity mi dline, right upper abdomen pigtail Physical examination: This is a chronically ill-appearing elderly - [place] man who is noncommunicative in no distress. Head atraumatic normocephalic, sclera nonicteric. Neck is supple, tracheostomy present. Lungs: Breath sounds diminished at bases. Heart S1-S2. Abdomen soft bowel sounds present. Extremities without cyanosis, trace edema Assessment: 1. Severe sepsis with shock 2. Bilateral multifocal pneumonia 3. 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 History of left upper back abscess with repeat CT on June 22 revealed large subcutaneous fluid collection and edema in the lower posterior left neck/upper chest with questionable osteomyelitis of the scapula. 5. History of acute cholecystitis status post cholecystostomy tube 6. Chronic encephalopathy with a history of CVA 7. Diabetes 8. History of hypertension 9. Acute renal insufficiency 10. Right mastoiditis Plan: Patient remains unchanged, hemodynamically unstable, continue antibiotics, patient needs IR guided drainage of left upper back abscess, ongoing palliative care evaluation, prognosis poor Result Diagram: 07/06/18 0400 07/06/18 0400 Results 24hrs Laboratory Tests Test 07/06/18 04:00 White Blood Count 12.7 H Red Blood Count 3.09 L Hemoglobin 8.8 L Hematocrit 27.5 L Mean Corpuscular Volume 89.0 Mean Corpuscular Hemoglobin 28.5 L Mean Corpuscular Hemoglobin Concent 32.0 Red Cell Distribution Width 15.9 H Platelet Count 65 L Mean Platelet Volume 10.6 H Immature Granulocytes % 0.600 H Neutrophils % 82.8 H Lymphocytes % 8.1 L Monocytes % 3.7 Eosinophils % 4.6 Basophils % 0.2 Nucleated Red Blood Cells % 0.0 Immature Granulocytes # 0.080 H Neutrophils # 10.5 H Lymphocytes # 1.0 Monocytes # 0.5 Eosinophils # 0.6 H Basophils # 0.0 Nucleated Red Blood Cells # 0.0 Sodium Level 133 L Potassium Level 3.9 Chloride Level 101 Carbon Dioxide Level 17 L Anion Gap 15 H Blood Urea Nitrogen 56 H Creatinine 1.28 H Est Glomerular Filtrat Rate mL/min 57 L Glucose Level 100 Calcium Level 8.8 Magnesium Level 1.8 Consultation Date/Type/Reason Admit Date/Time Jun 27, 2018 at 22:49 Initial Consult Date 06/28/18 Type of Consult id Requesting Provider: ENID SINGH Exam/Review of Systems Vital Signs Vitals Vital Signs Date Temp Pulse Resp B/P (MAP) Pulse Ox O2 O2 Flow FiO2 Time Delivery Rate 07/06/18 95 08:00 07/06/18 28 94/45 (61) 97 Mechanical 07:00 Ventilator 07/06/18 97.8 06:30 07/06/18 30 05:34 Intake and Output 07/05/18 07/05/18 07/06/18 1515:00 23:00 07:00 IntakeIntake Total 810.0 ml 922.53 ml 795.04 ml OutputOutput Total 280 ml 365 ml 265 ml BalanceBalance 530.0 ml 557.53 ml 530.04 ml Medications Medications Current Medications Acetaminophen (Tylenol Liquid) 650 mg Q6H PRN GTB FEVER; Start 06/28/18 at 00:00 Aspirin (Aspirin) 81 mg DAILY GTB Last administered on 07/06/18at 08:32; Admin Dose 81 MG; Start 06/28/18 at 09:00 Atenolol (Tenormin) 12.5 mg BID GTB Last administered on 07/06/18 08:32; Admin Dose 12.5 MG; Start 06/28/18 at 09:00 Atorvastatin Calcium (Lipitor) 20 mg HS GTB Last administered on 07/05/18at 21:03; Admin Dose 20 MG; Start 06/28/18 at 21:00 Fluconazole (Diflucan) 800 mg DAILY GTB Last administered on 07/06/18 08:32; Admin Dose 800 MG; Start 06/28/18 at 09:00 Gentamicin Sulfate (Gentamicin 0.3% Oph Drop) 2 drop Q4H BOTH EYES Last administered on 07/06/18 08:31; Admin Dose 2 DROP; Start 06/28/18 at 00:00 Glucagon (Glucagen) 1 mg PRN PRN IM HYPOGLYCEMIA (BS<70); Start 06/28/18 at 00:00 Insulin Glargine (Lantus) 10 units DAILY SC Last administered on 07/06/18at 08:53; Admin Dose 10 UNITS; Start 06/28/18 at 08:00 Lansoprazole (Prevacid) 30 mg BID@06,18 GTB Last administered on 07/06/18at 05:05; Admin Dose 30 MG; Start 06/28/18 at 06:00 Levetiracetam (Keppra Liquid) 1,000 mg BID GTB Last administered on 07/06/18at 08:31; Admin Dose 1,000 MG; Start 06/28/18 at 09:00 Memantine (Namenda) 10 mg DAILY GTB Last administered on 07/06/18at 08:32; Admin Dose 10 MG; Start 06/28/18 at 09:00 Nystatin (Nystatin Powder) 1 applic BID TOP Last administered on 07/06/18at 08:36; Admin Dose 1 APPLIC; Start 06/28/18 at 09:00 Miscellaneous Information 1 ea NOTE XX ; Start 06/28/18 at 01:00 Glucose (Glutose) 15 gm Q15M PRN PO DECREASED GLUCOSE; Start 06/28/18 at 01:00 Glucose (Glutose) 22.5 gm Q15M PRN PO DECREASED GLUCOSE; Start 06/28/18 at 01:00 Dextrose (D50w Syringe) 25 ml Q15M PRN IV DECREASED GLUCOSE; Start 06/28/18 at 01:00 Dextrose (D50w Syringe) 50 ml Q15M PRN IV DECREASED GLUCOSE; Start 06/28/18 at 01:00 Glucagon (Glucagen) 1 mg Q15M PRN IM DECREASED GLUCOSE; Start 06/28/18 at 01:00 Glucose (Glutose) 15 gm Q15M PRN BUCCAL DECREASED GLUCOSE; Start 06/28/18 at 01:00 IV Flush (NS 10 ml) 10 ml PRN PRN IV IV PROTOCOL; Start 06/28/18 at 12:00 Norepinephrine 16 mg/Dextrose 500 ml @ 1.88 mls/hr TITRATE IV Last administered on 07/06/18at 08:52; Admin Dose 20.63 MLS/HR; Start 06/30/18 at 14:00 Collagenase (Santyl) 1 applic BID TOP Last administered on 07/06/18at 08:31; Admin Dose 1 APPLIC; Start 06/30/18 at 15:00 Amikacin Sulfate (Amikacin Iv Per Pharmacy) AMIKACIN PER PHARMACY NOTE XX ; Start 07/01/18 at 14:30 Miscellaneous Information (Pending Santyl Order For Wound Care) This patient mccloud... PRN PRN XX unstageable sacrococcyx; Start 07/02/18 at 07:00 Ampicillin 50 ml @ 100 mls/hr Q8 IVPB Last administered on 07/06/18 05:05; Admin Dose 100 MLS/HR; Start 07/02/18 at 16:00 Metronidazole 100 ml @ 100 mls/hr Q8 IVPB Last administered on 07/06/18 05:06; Admin Dose 100 MLS/HR; Start 07/02/18 at 16:00 Amikacin Sulfate 950 mg/Sodium Chloride 253.8 ml @ 103.8 mls/ hr Q36H IVPB Last administered on 07/04/18at 17:58; Admin Dose 103.8 MLS/HR; Start 07/03/18 at 06:00; Status Hold Acetylcysteine (Mucomyst) 3 ml Q6H RESP THERAPY PRN NEB when pt has congestion Last administered on 07/04/18 03:22; Admin Dose 3 ML; Start 07/03/18 at 21:00 Albuterol/ Ipratropium (Duoneb) 3 ml Q2H RESP THERAPY PRN HHN for congestion Last administered on 07/04/18 03:22; Admin Dose 3 ML; Start 07/03/18 at 21:00 Midodrine (Proamatine) 10 mg Q8 GTB Last administered on 07/06/18 05:05; Admin Dose 10 MG; Start 07/04/18 at 14:00 Alteplase, Recombinant (Cathflo (Activase)) 2 mg MAY REPEAT X1 PRN CATHETER IF CATHETER REMAINS OCCULUDED Last administered on 07/06/18at 02:20; Admin Dose 2 MG; Start 07/06/18 at 01:00 SUSY WOLFE NP Jul 06, 2018 14:39
--- NOTE | 2018-07-06 14:56 | PN ---
Date/Time of Note Date/Time of Note DATE: 07/06/18 TIME: 14:54 Assessment/Plan VTE Prophylaxis Risk score (from Ns)>0 risk: 8 SCD applied (from Ns): Yes Pharmacological prophylaxis: heparin Lines/Catheters IV Catheter Type (from [facility], [place]): PICC Line Central line still needed: Yes Urinary Cath still in place: Yes Reason Cath still needed: urinary retention Assessment/Plan Hospital Course 62 yo male with chornic encephelopahty and chorinc respiratory failure with septic shock. The care being provided is futile. He has no hope for meaningful recovery and is unable to come off of vasopressors. Pneumonia: - Abx per ID Septic shock: - Wean vasopressors as able Chronic respiratory failure: - MV per pulm Osteomyelitis of scapula: - Abx per ID Dismal prognosis, continue discussions with family. I spoke to daughter and she is adamant about continuing all aggressive measures. Plan for bioethics conference Result Diagram: 07/06/18 0400 07/06/18 0400 Results 24hrs Laboratory Tests Test 07/06/18 04:00 White Blood Count 12.7 H Red Blood Count 3.09 L Hemoglobin 8.8 L Hematocrit 27.5 L Mean Corpuscular Volume 89.0 Mean Corpuscular Hemoglobin 28.5 L Mean Corpuscular Hemoglobin Concent 32.0 Red Cell Distribution Width 15.9 H Platelet Count 65 L Mean Platelet Volume 10.6 H Immature Granulocytes % 0.600 H Neutrophils % 82.8 H Lymphocytes % 8.1 L Monocytes % 3.7 Eosinophils % 4.6 Basophils % 0.2 Nucleated Red Blood Cells % 0.0 Immature Granulocytes # 0.080 H Neutrophils # 10.5 H Lymphocytes # 1.0 Monocytes # 0.5 Eosinophils # 0.6 H Basophils # 0.0 Nucleated Red Blood Cells # 0.0 Sodium Level 133 L Potassium Level 3.9 Chloride Level 101 Carbon Dioxide Level 17 L Anion Gap 15 H Blood Urea Nitrogen 56 H Creatinine 1.28 H Est Glomerular Filtrat Rate mL/min 57 L Glucose Level 100 Calcium Level 8.8 Magnesium Level 1.8 Subjective 24 Hr Interval Summary Free Text/Dictation No change to clinical status Remains nonresponive on vasopressors Exam/Review of Systems Vital Signs Vitals Vital Signs Date Temp Pulse Resp B/P (MAP) Pulse Ox O2 O2 Flow FiO2 Time Delivery Rate 07/06/18 95 12:00 1/11/19 28 94/45 (61) 97 Mechanical 07:00 Ventilator 07/06/18 97.8 06:30 07/06/18 30 05:34 Intake and Output 07/05/18 07/05/18 07/06/18 1414:59 22:59 06:59 IntakeIntake Total 810.0 ml 924.40 ml 795.04 ml OutputOutput Total 250 ml 365 ml 265 ml BalanceBalance 560.0 ml 559.40 ml 530.04 ml Medications Medications Current Medications Acetaminophen (Tylenol Liquid) 650 mg Q6H PRN GTB FEVER; Start 06/28/18 at 00:00 Aspirin (Aspirin) 81 mg DAILY GTB Last administered on 07/06/18 08:32; Admin Dose 81 MG; Start 06/28/18 at 09:00 Atenolol (Tenormin) 12.5 mg BID GTB Last administered on 07/06/18 08:32; Admin Dose 12.5 MG; Start 06/28/18 at 09:00 Atorvastatin Calcium (Lipitor) 20 mg HS GTB Last administered on 07/05/18 21:03; Admin Dose 20 MG; Start 06/28/18 at 21:00 Fluconazole (Diflucan) 800 mg DAILY GTB Last administered on 07/06/18 08:32; A dmin Dose 800 MG; Start 06/28/18 at 09:00 Gentamicin Sulfate (Gentamicin 0.3% Oph Drop) 2 drop Q4H BOTH EYES Last administered on 07/06/18 08:31; Admin Dose 2 DROP; Start 06/28/18 at 00:00 Glucagon (Glucagen) 1 mg PRN PRN IM HYPOGLYCEMIA (BS<70); Start 06/28/18 at 00:00 Insulin Glargine (Lantus) 10 units DAILY SC Last administered on 07/06/18 08:53; Admin Dose 10 UNITS; Start 06/28/18 at 08:00 Lansoprazole (Prevacid) 30 mg BID@06,18 GTB Last administered on 07/06/18 05:05; Admin Dose 30 MG; Start 06/28/18 at 06:00 Levetiracetam (Keppra Liquid) 1,000 mg BID GTB Last administered on 1/11/19at 08:31; Admin Dose 1,000 MG; Start 06/28/18 at 09:00 Memantine (Namenda) 10 mg DAILY GTB Last administered on 07/06/18at 08:32; Admin Dose 10 MG; Start 06/28/18 at 09:00 Nystatin (Nystatin Powder) 1 applic BID TOP Last administered on 07/06/18at 08:36; Admin Dose 1 APPLIC; Start 06/28/18 at 09:00 Miscellaneous Information 1 ea NOTE XX ; Start 06/28/18 at 01:00 Glucose (Glutose) 15 gm Q15M PRN PO DECREASED GLUCOSE; Start 06/28/18 at 01:00 Glucose (Glutose) 22.5 gm Q15M PRN PO DECREASED GLUCOSE; Start 06/28/18 at 01:00 Dextrose (D50w Syringe) 25 ml Q15M PRN IV DECREASED GLUCOSE; Start 06/28/18 at 01:00 Dextrose (D50w Syringe) 50 ml Q15M PRN IV DECREASED GLUCOSE; Start 06/28/18 at 01:00 Glucagon (Glucagen) 1 mg Q15M PRN IM DECREASED GLUCOSE; Start 06/28/18 at 01:00 Glucose (Glutose) 15 gm Q15M PRN BUCCAL DECREASED GLUCOSE; Start 06/28/18 at 01:00 IV Flush (NS 10 ml) 10 ml PRN PRN IV IV PROTOCOL; Start 06/28/18 at 12:00 Norepinephrine 16 mg/Dextrose 500 ml @ 1.88 mls/hr TITRATE IV Last admin istered on 07/06/18at 08:52; Admin Dose 20.63 MLS/HR; Start 06/30/18 at 14:00 Collagenase (Santyl) 1 applic BID TOP Last administered on 07/06/18at 08:31; Admin Dose 1 APPLIC; Start 06/30/18 at 15:00 Amikacin Sulfate (Amikacin Iv Per Pharmacy) AMIKACIN PER PHARMACY NOTE XX ; Start 07/01/18 at 14:30 Miscellaneous Information (Pending Santyl Order For Wound Care) This patient mccloud... PRN PRN XX unstageable sacrococcyx; Start 07/02/18 at 07:00 Ampicillin 50 ml @ 100 mls/hr Q8 IVPB Last administered on 07/06/18at 05:05; Admin Dose 100 MLS/HR; Start 07/02/18 at 16:00 Metronidazole 100 ml @ 100 mls/hr Q8 IVPB Last administered on 07/06/18at 05:06; Admin Dose 100 MLS/HR; Start 07/02/18 at 16:00 Amikacin Sulfate 950 mg/Sodium Chloride 253.8 ml @ 103.8 mls/ hr Q36H IVPB Last administered on 07/04/18at 17:58; Admin Dose 103.8 MLS/HR; Start 07/03/18 at 06:00; Status Hold Acetylcysteine (Mucomyst) 3 ml Q6H RESP THERAPY PRN NEB when pt has congestion Last administered on 07/04/18at 03:22; Admin Dose 3 ML; Start 07/03/18 at 21:00 Albuterol/ Ipratropium (Duoneb) 3 ml Q2H RESP THERAPY PRN HHN for congestion Last administered on 07/04/18at 03:22; Admin Dose 3 ML; Start 07/03/18 at 21:00 Midodrine (Proamatine) 10 mg Q8 GTB Last administered on 07/06/18at 05:05; Admin Dose 10 MG; Start 07/04/18 at 14:00 Alteplase, Recombinant (Cathflo (Activase)) 2 mg MAY REPEAT X1 PRN CATHETER IF CATHETER REMAINS OCCULUDED Last administered on 07/06/18at 02:20; Admin Dose 2 MG; Start 07/06/18 at 01:00 WESLEY ARAYA MD Jul 06, 2018 14:55
--- NOTE | 2018-07-06 15:19 | CONS ---
Date/Time of Note Date/Time of Note DATE: 07/06/18 TIME: 15:14 Assessment/Plan Assessment/Plan Assessment/Plan IMPRESSION: 1. Hypotension/shock state, likely septic on vasopressor (levophed) 2. incomplete data base 3. Dyslipidemia. 4. Peripheral arterial disease, status post lower extremity amputation. 5. Seizure disorder. 6. Anemia. 7. Encephalopathy. 8. History of pulmonary coccidioidomycosis. 9. Chronic respiratory failure, status post tracheostomy. 10. Dysphagia, status post G-tube. REcc: -ICU -WEan pressors as tolerated and continue midodrine -Continue abx's and f/u cx data -Continue statin -Continue asa -Hold antihypertensives while on pressors -ongoing family discussion Result Diagram: Result Diagram: 07/06/18 0400 07/06/18 0400 Results 24hrs Laboratory Tests Test 07/06/18 04:00 White Blood Count 12.7 H Red Blood Count 3.09 L Hemoglobin 8.8 L Hematocrit 27.5 L Mean Corpuscular Volume 89.0 Mean Corpuscular Hemoglobin 28.5 L Mean Corpuscular Hemoglobin Concent 32.0 Red Cell Distribution Width 15.9 H Platelet Count 65 L Mean Platelet Volume 10.6 H Immature Granulocytes % 0.600 H Neutrophils % 82.8 H Lymphocytes % 8.1 L Monocytes % 3.7 Eosinophils % 4.6 Basophils % 0.2 Nucleated Red Blood Cells % 0.0 Immature Granulocytes # 0.080 H Neutrophils # 10.5 H Lymphocytes # 1.0 Monocytes # 0.5 Eosinophils # 0.6 H Basophils # 0.0 Nucleated Red Blood Cells # 0.0 Sodium Level 133 L Potassium Level 3.9 Chloride Level 101 Carbon Dioxide Level 17 L Anion Gap 15 H Blood Urea Nitrogen 56 H Creatinine 1.28 H Est Glomerular Filtrat Rate mL/min 57 L Glucose Level 100 Calcium Level 8.8 Magnesium Level 1.8 Consultation Date/Type/Reason Admit Date/Time Jun 27, 2018 at 22:49 Initial Consult Date 06/28/18 Requesting Provider: ENID SINGH 24 HR Interval Summary Free Text/Dictation ROS: Not available as pt is non communicating Exam/Review of Systems Vital Signs Vitals Vital Signs Date Temp Pulse Resp B/P (MAP) Pulse Ox O2 O2 Flow FiO2 Time Delivery Rate 07/06/18 95 12:00 07/06/18 28 94/45 (61) 97 Mechanical 07:00 Ventilator 07/06/18 97.8 06:30 07/06/18 30 05:34 Intake and Output 07/05/18 07/05/18 07/06/18 1515:00 23:00 07:00 IntakeIntake Total 810.0 ml 922.53 ml 795.04 ml OutputOutput Total 280 ml 365 ml 265 ml BalanceBalance 530.0 ml 557.53 ml 530.04 ml Exam On Levophed and on Vent via tracheostomy General: WN/WD HEENT: Unicetric/atraumatic/ no assymetry NECK: JVD not elevated, no thyromegaly, carotids revealed normal upstrokes Lymph: no lymphadenopathy HEART: regular with no S3, I/ systolic murmur at apex LUNGS: clear ABD: soft, NT, ND, +BS, no organomegaly Neuro: no deficit SKIN: no leisons EXT: 2 + edema Medications Medications Current Medications Acetaminophen (Tylenol Liquid) 650 mg Q6H PRN GTB FEVER; Start 06/28/18 at 00:00 Aspirin (Aspirin) 81 mg DAILY GTB Last administered on 07/06/18at 08:32; Admin Dose 81 MG; Start 06/28/18 at 09:00 Atenolol (Tenormin) 12.5 mg BID GTB Last administered on 07/06/18at 08:32; Admin Dose 12.5 MG; Start 06/28/18 at 09:00 Atorvastatin Calcium (Lipitor) 20 mg HS GTB Last administered on 07/05/18at 21:03; Admin Dose 20 MG; Start 06/28/18 at 21:00 Fluconazole (Diflucan) 800 mg DAILY GTB Last administered on 07/06/18 08:32; Admin Dose 800 MG; Start 06/28/18 at 09:00 Gentamicin Sulfate (Gentamicin 0.3% Oph Drop) 2 drop Q4H BOTH EYES Last administered on 07/06/18 08:31; Admin Dose 2 DROP; Start 06/28/18 at 00:00 Glucagon (Glucagen) 1 mg PRN PRN IM HYPOGLYCEMIA (BS<70); Start 06/28/18 at 00:00 Insulin Glargine (Lantus) 10 units DAILY SC Last administered on 07/06/18at 08:53; Admin Dose 10 UNITS; Start 06/28/18 at 08:00 Lansoprazole (Prevacid) 30 mg BID@06,18 GTB Last administered on 07/06/18at 05:05; Admin Dose 30 MG; Start 06/28/18 at 06:00 Levetiracetam (Keppra Liquid) 1,000 mg BID GTB Last administered on 07/06/18at 08:31; Admin Dose 1,000 MG; Start 06/28/18 at 09:00 Memantine (Namenda) 10 mg DAILY GTB Last administered on 07/06/18at 08:32; Admin Dose 10 MG; Start 06/28/18 at 09:00 Nystatin (Nystatin Powder) 1 applic BID TOP Last administered on 07/06/18at 08:36; Admin Dose 1 APPLIC; Start 06/28/18 at 09:00 Miscellaneous Information 1 ea NOTE XX ; Start 06/28/18 at 01:00 Glucose (Glutose) 15 gm Q15M PRN PO DECREASED GLUCOSE; Start 06/28/18 at 01:00 Glucose (Glutose) 22.5 gm Q15M PRN PO DECREASED GLUCOSE; Start 06/28/18 at 01:00 Dextrose (D50w Syringe) 25 ml Q15M PRN IV DECREASED GLUCOSE; Start 06/28/18 at 01:00 Dextrose (D50w Syringe) 50 ml Q15M PRN IV DECREASED GLUCOSE; Start 06/28/18 at 01:00 Glucagon (Glucagen) 1 mg Q15M PRN IM DECREASED GLUCOSE; Start 06/28/18 at 01:00 Glucose (Glutose) 15 gm Q15M PRN BUCCAL DECREASED GLUCOSE; Start 06/28/18 at 01:00 IV Flush (NS 10 ml) 10 ml PRN PRN IV IV PROTOCOL; Start 06/28/18 at 12:00 Norepinephrine 16 mg/Dextrose 500 ml @ 1.88 mls/hr TITRATE IV Last administered on 07/06/18at 08:52; Admin Dose 20.63 MLS/HR; Start 06/30/18 at 14:00 Collagenase (Santyl) 1 applic BID TOP Last administered on 07/06/18at 08:31; Admin Dose 1 APPLIC; Start 06/30/18 at 15:00 Amikacin Sulfate (Amikacin Iv Per Pharmacy) AMIKACIN PER PHARMACY NOTE XX ; Start 07/01/18 at 14:30 Miscellaneous Information (Pending Santyl Order For Wound Care) This patient mccloud... PRN PRN XX unstageable sacrococcyx; Start 07/02/18 at 07:00 Ampicillin 50 ml @ 100 mls/hr Q8 IVPB Last administered on 07/06/18at 05:05; Admin Dose 100 MLS/HR; Start 07/02/18 at 16:00 Metronidazole 100 ml @ 100 mls/hr Q8 IVPB Last administered on 07/06/18at 05:06; Admin Dose 100 MLS/HR; Start 07/02/18 at 16:00 Amikacin Sulfate 950 mg/Sodium Chloride 253.8 ml @ 103.8 mls/ hr Q36H IVPB Last administered on 07/04/18at 17:58; Admin Dose 103.8 MLS/HR; Start 07/03/18 at 06:00; Status Hold Acetylcysteine (Mucomyst) 3 ml Q6H RESP THERAPY PRN NEB when pt has congestion Last administered on 07/04/18at 03:22; Admin Dose 3 ML; Start 07/03/18 at 21:00 Albuterol/ Ipratropium (Duoneb) 3 ml Q2H RESP THERAPY PRN HHN for congestion Last administered on 07/04/18at 03:22; Admin Dose 3 ML; Start 07/03/18 at 21:00 Midodrine (Proamatine) 10 mg Q8 GTB Last administered on 07/06/18at 05:05; Admin Dose 10 MG; Start 07/04/18 at 14:00 Alteplase, Recombinant (Cathflo (Activase)) 2 mg MAY REPEAT X1 PRN CATHETER IF CATHETER REMAINS OCCULUDED Last administered on 07/06/18at 02:20; Admin Dose 2 MG; Start 07/06/18 at 01:00 OTTO KRAMER MD Jul 06, 2018 15:19
[2018-07-06] MEDS ORDERED: ALBUMIN HUMAN 25% 50 ML IV SCH (20:00)
[2018-07-06] MEDS ORDERED: PHENYLephrine 80 MG in DEXTROSE 5% 242 ML IV SCH (20:00)
[2018-07-06] MEDS ORDERED: ALBUMIN HUMAN 25% 50 ML IV ONE (21:00)
[2018-07-06] MEDS: ATORVASTATIN 20 MG TAB GTB SCH (21:15)
[2018-07-07] VITALS (95 sets, daily range): BP systolic 67–119; BP diastolic 41–64; PULSE 79–95; RESP 11–36
[2018-07-07] MEDS: VASOPRESSIN 60 UNIT in DEXTROSE 5% 57 ML IV SCH ×3 (02:12→18:24)
[2018-07-07] MEDS: PHENYLephrine 80 MG in DEXTROSE 5% 242 ML IV SCH ×2 (03:18→08:28)
[2018-07-07] MEDS: GENTAMICIN 0.3% 5 ML OPH BOTH EYES SCH ×5 (04:14→20:49)
[2018-07-07] MEDS ORDERED: SOD CHLORIDE 0.9% 500 ML IV ONE (04:30)
[2018-07-07] MEDS ORDERED: ALBUMIN HUMAN 25% 50 ML IV ONE (04:30)
[2018-07-07] MEDS: metroNIDAZOLE 500 MG/NS (PMX) 100 ML IVPB SCH ×3 (05:00→21:52)
[2018-07-07] MEDS: LANSOPRAZOLE 30 MG CAP GTB SCH ×2 (05:00→18:23)
[2018-07-07] MEDS: AMPICILLIN 1 GM/NS (PMX) 50 ML IVPB SCH ×3 (05:00→21:52)
[2018-07-07] MEDS: FLUCONAZOLE 200 MG TAB GTB SCH (08:39)
[2018-07-07] MEDS: MEMANTINE 10 MG TAB GTB SCH (08:39)
[2018-07-07] MEDS: COLLAGENASE 5 GM (UD JAR) TOP SCH ×2 (08:40→20:50)
[2018-07-07] MEDS: NYSTATIN 30 GM POWDER BTL TOP SCH ×2 (08:40→20:51)
[2018-07-07] MEDS: ATENOLOL 25 MG TAB GTB SCH ×2 (08:41→20:50)
[2018-07-07] MEDS: ASPIRIN 325 MG TAB GTB SCH (08:43)
[2018-07-07] MEDS: INSULIN GLARGINE [LANTus] (100 UNITS/ML) SYG SC SCH (08:46)
[2018-07-07] MEDS: LEVETIRACETAM (100 MG/ML) 5ML CUP GTB SCH ×2 (08:50→20:49)
[2018-07-07] MEDS: EPINEPHrine 4 MG in SOD CHLORIDE 0.9% 246 ML IV SCH ×3 (09:09→19:28)
--- NOTE | 2018-07-07 09:47 | CONS ---
Date/Time of Note Date/Time of Note DATE: 07/07/18 TIME: 09:45 Assessment/Plan Assessment/Plan Assessment/Plan Ventilator setting; AC of 16, tidal volume 500, PEEP of 0, 40% FiO2. Patient is currently on vasopressin 0.04 units/min, Levophed 30 mics per minute, phenylephrine drip 300 mics per minute. Assessment and recommendations; 1. Patient with history of severe chronic encephalopathy and VDR F admitted for severe sepsis due to pseudomonas aeruginosa pneumonia as well as enterococcus isolated in sputum. Currently on appropriate antimicrobial regimen. 2. Persistent shock. 3. History of coccidiodomycosis pneumonia. 4. Chronic renal insufficiency. 5. Anemia and thrombocytopenia. Continue current supportive care. Prognosis is extremely poor. Result Diagram: 07/07/18 0420 07/07/18 0430 Results 24hrs Laboratory Tests Test 07/07/18 04:20 07/07/18 04:30 07/07/18 08:42 White Blood Count 15.7 #H Red Blood Count 2.90 L Hemoglobin 8.4 L Hematocrit 25.9 L Mean Corpuscular Volume 89.3 Mean Corpuscular Hemoglobin 29.0 Mean Corpuscular Hemoglobin Concent 32.4 Red Cell Distribution Width 15.9 H Platelet Count 101 #L Mean Platelet Volume 10.4 Immature Granulocytes % 0.800 H Neutrophils % 84.3 H Lymphocytes % 8.2 L Monocytes % 3.9 Eosinophils % 2.6 Basophils % 0.2 Nucleated Red Blood Cells % 0.0 Immature Granulocytes # 0.130 H Neutrophils # 13.2 H Lymphocytes # 1.3 Monocytes # 0.6 Eosinophils # 0.4 Basophils # 0.0 Nucleated Red Blood Cells # 0.0 Sodium Level 134 L Potassium Level 4.2 Chloride Level 101 Carbon Dioxide Level 16 L Anion Gap 17 H Blood Urea Nitrogen 58 H Creatinine 1.41 H Est Glomerular Filtrat Rate mL/min 51 L Glucose Level 73 Calcium Level 8.7 Magnesium Level 2.1 Bedside Glucose 105 Consultation Date/Type/Reason Admit Date/Time Jun 27, 2018 at 22:49 Initial Consult Date 06/28/18 Type of Consult Pulmonary/critical care History of presenting illness; Patient is a 62-year-old male who was transferred over from [facility] because of hypotension. Patient has history of advanced encephalopathy and was unable to give any history by himself whatsoever. History has been obtained from medical records. Patient currently is requiring high-dose pressor support. Past medical history; 1. History of chronic encephalopathy. 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 4. History of tracheostomy and G-tube placement. 5. History of seizure disorder. 6. Sacral ulcer. 7. Diabetes. 8. Chronic anemia. Medications; reviewed. Allergies; none. Family history, social history, occupational history is or not available. Review of system; unable to be obtained. General exam; elderly male, on ventilator via tracheostomy, opens eyes on name calling but remains noncommunicative. Currently in no distress. Reason for Consultation Patient's condition remains critical. Remains hypotensive on multiple pressor agents. General exam; elderly male, on ventilator via tracheostomy, unresponsive, currently in no distress. Requesting Provider: ENID SINGH Exam/Review of Systems Vital Signs Vitals Vital Signs Date Temp Pulse Resp B/P (MAP) Pulse Ox O2 O2 Flow FiO2 Time Delivery Rate 07/07/18 86 08:00 07/07/18 12 88/55 (66) 100 07:15 07/07/18 Mechanical 07:00 Ventilator 07/07/18 40 05:25 07/07/18 99.2 04:00 Intake and Output 07/06/18 07/06/18 07/07/18 1515:00 23:00 07:00 IntakeIntake Total 643.14 ml 1782.77 ml 1917.80 ml OutputOutput Total 245 ml 190 ml 170 ml BalanceBalance 398.14 ml 1592.77 ml 1747.80 ml Exam H EENT exam; supple neck, positive JVD. No lymphadenopathy. Midline trachea. No thyromegaly. Patient is edentulous. Tracheostomy in place. No neck masses. Chest exam; diminished breath sounds bilaterally. S1-S2 audible, no murmurs. Regular rhythm. Abdomen exam; soft, no organomegaly. G-tube in place. Bowel sounds audible. Extremity exam; trace edema. LAMINATION OPERATOR exam; patient remains noncommunicative and unresponsive. Medications Medications Current Medications Acetaminophen (Tylenol Liquid) 650 mg Q6H PRN GTB FEVER; Start 06/28/18 at 00:00 Aspirin (Aspirin) 81 mg DAILY GTB Last administered on 07/07/18at 08:43; Admin Dose 81 MG; Start 06/28/18 at 09:00 Atenolol (Tenormin) 12.5 mg BID GTB Last administered on 07/06/18 08:32; Admin Dose 12.5 MG; Start 06/28/18 at 09:00 Atorvastatin Calcium (Lipitor) 20 mg HS GTB Last administered on 07/06/18 21:15; Admin Dose 20 MG; Start 06/28/18 at 21:00 Fluconazole (Diflucan) 800 mg DAILY GTB Last administered on 07/07/18 08:39; Admin Dose 800 MG; Start 06/28/18 at 09:00 Gentamicin Sulfate (Gentamicin 0.3% Oph Drop) 2 drop Q4H BOTH EYES Last administered on 07/07/18 08:39; Admin Dose 2 DROP; Start 06/28/18 at 00:00 Glucagon (Glucagen) 1 mg PRN PRN IM HYPOGLYCEMIA (BS<70); Start 06/28/18 at 00:00 Insulin Glargine (Lantus) 10 units DAILY SC Last administered on 07/07/18 08:46; Admin Dose 10 UNITS; Start 06/28/18 at 08:00 Lansoprazole (Prevacid) 30 mg BID@06,18 GTB Last administered on 07/07/18 05:00; Admin Dose 30 MG; Start 06/28/18 at 06:00 Levetiracetam (Keppra Liquid) 1,000 mg BID GTB Last administered on 07/07/18 08:50; Admin Dose 1,000 MG; Start 06/28/18 at 09:00 Memantine (Namenda) 10 mg DAILY GTB Last administered on 07/07/18 08:39; Admin Dose 10 MG; Start 06/28/18 at 09:00 Nystatin (Nystatin Powder) 1 applic BID TOP Last administered on 07/07/18 08:40; Admin Dose 1 APPLIC; Start 06/28/18 at 09:00 Miscellaneous Information 1 ea NOTE XX ; Start 06/28/18 at 01:00 Glucose (Glutose) 15 gm Q15M PRN PO DECREASED GLUCOSE; Start 06/28/18 at 01:00 Glucose (Glutose) 22.5 gm Q15M PRN PO DECREASED GLUCOSE; Start 06/28/18 at 01:00 Dextrose (D50w Syringe) 25 ml Q15M PRN IV DECREASED GLUCOSE; Start 06/28/18 at 01:00 Dextrose (D50w Syringe) 50 ml Q15M PRN IV DECREASED GLUCOSE; Start 06/28/18 at 01:00 Glucagon (Glucagen) 1 mg Q15M PRN IM DECREASED GLUCOSE; Start 06/28/18 at 01:00 Glucose (Glutose) 15 gm Q15M PRN BUCCAL DECREASED GLUCOSE; Start 06/28/18 at 01:00 IV Flush (NS 10 ml) 10 ml PRN PRN IV IV PROTOCOL; Start 06/28/18 at 12:00 Collagenase (Santyl) 1 applic BID TOP Last administered on 07/07/18at 08:40; Admin Dose 1 APPLIC; Start 06/30/18 at 15:00 Amikacin Sulfate (Amikacin Iv Per Pharmacy) AMIKACIN PER PHARMACY NOTE XX ; Start 07/01/18 at 14:30 Miscellaneous Information (Pending Santyl Order For Wound Care) This patient mccloud... PRN PRN XX unstageable sacrococcyx; Start 07/02/18 at 07:00 Metronidazole 100 ml @ 100 mls/hr Q8 IVPB Last administered on 07/07/18at 05:00; Admin Dose 100 MLS/HR; Start 07/02/18 at 16:00 Amikacin Sulfate 950 mg/Sodium Chloride 253.8 ml @ 103.8 mls/ hr Q36H IVPB L ast administered on 07/04/18at 17:58; Admin Dose 103.8 MLS/HR; Start 07/03/18 at 06:00; Status Hold Acetylcysteine (Mucomyst) 3 ml Q6H RESP THERAPY PRN NEB when pt has congestion Last administered on 07/04/18at 03:22; Admin Dose 3 ML; Start 07/03/18 at 21:00 Albuterol/ Ipratropium (Duoneb) 3 ml Q2H RESP THERAPY PRN HHN for congestion Last administered on 07/04/18at 03:22; Admin Dose 3 ML; Start 07/03/18 at 21:00 Midodrine (Proamatine) 10 mg Q8 GTB Last administered on 07/06/18at 21:19; Admin Dose 10 MG; Start 07/04/18 at 14:00 Alteplase, Recombinant (Cathflo (Activase)) 2 mg MAY REPEAT X1 PRN CATHETER IF CATHETER REMAINS OCCULUDED Last administered on 07/06/18 02:20; Admin Dose 2 MG; Start 07/06/18 at 01:00 Ampicillin 50 ml @ 100 mls/hr Q8 IVPB Last administered on 07/07/18at 05:00; Admin Dose 100 MLS/HR; Start 07/06/18 at 17:00 Norepinephrine 16 mg/Dextrose 500 ml @ 1.88 mls/hr TITRATE IV Last administered on 07/07/18at 07:07; Admin Dose 56.25 MLS/HR; Start 07/07/18 at 01:00 Phenylephrine HCl 80 mg/Dextrose 250 ml @ 18.75 mls/ hr TITRATE IV Last administered on 07/07/18 08:28; Admin Dose 56.25 MLS/HR; Start 07/07/18 at 01:00 Vasopressin 60 unit/Dextrose 60 ml @ 1.2 mls/hr Q12H IV Last administered on 07/07/18at 02:12; Admin Dose 1.2 MLS/HR; Start 07/07/18 at 01:00 Epinephrine 4 mg/ Sodium Chloride 250 ml @ 3.75 mls/hr TITRATE IV Last administered on 07/07/18 09:09; Admin Dose 3.75 MLS/HR; Start 07/07/18 at 07:00 RODNEY MASCORRO Jul 07, 2018 09:47
[2018-07-07] MEDS: PHENYLephrine 160 MG in DEXTROSE 5% 484 ML IV SCH ×2 (12:21→22:23)
--- NOTE | 2018-07-07 14:05 | CONS ---
Date/Time of Note Date/Time of Note DATE: 07/07/18 TIME: 14:02 Assessment/Plan Assessment/Plan Hospital Course IMPRESSION: 1. Hypotension/shock state, likely septic on 2 pressors 2. Premature ventricular contractions in a pattern of bigeminy. Assess for coronary ischemia, acute coronary syndrome. 3. Dyslipidemia. 4. Peripheral arterial disease, status post lower extremity amputation. 5. Seizure disorder. 6. Anemia. 7. Encephalopathy. 8. History of pulmonary coccidioidomycosis. 9. Chronic respiratory failure, status post tracheostomy. 10. Dysphagia, status post G-tube. REcc: -ICU -Continue abx's and f/u cx data -Continue statin -Continue asa -On epi drip/max yared/levo/vasopressin -Poor prognosis -[employer] monday Result Diagram: 07/07/18 0420 07/07/18 0430 Results 24hrs Laboratory Tests Test 07/07/18 04:20 07/07/18 04:30 07/07/18 08:42 07/07/18 11:22 White Blood Count 15.7 #H Red Blood Count 2.90 L Hemoglobin 8.4 L Hematocrit 25.9 L Mean Corpuscular 89.3 Volume Mean Corpuscular 29.0 Hemoglobin Mean Corpuscular 32.4 Hemoglobin Concent Red Cell 15.9 H Distribution Width Platelet Count 101 #L Mean Platelet 10.4 Volume Immature 0.800 H Granulocytes % Neutrophils % 84.3 H Lymphocytes % 8.2 L Monocytes % 3.9 Eosinophils % 2.6 Basophils % 0.2 Nucleated Red 0.0 Blood Cells % Immature 0.130 H Granulocytes # Neutrophils # 13.2 H Lymphocytes # 1.3 Monocytes # 0.6 Eosinophils # 0.4 Basophils # 0.0 Nucleated Red 0.0 Blood Cells # Random Amikacin Level Sodium Level 134 L Potassium Level 4.2 Chloride Level 101 Carbon Dioxide 16 L Level Anion Gap 17 H Blood Urea 58 H Nitrogen Creatinine 1.41 H Est Glomerular 51 L Filtrat Rate mL/min Glucose Level 73 Calcium Level 8.7 Magnesium Level 2.1 Bedside Glucose 105 Lab Scanned Report REFERENCE LAB Consultation Date/Type/Reason Admit Date/Time Jun 27, 2018 at 22:49 Initial Consult Date 06/28/18 Type of Consult cardiology Reason for Consultation hypotension Requesting Provider: ENID SINGH Exam/Review of Systems Vital Signs Vitals Vital Signs Date Temp Pulse Resp B/P (MAP) Pulse Ox O2 O2 Flow FiO2 Time Delivery Rate 07/07/18 90 12:00 07/07/18 32 78/45 (56) 98 Mechanical 09:45 Ventilator 07/07/18 40 08:00 07/07/18 97.4 07:30 Intake and Output 07/06/18 07/06/18 07/07/18 1515:00 23:00 07:00 IntakeIntake Total 643.14 ml 1782.77 ml 1917.80 ml OutputOutput Total 245 ml 190 ml 170 ml BalanceBalance 398.14 ml 1592.77 ml 1747.80 ml Exam Review of Systems: CONSTITUTIONAL: No fevers, chills. PULMONARY:trached CARDIOVASCULAR: No chest pain/palpitations GASTROINTESTINAL: No nausea/vomiting. GENITOURINARY: No hematuria/dysuria. MUSCULOSKELETAL: No myagias/arthalgias. PSYCHIATRIC: The patient denies depression. NEUROLOGIC:encephalopathic Constitutional: other (encephalopathic) Head: normocephalic ENMT: other (trached) Neck: supple, jvd (9 cm water) Respiratory: diminished breath sounds (at bases/B) Cardiovascular: regular rate and rhythm Gastrointestinal: soft, non-tender Musculoskeletal: muscle weakness (generalized) Extremities: other (s/p LE amputation) Medications Medications Current Medications Acetaminophen (Tylenol Liquid) 650 mg Q6H PRN GTB FEVER; Start 06/28/18 at 00:00 Aspirin (Aspirin) 81 mg DAILY GTB Last administered on 07/07/18at 08:43; Admin Dose 81 MG; Start 06/28/18 at 09:00 Atenolol (Tenormin) 12.5 mg BID GTB Last administered on 07/06/18at 08:32; Admin Dose 12.5 MG; Start 06/28/18 at 09:00 Atorvastatin Calcium (Lipitor) 20 mg HS GTB Last administered on 07/06/18at 21:15; Admin Dose 20 MG; Start 06/28/18 at 21:00 Fluconazole (Diflucan) 800 mg DAILY GTB Last administered on 07/07/18at 08:39; Admin Dose 800 MG; Start 06/28/18 at 09:00 Gentamicin Sulfate (Gentamicin 0.3% Oph Drop) 2 drop Q4H BOTH EYES Last administered on 07/07/18at 12:15; Admin Dose 2 DROP; Start 06/28/18 at 00:00 Glucagon (Glucagen) 1 mg PRN PRN IM HYPOGLYCEMIA (BS<70); Start 06/28/18 at 00:00 Insulin Glargine (Lantus) 10 units DAILY SC Last administered on 07/07/18at 08:46; Admin Dose 10 UNITS; Start 06/28/18 at 08:00 Lansoprazole (Prevacid) 30 mg BID@,18 GTB Last administered on 07/07/18at 05:00; Admin Dose 30 MG; Start 06/28/18 at 06:00 Levetiracetam (Keppra Liquid) 1,000 mg BID GTB Last administered on 07/07/18at 08:50; Admin Dose 1,000 MG; Start 06/28/18 at 09:00 Memantine (Namenda) 10 mg DAILY GTB Last administered on 07/07/18at 08:39; Admin Dose 10 MG; Start 06/28/18 at 09:00 Nystatin (Nystatin Powder) 1 applic BID TOP Last administered on 07/07/18at 08:40; Admin Dose 1 APPLIC; Start 06/28/18 at 09:00 Miscellaneous Information 1 ea NOTE XX ; Start 06/28/18 at 01:00 Glucose (Glutose) 15 gm Q15M PRN PO DECREASED GLUCOSE; Start 06/28/18 at 01:00 Glucose (Glutose) 22.5 gm Q15M PRN PO DECREASED GLUCOSE; Start 06/28/18 at 01:00 Dextrose (D50w Syringe) 25 ml Q15M PRN IV DECREASED GLUCOSE; Start 06/28/18 at 01:00 Dextrose (D50w Syringe) 50 ml Q15M PRN IV DECREASED GLUCOSE; Start 06/28/18 at 01:00 Glucagon (Glucagen) 1 mg Q15M PRN IM DECREASED GLUCOSE; Start 06/28/18 at 01:00 Glucose (Glutose) 15 gm Q15M PRN BUCCAL DECREASED GLUCOSE; Start 06/28/18 at 01:00 IV Flush (NS 10 ml) 10 ml PRN PRN IV IV PROTOCOL; Start 06/28/18 at 12:00 Collagenase (Santyl) 1 applic BID TOP Last administered on 07/07/18at 08:40; A dmin Dose 1 APPLIC; Start 06/30/18 at 15:00 Amikacin Sulfate (Amikacin Iv Per Pharmacy) AMIKACIN PER PHARMACY NOTE XX ; Start 07/01/18 at 14:30 Miscellaneous Information (Pending Santyl Order For Wound Care) This patient mccloud... PRN PRN XX unstageable sacrococcyx; Start 07/02/18 at 07:00 Metronidazole 100 ml @ 100 mls/hr Q8 IVPB Last administered on 07/07/18at 05:00; Admin Dose 100 MLS/HR; Start 07/02/18 at 16:00 Amikacin Sulfate 950 mg/Sodium Chloride 253.8 ml @ 103.8 mls/ hr Q36H IVPB Last administered on 07/04/18at 17:58; Admin Dose 103.8 MLS/HR; Start 07/03/18 at 06:00; Status Hold Acetylcysteine (Mucomyst) 3 ml Q6H RESP THERAPY PRN NEB when pt has congestion Last administered on 07/04/18at 03:22; Admin Dose 3 ML; Start 07/03/18 at 21:00 Albuterol/ Ipratropium (Duoneb) 3 ml Q2H RESP THERAPY PRN HHN for congestion Last administered on 07/04/18at 03:22; Admin Dose 3 ML; Start 07/03/18 at 21:00 Alteplase, Recombinant (Cathflo (Activase)) 2 mg MAY REPEAT X1 PRN CATHETER IF CATHETER REMAINS OCCULUDED Last administered on 07/06/18at 02:20; Admin Dose 2 MG; Start 07/06/18 at 01:00 Ampicillin 50 ml @ 100 mls/hr Q8 IVPB Last administered on 07/07/18at 05:00; Admin Dose 100 MLS/HR; Start 07/06/18 at 17:00 Norepinephrine 16 mg/Dextrose 500 ml @ 1.88 mls/hr TITRATE IV Last administered on 07/07/18at 07:07; Admin Dose 56.25 MLS/HR; Start 07/07/18 at 01:00 Vasopressin 60 unit/Dextrose 60 ml @ 1.2 mls/hr Q12H IV Last administered on 07/07/18at 02:12; Admin Dose 1.2 MLS/HR; Start 07/07/18 at 01:00 Epinephrine 4 mg/ Sodium Chloride 250 ml @ 3.75 mls/hr TITRATE IV Last administered on 07/07/18at 09:09; Admin Dose 3.75 MLS/HR; Start 07/07/18 at 07:00 Phenylephrine HCl 160 mg/Dextrose 500 ml @ 18.75 mls/ hr TITRATE IV Last administered on 07/07/18at 12:21; Admin Dose 56.25 MLS/HR; Start 07/07/18 at 11:00 Midodrine (Proamatine) 10 mg Q8 GTB ; Start 07/07/18 at 14:00 ALINE VIDAL Jul 07, 2018 14:05
--- NOTE | 2018-07-07 14:06 | CONS ---
Date/Time of Note Date/Time of Note DATE: 07/07/18 TIME: 14:06 Assessment/Plan Assessment/Plan Hospital Course Patient remains on multiple pressors he is noncommunicative in no distress afebrile WBC 15.7 H&H 8.4 and 25.9 platelets 101 neutrophils 84.3 BUN 58 creatinine 1.41 Antimicrobials: Amikacin, ampicillin IV, Flagyl, fluconazole Indwelling: Trach, PEG, left upper extremity PICC line, right upper extremity midline, right upper abdomen pigtail Physical examination: This is a chronically ill-appearing elderly - [place] man who is noncommunicative in no distress. Head atraumatic normocephalic, sclera nonicteric. Neck is supple, tracheostomy present. Lungs: Breath sounds diminished at bases. Heart S1-S2. Abdomen soft bowel sounds present. Extremities without cyanosis, trace edema Assessment: 1. Severe sepsis with shock 2. Bilateral multifocal pneumonia 3. 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 History of left upper back abscess with repeat CT on June 22 revealed large subcutaneous fluid collection and edema in the lower posterior left neck/upper chest with questionable osteomyelitis of the scapula. 5. History of acute cholecystitis status post cholecystostomy tube 6. Chronic encephalopathy with a history of CVA 7. Diabetes 8. History of hypertension 9. Acute renal insufficiency 10. Right mastoiditis Plan: Patient remains hemodynamically unstable, continue antibiotics, patient needs IR guided drainage of left upper back abscess, ongoing palliative care evaluation, prognosis poor Result Diagram: 07/07/18 0420 07/07/18 0430 Results 24hrs Laboratory Tests Test 07/07/18 04:20 07/07/18 04:30 07/07/18 08:42 07/07/18 11:22 White Blood Count 15.7 #H Red Blood Count 2.90 L Hemoglobin 8.4 L Hematocrit 25.9 L Mean Corpuscular 89.3 Volume Mean Corpuscular 29.0 Hemoglobin Mean Corpuscular 32.4 Hemoglobin Concent Red Cell 15.9 H Distribution Width Platelet Count 101 #L Mean Platelet 10.4 Volume Immature 0.800 H Granulocytes % Neutrophils % 84.3 H Lymphocytes % 8.2 L Monocytes % 3.9 Eosinophils % 2.6 Basophils % 0.2 Nucleated Red 0.0 Blood Cells % Immature 0.130 H Granulocytes # Neutrophils # 13.2 H Lymphocytes # 1.3 Monocytes # 0.6 Eosinophils # 0.4 Basophils # 0.0 Nucleated Red 0.0 Blood Cells # Random Amikacin Level Sodium Level 134 L Potassium Level 4.2 Chloride Level 101 Carbon Dioxide 16 L Level Anion Gap 17 H Blood Urea 58 H Nitrogen Creatinine 1.41 H Est Glomerular 51 L Filtrat Rate mL/min Glucose Level 73 Calcium Level 8.7 Magnesium Level 2.1 Bedside Glucose 105 Lab Scanned Report REFERENCE LAB Consultation Date/Type/Reason Admit Date/Time Jun 27, 2018 at 22:49 Initial Consult Date 06/28/18 Type of Consult id Requesting Provider: ENID SINGH Exam/Review of Systems Vital Signs Vitals Vital Signs Date Temp Pulse Resp B/P (MAP) Pulse Ox O2 O2 Flow FiO2 Time Delivery Rate 07/07/18 90 12:00 07/07/18 32 78/45 (56) 98 Mechanical 09:45 Ventilator 07/07/18 40 08:00 07/07/18 97.4 07:30 Intake and Output 07/06/18 07/06/18 07/07/18 1515:00 23:00 07:00 IntakeIntake Total 643.14 ml 1782.77 ml 1917.80 ml OutputOutput Total 245 ml 190 ml 170 ml BalanceBalance 398.14 ml 1592.77 ml 1747.80 ml Medications Medications Current Medications Acetaminophen (Tylenol Liquid) 650 mg Q6H PRN GTB FEVER; Start 06/28/18 at 00:00 Aspirin (Aspirin) 81 mg DAILY GTB Last administered on 07/07/18at 08:43; Admin Dose 81 MG; Start 06/28/18 at 09:00 Atenolol (Tenormin) 12.5 mg BID GTB Last administered on 07/06/18at 08:32; Admin Dose 12.5 MG; Start 06/28/18 at 09:00 Atorvastatin Calcium (Lipitor) 20 mg HS GTB Last administered on 07/06/18at 21:15; Admin Dose 20 MG; Start 06/28/18 at 21:00 Fluconazole (Diflucan) 800 mg DAILY GTB Last administered on 07/07/18at 08:39; Admin Dose 800 MG; Start 06/28/18 at 09:00 Gentamicin Sulfate (Gentamicin 0.3% Oph Drop) 2 drop Q4H BOTH EYES Last administered on 07/07/18at 12:15; Admin Dose 2 DROP; Start 06/28/18 at 00:00 Glucagon (Glucagen) 1 mg PRN PRN IM HYPOGLYCEMIA (BS<70); Start 06/28/18 at 00:00 Insulin Glargine (Lantus) 10 units DAILY SC Last administered on 07/07/18at 08:46; Admin Dose 10 UNITS; Start 06/28/18 at 08:00 Lansoprazole (Prevacid) 30 mg BID@,18 GTB Last administered on 07/07/18at 05:00; Admin Dose 30 MG; Start 06/28/18 at 06:00 Levetiracetam (Keppra Liquid) 1,000 mg BID GTB Last administered on 07/07/18at 08:50; Admin Dose 1,000 MG; Start 06/28/18 at 09:00 Memantine (Namenda) 10 mg DAILY GTB Last administered on 07/07/18at 08:39; Admin Dose 10 MG; Start 06/28/18 at 09:00 Nystatin (Nystatin Powder) 1 applic BID TOP Last administered on 07/07/18at 08:40; Admin Dose 1 APPLIC; Start 06/28/18 at 09:00 Miscellaneous Information 1 ea NOTE XX ; Start 06/28/18 at 01:00 Glucose (Glutose) 15 gm Q15M PRN PO DECREASED GLUCOSE; Start 06/28/18 at 01:00 Glucose (Glutose) 22.5 gm Q15M PRN PO DECREASED GLUCOSE; Start 06/28/18 at 01:00 Dextrose (D50w Syringe) 25 ml Q15M PRN IV DECREASED GLUCOSE; Start 06/28/18 at 01:00 Dextrose (D50w Syringe) 50 ml Q15M PRN IV DECREASED GLUCOSE; Start 06/28/18 at 01:00 Glucagon (Glucagen) 1 mg Q15M PRN IM DECREASED GLUCOSE; Start 06/28/18 at 01:00 Glucose (Glutose) 15 gm Q15M PRN BUCCAL DECREASED GLUCOSE; Start 06/28/18 at 01:00 IV Flush (NS 10 ml) 10 ml PRN PRN IV IV PROTOCOL; Start 06/28/18 at 12:00 Collagenase (Santyl) 1 applic BID TOP Last administered on 07/07/18at 08:40; Admin Dose 1 APPLIC; Start 06/30/18 at 15:00 Amikacin Sulfate (Amikacin Iv Per Pharmacy) AMIKACIN PER PHARMACY NOTE XX ; Start 07/01/18 at 14:30 Miscellaneous Information (Pending Santyl Order For Wound Care) This patient mccloud... PRN PRN XX unstageable sacrococcyx; Start 07/02/18 at 07:00 Metronidazole 100 ml @ 100 mls/hr Q8 IVPB Last administered on 07/07/18at 05:00; Admin Dose 100 MLS/HR; Start 07/02/18 at 16:00 Amikacin Sulfate 950 mg/Sodium Chloride 253.8 ml @ 103.8 mls/ hr Q36H IVPB Last administered on 07/04/18at 17:58; Admin Dose 103.8 MLS/HR; Start 07/03/18 at 06:00; Status Hold Acetylcysteine (Mucomyst) 3 ml Q6H RESP THERAPY PRN NEB when pt has congestion Last administered on 07/04/18 03:22; Admin Dose 3 ML; Start 07/03/18 at 21:00 Albuterol/ Ipratropium (Duoneb) 3 ml Q2H RESP THERAPY PRN HHN for congestion Last administered on 07/04/18 03:22; Admin Dose 3 ML; Start 07/03/18 at 21:00 Alteplase, Recombinant (Cathflo (Activase)) 2 mg MAY REPEAT X1 PRN CATHETER IF CATHETER REMAINS OCCULUDED Last administered on 07/06/18at 02:20; Admin Dose 2 MG; Start 07/06/18 at 01:00 Ampicillin 50 ml @ 100 mls/hr Q8 IVPB Last administered on 07/07/18at 05:00; Admin Dose 100 MLS/HR; Start 07/06/18 at 17:00 Norepinephrine 16 mg/Dextrose 500 ml @ 1.88 mls/hr TITRATE IV Last ad ministered on 07/07/18at 07:07; Admin Dose 56.25 MLS/HR; Start 07/07/18 at 01:00 Vasopressin 60 unit/Dextrose 60 ml @ 1.2 mls/hr Q12H IV Last administered on 07/07/18at 02:12; Admin Dose 1.2 MLS/HR; Start 07/07/18 at 01:00 Epinephrine 4 mg/ Sodium Chloride 250 ml @ 3.75 mls/hr TITRATE IV Last admi nistered on 07/07/18at 09:09; Admin Dose 3.75 MLS/HR; Start 07/07/18 at 07:00 Phenylephrine HCl 160 mg/Dextrose 500 ml @ 18.75 mls/ hr TITRATE IV Last administered on 07/07/18at 12:21; Admin Dose 56.25 MLS/HR; Start 07/07/18 at 11:00 Midodrine (Proamatine) 10 mg Q8 GTB ; Start 07/07/18 at 14:00 SUSY WOLFE NP Jul 07, 2018 14:06
[2018-07-07] MEDS: MIDODRINE 2.5 MG TAB GTB SCH ×2 (14:15→21:53)
--- NOTE | 2018-07-07 15:58 | PN ---
Date/Time of Note Date/Time of Note DATE: 07/07/18 TIME: 15:57 Assessment/Plan VTE Prophylaxis Risk score (from Ns)>0 risk: 6 SCD applied (from Ns): Yes Pharmacological prophylaxis: heparin Lines/Catheters [facility] Line Central line still needed: Yes Urinary Cath still in place: Yes Reason Cath still needed: urinary retention Assessment/Plan Hospital Course 62 yo male with chornic encephelopahty and chorinc respiratory failure with septic shock. The care being provided is futile. He has no hope for meaningful recovery and is unable to come off of vasopressors. Pneumonia: - Abx per ID Septic shock: - Wean vasopressors as able Chronic respiratory failure: - MV per pulm Osteomyelitis of scapula: - Abx per ID Dismal prognosis, continue discussions with family. I spoke to daughter and she is adamant about continuing all aggressive measures. Plan for bioethics conference Result Diagram: 07/07/18 0420 07/07/18 0430 Results 24hrs Laboratory Tests Test 07/07/18 04:20 07/07/18 04:30 07/07/18 08:42 07/07/18 11:22 White Blood Count 15.7 #H Red Blood Count 2.90 L Hemoglobin 8.4 L Hematocrit 25.9 L Mean Corpuscular 89.3 Volume Mean Corpuscular 29.0 Hemoglobin Mean Corpuscular 32.4 Hemoglobin Concent Red Cell 15.9 H Distribution Width Platelet Count 101 #L Mean Platelet 10.4 Volume Immature 0.800 H Granulocytes % Neutrophils % 84.3 H Lymphocytes % 8.2 L Monocytes % 3.9 Eosinophils % 2.6 Basophils % 0.2 Nucleated Red 0.0 Blood Cells % Immature 0.130 H Granulocytes # Neutrophils # 13.2 H Lymphocytes # 1.3 Monocytes # 0.6 Eosinophils # 0.4 Basophils # 0.0 Nucleated Red 0.0 Blood Cells # Random Amikacin Level Sodium Level 134 L Potassium Level 4.2 Chloride Level 101 Carbon Dioxide 16 L Level Anion Gap 17 H Blood Urea 58 H Nitrogen Creatinine 1.41 H Est Glomerular 51 L Filtrat Rate mL/min Glucose Level 73 Calcium Level 8.7 Magnesium Level 2.1 Bedside Glucose 105 Lab Scanned Report REFERENCE LAB Subjective 24 Hr Interval Summary Free Text/Dictation Deteriorating, now on three pressors and hypotensive Nonresponsive Exam/Review of Systems Vital Signs Vitals Vital Signs Date Temp Pulse Resp B/P (MAP) Pulse Ox O2 O2 Flow FiO2 Time Delivery Rate 07/07/18 92 31 93/52 (66) 100 Mechanical 15:00 Ventilator 07/07/18 98.4 12:00 07/07/18 40 08:00 Intake and Output 07/06/18 07/06/18 07/07/18 1515:00 23:00 07:00 IntakeIntake Total 643.14 ml 1782.77 ml 1917.80 ml OutputOutput Total 245 ml 190 ml 170 ml BalanceBalance 398.14 ml 1592.77 ml 1747.80 ml Medications Medications Current Medications Acetaminophen (Tylenol Liquid) 650 mg Q6H PRN GTB FEVER; Start 06/28/18 at 00:00 Aspirin (Aspirin) 81 mg DAILY GTB Last administered on 07/07/18 08:43; Admin Dose 81 MG; Start 06/28/18 at 09:00 Atenolol (Tenormin) 12.5 mg BID GTB Last administered on 07/06/18 08:32; Admin Dose 12.5 MG; Start 06/28/18 at 09:00 Atorvastatin Calcium (Lipitor) 20 mg HS GTB Last administered on 07/06/18 21:15; Admin Dose 20 MG; Start 06/28/18 at 21:00 Fluconazole (Diflucan) 800 mg DAILY GTB Last administered on 07/07/18at 08:39; Admin Dose 800 MG; Start 06/28/18 at 09:00 Gentamicin Sulfate (Gentamicin 0.3% Oph Drop) 2 drop Q4H BOTH EYES Last administered on 07/07/18at 12:15; Admin Dose 2 DROP; Start 06/28/18 at 00:00 Glucagon (Glucagen) 1 mg PRN PRN IM HYPOGLYCEMIA (BS<70); Start 06/28/18 at 00 :00 Insulin Glargine (Lantus) 10 units DAILY SC Last administered on 07/07/18at 08:46; Admin Dose 10 UNITS; Start 06/28/18 at 08:00 Lansoprazole (Prevacid) 30 mg BID@,18 GTB Last administered on 07/07/18 05:00; Admin Dose 30 MG; Start 06/28/18 at 06:00 Levetiracetam (Keppra Liquid) 1,000 mg BID GTB Last administered on 07/07/18at 08:50; Admin Dose 1,000 MG; Start 06/28/18 at 09:00 Memantine (Namenda) 10 mg DAILY GTB Last administered on 07/07/18at 08:39; Admin Dose 10 MG; Start 06/28/18 at 09:00 Nystatin (Nystatin Powder) 1 applic BID TOP Last administered on 07/07/18at 08:40; Admin Dose 1 APPLIC; Start 06/28/18 at 09:00 Miscellaneous Information 1 ea NOTE XX ; Start 06/28/18 at 01:00 Glucose (Glutose) 15 gm Q15M PRN PO DECREASED GLUCOSE; Start 06/28/18 at 01:00 Glucose (Glutose) 22.5 gm Q15M PRN PO DECREASED GLUCOSE; Start 06/28/18 at 01:00 Dextrose (D50w Syringe) 25 ml Q15M PRN IV DECREASED GLUCOSE; Start 06/28/18 at 01:00 Dextrose (D50w Syringe) 50 ml Q15M PRN IV DECREASED GLUCOSE; Start 06/28/18 at 01:00 Glucagon (Glucagen) 1 mg Q15M PRN IM DECREASED GLUCOSE; Start 06/28/18 at 01:00 Glucose (Glutose) 15 gm Q15M PRN BUCCAL DECREASED GLUCOSE; Start 06/28/18 at 01:00 IV Flush (NS 10 ml) 10 ml PRN PRN IV IV PROTOCOL; Start 06/28/18 at 12:00 Collagenase (Santyl) 1 applic BID TOP Last administered on 07/07/18at 08:40; Admin Dose 1 APPLIC; Start 06/30/18 at 15:00 Amikacin Sulfate (Amikacin Iv Per Pharmacy) AMIKACIN PER PHARMACY NOTE XX ; Start 07/01/18 at 14:30 Miscellaneous Information (Pending Santyl Order For Wound Care) This patient mccloud... PRN PRN XX unstageable sacrococcyx; Start 07/02/18 at 07:00 Metronidazole 100 ml @ 100 mls/hr Q8 IVPB Last administered on 07/07/18at 14: 16; Admin Dose 100 MLS/HR; Start 07/02/18 at 16:00 Amikacin Sulfate 950 mg/Sodium Chloride 253.8 ml @ 103.8 mls/ hr Q36H IVPB Last administered on 07/04/18 17:58; Admin Dose 103.8 MLS/HR; Start 07/03/18 at 06:00; Status Hold Acetylcysteine (Mucomyst) 3 ml Q6H RESP THERAPY PRN NEB when pt has congestion Last administered on 07/04/18 03:22; Admin Dose 3 ML; Start 07/03/18 at 21:00 Albuterol/ Ipratropium (Duoneb) 3 ml Q2H RESP THERAPY PRN HHN for congestion Last administered on 07/04/18 03:22; Admin Dose 3 ML; Start 07/03/18 at 21:00 Alteplase, Recombinant (Cathflo (Activase)) 2 mg MAY REPEAT X1 PRN CATHETER IF CATHETER REMAINS OCCULUDED Last administered on 07/06/18 02:20; Admin Dose 2 MG; Start 07/06/18 at 01:00 Ampicillin 50 ml @ 100 mls/hr Q8 IVPB Last administered on 07/07/18 15:04; Admin Dose 100 MLS/HR; Start 07/06/18 at 17:00 Norepinephrine 16 mg/Dextrose 500 ml @ 1.88 mls/hr TITRATE IV Last administered on 07/07/18 07:07; Admin Dose 56.25 MLS/HR; Start 07/07/18 at 01:00 Vasopressin 60 unit/Dextrose 60 ml @ 1.2 mls/hr Q12H IV Last administered on 07/07/18 02:12; Admin Dose 1.2 MLS/HR; Start 07/07/18 at 01:00 Epinephrine 4 mg/ Sodium Chloride 250 ml @ 3.75 mls/hr TITRATE IV Last administered on 07/07/18 09:09; Admin Dose 3.75 MLS/HR; Start 07/07/18 at 07:00 Phenylephrine HCl 160 mg/Dextrose 500 ml @ 18.75 mls/ hr TITRATE IV Last administered on 07/07/18 12:21; Admin Dose 56.25 MLS/HR; Start 07/07/18 at 11:00 Midodrine (Proamatine) 10 mg Q8 GTB Last administered on 07/07/18 14:15; Admin Dose 10 MG; Start 07/07/18 at 14:00 WESLEY ARAYA MD Jul 07, 2018 15:58
[2018-07-07] MEDS: ATORVASTATIN 20 MG TAB GTB SCH (20:50)
[2018-07-08] VITALS (99 sets, daily range): BP systolic 73–99; BP diastolic 15–86; PULSE 78–95; RESP 16–39
[2018-07-08] MEDS: GENTAMICIN 0.3% 5 ML OPH BOTH EYES SCH ×6 (00:28→20:39)
[2018-07-08] MEDS: EPINEPHrine 4 MG in SOD CHLORIDE 0.9% 246 ML IV SCH ×3 (04:38→21:43)
[2018-07-08] MEDS: MIDODRINE 2.5 MG TAB GTB SCH ×3 (05:18→21:21)
[2018-07-08] MEDS: LANSOPRAZOLE 30 MG CAP GTB SCH ×2 (05:18→17:52)
[2018-07-08] MEDS: metroNIDAZOLE 500 MG/NS (PMX) 100 ML IVPB SCH ×3 (05:51→22:59)
[2018-07-08] MEDS: AMPICILLIN 1 GM/NS (PMX) 50 ML IVPB SCH ×3 (05:51→21:39)
[2018-07-08] MEDS: PHENYLephrine 160 MG in DEXTROSE 5% 484 ML IV SCH ×2 (07:39→16:31)
[2018-07-08] MEDS: FLUCONAZOLE 200 MG TAB GTB SCH (09:00)
[2018-07-08] MEDS: MEMANTINE 10 MG TAB GTB SCH (09:00)
[2018-07-08] MEDS: ATENOLOL 25 MG TAB GTB SCH ×2 (09:00→20:38)
[2018-07-08] MEDS: INSULIN GLARGINE [LANTus] (100 UNITS/ML) SYG SC SCH (09:00)
[2018-07-08] MEDS: LEVETIRACETAM (100 MG/ML) 5ML CUP GTB SCH ×2 (09:00→20:38)
[2018-07-08] MEDS: ASPIRIN 325 MG TAB GTB SCH (09:00)
[2018-07-08] MEDS: COLLAGENASE 5 GM (UD JAR) TOP SCH ×2 (09:45→21:39)
[2018-07-08] MEDS: NYSTATIN 30 GM POWDER BTL TOP SCH ×2 (09:46→21:39)
--- NOTE | 2018-07-08 11:09 | CONS ---
Date/Time of Note Date/Time of Note DATE: 07/08/18 TIME: 11:07 Assessment/Plan Assessment/Plan Assessment/Plan Ventilator setting; AC of 16, tidal volume 500, PEEP of 0, 40% FiO2. Patient is currently on vasopressin 0.04 units/min, Levophed 30 mics per minute, epinephrine drip 8 mics per minute. Assessment recommendations; 1. Patient with history of chronic severe encephalopathy and VDR F admitted for severe sepsis due to Pseudomonas and enterococcus pneumonia. Currently on appropriate antimicrobial regimen. 2. Persistent profound shock. 3. Severe anemia and thrombocytopenia. 4. Chronic renal insufficiency. 5. Interval development of ileus. Continue current supportive care. Prognosis is extremely poor. Result Diagram: 07/08/185 07/08/185 Results 24hrs Laboratory Tests Test 07/07/18 11:22 07/07/18 21:13 07/08/18 04:45 07/08/18 09:47 Lab Scanned Report REFERENCE LAB Bedside Glucose 130 95 White Blood Count 14.1 H Red Blood Count 2.78 L Hemoglobin 8.0 L Hematocrit 25.4 L Mean Corpuscular 91.4 Volume Mean Corpuscular 28.8 L Hemoglobin Mean Corpuscular 31.5 L Hemoglobin Concent Red Cell 16.1 H Distribution Width Platelet Count 93 L Mean Platelet 9.8 Volume Immature 0.900 H Granulocytes % Neutrophils % 83.5 H Lymphocytes % 8.2 L Monocytes % 4.3 Eosinophils % 2.8 Basophils % 0.3 Nucleated Red 0.0 Blood Cells % Immature 0.130 H Granulocytes # Neutrophils # 11.8 H Lymphocytes # 1.2 Monocytes # 0.6 Eosinophils # 0.4 Basophils # 0.0 Nucleated Red 0.0 Blood Cells # Sodium Level 128 L Potassium Level 4.0 Chloride Level 100 Carbon Dioxide 15 L Level Anion Gap 13 Blood Urea 56 H Nitrogen Creatinine 1.49 H Est Glomerular 47 L Filtrat Rate mL/min Glucose Level 94 Calcium Level 8.8 Magnesium Level 2.0 Total Bilirubin 2.0 H Direct Bilirubin 2.00 H Indirect Bilirubin 0.0 Aspartate Amino 59 H Transf (AST/SGOT) Alanine 14 Aminotransferase ( ALT/SGPT) Alkaline 329 H Phosphatase Total Protein 5.9 L Albumin 2.0 L Globulin 3.90 H Albumin/Globulin 0.51 Ratio Consultation Date/Type/Reason Admit Date/Time Jun 27, 2018 at 22:49 Initial Consult Date 06/28/18 Type of Consult Pulmonary/critical care History of presenting illness; Patient is a 62-year-old male who was transferred over from [facility] because of hypotension. Patient has history of advanced encephalopathy and was unable to give any history by himself whatsoever. History has been obtained from medical records. Patient currently is requiring high-dose pressor support. Past medical history; 1. History of chronic encephalopathy. 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 4. History of tracheostomy and G-tube placement. 5. History of seizure disorder. 6. Sacral ulcer. 7. Diabetes. 8. Chronic anemia. Medications; reviewed. Allergies; none. Family history, social history, occupational history is or not available. Review of system; unable to be obtained. General exam; elderly male, on ventilator via tracheostomy, opens eyes on name calling but remains noncommunicative. Currently in no distress. Requesting Provider: ENID SINGH 24 HR Interval Summary Free Text/Dictation Patient's condition remains critical. Remains hypotensive on multiple pressor agents. General exam; elderly male, on ventilator via tracheostomy, unresponsive. Currently in no distress. Exam/Review of Systems Vital Signs Vitals Vital Signs Date Temp Pulse Resp B/P (MAP) Pulse Ox O2 O2 Flow FiO2 Time Delivery Rate 07/08/18 88 30 78/51 (60) 100 Mechanical 08:30 Ventilator 07/08/18 40 08:00 07/08/18 97.5 07:30 Intake and Output 07/07/18 07/07/18 07/08/18 1515:00 23:00 07:00 IntakeIntake Total 1714.30 ml 1602.95 ml 1309.20 ml OutputOutput Total 195 ml 365 ml 1070 ml BalanceBalance 1519.30 ml 1237.95 ml 239.20 ml Exam H EENT exam; supple neck, no JVD. No lymphadenopathy. Midline trachea. No thyromegaly. Tracheostomy in place. Patient is edentulous. Chest exam; diminished breath sounds bilaterally. S1-S2 audible, no murmurs. Regular rhythm. Abdomen exam; soft, no organomegaly. G-tube in place. Bowel sounds audible. Extremity exam; peripheral edema. ENVIRONMENTAL AID exam; patient remains unresponsive. Medications Medications Current Medications Acetaminophen (Tylenol Liquid) 650 mg Q6H PRN GTB FEVER; Start 06/28/18 at 00:00 Aspirin (Aspirin) 81 mg DAILY GTB Last administered on 07/07/18 08:43; Admin Dose 81 MG; Start 06/28/18 at 09:00 Atenolol (Tenormin) 12.5 mg BID GTB Last administered on 07/06/18 08:32; Admin Dose 12.5 MG; Start 06/28/18 at 09:00 Atorvastatin Calcium (Lipitor) 20 mg HS GTB Last administered on 07/07/18 20:50; Admin Dose 20 MG; Start 06/28/18 at 21:00 Fluconazole (Diflucan) 800 mg DAILY GTB Last administered on 07/07/18 08:39; Admin Dose 800 MG; Start 06/28/18 at 09:00 Gentamicin Sulfate (Gentamicin 0.3% Oph Drop) 2 drop Q4H BOTH EYES Last administered on 07/08/18 07:26; Admin Dose 2 DROP; Start 06/28/18 at 00:00 Glucagon (Glucagen) 1 mg PRN PRN IM HYPOGLYCEMIA (BS<70); Start 06/28/18 at 00:00 Insulin Glargine (Lantus) 10 units DAILY SC Last administered on 07/07/18 08:46; Admin Dose 10 UNITS; Start 06/28/18 at 08:00 Lansoprazole (Prevacid) 30 mg BID@06,18 GTB Last administered on 07/07/18 18:23; Admin Dose 30 MG; Start 06/28/18 at 06:00 Levetiracetam (Keppra Liquid) 1,000 mg BID GTB Last administered on 07/07/18 20:49; Admin Dose 1,000 MG; Start 06/28/18 at 09:00 Memantine (Namenda) 10 mg DAILY GTB Last administered on 07/07/18 08:39; Admin Dose 10 MG; Start 06/28/18 at 09:00 Nystatin (Nystatin Powder) 1 applic BID TOP Last administered on 07/08/18 09:46; Admin Dose 1 APPLIC; Start 06/28/18 at 09:00 Miscellaneous Information 1 ea NOTE XX ; Start 06/28/18 at 01:00 Glucose (Glutose) 15 gm Q15M PRN PO DECREASED GLUCOSE; Start 06/28/18 at 01:00 Glucose (Glutose) 22.5 gm Q15M PRN PO DECREASED GLUCOSE; Start 06/28/18 at 01:00 Dextrose (D50w Syringe) 25 ml Q15M PRN IV DECREASED GLUCOSE; Start 06/28/18 at 01:00 Dextrose (D50w Syringe) 50 ml Q15M PRN IV DECREASED GLUCOSE; Start 06/28/18 at 01:00 Glucagon (Glucagen) 1 mg Q15M PRN IM DECREASED GLUCOSE; Start 06/28/18 at 01:00 Glucose (Glutose) 15 gm Q15M PRN BUCCAL DECREASED GLUCOSE; Start 06/28/18 at 01:00 IV Flush (NS 10 ml) 10 ml PRN PRN IV IV PROTOCOL; Start 06/28/18 at 12:00 Collagenase (Santyl) 1 applic BID TOP Last administered on 07/08/18at 09:45; Admin Dose 1 APPLIC; Start 06/30/18 at 15:00 Amikacin Sulfate (Amikacin Iv Per Pharmacy) AMIKACIN PER PHARMACY NOTE XX ; Start 07/01/18 at 14:30 Miscellaneous Information (Pending Santyl Order For Wound Care) This patient mccloud... PRN PRN XX unstageable sacrococcyx; Start 07/02/18 at 07:00 Metronidazole 100 ml @ 100 mls/hr Q8 IVPB Last administered on 07/08/18at 05:51; Admin Dose 100 MLS/HR; Start 07/02/18 at 16:00 Amikacin Sulfate 950 mg/Sodium Chloride 253.8 ml @ 103.8 mls/ hr Q36H IVPB Last administered on 07/04/18at 17:58; Admin Dose 103.8 MLS/HR; Start 07/03/18 at 06:00; Status Hold Acetylcysteine (Mucomyst) 3 ml Q6H RESP THERAPY PRN NEB when pt has congestion Last administered on 07/04/18at 03:22; Admin Dose 3 ML; Start 07/03/18 at 21:00 Albuterol/ Ipratropium (Duoneb) 3 ml Q2H RESP THERAPY PRN HHN for congestion Last administered on 07/04/18at 03:22; Admin Dose 3 ML; Start 07/03/18 at 21:00 Alteplase, Recombinant (Cathflo (Activase)) 2 mg MAY REPEAT X1 PRN CATHETER IF CATHETER REMAINS OCCULUDED Last administered on 07/06/18 02:20; Admin Dose 2 MG; Start 07/06/18 at 01:00 Ampicillin 50 ml @ 100 mls/hr Q8 IVPB Last administered on 07/08/18 05:51; Ad min Dose 100 MLS/HR; Start 07/06/18 at 17:00 Norepinephrine 16 mg/Dextrose 500 ml @ 1.88 mls/hr TITRATE IV Last administered on 07/08/18 09:45; Admin Dose 56.25 MLS/HR; Start 07/07/18 at 01:00 Vasopressin 60 unit/Dextrose 60 ml @ 1.2 mls/hr Q12H IV Last administered on 07/07/18 18:24; Admin Dose 2.4 MLS/HR; Start 07/07/18 at 01:00 Epinephrine 4 mg/ Sodium Chloride 250 ml @ 3.75 mls/hr TITRATE IV Last administered on 07/08/18 04:38; Admin Dose 30 MLS/HR; Start 07/07/18 at 07:00 Phenylephrine HCl 160 mg/Dextrose 500 ml @ 18.75 mls/ hr TITRATE IV Last administered on 07/08/18 07:39; Admin Dose 56.25 MLS/HR; Start 07/07/18 at 11:00 Midodrine (Proamatine) 10 mg Q8 GTB Last administered on 07/07/18 21:53; Admin Dose 10 MG; Start 07/07/18 at 14:00 RODNEY MASCORRO Jul 08, 2018 11:09
--- NOTE | 2018-07-08 11:51 | PN ---
Date/Time of Note Date/Time of Note DATE: 07/08/18 TIME: 11:50 Assessment/Plan VTE Prophylaxis Risk score (from Ns)>0 risk: 7 SCD applied (from Ns): Yes Pharmacological prophylaxis: heparin Lines/Catheters IV [facility] (from [facility]): PICC Line Central line still needed: Yes Urinary Cath still in place: Yes Reason Cath still needed: urinary retention Assessment/Plan Hospital Course 62 yo male with chornic encephelopahty and chorinc respiratory failure with septic shock. The care being provided is futile. He has no hope for meaningful recovery and is unable to come off of vasopressors, now on 4 vasopressors and hypotensive. Likely to lose pulse soon. Despite fulity of care, daughter not amenable to palliative care Pneumonia: - Abx per ID Septic shock: - Wean vasopressors as able Chronic respiratory failure: - MV per pulm Osteomyelitis of scapula: - Abx per ID Dismal prognosis, continue discussions with family. I spoke to daughter and she is adamant about continuing all aggressive measures. Plan for bioethics [place] Result Diagram: 07/08/18 0445 07/08/18 0445 Results 24hrs Laboratory Tests Test 07/07/18 21:13 07/08/18 04:45 07/08/18 09:47 Bedside Glucose 130 95 White Blood Count 14.1 H Red Blood Count 2.78 L Hemoglobin 8.0 L Hematocrit 25.4 L Mean Corpuscular Volume 91.4 Mean Corpuscular Hemoglobin 28.8 L Mean Corpuscular Hemoglobin Concent 31.5 L Red Cell Distribution Width 16.1 H Platelet Count 93 L Mean Platelet Volume 9.8 Immature Granulocytes % 0.900 H Neutrophils % 83.5 H Lymphocytes % 8.2 L Monocytes % 4.3 Eosinophils % 2.8 Basophils % 0.3 Nucleated Red Blood Cells % 0.0 Immature Granulocytes # 0.130 H Neutrophils # 11.8 H Lymphocytes # 1.2 Monocytes # 0.6 Eosinophils # 0.4 Basophils # 0.0 Nucleated Red Blood Cells # 0.0 Sodium Level 128 L Potassium Level 4.0 Chloride Level 100 Carbon Dioxide Level 15 L Anion Gap 13 Blood Urea Nitrogen 56 H Creatinine 1.49 H Est Glomerular Filtrat Rate mL/min 47 L Glucose Level 94 Calcium Level 8.8 Magnesium Level 2.0 Total Bilirubin 2.0 H Direct Bilirubin 2.00 H Indirect Bilirubin 0.0 Aspartate Amino Transf (AST/SGOT) 59 H Alanine Aminotransferase (ALT/SGPT) 14 Alkaline Phosphatase 329 H Total Protein 5.9 L Albumin 2.0 L Globulin 3.90 H Albumin/Globulin Ratio 0.51 Subjective 24 Hr Interval Summary Free Text/Dictation Increasing pressor requirement Nonresponsive Exam/Review of Systems Vital Signs Vitals Vital Signs Date Temp Pulse Resp B/P (MAP) Pulse Ox O2 O2 Flow FiO2 Time Delivery Rate 07/08/18 88 30 78/51 (60) 100 Mechanical 08:30 Ventilator 07/08/18 40 08:00 07/08/18 97.5 07:30 Intake and Output 07/07/18 07/07/18 07/08/18 1515:00 23:00 07:00 IntakeIntake Total 1714.30 ml 1602.95 ml 1309.20 ml OutputOutput Total 195 ml 365 ml 1070 ml BalanceBalance 1519.30 ml 1237.95 ml 239.20 ml Medications Medications Current Medications Acetaminophen (Tylenol Liquid) 650 mg Q6H PRN GTB FEVER; Start 06/28/18 at 00:00 Aspirin (Aspirin) 81 mg DAILY GTB Last administered on 07/07/18 08:43; Admin Dose 81 MG; Start 06/28/18 at 09:00 Atenolol (Tenormin) 12.5 mg BID GTB Last administered on 07/06/18 08:32; Admin Dose 12.5 MG; Start 06/28/18 at 09:00 Atorvastatin Calcium (Lipitor) 20 mg HS GTB Last administered on 07/07/18 20:50; Admin Dose 20 MG; Start 06/28/18 at 21:00 Fluconazole (Diflucan) 800 mg DAILY GTB Last administered on 07/07/18 08:39; Admin Dose 800 MG; Start 06/28/18 at 09:00 Gentamicin Sulfate (Gentamicin 0.3% Oph Drop) 2 drop Q4H BOTH EYES Last administered on 07/08/18 07:26; Admin Dose 2 DROP; Start 06/28/18 at 00:00 Glucagon (Glucagen) 1 mg PRN PRN IM HYPOGLYCEMIA (BS<70); Start 06/28/18 at 00:00 Insulin Glargine (Lantus) 10 units DAILY SC Last administered on 1/12/19at 08:46; Admin Dose 10 UNITS; Start 06/28/18 at 08:00 Lansoprazole (Prevacid) 30 mg BID@06,18 GTB Last administered on 07/07/18at 18:23; Admin Dose 30 MG; Start 06/28/18 at 06:00 Levetiracetam (Keppra Liquid) 1,000 mg BID GTB Last administered on 07/07/18at 20:49; Admin Dose 1,000 MG; Start 06/28/18 at 09:00 Memantine (Namenda) 10 mg DAILY GTB Last administered on 07/07/18at 08:39; Admin Dose 10 MG; Start 06/28/18 at 09:00 Nystatin (Nystatin Powder) 1 applic BID TOP Last administered on 07/08/18at 09:46; Admin Dose 1 APPLIC; Start 06/28/18 at 09:00 Miscellaneous Information 1 ea NOTE XX ; Start 06/28/18 at 01:00 Glucose (Glutose) 15 gm Q15M PRN PO DECREASED GLUCOSE; Start 06/28/18 at 01:00 Glucose (Glutose) 22.5 gm Q15M PRN PO DECREASED GLUCOSE; Start 06/28/18 at 01:00 Dextrose (D50w Syringe) 25 ml Q15M PRN IV DECREASED GLUCOSE; Start 06/28/18 at 01:00 Dextrose (D50w Syringe) 50 ml Q15M PRN IV DECREASED GLUCOSE; Start 06/28/18 at 01:00 Glucagon (Glucagen) 1 mg Q15M PRN IM DECREASED GLUCOSE; Start 06/28/18 at 01:00 Glucose (Glutose) 15 gm Q15M PRN BUCCAL DECREASED GLUCOSE; Start 06/28/18 at 01:00 IV Flush (NS 10 ml) 10 ml PRN PRN IV IV PROTOCOL; Start 06/28/18 at 12:00 Collagenase (Santyl) 1 applic BID TOP Last administered on 07/08/18at 09:45; Admin Dose 1 APPLIC; Start 06/30/18 at 15:00 Amikacin Sulfate (Amikacin Iv Per Pharmacy) AMIKACIN PER PHARMACY NOTE XX ; Start 07/01/18 at 14:30 Miscellaneous Information (Pending Santyl Order For Wound Care) This patient mccloud... PRN PRN XX unstageable sacrococcyx; Start 07/02/18 at 07:00 Metronidazole 100 ml @ 100 mls/hr Q8 IVPB Last administered on 07/08/18at 05:51; Admin Dose 100 MLS/HR; Start 07/02/18 at 16:00 Amikacin Sulfate 950 mg/Sodium Chloride 253.8 ml @ 103.8 mls/ hr Q36H IVPB Last administered on 07/04/18at 17:58; Admin Dose 103.8 MLS/HR; Start 07/03/18 at 06:00; Status Hold Acetylcysteine (Mucomyst) 3 ml Q6H RESP THERAPY PRN NEB when pt has congestion Last administered on 07/04/18 03:22; Admin Dose 3 ML; Start 07/03/18 at 21:00 Albuterol/ Ipratropium (Duoneb) 3 ml Q2H RESP THERAPY PRN HHN for congestion Last administered on 07/04/18at 03:22; Admin Dose 3 ML; Start 07/03/18 at 21:00 Alteplase, Recombinant (Cathflo (Activase)) 2 mg MAY REPEAT X1 PRN CATHETER IF CATHETER REMAINS OCCULUDED Last administered on 07/06/18at 02:20; Admin Dose 2 MG ; Start 07/06/18 at 01:00 Ampicillin 50 ml @ 100 mls/hr Q8 IVPB Last administered on 07/08/18at 05:51; Admin Dose 100 MLS/HR; Start 07/06/18 at 17:00 Norepinephrine 16 mg/Dextrose 500 ml @ 1.88 mls/hr TITRATE IV Last administered on 07/08/18at 09:45; Admin Dose 56.25 MLS/HR; Start 07/07/18 at 01:0 0 Vasopressin 60 unit/Dextrose 60 ml @ 1.2 mls/hr Q12H IV Last administered on 07/07/18at 18:24; Admin Dose 2.4 MLS/HR; Start 07/07/18 at 01:00 Epinephrine 4 mg/ Sodium Chloride 250 ml @ 3.75 mls/hr TITRATE IV Last administered on 07/08/18at 04:38; Admin Dose 30 MLS/HR; Start 07/07/18 at 07:00 Phenylephrine HCl 160 mg/Dextrose 500 ml @ 18.75 mls/ hr TITRATE IV Last administered on 07/08/18at 07:39; Admin Dose 56.25 MLS/HR; Start 07/07/18 at 11:00 Midodrine (Proamatine) 10 mg Q8 GTB Last administered on 07/07/18at 21:53; Admin Dose 10 MG; Start 07/07/18 at 14:00 WESLEY ARAYA MD Jul 08, 2018 11:51
--- NOTE | 2018-07-08 12:41 | CONS ---
Date/Time of Note Date/Time of Note DATE: 07/08/18 TIME: 12:40 Assessment/Plan Assessment/Plan Hospital Course Patient is on 4 pressors. Tube feeding on hold secondary to high residuals. White blood cell count today 14.1 platelets 93 neutrophils 83.5 BUN 56 creatinine 1.49 KUB revealed nonobstructive bowel gas pattern Antimicrobials: Amikacin, ampicillin IV, Flagyl, fluconazole Indwelling: Trach, PEG, left upper extremity PICC line, right upper extremity midline, right upper abdomen pigtail Physical examination: This is a chronically ill-appearing elderly - [place] man who is noncommunicative in no distress. Head atraumatic normocephalic, sclera nonicteric. Neck is supple, tracheostomy present. Lungs: Breath sounds diminished at bases. Heart S1-S2. Abdomen soft bowel sounds present. Extremities without cyanosis, trace edema Assessment: 1. Severe sepsis with shock 2. Bilateral multifocal pneumonia 3. 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 History of left upper back abscess with repeat CT on June 22 revealed large subcutaneous fluid collection and edema in the lower posterior left neck/upper chest with questionable osteomyelitis of the scapula. 5. History of acute cholecystitis status post cholecystostomy tube 6. Chronic encephalopathy with a history of CVA 7. Diabetes 8. History of hypertension 9. Acute renal insufficiency 10. Right mastoiditis Plan: Doing poorly, hemodynamically unstable on multiple pressors, continue antibiotics, change Diflucan to IV, prognosis very poor, patient needs IR guided drainage of left upper back abscess Result Diagram: 07/08/18 0445 07/08/18 0445 Results 24hrs Laboratory Tests Test 07/07/18 21:13 07/08/18 04:45 07/08/18 09:47 Bedside Glucose 130 95 White Blood Count 14.1 H Red Blood Count 2.78 L Hemoglobin 8.0 L Hematocrit 25.4 L Mean Corpuscular Volume 91.4 Mean Corpuscular Hemoglobin 28.8 L Mean Corpuscular Hemoglobin Concent 31.5 L Red Cell Distribution Width 16.1 H Platelet Count 93 L Mean Platelet Volume 9.8 Immature Granulocytes % 0.900 H Neutrophils % 83.5 H Lymphocytes % 8.2 L Monocytes % 4.3 Eosinophils % 2.8 Basophils % 0.3 Nucleated Red Blood Cells % 0.0 Immature Granulocytes # 0.130 H Neutrophils # 11.8 H Lymphocytes # 1.2 Monocytes # 0.6 Eosinophils # 0.4 Basophils # 0.0 Nucleated Red Blood Cells # 0.0 Sodium Level 128 L Potassium Level 4.0 Chloride Level 100 Carbon Dioxide Level 15 L Anion Gap 13 Blood Urea Nitrogen 56 H Creatinine 1.49 H Est Glomerular Filtrat Rate mL/min 47 L Glucose Level 94 Calcium Level 8.8 Magnesium Level 2.0 Total Bilirubin 2.0 H Direct Bilirubin 2.00 H Indirect Bilirubin 0.0 Aspartate Amino Transf (AST/SGOT) 59 H Alanine Aminotransferase (ALT/SGPT) 14 Alkaline Phosphatase 329 H Total Protein 5.9 L Albumin 2.0 L Globulin 3.90 H Albumin/Globulin Ratio 0.51 Consultation Date/Type/Reason Admit Date/Time Jun 27, 2018 at 22:49 Initial Consult Date 06/28/18 Type of Consult id Requesting Provider: ENID SINGH Exam/Review of Systems Vital Signs Vitals Vital Signs Date Temp Pulse Resp B/P (MAP) Pulse Ox O2 O2 Flow FiO2 Time Delivery Rate 07/08/18 88 30 78/51 (60) 100 Mechanical 08:30 Ventilator 07/08/18 40 08:00 07/08/18 97.5 07:30 Intake and Output 07/07/18 07/07/18 07/08/18 1515:00 23:00 07:00 IntakeIntake Total 1714.30 ml 1602.95 ml 1309.20 ml OutputOutput Total 195 ml 365 ml 1070 ml BalanceBalance 1519.30 ml 1237.95 ml 239.20 ml Medications Medications Current Medications Acetaminophen (Tylenol Liquid) 650 mg Q6H PRN GTB FEVER; Start 06/28/18 at 00:00 Aspirin (Aspirin) 81 mg DAILY GTB Last administered on 07/07/18at 08:43; Admin Dose 81 MG; Start 06/28/18 at 09:00 Atenolol (Tenormin) 12.5 mg BID GTB Last administered on 07/06/18at 08:32; Admin Dose 12.5 MG; Start 06/28/18 at 09:00 Atorvastatin Calcium (Lipitor) 20 mg HS GTB Last administered on 07/07/18at 20:50; Admin Dose 20 MG; Start 06/28/18 at 21:00 Fluconazole (Diflucan) 800 mg DAILY GTB Last administered on 07/07/18at 08:39; Admin Dose 800 MG; Start 06/28/18 at 09:00 Gentamicin Sulfate (Gentamicin 0.3% Oph Drop) 2 drop Q4H BOTH EYES Last administered on 07/08/18at 07:26; Admin Dose 2 DROP; Start 06/28/18 at 00:00 Glucagon (Glucagen) 1 mg PRN PRN IM HYPOGLYCEMIA (BS<70); Start 06/28/18 at 00:00 Insulin Glargine (Lantus) 10 units DAILY SC Last administered on 07/07/18at 08:46; Admin Dose 10 UNITS; Start 06/28/18 at 08:00 Lansoprazole (Prevacid) 30 mg BID@,18 GTB Last administered on 07/07/18at 18:23; Admin Dose 30 MG; Start 06/28/18 at 06:00 Levetiracetam (Keppra Liquid) 1,000 mg BID GTB Last administered on 07/07/18at 20:49; Admin Dose 1,000 MG; Start 06/28/18 at 09:00 Memantine (Namenda) 10 mg DAILY GTB Last administered on 07/07/18at 08:39; Admin Dose 10 MG; Start 06/28/18 at 09:00 Nystatin (Nystatin Powder) 1 applic BID TOP Last administered on 07/08/18at 09:46; Admin Dose 1 APPLIC; Start 06/28/18 at 09:00 Miscellaneous Information 1 ea NOTE XX ; Start 06/28/18 at 01:00 Glucose (Glutose) 15 gm Q15M PRN PO DECREASED GLUCOSE; Start 06/28/18 at 01:00 Glucose (Glutose) 22.5 gm Q15M PRN PO DECREASED GLUCOSE; Start 06/28/18 at 01:00 Dextrose (D50w Syringe) 25 ml Q15M PRN IV DECREASED GLUCOSE; Start 06/28/18 at 01:00 Dextrose (D50w Syringe) 50 ml Q15M PRN IV DECREASED GLUCOSE; Start 06/28/18 at 01:00 Glucagon (Glucagen) 1 mg Q15M PRN IM DECREASED GLUCOSE; Start 06/28/18 at 01:00 Glucose (Glutose) 15 gm Q15M PRN BUCCAL DECREASED GLUCOSE; Start 06/28/18 at 01:00 IV Flush (NS 10 ml) 10 ml PRN PRN IV IV PROTOCOL; Start 06/28/18 at 12:00 Collagenase (Santyl) 1 applic BID TOP Last administered on 07/08/18at 09:45; Admin Dose 1 APPLIC; Start 06/30/18 at 15:00 Amikacin Sulfate (Amikacin Iv Per Pharmacy) AMIKACIN PER PHARMACY NOTE XX ; Start 07/01/18 at 14:30 Miscellaneous Information (Pending Santyl Order For Wound Care) This patient mccloud... PRN PRN XX unstageable sacrococcyx; Start 07/02/18 at 07:00 Metronidazole 100 ml @ 100 mls/hr Q8 IVPB Last administered on 07/08/18 05:51; Admin Dose 100 MLS/HR; Start 07/02/18 at 16:00 Amikacin Sulfate 950 mg/Sodium Chloride 253.8 ml @ 103.8 mls/ hr Q36H IVPB Last administered on 07/04/18 17:58; Admin Dose 103.8 MLS/HR; Start 07/03/18 at 06:00; Status Hold Acetylcysteine (Mucomyst) 3 ml Q6H RESP THERAPY PRN NEB when pt has congestion Last administered on 07/04/18 03:22; Admin Dose 3 ML; Start 07/03/18 at 21:00 Albuterol/ Ipratropium (Duoneb) 3 ml Q2H RESP THERAPY PRN HHN for congestion Last administered on 07/04/18 03:22; Admin Dose 3 ML; Start 07/03/18 at 21:00 Alteplase, Recombinant (Cathflo (Activase)) 2 mg MAY REPEAT X1 PRN CATHETER IF CATHETER REMAINS OCCULUDED Last administered on 07/06/18 02:20; Admin Dose 2 MG; Start 07/06/18 at 01:00 Ampicillin 50 ml @ 100 mls/hr Q8 IVPB Last administered on 07/08/18 05:51; Admin Dose 100 MLS/HR; Start 07/06/18 at 17:00 Norepinephrine 16 mg/Dextrose 500 ml @ 1.88 mls/hr TITRATE IV Last administered on 07/08/18 09:45; Admin Dose 56.25 MLS/HR; Start 07/07/18 at 01:00 Vasopressin 60 unit/Dextrose 60 ml @ 1.2 mls/hr Q12H IV Last administered on 07/07/18at 18:24; Admin Dose 2.4 MLS/HR; Start 07/07/18 at 01:00 Epinephrine 4 mg/ Sodium Chloride 250 ml @ 3.75 mls/hr TITRATE IV Last administered on 07/08/18at 04:38; Admin Dose 30 MLS/HR; Start 07/07/18 at 07:00 Phenylephrine HCl 160 mg/Dextrose 500 ml @ 18.75 mls/ hr TITRATE IV Last administered on 07/08/18at 07:39; Admin Dose 56.25 MLS/HR; Start 07/07/18 at 11:00 Midodrine (Proamatine) 10 mg Q8 GTB Last administered on 07/07/18at 21:53; Admin Dose 10 MG; Start 07/07/18 at 14:00 SUSY WOLFE NP Jul 08, 2018 12:41
--- NOTE | 2018-07-08 14:03 | CONS ---
Date/Time of Note Date/Time of Note DATE: 07/08/18 TIME: 14:01 Assessment/Plan Assessment/Plan Hospital Course IMPRESSION: 1. Hypotension/shock state, likely septic on 2 pressors 2. Premature ventricular contractions in a pattern of bigeminy. Assess for coronary ischemia, acute coronary syndrome. 3. Dyslipidemia. 4. Peripheral arterial disease, status post lower extremity amputation. 5. Seizure disorder. 6. Anemia. 7. Encephalopathy. 8. History of pulmonary coccidioidomycosis. 9. Chronic respiratory failure, status post tracheostomy. 10. Dysphagia, status post G-tube. REcc: -ICU -Continue abx's and f/u cx data -Continue statin -Continue asa -On epi drip/max yared/levo/vasopressin -Poor prognosis -Bioethics monday Result Diagram: 07/08/1844407/08/18444 Results 24hrs Laboratory Tests Test 07/07/18 21:13 07/08/18 04:45 07/08/18 09:47 Bedside Glucose 130 95 White Blood Count 14.1 H Red Blood Count 2.78 L Hemoglobin 8.0 L Hematocrit 25.4 L Mean Corpuscular Volume 91.4 Mean Corpuscular Hemoglobin 28.8 L Mean Corpuscular Hemoglobin Concent 31.5 L Red Cell Distribution Width 16.1 H Platelet Count 93 L Mean Platelet Volume 9.8 Immature Granulocytes % 0.900 H Neutrophils % 83.5 H Lymphocytes % 8.2 L Monocytes % 4.3 Eosinophils % 2.8 Basophils % 0.3 Nucleated Red Blood Cells % 0.0 Immature Granulocytes # 0.130 H Neutrophils # 11.8 H Lymphocytes # 1.2 Monocytes # 0.6 Eosinophils # 0.4 Basophils # 0.0 Nucleated Red Blood Cells # 0.0 Sodium Level 128 L Potassium Level 4.0 Chloride Level 100 Carbon Dioxide Level 15 L Anion Gap 13 Blood Urea Nitrogen 56 H Creatinine 1.49 H Est Glomerular Filtrat Rate mL/min 47 L Glucose Level 94 Calcium Level 8.8 Magnesium Level 2.0 Total Bilirubin 2.0 H Direct Bilirubin 2.00 H Indirect Bilirubin 0.0 Aspartate Amino Transf (AST/SGOT) 59 H Alanine Aminotransferase (ALT/SGPT) 14 Alkaline Phosphatase 329 H Total Protein 5.9 L Albumin 2.0 L Globulin 3.90 H Albumin/Globulin Ratio 0.51 Consultation Date/Type/Reason Admit Date/Time Jun 27, 2018 at 22:49 Initial Consult Date 06/28/18 Type of Consult cardiology Reason for Consultation hypotension Requesting Provider: ENID SINGH Exam/Review of Systems Vital Signs Vitals Vital Signs Date Temp Pulse Resp B/P (MAP) Pulse Ox O2 O2 Flow FiO2 Time Delivery Rate 07/08/18 84 29 80/47 (58) 100 Mechanical 13:00 Ventilator 07/08/18 97.6 11:30 07/08/18 40 08:00 Intake and Output 07/07/18 07/07/18 07/08/18 1515:00 23:00 07:00 IntakeIntake Total 1714.30 ml 1602.95 ml 1309.20 ml OutputOutput Total 195 ml 365 ml 1070 ml BalanceBalance 1519.30 ml 1237.95 ml 239.20 ml Exam Review of Systems: CONSTITUTIONAL: No fevers, chills. PULMONARY: trached CARDIOVASCULAR: No chest pain/palpitations GASTROINTESTINAL: No nausea/vomiting. GENITOURINARY: No hematuria/dysuria. MUSCULOSKELETAL: No myagias/arthalgias. PSYCHIATRIC: The patient denies depression. NEUROLOGIC: encephalopathic Constitutional: other (encephalopathic) Psych: no complaints Head: normocephalic ENMT: mucosa pink and moist Neck: supple, jvd (9 ncm water) Respiratory: diminished breath sounds (at bases/B) Cardiovascular: regular rate and rhythm Gastrointestinal: soft, non-tender Musculoskeletal: muscle weakness (generalized) Extremities: edema (s/pLE amputation) Medications Medications Current Medications Acetaminophen (Tylenol Liquid) 650 mg Q6H PRN GTB FEVER; Start 06/28/18 at 00:00 Aspirin (Aspirin) 81 mg DAILY GTB Last administered on 07/07/18at 08:43; Admin Dose 81 MG; Start 06/28/18 at 09:00 Atenolol (Tenormin) 12.5 mg BID GTB Last administered on 07/06/18at 08:32; Admin Dose 12.5 MG; Start 06/28/18 at 09:00 Atorvastatin Calcium (Lipitor) 20 mg HS GTB Last administered on 07/07/18at 20:50; Admin Dose 20 MG; Start 06/28/18 at 21:00 Gentamicin Sulfate (Gentamicin 0.3% Oph Drop) 2 drop Q4H BOTH EYES Last administered on 07/08/18 12:46; Admin Dose 2 DROP; Start 06/28/18 at 00:00 Glucagon (Glucagen) 1 mg PRN PRN IM HYPOGLYCEMIA (BS<70); Start 06/28/18 at 00:00 Insulin Glargine (Lantus) 10 units DAILY SC Last administered on 07/07/18 08:46; Admin Dose 10 UNITS; Start 06/28/18 at 08:00 Lansoprazole (Prevacid) 30 mg BID@06,18 GTB Last administered on 07/07/18at 18:23; Admin Dose 30 MG; Start 06/28/18 at 06:00 Levetiracetam (Keppra Liquid) 1,000 mg BID GTB Last administered on 07/07/18 20:49; Admin Dose 1,000 MG; Start 06/28/18 at 09:00 Memantine (Namenda) 10 mg DAILY GTB Last administered on 07/07/18 08:39; Admin Dose 10 MG; Start 06/28/18 at 09:00 Nystatin (Nystatin Powder) 1 applic BID TOP Last administered on 07/08/18 09:46; Admin Dose 1 APPLIC; Start 06/28/18 at 09:00 Miscellaneous Information 1 ea NOTE XX ; Start 06/28/18 at 01:00 Glucose (Glutose) 15 gm Q15M PRN PO DECREASED GLUCOSE; Start 06/28/18 at 01:00 Glucose (Glutose) 22.5 gm Q15M PRN PO DECREASED GLUCOSE; Start 06/28/18 at 01:00 Dextrose (D50w Syringe) 25 ml Q15M PRN IV DECREASED GLUCOSE; Start 06/28/18 at 01:00 Dextrose (D50w Syringe) 50 ml Q15M PRN IV DECREASED GLUCOSE; Start 06/28/18 at 01:00 Glucagon (Glucagen) 1 mg Q15M PRN IM DECREASED GLUCOSE; Start 06/28/18 at 01:00 Glucose (Glutose) 15 gm Q15M PRN BUCCAL DECREASED GLUCOSE; Start 06/28/18 at 01:00 IV Flush (NS 10 ml) 10 ml PRN PRN IV IV PROTOCOL; Start 06/28/18 at 12:00 Collagenase (Santyl) 1 applic BID TOP Last administered on 07/08/18at 09:45; Ad min Dose 1 APPLIC; Start 06/30/18 at 15:00 Amikacin Sulfate (Amikacin Iv Per Pharmacy) AMIKACIN PER PHARMACY NOTE XX ; Start 07/01/18 at 14:30 Miscellaneous Information (Pending Santyl Order For Wound Care) This patient mccloud... PRN PRN XX unstageable sacrococcyx; Start 07/02/18 at 07:00 Metronidazole 100 ml @ 100 mls/hr Q8 IVPB Last administered on 07/08/18 13:01; Admin Dose 100 MLS/HR; Start 07/02/18 at 16:00 Amikacin Sulfate 950 mg/Sodium Chloride 253.8 ml @ 103.8 mls/ hr Q36H IVPB Last administered on 07/04/18 17:58; Admin Dose 103.8 MLS/HR; Start 07/03/18 at 06:00; Status Hold Acetylcysteine (Mucomyst) 3 ml Q6H RESP THERAPY PRN NEB when pt has congestion Last administered on 07/04/18 03:22; Admin Dose 3 ML; Start 07/03/18 at 21:00 Albuterol/ Ipratropium (Duoneb) 3 ml Q2H RESP THERAPY PRN HHN for congestion Last administered on 07/04/18 03:22; Admin Dose 3 ML; Start 07/03/18 at 21:00 Alteplase, Recombinant (Cathflo (Activase)) 2 mg MAY REPEAT X1 PRN CATHETER IF CATHETER REMAINS OCCULUDED Last administered on 07/06/18 02:20; Admin Dose 2 MG; Start 07/06/18 at 01:00 Ampicillin 50 ml @ 100 mls/hr Q8 IVPB Last administered on 07/08/18 05:51; Admin Dose 100 MLS/HR; Start 07/06/18 at 17:00 Norepinephrine 16 mg/Dextrose 500 ml @ 1.88 mls/hr TITRATE IV Last administered on 07/08/18 09:45; Admin Dose 56.25 MLS/HR; Start 07/07/18 at 01:00 Vasopressin 60 unit/Dextrose 60 ml @ 1.2 mls/hr Q12H IV Last administered on 07/07/18 18:24; Admin Dose 2.4 MLS/HR; Start 07/07/18 at 01:00 Epinephrine 4 mg/ Sodium Chloride 250 ml @ 3.75 mls/hr TITRATE IV Last administered on 07/08/18at 12:56; Admin Dose 3.75 MLS/HR; Start 07/07/18 at 07:00 Phenylephrine HCl 160 mg/Dextrose 500 ml @ 18.75 mls/ hr TITRATE IV Last administered on 07/08/18at 07:39; Admin Dose 56.25 MLS/HR; Start 07/07/18 at 11:00 Midodrine (Proamatine) 10 mg Q8 GTB Last administered on 07/07/18at 21:53; Admin Dose 10 MG; Start 07/07/18 at 14:00 Fluconazole 200 ml @ 100 mls/hr BID IVPB ; Start 07/08/18 at 15:00 ALINE VIDAL Jul 08, 2018 14:03
[2018-07-08] MEDS: FLUCONAZOLE 400 MG/NS (PMX) 200 ML IVPB SCH (15:02)
[2018-07-08] MEDS: VASOPRESSIN 60 UNIT in DEXTROSE 5% 57 ML IV SCH (16:32)
[2018-07-08] MEDS: ATORVASTATIN 20 MG TAB GTB SCH (20:38)
[2018-07-09] VITALS (106 sets, daily range): BP systolic 64–108; BP diastolic 15–63; PULSE 75–87; RESP 15–36
[2018-07-09] MEDS: FLUCONAZOLE 400 MG/NS (PMX) 200 ML IVPB SCH ×3 (00:10→20:37)
[2018-07-09] MEDS: GENTAMICIN 0.3% 5 ML OPH BOTH EYES SCH ×7 (00:11→23:13)
[2018-07-09] MEDS: VASOPRESSIN 60 UNIT in DEXTROSE 5% 57 ML IV SCH ×2 (01:00→15:09)
[2018-07-09] MEDS: PHENYLephrine 160 MG in DEXTROSE 5% 484 ML IV SCH ×3 (01:58→20:38)
[2018-07-09] MEDS: LANSOPRAZOLE 30 MG CAP GTB SCH ×2 (06:00→18:00)
[2018-07-09] MEDS: MIDODRINE 2.5 MG TAB GTB SCH ×3 (06:00→21:27)
[2018-07-09] MEDS: AMPICILLIN 1 GM/NS (PMX) 50 ML IVPB SCH ×3 (06:18→22:46)
[2018-07-09] MEDS: metroNIDAZOLE 500 MG/NS (PMX) 100 ML IVPB SCH ×3 (06:18→23:12)
[2018-07-09] MEDS: EPINEPHrine 4 MG in SOD CHLORIDE 0.9% 246 ML IV SCH ×3 (06:56→23:28)
[2018-07-09] MEDS: COLLAGENASE 5 GM (UD JAR) TOP SCH ×2 (08:15→20:17)
[2018-07-09] MEDS: NYSTATIN 30 GM POWDER BTL TOP SCH ×2 (08:15→20:17)
[2018-07-09] MEDS: ATENOLOL 25 MG TAB GTB SCH ×2 (08:15→20:19)
[2018-07-09] MEDS: MEMANTINE 10 MG TAB GTB SCH (09:00)
[2018-07-09] MEDS: INSULIN GLARGINE [LANTus] (100 UNITS/ML) SYG SC SCH (09:00)
[2018-07-09] MEDS: ASPIRIN 325 MG TAB GTB SCH (09:00)
[2018-07-09] MEDS: LEVETIRACETAM (100 MG/ML) 5ML CUP GTB SCH ×2 (09:00→20:26)
[2018-07-09] MEDS: DEXTROSE 50% 50 ML SYRINGE IV PRN ×2 (09:19→15:10)
--- NOTE | 2018-07-09 09:55 | CONS ---
Date/Time of Note Date/Time of Note DATE: 07/09/18 TIME: 09:53 Assessment/Plan Assessment/Plan Hospital Course IMPRESSION: 1. Hypotension/shock state, likely septic on 2 pressors 2. Premature ventricular contractions in a pattern of bigeminy. Assess for coronary ischemia, acute coronary syndrome. 3. Dyslipidemia. 4. Peripheral arterial disease, status post lower extremity amputation. 5. Seizure disorder. 6. Anemia. 7. Encephalopathy. 8. History of pulmonary coccidioidomycosis. 9. Chronic respiratory failure, status post tracheostomy. 10. Dysphagia, status post G-tube. REcc: -ICU -Continue abx's and f/u cx data -Continue statin -Continue asa -On epi drip/max yared/levo/vasopressin -Poor prognosis -Bioethics today Result Diagram: 07/08/18 0445 07/08/18 0445 Results 24hrs Laboratory Tests Test 07/08/18 17:56 07/09/18 09:14 07/09/18 09:46 Bedside Glucose 81 60 L 97 Consultation Date/Type/Reason Admit Date/Time Jun 27, 2018 at 22:49 Initial Consult Date 06/28/18 Type of Consult cardiology Reason for Consultation hypotension Requesting Provider: ENID SINGH Exam/Review of Systems Vital Signs Vitals Vital Signs Date Temp Pulse Resp B/P (MAP) Pulse Ox O2 O2 Flow FiO2 Time Delivery Rate 07/09/18 79 32 94/53 (67) 98 08:15 07/09/18 97.6 Mechanical 08:00 Ventilator 07/09/18 40 08:00 Intake and Output 07/08/18 07/08/18 07/09/18 1414:59 22:59 06:59 IntakeIntake Total 1409.20 ml 1409.20 ml 1509.20 ml OutputOutput Total 190 ml 730 ml 415 ml BalanceBalance 1219.20 ml 679.20 ml 1094.20 ml Exam Review of Systems: CONSTITUTIONAL: No fevers, chills. PULMONARY: trached CARDIOVASCULAR: No chest pain/palpitations GASTROINTESTINAL: No nausea/vomiting. GENITOURINARY: No hematuria/dysuria. MUSCULOSKELETAL: No myagias/arthalgias. PSYCHIATRIC: The patient denies depression. NEUROLOGIC: encephalopathic Constitutional: other (encephalopathic) Psych: no complaints Head: normocephalic ENMT: mucosa pink and moist Neck: supple, jvd (9 cm water) Respiratory: diminished breath sounds (at kaur/B) Cardiovascular: regular rate and rhythm Gastrointestinal: soft, non-tender Musculoskeletal: muscle tone (normal) Extremities: edema (trace), other (LE edema) Medications Medications Current Medications Acetaminophen (Tylenol Liquid) 650 mg Q6H PRN GTB FEVER; Start 06/28/18 at 00:00 Aspirin (Aspirin) 81 mg DAILY GTB Last administered on 07/07/18 08:43; Admin Dose 81 MG; Start 06/28/18 at 09:00 Atenolol (Tenormin) 12.5 mg BID GTB Last administered on 07/06/18 08:32; Admin Dose 12.5 MG; Start 06/28/18 at 09:00 Atorvastatin Calcium (Lipitor) 20 mg HS GTB Last administered on 07/07/18 20:50; Admin Dose 20 MG; Start 06/28/18 at 21:00 Gentamicin Sulfate (Gentamicin 0.3% Oph Drop) 2 drop Q4H BOTH EYES Last administered on 07/09/18 08:14; Admin Dose 2 DROP; Start 06/28/18 at 00:00 Glucagon (Glucagen) 1 mg PRN PRN IM HYPOGLYCEMIA (BS<70); Start 06/28/18 at 00:00 Insulin Glargine (Lantus) 10 units DAILY SC Last administered on 07/07/18 08:46; Admin Dose 10 UNITS; Start 06/28/18 at 08:00 Lansoprazole (Prevacid) 30 mg BID@18 GTB Last administered on 07/07/18 18:23; Admin Dose 30 MG; Start 06/28/18 at 06:00 Levetiracetam (Keppra Liquid) 1,000 mg BID GTB Last administered on 07/07/18 20:49; Admin Dose 1,000 MG; Start 06/28/18 at 09:00 Memantine (Namenda) 10 mg DAILY GTB Last administered on 07/07/18 08:39; Admin Dose 10 MG; Start 06/28/18 at 09:00 Nystatin (Nystatin Powder) 1 applic BID TOP Last administered on 07/09/18 08:15; Admin Dose 1 APPLIC; Start 06/28/18 at 09:00 Miscellaneous Information 1 ea NOTE XX ; Start 06/28/18 at 01:00 Glucose (Glutose) 15 gm Q15M PRN PO DECREASED GLUCOSE; Start 06/28/18 at 01:00 Glucose (Glutose) 22.5 gm Q15M PRN PO DECREASED GLUCOSE; Start 06/28/18 at 01:00 Dextrose (D50w Syringe) 25 ml Q15M PRN IV DECREASED GLUCOSE Last administered on 07/09/18at 09:19; Admin Dose 25 ML; Start 06/28/18 at 01:00 Dextrose (D50w Syringe) 50 ml Q15M PRN IV DECREASED GLUCOSE; Start 06/28/18 at 01:00 Glucagon (Glucagen) 1 mg Q15M PRN IM DECREASED GLUCOSE; Start 06/28/18 at 01:00 Glucose (Glutose) 15 gm Q15M PRN BUCCAL DECREASED GLUCOSE; Start 06/28/18 at 01:00 IV Flush (NS 10 ml) 10 ml PRN PRN IV IV PROTOCOL; Start 06/28/18 at 12:00 Collagenase (Santyl) 1 applic BID TOP Last administered on 07/09/18at 08:15; Admin Dose 1 APPLIC; Start 06/30/18 at 15:00 Amikacin Sulfate (Amikacin Iv Per Pharmacy) AMIKACIN PER PHARMACY NOTE XX ; Start 07/01/18 at 14:30 Miscellaneous Information (Pending Santyl Order For Wound Care) This patient mccloud... PRN PRN XX unstageable sacrococcyx; Start 07/02/18 at 07:00 Metronidazole 100 ml @ 100 mls/hr Q8 IVPB Last administered on 07/09/18at 06:18; Admin Dose 100 MLS/HR; Start 07/02/18 at 16:00 Amikacin Sulfate 950 mg/Sodium Chloride 253.8 ml @ 103.8 mls/ hr Q36H IVPB Last administered on 07/04/18at 17:58; Admin Dose 103.8 MLS/HR; Start 07/03/18 at 06:00; Status Hold Acetylcysteine (Mucomyst) 3 ml Q6H RESP THERAPY PRN NEB when pt has congestion Last administered on 07/04/18at 03:22; Admin Dose 3 ML; Start 07/03/18 at 21:00 Albuterol/ Ipratropium (Duoneb) 3 ml Q2H RESP THERAPY PRN HHN for congestion Last administered on 07/04/18 03:22; Admin Dose 3 ML; Start 07/03/18 at 21:00 Alteplase, Recombinant (Cathflo (Activase)) 2 mg MAY REPEAT X1 PRN CATHETER IF CATHETER REMAINS OCCULUDED Last administered on 07/06/18 02:20; Admin Dose 2 MG; Start 07/06/18 at 01:00 Ampicillin 50 ml @ 100 mls/hr Q8 IVPB Last administered on 07/09/18 06:18; Admin Dose 100 MLS/HR; Start 07/06/18 at 17:00 Norepinephrine 16 mg/Dextrose 500 ml @ 1.88 mls/hr TITRATE IV Last administered on 07/09/18 03:21; Admin Dose 56.25 MLS/HR; Start 07/07/18 at 01:00; Stop 07/09/18 at 11:30 Vasopressin 60 unit/Dextrose 60 ml @ 1.2 mls/hr Q12H IV Last administered on 07/08/18 16:32; Admin Dose 2.4 MLS/HR; Start 07/07/18 at 01:00 Epinephrine 4 mg/ Sodium Chloride 250 ml @ 3.75 mls/hr TITRATE IV Last administered on 07/09/18 06:56; Admin Dose 30 MLS/HR; Start 07/07/18 at 07:00 Phenylephrine HCl 160 mg/Dextrose 500 ml @ 18.75 mls/ hr TITRATE IV Last administered on 07/09/18 01:58; Admin Dose 56.25 MLS/HR; Start 07/07/18 at 11:00 Midodrine (Proamatine) 10 mg Q8 GTB Last administered on 07/07/18 21:53; Admin Dose 10 MG; Start 07/07/18 at 14:00 Fluconazole 200 ml @ 100 mls/hr BID IVPB Last administered on 07/09/18 09:15; Admin Dose 100 MLS/HR; Start 07/08/18 at 15:00 Norepinephrine 32 mg/Dextrose 500 ml @ 0 mls/hr TITRATE IV ; Start 07/09/18 at 09:30 ALINE VIDAL 14, 2019 09:55
--- NOTE | 2018-07-09 10:50 | CONS ---
Date/Time of Note Date/Time of Note DATE: 07/09/18 TIME: 10:49 Consult Date/Type/Reason Admit Date/Time Jun 27, 2018 at 22:49 Initial Consult Date 06/28/18 Type of Consultation: Pulm/CCM Requesting Provider: ENID SINGH Subjective Patient remains on multiple vasopressors and unresponsive. Objective Vital Signs Date Temp Pulse Resp B/P (MAP) Pulse Ox O2 O2 Flow FiO2 Time Delivery Rate 07/09/18 79 32 94/53 (67) 98 08:15 07/09/18 97.6 Mechanical 08:00 Ventilator 07/09/18 40 08:00 Intake and Output 07/08/18 07/08/18 07/09/18 1515:00 23:00 07:00 IntakeIntake Total 1309.20 ml 1409.20 ml 1509.20 ml OutputOutput Total 180 ml 745 ml 405 ml BalanceBalance 1129.20 ml 664.20 ml 1104.20 ml Exam PHYSICAL EXAMINATION GENERAL: Elderly gentleman, intubated on mechanical ventilation, opens eyes and appears somewhat agitated. Orally intubated. VITAL SIGNS: see below. HEENT: Pupils equal, round, and reactive to light. Tracheostomy site clean and intact. CARDIAC: S1, S2, 1/6 systolic ejection murmur CHEST: Diminished air entry bilaterally. ABDOMEN: Mildly distended. Bowel sounds present no guarding or rebound EXTREMITIES: No cyanosis, clubbing edema +1 NEUROLOGIC: Generalized weakness Results/Medications Result Diagram: 07/08/185 07/08/18 0445 Results 24 hrs Laboratory Tests Test 07/08/18 17:56 07/09/18 09:14 07/09/18 09:46 07/09/18 10:19 Bedside Glucose 81 60 L 97 88 Medications Current Medications Acetaminophen (Tylenol Liquid) 650 mg Q6H PRN GTB FEVER; Start 06/28/18 at 00:00 Aspirin (Aspirin) 81 mg DAILY GTB Last administered on 07/07/18at 08:43; Admin Dose 81 MG; Start 06/28/18 at 09:00 Atenolol (Tenormin) 12.5 mg BID GTB Last administered on 07/06/18at 08:32; Admin Dose 12.5 MG; Start 06/28/18 at 09:00 Atorvastatin Calcium (Lipitor) 20 mg HS GTB Last administered on 07/07/18at 20:50; Admin Dose 20 MG; Start 06/28/18 at 21:00 Gentamicin Sulfate (Gentamicin 0.3% Oph Drop) 2 drop Q4H BOTH EYES Last administered on 07/09/18at 08:14; Admin Dose 2 DROP; Start 06/28/18 at 00:00 Glucagon (Glucagen) 1 mg PRN PRN IM HYPOGLYCEMIA (BS<70); Start 06/28/18 at 00:00 Insulin Glargine (Lantus) 10 units DAILY SC Last administered on 07/07/18at 08:46; Admin Dose 10 UNITS; Start 06/28/18 at 08:00 Lansoprazole (Prevacid) 30 mg BID@,18 GTB Last administered on 07/07/18at 18:23; Admin Dose 30 MG; Start 06/28/18 at 06:00 Levetiracetam (Keppra Liquid) 1,000 mg BID GTB Last administered on 07/07/18at 20:49; Admin Dose 1,000 MG; Start 06/28/18 at 09:00 Memantine (Namenda) 10 mg DAILY GTB Last administered on 07/07/18at 08:39; Admin Dose 10 MG; Start 06/28/18 at 09:00 Nystatin (Nystatin Powder) 1 applic BID TOP Last administered on 07/09/18at 08:15; Admin Dose 1 APPLIC; Start 06/28/18 at 09:00 Miscellaneous Information 1 ea NOTE XX ; Start 06/28/18 at 01:00 Glucose (Glutose) 15 gm Q15M PRN PO DECREASED GLUCOSE; Start 06/28/18 at 01:00 Glucose (Glutose) 22.5 gm Q15M PRN PO DECREASED GLUCOSE; Start 06/28/18 at 01:00 Dextrose (D50w Syringe) 25 ml Q15M PRN IV DECREASED GLUCOSE Last administered on 07/09/18at 09:19; Admin Dose 25 ML; Start 06/28/18 at 01:00 Dextrose (D50w Syringe) 50 ml Q15M PRN IV DECREASED GLUCOSE; Start 06/28/18 at 01:00 Glucagon (Glucagen) 1 mg Q15M PRN IM DECREASED GLUCOSE; Start 06/28/18 at 01:00 Glucose (Glutose) 15 gm Q15M PRN BUCCAL DECREASED GLUCOSE; Start 06/28/18 at 01:00 IV Flush (NS 10 ml) 10 ml PRN PRN IV IV PROTOCOL; Start 06/28/18 at 12:00 Collagenase (Santyl) 1 applic BID TOP Last administered on 07/09/18at 08:15; Admin Dose 1 APPLIC; Start 06/30/18 at 15:00 Amikacin Sulfate (Amikacin Iv Per Pharmacy) AMIKACIN PER PHARMACY NOTE XX ; Start 07/01/18 at 14:30 Miscellaneous Information (Pending Santyl Order For Wound Care) This patient mccloud... PRN PRN XX unstageable sacrococcyx; Start 07/02/18 at 07:00 Metronidazole 100 ml @ 100 mls/hr Q8 IVPB Last administered on 07/09/18at 06:18; Admin Dose 100 MLS/HR; Start 07/02/18 at 16:00 Amikacin Sulfate 950 mg/Sodium Chloride 253.8 ml @ 103.8 mls/ hr Q36H IVPB Last administered on 07/04/18at 17:58; Admin Dose 103.8 MLS/HR; Start 07/03/18 at 06:00; Status Hold Acetylcysteine (Mucomyst) 3 ml Q6H RESP THERAPY PRN NEB when pt has congestion Last administered on 07/04/18 03:22; Admin Dose 3 ML; Start 07/03/18 at 21:00 Albuterol/ Ipratropium (Duoneb) 3 ml Q2H RESP THERAPY PRN HHN for congestion Last administered on 07/04/18 03:22; Admin Dose 3 ML; Start 07/03/18 at 21:00 Alteplase, Recombinant (Cathflo (Activase)) 2 mg MAY REPEAT X1 PRN CATHETER IF CATHETER REMAINS OCCULUDED Last administered on 07/06/18at 02:20; Admin Dose 2 MG; Start 07/06/18 at 01:00 Ampicillin 50 ml @ 100 mls/hr Q8 IVPB Last administered on 07/09/18at 06:18; Admin Dose 100 MLS/HR; Start 07/06/18 at 17:00 Norepinephrine 16 mg/Dextrose 500 ml @ 1.88 mls/hr TITRATE IV Last administered on 07/09/18at 03:21; Admin Dose 56.25 MLS/HR; Start 07/07/18 at 01:00; Stop 07/09/18 at 11:30 Vasopressin 60 unit/Dextrose 60 ml @ 1.2 mls/hr Q12H IV Last administered on 07/08/18at 16:32; Admin Dose 2.4 MLS/HR; Start 07/07/18 at 01:00 Epinephrine 4 mg/ Sodium Chloride 250 ml @ 3.75 mls/hr TITRATE IV Last administered on 07/09/18at 06:56; Admin Dose 30 MLS/HR; Start 07/07/18 at 07:00 Phenylephrine HCl 160 mg/Dextrose 500 ml @ 18.75 mls/ hr TITRATE IV Last administered on 07/09/18at 01:58; Admin Dose 56.25 MLS/HR; Start 07/07/18 at 11:00 Midodrine (Proamatine) 10 mg Q8 GTB Last administered on 07/07/18at 21:53; Admin Dose 10 MG; Start 07/07/18 at 14:00 Fluconazole 200 ml @ 100 mls/hr BID IVPB Last administered on 07/09/18at 09:15; Admin Dose 100 MLS/HR; Start 07/08/18 at 15:00 Norepinephrine 32 mg/Dextrose 500 ml @ 0 mls/hr TITRATE IV ; Start 07/09/18 at 09:30 Assessment/Plan Chief Complaint/Hosp Course iMP: 1. refractory Septic Shock 2. Multifocal Pneumonia 3. 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 Encephalopathy 7. MICHELLE 8. Metabolic Acidosis RECS: 1. Vent support 2. Abx per ID 3. IV fluids 4. TF as tolerated. 35 min cc time Overall prognosis very poor. RAFIQ LEGGETT MD, [facility] Jul 09, 2018 10:50
--- NOTE | 2018-07-09 11:37 | CONS ---
Date/Time of Note Date/Time of Note DATE: 07/09/18 TIME: 11:33 Consult Date/Type/Reason Admit Date/Time Jun 27, 2018 at 22:49 Initial Consult Date 06/28/18 Type of Consultation: Pulm/CCM Requesting Provider: ENID SINGH Objective Vital Signs Date Temp Pulse Resp B/P (MAP) Pulse Ox O2 O2 Flow FiO2 Time Delivery Rate 07/09/18 79 28 64/39 (47) 99 10:45 07/09/18 Mechanical 10:00 Ventilator 07/09/18 97.6 08:00 07/09/18 40 08:00 Intake and Output 07/08/18 07/08/18 07/09/18 1414:59 22:59 06:59 IntakeIntake Total 1409.20 ml 1409.20 ml 1509.20 ml OutputOutput Total 190 ml 730 ml 415 ml BalanceBalance 1219.20 ml 679.20 ml 1094.20 ml Exam Chest distant breath sounds throughout both lung canas Cardiac S1 S2 without S3-S4 murmur gallop rub Neurological minimal response to verbal tactile stimulation, does not follow simple commands oriented x0 nonpurposeful movementts Results/Medications Result Diagram: 07/08/18 0445 07/08/18 0445 Results 24 hrs Laboratory Tests Test 07/08/18 17:56 07/09/18 09:14 07/09/18 09:46 07/09/18 10:19 Bedside Glucose 81 60 L 97 88 Medications Current Medications Acetaminophen (Tylenol Liquid) 650 mg Q6H PRN GTB FEVER; Start 06/28/18 at 00:00 Aspirin (Aspirin) 81 mg DAILY GTB Last administered on 07/07/18at 08:43; Admin Dose 81 MG; Start 06/28/18 at 09:00 Atenolol (Tenormin) 12.5 mg BID GTB Last administered on 07/06/18at 08:32; Admin Dose 12.5 MG; Start 06/28/18 at 09:00 Atorvastatin Calcium (Lipitor) 20 mg HS GTB Last administered on 07/07/18at 20:50; Admin Dose 20 MG; Start 06/28/18 at 21:00 Gentamicin Sulfate (Gentamicin 0.3% Oph Drop) 2 drop Q4H BOTH EYES Last administered on 07/09/18at 08:14; Admin Dose 2 DROP; Start 06/28/18 at 00:00 Glucagon (Glucagen) 1 mg PRN PRN IM HYPOGLYCEMIA (BS<70); Start 06/28/18 at 00:00 Insulin Glargine (Lantus) 10 units DAILY SC Last administered on 07/07/18at 08:46; Admin Dose 10 UNITS; Start 06/28/18 at 08:00 Lansoprazole (Prevacid) 30 mg BID@,18 GTB Last administered on 07/07/18at 18:23; Admin Dose 30 MG; Start 06/28/18 at 06:00 Levetiracetam (Keppra Liquid) 1,000 mg BID GTB Last administered on 07/07/18at 20:49; Admin Dose 1,000 MG; Start 06/28/18 at 09:00 Memantine (Namenda) 10 mg DAILY GTB Last administered on 07/07/18at 08:39; Admin Dose 10 MG; Start 06/28/18 at 09:00 Nystatin (Nystatin Powder) 1 applic BID TOP Last administered on 07/09/18at 08 :15; Admin Dose 1 APPLIC; Start 06/28/18 at 09:00 Miscellaneous Information 1 ea NOTE XX ; Start 06/28/18 at 01:00 Glucose (Glutose) 15 gm Q15M PRN PO DECREASED GLUCOSE; Start 06/28/18 at 01:00 Glucose (Glutose) 22.5 gm Q15M PRN PO DECREASED GLUCOSE; Start 06/28/18 at 01:00 Dextrose (D50w Syringe) 25 ml Q15M PRN IV DECREASED GLUCOSE Last administered on 07/09/18at 09:19; Admin Dose 25 ML; Start 06/28/18 at 01:00 Dextrose (D50w Syringe) 50 ml Q15M PRN IV DECREASED GLUCOSE; Start 06/28/18 at 01:00 Glucagon (Glucagen) 1 mg Q15M PRN IM DECREASED GLUCOSE; Start 06/28/18 at 01:00 Glucose (Glutose) 15 gm Q15M PRN BUCCAL DECREASED GLUCOSE; Start 06/28/18 at 01:00 IV Flush (NS 10 ml) 10 ml PRN PRN IV IV PROTOCOL; Start 06/28/18 at 12:00 Collagenase (Santyl) 1 applic BID TOP Last administered on 07/09/18 08:15; Admin Dose 1 APPLIC; Start 06/30/18 at 15:00 Amikacin Sulfate (Amikacin Iv Per Pharmacy) AMIKACIN PER PHARMACY NOTE XX ; Start 07/01/18 at 14:30 Miscellaneous Information (Pending Santyl Order For Wound Care) This patient mccloud... PRN PRN XX unstageable sacrococcyx; Start 07/02/18 at 07:00 Metronidazole 100 ml @ 100 mls/hr Q8 IVPB Last administered on 07/09/18 06:18; Admin Dose 100 MLS/HR; Start 07/02/18 at 16:00 Amikacin Sulfate 950 mg/Sodium Chloride 253.8 ml @ 103.8 mls/ hr Q36H IVPB Last administered on 07/04/18 17:58; Admin Dose 103.8 MLS/HR; Start 07/03/18 at 06:00; Status Hold Acetylcysteine (Mucomyst) 3 ml Q6H RESP THERAPY PRN NEB when pt has congestion Last administered on 07/04/18 03:22; Admin Dose 3 ML; Start 07/03/18 at 21:00 Albuterol/ Ipratropium (Duoneb) 3 ml Q2H RESP THERAPY PRN HHN for congestion Last administered on 07/04/18 03:22; Admin Dose 3 ML; Start 07/03/18 at 21:00 Alteplase, Recombinant (Cathflo (Activase)) 2 mg MAY REPEAT X1 PRN CATHETER IF CATHETER REMAINS OCCULUDED Last administered on 07/06/18 02:20; Admin Dose 2 MG; Start 07/06/18 at 01:00 Ampicillin 50 ml @ 100 mls/hr Q8 IVPB Last administered on 07/09/18 06:18; Admin Dose 100 MLS/HR; Start 07/06/18 at 17:00 Vasopressin 60 unit/Dextrose 60 ml @ 1.2 mls/hr Q12H IV Last administered on 07/08/18 16:32; Admin Dose 2.4 MLS/HR; Start 07/07/18 at 01:00 Epinephrine 4 mg/ Sodium Chloride 250 ml @ 3.75 mls/hr TITRATE IV Last administered on 07/09/18 06:56; Admin Dose 30 MLS/HR; Start 07/07/18 at 07:00 Phenylephrine HCl 160 mg/Dextrose 500 ml @ 18.75 mls/ hr TITRATE IV Last administered on 07/09/18at 11:13; Admin Dose 56.25 MLS/HR; Start 07/07/18 at 11:00 Midodrine (Proamatine) 10 mg Q8 GTB Last administered on 07/07/18at 21:53; Admin Dose 10 MG; Start 07/07/18 at 14:00 Fluconazole 200 ml @ 100 mls/hr BID IVPB Last administered on 07/09/18at 09:15; Admin Dose 100 MLS/HR; Start 07/08/18 at 15:00 Norepinephrine 32 mg/Dextrose 500 ml @ 0 mls/hr TITRATE IV ; Start 07/09/18 at 09:30 Miscellaneous Information (*Rx Drug Level Order Reminder*) RANDOM AMIKACIN LEVEL 1... ONCE ONCE XX ; Start 07/10/18 at 05:00; Stop 07/10/18 at 05:01 Assessment/Plan Additional Assessment/Plan Postdated note for hospital visit July 08, 2018 As been no change in patient's overall clinical condition, on 4 pressors remains encephalopathic. Patient's overall prognosis is grim. Bioethics meeting July 09, 2018 Vent dependent respiratory failure intubated and trached. Shock Currently on 1 pressor broad-spectrum IV antibiotic coverage Pulmonary coccidiomycosis Review medical records workup being done by pulmonary medicine Right [facility] CVA Will review medical records but assuming patient has been noncommunicative for prolonged period of time will speak to family members in more detail Unstageable sacral coccyx decubiti SARANYA BENNETT Jul 09, 2018 11:37
--- NOTE | 2018-07-09 13:31 | QN ---
Documentation Comment Biomedical ethics committee Biomedical ethics committee met today at the request of the teams of physician caring for this individual Mr. Rajeev Ponce. The patient's daughter Arnold Conway was invited to the committee meeting but was not able to attend in person and was not available by phone when we attempted to reach her during the course of the meeting. Mr. Ponce is a 62-year-old male who was transferred to the intensive care unit from [facility] in shock. He has an extensive medical history especially over the last 18 months which is included stroke ventilator dependent respiratory failure requiring tracheostomy and feeding tube seizure disorder diabetes etc. At this time he has extremely critical state. He is on 4 pressors. The medical team taking care of him feels that further escalation of care specifically CPR and chest compressions and electric shock would be futile and ineffective and unlikely to lead to any positive benefits or prolonged outcome. Based on review of the case the medical record and the situation the biomedical ethics committee is in agreement with the teams of physician taking care of the patient including the primary care team and the boarder machine and supervisor [employer]. As the position of the biomedical ethics committee and the recommendation at this time for there to be further escalation of care would not result in any meaningful benefit to the patient and would likely only cause suffering. In other words the negatives would outweigh the benefits. The committee therefore feels that in the event of cardiac arrest that chest compressions and electrical shock are of no benefit and are not recommended to be performed. Respectfully submitted Maris Koch MD [employer] biomedical ethics MARIS KOCH MD Jul 09, 2018 13:31
--- NOTE | 2018-07-09 14:20 | CONS ---
Date/Time of Note Date/Time of Note DATE: 07/09/18 TIME: 14:19 Assessment/Plan Assessment/Plan Hospital Course No acute changes overnight patient remains on multiple pressors he is afebrile noncommunicative no labs this morning Antimicrobials: Amikacin, ampicillin IV, Flagyl, fluconazole Indwelling: Trach, PEG, left upper extremity PICC line, right upper extremity midline, right upper abdomen pigtail Physical examination: This is a chronically ill-appearing elderly - [place] man who is noncommunicative in no distress. Head atraumatic normocephalic, sclera nonicteric. Neck is supple, tracheostomy present. Lungs: Breath sounds diminished at bases. Heart S1-S2. Abdomen soft bowel sounds present. Extremities without cyanosis, trace edema Assessment: 1. Severe sepsis with shock 2. Bilateral multifocal pneumonia 3. 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 History of left upper back abscess with repeat CT on June 22 revealed large subcutaneous fluid collection and edema in the lower posterior left neck/upper chest with questionable osteomyelitis of the scapula. 5. History of acute cholecystitis status post cholecystostomy tube 6. Chronic encephalopathy with a history of CVA 7. Diabetes 8. History of hypertension 9. Acute renal insufficiency 10. Right mastoiditis Plan: Remains hemodynamically unstable on multiple pressors, pending bioethics c ommittee today, care is futile Result Diagram: 07/08/18 0445 07/08/18 0445 Results 24hrs Laboratory Tests Test 07/08/18 17:56 07/09/18 09:14 07/09/18 09:46 07/09/18 10:19 Bedside Glucose 81 60 L 97 88 Consultation Date/Type/Reason Admit Date/Time Jun 27, 2018 at 22:49 Initial Consult Date 06/28/18 Type of Consult id Requesting Provider: ENID SINGH Exam/Review of Systems Vital Signs Vitals Vital Signs Date Temp Pulse Resp B/P (MAP) Pulse Ox O2 O2 Flow FiO2 Time Delivery Rate 07/09/18 80 31 86/52 (63) 99 13:15 07/09/18 Mechanical 13:00 Ventilator 07/09/18 97.8 12:00 07/09/18 40 08:00 Intake and Output 07/08/18 07/08/18 07/09/18 1515:00 23:00 07:00 IntakeIntake Total 1309.20 ml 1409.20 ml 1509.20 ml OutputOutput Total 180 ml 745 ml 405 ml BalanceBalance 1129.20 ml 664.20 ml 1104.20 ml Medications Medications Current Medications Acetaminophen (Tylenol Liquid) 650 mg Q6H PRN GTB FEVER; Start 06/28/18 at 00:00 Aspirin (Aspirin) 81 mg DAILY GTB Last administered on 07/07/18 08:43; Admin Dose 81 MG; Start 06/28/18 at 09:00 Atenolol (Tenormin) 12.5 mg BID GTB Last administered on 07/06/18 08:32; Admin Dose 12.5 MG; Start 06/28/18 at 09:00 Atorvastatin Calcium (Lipitor) 20 mg HS GTB Last administered on 07/07/18 20:50; Admin Dose 20 MG; Start 06/28/18 at 21:00 Gentamicin Sulfate (Gentamicin 0.3% Oph Drop) 2 drop Q4H BOTH EYES Last administered on 07/09/18 12:17; Admin Dose 2 DROP; Start 06/28/18 at 00:00 Glucagon (Glucagen) 1 mg PRN PRN IM HYPOGLYCEMIA (BS<70); Start 06/28/18 at 00:00 Insulin Glargine (Lantus) 10 units DAILY SC Last administered on 07/07/18 08:46; Admin Dose 10 UNITS; Start 06/28/18 at 08:00 Lansoprazole (Prevacid) 30 mg BID@,18 GTB Last administered on 07/07/18 18:23; Admin Dose 30 MG; Start 06/28/18 at 06:00 Levetiracetam (Keppra Liquid) 1,000 mg BID GTB Last administered on 07/07/18 20:49; Admin Dose 1,000 MG; Start 06/28/18 at 09:00 Memantine (Namenda) 10 mg DAILY GTB Last administered on 07/07/18 08:39; Admin Dose 10 MG; Start 06/28/18 at 09:00 Nystatin (Nystatin Powder) 1 applic BID TOP Last administered on 07/09/18 08:15; Admin Dose 1 APPLIC; Start 06/28/18 at 09:00 Miscellaneous Information 1 ea NOTE XX ; Start 06/28/18 at 01:00 Glucose (Glutose) 15 gm Q15M PRN PO DECREASED GLUCOSE; Start 06/28/18 at 01:00 Glucose (Glutose) 22.5 gm Q15M PRN PO DECREASED GLUCOSE; Start 06/28/18 at 01:00 Dextrose (D50w Syringe) 25 ml Q15M PRN IV DECREASED GLUCOSE Last administered on 07/09/18at 09:19; Admin Dose 25 ML; Start 06/28/18 at 01:00 Dextrose (D50w Syringe) 50 ml Q15M PRN IV DECREASED GLUCOSE; Start 06/28/18 at 01:00 Glucagon (Glucagen) 1 mg Q15M PRN IM DECREASED GLUCOSE; Start 06/28/18 at 01:00 Glucose (Glutose) 15 gm Q15M PRN BUCCAL DECREASED GLUCOSE; Start 06/28/18 at 01:00 IV Flush (NS 10 ml) 10 ml PRN PRN IV IV PROTOCOL; Start 06/28/18 at 12:00 Collagenase (Santyl) 1 applic BID TOP Last administered on 07/09/18at 08:15; Admin Dose 1 APPLIC; Start 06/30/18 at 15:00 Amikacin Sulfate (Amikacin Iv Per Pharmacy) AMIKACIN PER PHARMACY NOTE XX ; Start 07/01/18 at 14:30 Miscellaneous Information (Pending Santyl Order For Wound Care) This patient mccloud... PRN PRN XX unstageable sacrococcyx; Start 07/02/18 at 07:00 Metronidazole 100 ml @ 100 mls/hr Q8 IVPB Last administered on 07/09/18at 06:18; Admin Dose 100 MLS/HR; Start 07/02/18 at 16:00 Amikacin Sulfate 950 mg/Sodium Chloride 253.8 ml @ 103.8 mls/ hr Q36H IVPB Last administered on 07/04/18at 17:58; Admin Dose 103.8 MLS/HR; Start 07/03/18 at 06:00; Status Hold Acetylcysteine (Mucomyst) 3 ml Q6H RESP THERAPY PRN NEB when pt has congestion Last administered on 07/04/18at 03:22; Admin Dose 3 ML; Start 07/03/18 at 21:00 Albuterol/ Ipratropium (Duoneb) 3 ml Q2H RESP THERAPY PRN HHN for congestion Last administered on 07/04/18 03:22; Admin Dose 3 ML; Start 07/03/18 at 21:00 Alteplase, Recombinant (Cathflo (Activase)) 2 mg MAY REPEAT X1 PRN CATHETER IF CATHETER REMAINS OCCULUDED Last administered on 07/06/18 02:20; Admin Dose 2 MG; Start 07/06/18 at 01:00 Ampicillin 50 ml @ 100 mls/hr Q8 IVPB Last administered on 07/09/18 13:45; Admin Dose 100 MLS/HR; Start 07/06/18 at 17:00 Vasopressin 60 unit/Dextrose 60 ml @ 1.2 mls/hr Q12H IV Last administered on 07/08/18 16:32; Admin Dose 2.4 MLS/HR; Start 07/07/18 at 01:00 Epinephrine 4 mg/ Sodium Chloride 250 ml @ 3.75 mls/hr TITRATE IV Last administered on 07/09/18 06:56; Admin Dose 30 MLS/HR; Start 07/07/18 at 07:00 Phenylephrine HCl 160 mg/Dextrose 500 ml @ 18.75 mls/ hr TITRATE IV Last administered on 07/09/18 11:13; Admin Dose 56.25 MLS/HR; Start 07/07/18 at 11:00 Midodrine (Proamatine) 10 mg Q8 GTB Last administered on 07/07/18 21:53; Admin Dose 10 MG; Start 07/07/18 at 14:00 Fluconazole 200 ml @ 100 mls/hr BID IVPB Last administered on 07/09/18 09:15; Admin Dose 100 MLS/HR; Start 07/08/18 at 15:00 Norepinephrine 32 mg/Dextrose 500 ml @ 0 mls/hr TITRATE IV Last administered on 07/09/18 12:16; Admin Dose 30 MLS/HR; Start 07/09/18 at 09:30 Miscellaneous Information (*Rx Drug Level Order Reminder*) RANDOM AMIKACIN LEVEL 1... ONCE ONCE XX ; Start 07/10/18 at 05:00; Stop 07/10/18 at 05:01 SUSY WOLFE NP Jul 09, 2018 14:20
--- NOTE | 2018-07-09 16:23 | PN ---
Date/Time of Note Date/Time of Note DATE: 07/09/18 TIME: 16:16 Assessment/Plan VTE Prophylaxis Risk score (from Ns)>0 risk: 10 Pharmacological prophylaxis: other Assessment/Plan Hospital Course 1. Shock, likely septic from severe unstageable sacral coccyx decubitus ulcer and pulmonary cocci Patient now on 4 pressors including epinephrine Continue broad-spectrum antibiotic ID following 2. Trach/vent dependent respiratory failure -Pulmonary to manage 3. Pulmonary cocci: Per bronchoscopy from [facility] on 05/12 Per records, it seems like he is status post treatment with amphotericin B and Diflucan Infectious disease to manage 4. 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 Acute kidney injury secondary to sepsis 6. Diabetes: -Insulin 7. Reported history of seizure: On Keppra Prophylaxis: SCDs DC planning: Patient with poor prognosis with diminished mental status and only mild response to painful stimuli, patient is now on 4 pressors with current hypotension, at this point chest compressions would be causing more harm than benefit is inappropriate in this particular case, bioethics meeting was held today as patient's daughter would like to continue aggressive care including chest compressions, bioethics committee does agree with the assessment of the primary as well as consultants including pulmonology and palliative care that chest compressions in this patient would be inappropriate due to patient's gravely ill status and poor baseline and hence patient's CODE STATUS will be changed to a DO NOT RESUSCITATE Result Diagram: 07/08/18 0445 07/08/18 0445 Results 24hrs Laboratory Tests Test 07/08/18 17:56 07/09/18 09:14 07/09/18 09:46 07/09/18 10:19 Bedside Glucose 81 60 L 97 88 Test 07/09/18 15:09 07/09/18 15:56 Bedside Glucose 56 L 81 Subjective 24 Hr Interval Summary Subjective hx not possible: pt non-verbal Exam/Review of Systems Vital Signs Vitals Vital Signs Date Temp Pulse Resp B/P (MAP) Pulse Ox O2 O2 Flow FiO2 Time Delivery Rate 07/09/18 80 31 86/52 (63) 99 13:15 07/09/18 Mechanical 13:00 Ventilator 07/09/18 97.8 12:00 07/09/18 40 08:00 Intake and Output 07/08/18 07/08/18 07/09/18 1515:00 23:00 07:00 IntakeIntake Total 1309.20 ml 1409.20 ml 1509.20 ml OutputOutput Total 180 ml 745 ml 405 ml BalanceBalance 1129.20 ml 664.20 ml 1104.20 ml Exam Constitutional: non-verbal Respiratory: clear to auscultation Cardiovascular: regular rate and rhythm Gastrointestinal: soft; No distended Musculoskeletal: nl extremities to inspection Medications Medications Current Medications Acetaminophen (Tylenol Liquid) 650 mg Q6H PRN GTB FEVER; Start 06/28/18 at 00:00 Aspirin (Aspirin) 81 mg DAILY GTB Last administered on 07/07/18 08:43; Admin Dose 81 MG; Start 06/28/18 at 09:00 Atenolol (Tenormin) 12.5 mg BID GTB Last administered on 07/06/18 08:32; Admin Dose 12.5 MG; Start 06/28/18 at 09:00 Atorvastatin Calcium (Lipitor) 20 mg HS GTB Last administered on 07/07/18 20:50; Admin Dose 20 MG; Start 06/28/18 at 21:00 Gentamicin Sulfate (Gentamicin 0.3% Oph Drop) 2 drop Q4H BOTH EYES Last administered on 07/09/18at 15:58; Admin Dose 2 DROP; Start 06/28/18 at 00:00 Glucagon (Glucagen) 1 mg PRN PRN IM HYPOGLYCEMIA (BS<70); Start 06/28/18 at 00:00 Insulin Glargine (Lantus) 10 units DAILY SC Last administered on 07/07/18 08:46; Admin Dose 10 UNITS; Start 06/28/18 at 08:00 Lansoprazole (Prevacid) 30 mg BID@18 GTB Last administered on 07/07/18 18:23; Admin Dose 30 MG; Start 06/28/18 at 06:00 Levetiracetam (Keppra Liquid) 1,000 mg BID GTB Last administered on 07/07/18 20:49; Admin Dose 1,000 MG; Start 06/28/18 at 09:00 Memantine (Namenda) 10 mg DAILY GTB Last administered on 07/07/18at 08:39; Admin Dose 10 MG; Start 06/28/18 at 09:00 Nystatin (Nystatin Powder) 1 applic BID TOP Last administered on 07/09/18at 08:15; Admin Dose 1 APPLIC; Start 06/28/18 at 09:00 Miscellaneous Information 1 ea NOTE XX ; Start 06/28/18 at 01:00 Glucose (Glutose) 15 gm Q15M PRN PO DECREASED GLUCOSE; Start 06/28/18 at 01:00 Glucose (Glutose) 22.5 gm Q15M PRN PO DECREASED GLUCOSE; Start 06/28/18 at 01:00 Dextrose (D50w Syringe) 25 ml Q15M PRN IV DECREASED GLUCOSE Last administered on 07/09/18at 15:10; Admin Dose 25 ML; Start 06/28/18 at 01:00 Dextrose (D50w Syringe) 50 ml Q15M PRN IV DECREASED GLUCOSE; Start 06/28/18 at 01:00 Glucagon (Glucagen) 1 mg Q15M PRN IM DECREASED GLUCOSE; Start 06/28/18 at 01:00 Glucose (Glutose) 15 gm Q15M PRN BUCCAL DECREASED GLUCOSE; Start 06/28/18 at 01:00 IV Flush (NS 10 ml) 10 ml PRN PRN IV IV PROTOCOL; Start 06/28/18 at 12:00 Collagenase (Santyl) 1 applic BID TOP Last administered on 07/09/18at 08:15; Admin Dose 1 APPLIC; Start 06/30/18 at 15:00 Amikacin Sulfate (Amikacin Iv Per Pharmacy) AMIKACIN PER PHARMACY NOTE XX ; Start 07/01/18 at 14:30 Miscellaneous Information (Pending Santyl Order For Wound Care) This patient mccloud... PRN PRN XX unstageable sacrococcyx; Start 07/02/18 at 07:00 Metronidazole 100 ml @ 100 mls/hr Q8 IVPB Last administered on 07/09/18at 15:06; Admin Dose 100 MLS/HR; Start 07/02/18 at 16:00 Amikacin Sulfate 950 mg/Sodium Chloride 253.8 ml @ 103.8 mls/ hr Q36H IVPB Last administered on 07/04/18at 17:58; Admin Dose 103.8 MLS/HR; Start 07/03/18 at 06:00; Status Hold Acetylcysteine (Mucomyst) 3 ml Q6H RESP THERAPY PRN NEB when pt has congestion Last administered on 07/04/18 03:22; Admin Dose 3 ML; Start 07/03/18 at 21:00 Albuterol/ Ipratropium (Duoneb) 3 ml Q2H RESP THERAPY PRN HHN for congestion Last administered on 07/04/18 03:22; Admin Dose 3 ML; Start 07/03/18 at 21:00 Alteplase, Recombinant (Cathflo (Activase)) 2 mg MAY REPEAT X1 PRN CATHETER IF CATHETER REMAINS OCCULUDED Last administered on 07/06/18 02:20; Admin Dose 2 MG; Start 07/06/18 at 01:00 Ampicillin 50 ml @ 100 mls/hr Q8 IVPB Last administered on 07/09/18 13:45; Admin Dose 100 MLS/HR; Start 07/06/18 at 17:00 Vasopressin 60 unit/Dextrose 60 ml @ 1.2 mls/hr Q12H IV Last administered on 07/09/18at 15:09; Admin Dose 2.4 MLS/HR; Start 07/07/18 at 01:00 Epinephrine 4 mg/ Sodium Chloride 250 ml @ 3.75 mls/hr TITRATE IV Last administered on 07/09/18 16:00; Admin Dose 30 MLS/HR; Start 07/07/18 at 07:00 Phenylephrine HCl 160 mg/Dextrose 500 ml @ 18.75 mls/ hr TITRATE IV Last administered on 07/09/18 11:13; Admin Dose 56.25 MLS/HR; Start 07/07/18 at 11:00 Midodrine (Proamatine) 10 mg Q8 GTB Last administered on 07/07/18 21:53; Admin Dose 10 MG; Start 07/07/18 at 14:00 Fluconazole 200 ml @ 100 mls/hr BID IVPB Last administered on 07/09/18 09:15; Admin Dose 100 MLS/HR; Start 07/08/18 at 15:00 Norepinephrine 32 mg/Dextrose 500 ml @ 0.94 mls/hr TITRATE IV Last administered on 07/09/18 12:16; Admin Dose 30 MLS/HR; Start 07/09/18 at 09:30 Miscellaneous Information (*Rx Drug Level Order Reminder*) RANDOM AMIKACIN LEVEL 1... ONCE ONCE XX ; Start 07/10/18 at 05:00; Stop 07/10/18 at 05:01 ENID SINGH Jul 09, 2018 16:23
[2018-07-09] MEDS: ATORVASTATIN 20 MG TAB GTB SCH (20:19)
[2018-07-10] VITALS (57 sets, daily range): BP systolic 32–83; BP diastolic 10–50; PULSE 0–98; RESP 9–30; Ht 167.6 cm; Wt 92.9 kg
[2018-07-10] MEDS: VASOPRESSIN 60 UNIT in DEXTROSE 5% 57 ML IV SCH ×2 (01:00→03:45)
[2018-07-10] MEDS: PHENYLephrine 160 MG in DEXTROSE 5% 484 ML IV SCH ×2 (01:12→05:27)
[2018-07-10] MEDS: GENTAMICIN 0.3% 5 ML OPH BOTH EYES SCH ×2 (03:16→08:53)
[2018-07-10] MEDS ORDERED: DOPamine-D5W 1.6 MG/ML 250 ML IV SCH (05:00)
[2018-07-10] MEDS ORDERED: SOD CHLORIDE 0.9% 1,000 ML IV ONE (05:00)
[2018-07-10] MEDS: EPINEPHrine 4 MG in SOD CHLORIDE 0.9% 246 ML IV SCH (05:35)
[2018-07-10] MEDS: LANSOPRAZOLE 30 MG CAP GTB SCH (05:46)
[2018-07-10] MEDS: MIDODRINE 2.5 MG TAB GTB SCH (05:46)
[2018-07-10] MEDS ORDERED: ALBUMIN HUMAN 25% 100 ML IV SCH (06:00)
[2018-07-10] MEDS ORDERED: ALBUMIN HUMAN 25% 100 ML ONE (06:05)
[2018-07-10] MEDS: AMPICILLIN 1 GM/NS (PMX) 50 ML IVPB SCH (06:11)
[2018-07-10] MEDS: metroNIDAZOLE 500 MG/NS (PMX) 100 ML IVPB SCH (06:27)
--- NOTE | 2018-07-10 08:22 | CONS ---
Date/Time of Note Date/Time of Note DATE: 07/10/18 TIME: 08:20 Assessment/Plan Assessment/Plan Assessment/Plan 1. Hypotension/shock state, likely septic on 2 pressors - BP trending down, no escalation of care planned now. 2. Premature ventricular contractions in a pattern of bigeminy. Assess for coronary ischemia, acute coronary syndrome. Stable. 3. Dyslipidemia. 4. Peripheral arterial disease, status post lower extremity amputation - vascular team follows. 5. Seizure disorder. 6. Anemia - No active bleeding. 7. Encephalopathy. 8. History of pulmonary coccidioidomycosis. 9. Chronic respiratory failure, status post tracheostomy - con;t resp Rx. 10. Dysphagia, status post G-tube. Result Diagram: 07/08/185 07/08/18444 Results 24hrs Laboratory Tests Test 07/09/18 09:14 07/09/18 09:46 07/09/18 10:19 07/09/18 15:09 Bedside Glucose 60 L 97 88 56 L Test 07/09/18 15:56 07/09/18 19:31 07/09/18 23:24 07/10/18 04:27 Bedside Glucose 81 72 108 72 Consultation Date/Type/Reason Admit Date/Time Jun 27, 2018 at 22:49 Initial Consult Date 06/28/18 Requesting Provider: ENID SINGH 24 HR Interval Summary Free Text/Dictation BP trending down, no escalation of care planned now. ROS: per nurse - no fevers, no CP, comfortable Exam/Review of Systems Vital Signs Vitals Vital Signs Date Temp Pulse Resp B/P (MAP) Pulse Ox O2 O2 Flow FiO2 Time Delivery Rate 07/10/18 97.7 91 16 62/26 (38) 100 Mechanical 08:00 Ventilator 07/10/18 100 08:00 Intake and Output 07/09/18 07/09/18 07/10/18 1515:00 23:00 07:00 IntakeIntake Total 1330.45 ml 1478.55 ml 1704.43 ml OutputOutput Total 160 ml 665 ml 400 ml BalanceBalance 1170.45 ml 813.55 ml 1304.43 ml Exam General: WN/WD/NAD, AOx 0 HEENT: Unicetric/atraumatic/EOMI (does not follow commands) NECK: JVD elevated, no thyromegaly - intub Lymph: no lymphadenopathy HEART: regular with no S3, II/ systolic murmur at apex LUNGS: Coarse sounds ABD: soft, NT, ND, +BS : Intact Neuro: non focal SKIN: chronic changes, decub EXT: amputation Medications Medications Current Medications Acetaminophen (Tylenol Liquid) 650 mg Q6H PRN GTB FEVER; Start 06/28/18 at 00:00 Aspirin (Aspirin) 81 mg DAILY GTB Last administered on 07/07/18 08:43; Admin Dose 81 MG; Start 06/28/18 at 09:00 Atenolol (Tenormin) 12.5 mg BID GTB Last administered on 07/06/18 08:32; Admin Dose 12.5 MG; Start 06/28/18 at 09:00 Atorvastatin Calcium (Lipitor) 20 mg HS GTB Last administered on 07/07/18 20:50; Admin Dose 20 MG; Start 06/28/18 at 21:00 Gentamicin Sulfate (Gentamicin 0.3% Oph Drop) 2 drop Q4H BOTH EYES Last administered on 07/10/18 03:16; Admin Dose 2 DROP; Start 06/28/18 at 00:00 Glucagon (Glucagen) 1 mg PRN PRN IM HYPOGLYCEMIA (BS<70); Start 06/28/18 at 00:00 Insulin Glargine (Lantus) 10 units DAILY SC Last administered on 07/07/18 08:46; Admin Dose 10 UNITS; Start 06/28/18 at 08:00 Lansoprazole (Prevacid) 30 mg BID@,18 GTB Last administered on 07/07/18 18:23; Admin Dose 30 MG; Start 06/28/18 at 06:00 Levetiracetam (Keppra Liquid) 1,000 mg BID GTB Last administered on 07/09/18 20:26; Admin Dose 1,000 MG; Start 06/28/18 at 09:00 Memantine (Namenda) 10 mg DAILY GTB Last administered on 07/07/18 08:39; Admin Dose 10 MG; Start 06/28/18 at 09:00 Nystatin (Nystatin Powder) 1 applic BID TOP Last administered on 07/09/18 20:17; Admin Dose 1 APPLIC; Start 06/28/18 at 09:00 Miscellaneous Information 1 ea NOTE XX ; Start 06/28/18 at 01:00 Glucose (Glutose) 15 gm Q15M PRN PO DECREASED GLUCOSE; Start 06/28/18 at 01:00 Glucose (Glutose) 22.5 gm Q15M PRN PO DECREASED GLUCOSE; Start 06/28/18 at 01:00 Dextrose (D50w Syringe) 25 ml Q15M PRN IV DECREASED GLUCOSE Last administered on 07/09/18at 15:10; Admin Dose 25 ML; Start 06/28/18 at 01:00 Dextrose (D50w Syringe) 50 ml Q15M PRN IV DECREASED GLUCOSE; Start 06/28/18 at 01:00 Glucagon (Glucagen) 1 mg Q15M PRN IM DECREASED GLUCOSE; Start 06/28/18 at 01:00 Glucose (Glutose) 15 gm Q15M PRN BUCCAL DECREASED GLUCOSE; Start 06/28/18 at 01:00 IV Flush (NS 10 ml) 10 ml PRN PRN IV IV PROTOCOL; Start 06/28/18 at 12:00 Collagenase (Santyl) 1 applic BID TOP Last administered on 07/09/18at 20:17; Admin Dose 1 APPLIC; Start 06/30/18 at 15:00 Amikacin Sulfate (Amikacin Iv Per Pharmacy) AMIKACIN PER PHARMACY NOTE XX ; Start 07/01/18 at 14:30 Miscellaneous Information (Pending Santyl Order For Wound Care) This patient mccloud... PRN PRN XX unstageable sacrococcyx; Start 07/02/18 at 07:00 Metronidazole 100 ml @ 100 mls/hr Q8 IVPB Last administered on 07/10/18at 06:27; Admin Dose 100 MLS/HR; Start 07/02/18 at 16:00 Amikacin Sulfate 950 mg/Sodium Chloride 253.8 ml @ 103.8 mls/ hr Q36H IVPB Last administered on 07/04/18at 17:58; Admin Dose 103.8 MLS/HR; Start 07/03/18 at 0 6:00; Status Hold Acetylcysteine (Mucomyst) 3 ml Q6H RESP THERAPY PRN NEB when pt has congestion Last administered on 07/04/18at 03:22; Admin Dose 3 ML; Start 07/03/18 at 21:00 Albuterol/ Ipratropium (Duoneb) 3 ml Q2H RESP THERAPY PRN HHN for congestion Last administered on 07/04/18 03:22; Admin Dose 3 ML; Start 07/03/18 at 21:00 Alteplase, Recombinant (Cathflo (Activase)) 2 mg MAY REPEAT X1 PRN CATHETER IF CATHETER REMAINS OCCULUDED Last administered on 07/06/18at 02:20; Admin Dose 2 MG; Start 07/06/18 at 01:00 Ampicillin 50 ml @ 100 mls/hr Q8 IVPB Last administered on 07/10/18at 06:11; Admin Dose 100 MLS/HR; Start 07/06/18 at 17:00 Vasopressin 60 unit/Dextrose 60 ml @ 1.2 mls/hr Q12H IV Last administered on 07/10/18at 03:45; Admin Dose 2.4 MLS/HR; Start 07/07/18 at 01:00 Epinephrine 4 mg/ Sodium Chloride 250 ml @ 3.75 mls/hr TITRATE IV Last administered on 07/10/18 05:35; Admin Dose 37.5 MLS/HR; Start 07/07/18 at 07:00 Phenylephrine HCl 160 mg/Dextrose 500 ml @ 18.75 mls/ hr TITRATE IV Last administered on 07/10/18 05:27; Admin Dose 56.25 MLS/HR; Start 07/07/18 at 11:00 Midodrine (Proamatine) 10 mg Q8 GTB Last administered on 07/07/18at 21:53; Admin Dose 10 MG; Start 07/07/18 at 14:00 Fluconazole 200 ml @ 100 mls/hr BID IVPB Last administered on 07/09/18at 20:37; Admin Dose 100 MLS/HR; Start 07/08/18 at 15:00 Norepinephrine 32 mg/Dextrose 500 ml @ 0.94 mls/hr TITRATE IV Last administered on 07/10/18 04:20; Admin Dose 28.13 MLS/HR; Start 07/10/18 at 04:30 Dopamine HCl/ Dextrose 250 ml @ 5.565 mls/ hr TITRATE IV Last administered on 07/10/18 05:02; Admin Dose 5.565 MLS/HR; Start 07/10/18 at 05:00 Albumin Human 100 ml @ 100 mls/hr Q8H IV Last administered on 07/10/18at 06:27; Admin Dose 100 MLS/HR; Start 07/10/18 at 06:00; Stop 07/10/18 at 14:59 GABINO CEDENO MD Jul 10, 2018 08:22
[2018-07-10] MEDS ORDERED: PHENYLephrine 160 MG in DEXTROSE 5% 484 ML IV SCH (08:30)
[2018-07-10] MEDS: ASPIRIN 325 MG TAB GTB SCH (08:37)
[2018-07-10] MEDS: MEMANTINE 10 MG TAB GTB SCH (08:38)
[2018-07-10] MEDS: LEVETIRACETAM (100 MG/ML) 5ML CUP GTB SCH (08:38)
[2018-07-10] MEDS: ATENOLOL 25 MG TAB GTB SCH (08:38)
[2018-07-10] MEDS: INSULIN GLARGINE [LANTus] (100 UNITS/ML) SYG SC SCH (08:39)
[2018-07-10] MEDS: COLLAGENASE 5 GM (UD JAR) TOP SCH (08:53)
[2018-07-10] MEDS: NYSTATIN 30 GM POWDER BTL TOP SCH (08:53)
[2018-07-10] MEDS: FLUCONAZOLE 400 MG/NS (PMX) 200 ML IVPB SCH (08:53)
--- NOTE | 2018-07-10 09:31 | CONS ---
Date/Time of Note Date/Time of Note DATE: 07/10/18 TIME: 09:29 Assessment/Plan Assessment/Plan Assessment/Plan Ventilator setting; AC of 16, tidal volume 500, PEEP of 0, 100% FiO2. Patient is currently on vasopressin 0.04 units/min, epinephrine drip 8 mics per minute, Levophed 30 mics per minute, phenylephrine drip 300 mics per minute. Assessment recommendations; 1. Patient with history of chronic encephalopathy and VDR F admitted for severe sepsis due to pneumonia with refractory shock. Patient has not responded to aggressive medical management. 2. Acute renal failure with anuria. 3. History of coccidiomycosis pneumonia. Continue current supportive care. Prognosis is dismal. Result Diagram: 07/08/18 0445 07/08/18 0445 Results 24hrs Laboratory Tests Test 07/09/18 09:46 07/09/18 10:19 07/09/18 15:09 07/09/18 15:56 Bedside Glucose 97 88 56 L 81 Test 07/09/18 19:31 07/09/18 23:24 07/10/18 04:27 07/10/18 09:24 Bedside Glucose 72 108 72 Lab Scanned Report REFERENCE LAB Consultation Date/Type/Reason Admit Date/Time Jun 27, 2018 at 22:49 Initial Consult Date 06/28/18 Type of Consult Pulmonary/critical care History of presenting illness; Patient is a 62-year-old male who was transferred over from [facility] because of hypotension. Patient has history of advanced encephalopathy and was unable to give any history by himself whatsoever. History has been obtained from medical records. Patient currently is requiring high-dose pressor support. Past medical history; 1. History of chronic encephalopathy. 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 4. History of tracheostomy and G-tube placement. 5. History of seizure disorder. 6. Sacral ulcer. 7. Diabetes. 8. Chronic anemia. Medications; reviewed. Allergies; none. Family history, social history, occupational history is or not available. Review of system; unable to be obtained. General exam; elderly male, on ventilator via tracheostomy, opens eyes on name calling but remains noncommunicative. Currently in no distress. Requesting Provider: ENID SINGH 24 HR Interval Summary Free Text/Dictation Patient's condition remains extremely critical. Still on multiple pressor agents for refractory shock. General exam; elderly male, on ventilator via tracheostomy, unresponsive, currently in no distress. Exam/Review of Systems Vital Signs Vitals Vital Signs Date Temp Pulse Resp B/P (MAP) Pulse Ox O2 O2 Flow FiO2 Time Delivery Rate 07/10/18 97.7 91 16 62/26 (38) 100 Mechanical 08:00 Ventilator 07/10/18 100 08:00 Intake and Output 07/09/18 07/09/18 07/10/18 1515:00 23:00 07:00 IntakeIntake Total 1330.45 ml 1478.55 ml 2069.71 ml OutputOutput Total 160 ml 665 ml 400 ml BalanceBalance 1170.45 ml 813.55 ml 1669.71 ml Exam HEENT exam; supple neck, positive JVD. No lymphadenopathy. Midline trachea. No thyromegaly. Tracheostomy in place. Insertion site is clean. Patient is edentulous. Chest exam; diminished breath sounds throughout. S1-S2 audible, no murmurs. Regular rhythm. Abdomen exam; soft, G-tube in place. Bowel sounds are absent. No organomegaly. Extremity exam; no peripheral edema. Peripheral pulses not palpable. REPORTING ANALYST exam; patient remains unresponsive. Medications Medications Current Medications Acetaminophen (Tylenol Liquid) 650 mg Q6H PRN GTB FEVER; Start 06/28/18 at 00:00 Aspirin (Aspirin) 81 mg DAILY GTB Last administered on 07/07/18 08:43; Admin Dose 81 MG; Start 06/28/18 at 09:00 Atenolol (Tenormin) 12.5 mg BID GTB Last administered on 07/06/18 08:32; Admin Dose 12.5 MG; Start 06/28/18 at 09:00 Atorvastatin Calcium (Lipitor) 20 mg HS GTB Last administered on 07/07/18 20:50; Admin Dose 20 MG; Start 06/28/18 at 21:00 Gentamicin Sulfate (Gentamicin 0.3% Oph Drop) 2 drop Q4H BOTH EYES Last administered on 07/10/18 08:53; Admin Dose 2 DROP; Start 06/28/18 at 00:00 Glucagon (Glucagen) 1 mg PRN PRN IM HYPOGLYCEMIA (BS<70); Start 06/28/18 at 00:00 Insulin Glargine (Lantus) 10 units DAILY SC Last administered on 07/07/18at 08:46; Admin Dose 10 UNITS; Start 06/28/18 at 08:00 Lansoprazole (Prevacid) 30 mg BID@06,18 GTB Last administered on 07/07/18at 18:23; Admin Dose 30 MG; Start 06/28/18 at 06:00 Levetiracetam (Keppra Liquid) 1,000 mg BID GTB Last administered on 07/09/18at 20:26; Admin Dose 1,000 MG; Start 06/28/18 at 09:00 Memantine (Namenda) 10 mg DAILY GTB Last administered on 07/07/18at 08:39; Admin Dose 10 MG; Start 06/28/18 at 09:00 Nystatin (Nystatin Powder) 1 applic BID TOP Last administered on 07/10/18at 08:53; Admin Dose 1 APPLIC; Start 06/28/18 at 09:00 Miscellaneous Information 1 ea NOTE XX ; Start 06/28/18 at 01:00 Glucose (Glutose) 15 gm Q15M PRN PO DECREASED GLUCOSE; Start 06/28/18 at 01:00 Glucose (Glutose) 22.5 gm Q15M PRN PO DECREASED GLUCOSE; Start 06/28/18 at 01:00 Dextrose (D50w Syringe) 25 ml Q15M PRN IV DECREASED GLUCOSE Last administered on 07/09/18at 15:10; Admin Dose 25 ML; Start 06/28/18 at 01:00 Dextrose (D50w Syringe) 50 ml Q15M PRN IV DECREASED GLUCOSE; Start 06/28/18 at 01:00 Glucagon (Glucagen) 1 mg Q15M PRN IM DECREASED GLUCOSE; Start 06/28/18 at 01:00 Glucose (Glutose) 15 gm Q15M PRN BUCCAL DECREASED GLUCOSE; Start 06/28/18 at 01:00 IV Flush (NS 10 ml) 10 ml PRN PRN IV IV PROTOCOL; Start 06/28/18 at 12:00 Collagenase (Santyl) 1 applic BID TOP Last administered on 07/10/18at 08:53; Admin Dose 1 APPLIC; Start 06/30/18 at 15:00 Amikacin Sulfate (Amikacin Iv Per Pharmacy) AMIKACIN PER PHARMACY NOTE XX ; Start 07/01/18 at 14:30 Miscellaneous Information (Pending [facility] Order For Wound Care) This patient mccloud... PRN PRN XX unstageable sacrococcyx; Start 07/02/18 at 07:00 Metronidazole 100 ml @ 100 mls/hr Q8 IVPB Last administered on 07/10/18 06:2 7; Admin Dose 100 MLS/HR; Start 07/02/18 at 16:00 Amikacin Sulfate 950 mg/Sodium Chloride 253.8 ml @ 103.8 mls/ hr Q36H IVPB Last administered on 07/04/18 17:58; Admin Dose 103.8 MLS/HR; Start 07/03/18 at 06:00; Status Hold Acetylcysteine (Mucomyst) 3 ml Q6H RESP THERAPY PRN NEB when pt has congestion Last administered on 07/04/18 03:22; Admin Dose 3 ML; Start 07/03/18 at 21:00 Albuterol/ Ipratropium (Duoneb) 3 ml Q2H RESP THERAPY PRN HHN for congestion Last administered on 07/04/18 03:22; Admin Dose 3 ML; Start 07/03/18 at 21:00 Alteplase, Recombinant (Cathflo (Activase)) 2 mg MAY REPEAT X1 PRN CATHETER IF CATHETER REMAINS OCCULUDED Last administered on 07/06/18 02:20; Admin Dose 2 MG; Start 07/06/18 at 01:00 Ampicillin 50 ml @ 100 mls/hr Q8 IVPB Last administered on 07/10/18 06:11; Admin Dose 100 MLS/HR; Start 07/06/18 at 17:00 Vasopressin 60 unit/Dextrose 60 ml @ 1.2 mls/hr Q12H IV Last administered on 07/10/18 03:45; Admin Dose 2.4 MLS/HR; Start 07/07/18 at 01:00 Epinephrine 4 mg/ Sodium Chloride 250 ml @ 3.75 mls/hr TITRATE IV Last administered on 07/10/18 05:35; Admin Dose 37.5 MLS/HR; Start 07/07/18 at 07:00 Midodrine (Proamatine) 10 mg Q8 GTB Last administered on 07/07/18 21:53; Admin Dose 10 MG; Start 07/07/18 at 14:00 Fluconazole 200 ml @ 100 mls/hr BID IVPB Last administered on 07/10/18at 08:53; Admin Dose 100 MLS/HR; Start 07/08/18 at 15:00 Norepinephrine 32 mg/Dextrose 500 ml @ 0.94 mls/hr TITRATE IV Last administered on 07/10/18at 04:20; Admin Dose 28.13 MLS/HR; Start 07/10/18 at 04:30 Dopamine HCl/ Dextrose 250 ml @ 5.565 mls/ hr TITRATE IV Last administered on 07/10/18at 05:02; Admin Dose 5.565 MLS/HR; Start 07/10/18 at 05:00 Albumin Human 100 ml @ 100 mls/hr Q8H IV Last administered on 07/10/18at 06:27; Admin Dose 100 MLS/HR; Start 07/10/18 at 06:00; Stop 07/10/18 at 14:59 Phenylephrine HCl 160 mg/Dextrose 500 ml @ 18.75 mls/ hr TITRATE IV ; Start 07/10/18 at 08:30 RODNEY MASCORRO Jul 10, 2018 09:31
--- NOTE | 2018-07-10 12:20 | EN ---
Date/Time of Note Date/Time of Note DATE: 07/10/18 TIME: 12:16 Event Note Medicine Medicine Event Note Patient 12.11pm. No heart sounds No breath sounds with vent held No spontaneous respiratory effort. Pupils fixed and dilated. No gag reflex. Family to be notified. therapeutic activities services worker to be informed. RAFIQ LEGGETT MD, [facility] Jul 10, 2018 12:20
--- NOTE | 2018-07-10 16:02 | DES ---
Date/Time of Note Date/Time of Note DATE: 07/10/18 TIME: 15:56 Discharge/ Summary Admission/Discharge Info Admit Date/Time Jun 27, 2018 at 22:49 Date/Time July 10, 2018 Final Diagnosis Cardiopulmonary failure secondary to septic shock from unstageable sacral coccyx decubitus ulcers and pulmonary cocci History of CVA with functional quadriplegia status post trach and PEG Diabetes Preliminary Cause of Cardiopulmonary failure secondary to septic shock from unstageable sacral coccyx decubitus ulcers and pulmonary cocci History of CVA with functional quadriplegia status post trach and PEG Diabetes Hospital Course Patient is a 62-year-old male with a history of massive CVA with subsequent functional quadriplegia, tracheostomy and PEG tube placement. Patient does have a history of pulmonary cocci, patient was at [facility] and was transferred for shock likely secondary to decubitus ulcers and pulmonary cocci. Patient did receive IV antibiotics as well as fluids and pressors, patient was being followed by ID. Patient's condition continued to decline despite aggressive efforts. Family conference was held several times by various attendings and family wanted aggressive care including chest compressions. Patient's functional status was poor and patient was frail thus chest compressions were inappropriate and so bioethics meeting was requested by palliative care who also agreed that chest compressions cause more harm than good. Bioethics decision was to support the primary and consultants decision to make the patient a DO NOT RESUSCITATE and to not perform chest compressions. Patient's daughter was asked to come to the bioethics meeting to join the discussion but she did not attend, she was also requested to be available by phone for continuation of discussion but she did not pickle solution maker the phone. Attempts were made by myself this morning to contact the patient's daughter with no success. Patient on 07/10/2018. ENID SINGH Jul 10, 2018 16:02
== END 2018-07-10 12:11 | disposition expired | DRG 870 ==
LOC: ICU 22:49
PROVIDERS: ADMIT Internal Medicine Pulmonary Disease; ATTEND Internal Medicine
PROC: 5A1955Z Respiratory Ventilation, Greater than 96 Consecutive Hours (ICD-10-PCS; principal; 2018-06-28)
PROC: 02HV33Z Insertion of Infusion Device into Superior Vena Cava, Percutaneous Approach (ICD-10-PCS; 2018-06-28)
PROC: 30233N1 Transfusion of Nonautologous Red Blood Cells into Peripheral Vein, Percutaneous Approach (ICD-10-PCS; 2018-06-28)
DX: A41.9 Sepsis, unspecified organism (principal); R65.21 Severe sepsis with septic shock; J18.9 Pneumonia, unspecified organism; R53.2 Functional quadriplegia; J96.10 Chronic respiratory failure, unspecified whether with hypoxia or hypercapnia; G93.40 Encephalopathy, unspecified; B38.2 Pulmonary coccidioidomycosis, unspecified; N17.9 Acute kidney failure, unspecified; E87.2 Acidosis; J44.0 Chronic obstructive pulmonary disease with (acute) lower respiratory infection; M86.9 Osteomyelitis, unspecified; E87.1 Hypo-osmolality and hyponatremia; L89.150 Pressure ulcer of sacral region, unstageable; Z93.0 Tracheostomy status; Z87.01 Personal history of pneumonia (recurrent); D64.89 Other specified anemias; R13.10 Dysphagia, unspecified; I95.9 Hypotension, unspecified; I49.3 Ventricular premature depolarization; E78.5 Hyperlipidemia, unspecified; G40.909 Epilepsy, unspecified, not intractable, without status epilepticus; Z66 Do not resuscitate; E11.51 Type 2 diabetes mellitus with diabetic peripheral angiopathy without gangrene; H70.91 Unspecified mastoiditis, right ear; E11.69 Type 2 diabetes mellitus with other specified complication; D69.6 Thrombocytopenia, unspecified; R09.2 Respiratory arrest; I10 Essential (primary) hypertension; Z93.1 Gastrostomy status; Z89.519 Acquired absence of unspecified leg below knee; Z87.2 Personal history of diseases of the skin and subcutaneous tissue; I69.365 Other paralytic syndrome following cerebral infarction, bilateral
CPT/HCPCS: 36430; 36569; 36600; 70470; 71045; 74018; 76937; 80048; 80053; 80150; 80202; 81001; 82270; 82550; 82553; 82803; 82962; 83605; 83735; 84100; 84484; 85014; 85018; 85025; 86850; 86900; 86901; 86920; 87040; 87045; 87070; 87075; 87081; 87086; 89220; 93005; 94002; 94003; 94640; J0171; J0278; J0290; J1170; J1265; J1450; J1815; J2060; J2185; J2370; J2765; J3370; J3475; J3480; J7030; J7040; J7042; J7050; J7060; J7070; P9016; P9047; Q9967